=== PATIENT | female | born 1985 | race Caucasian/White ===

== ENCOUNTER 2023-06-10 20:22 | Inpatient (IN) | payer MEDICARE, OTHER ==
[2023-06-10 20:36] LABS: Glucose,Whole Blood 254 mg/dL (70-110)
[2023-06-10 21:41] LABS: Basophils # (A) 0.1 k/uL (0-0.2); Basophils % (A) 1 %; Eosinophils # (A) 0.2 k/uL (0-0.7); Eosinophils % (A) 2 %; HCT 50.3 % (34.0-46.0); HGB 14.9 gm/dL (11.4-16.0); Hypochromasia Slight; Lymphocytes # (A) 2.4 k/uL (1.0-4.8); Lymphocytes % (A) 27 %; MCH 25.2 pg (25.0-35.0); MCHC 29.7 g/dL (31.0-37.0); Mean Platelet Volume 8.6; Monocytes # (A) 0.5 k/uL (0-1.0); Monocytes % (A) 6 %; Neutrophils # (A) 5.5 k/uL (1.3-7.7); Neutrophils % (A) 63 %; Platelet Count 268 k/uL (150-450); RBC 5.92 m/uL (3.80-5.40); RDW 14.7 % (11.5-15.5); WBC 8.7 k/uL (3.8-10.6)
[2023-06-10 21:57] LABS: INR 0.9 (<1.2); Partial Thromboplastin Time 23.2 sec (22.0-30.0); Prothrombin Time 10.4 sec (10.0-12.5)
[2023-06-10] MEDS: SODIUM CHLORIDE 0.9% 1,000 ML IV STA (21:58)
[2023-06-10] MEDS: SODIUM CHLORIDE 0.9% 500 ML 500 ML IV ONE (21:58)
--- NOTE | 2023-06-10 23:43 | ED ---
Altered Mental Status HPI - General Source: EMS Mode of arrival: EMS <Dustin Alejandro - Last Filed: 06/10/23 23:54> <Arlet Ramirez - Last Filed: 06/11/23 06:38> <Mayank Loredo - Last Filed: 06/11/23 10:37> - General Chief Complaint: Altered Mental Status Stated Complaint: Mental Health Time Seen by Provider: 06/10/23 21:04 - History of Present Illness Initial Comments: This 38-year-old female presents via EMS from rehab facility. She apparently was screaming and uncontrollable at the facility. She is apparently there for alcohol and drug abuse. She is nonverbal for me and is not answering any questions. She is somewhat obtunded but will wake up. History is extremely limited secondary to current medical state. (Dustin Alejandro) - Related Data Home Medications Medication Instructions Recorded Confirmed Albuterol Sulfate [Albuterol 1 - 2 puff PO RT-QID PRN 06/11/23 06/11/23 Sulfate Hfa] Atorvastatin [Lipitor] 80 mg PO HS 06/11/23 06/11/23 DULoxetine HCL [Cymbalta] 60 mg PO HS 06/11/23 06/11/23 Doxycycline [Vibramycin] 100 mg PO BID 06/11/23 06/11/23 Gabapentin [Neurontin] 100 mg PO TID 06/11/23 06/11/23 Insulin Detemir (Levemir) [Levemir] 18 unit SQ DAILY 06/11/23 06/11/23 Insulin Regular, Human [NovoLIN R] See Protocol SQ AC-TID 06/11/23 06/11/23 Lurasidone [Latuda] 160 mg PO DAILY 06/11/23 06/11/23 Metoprolol Succinate (ER) [Toprol 25 mg PO DAILY 06/11/23 06/11/23 Xl] OXcarbazepine [Trileptal] 300 mg PO BID 06/11/23 06/11/23 Omeprazole [PriLOSEC] 20 mg PO DAILY 06/11/23 06/11/23 PHENobarbitaL [PHENobarbital] See Taper PO DIRECTED 06/11/23 06/11/23 Paliperidone [Paliperidone ER] 3 mg PO DAILY 06/11/23 06/11/23 Sacubitril/Valsartan [Entresto 24 1 tab PO BID 06/11/23 06/11/23 mg-26 mg Tablet] Allergies Allergy/AdvReac Type Severity Reaction Status Date / Time No Known Allergies Allergy Verified 06/11/23 09:39 Review of Systems ROS Other: All systems not noted in ROS Statement are negative. <Dustin Alejandro - Last Filed: 06/10/23 23:54> ROS Other: All systems not noted in ROS Statement are negative. <Arlet Ramirez P - Last Filed: 06/11/23 06:38> ROS Other: All systems not noted in ROS Statement are negative. <Mayank Loredo - Last Filed: 06/11/23 10:37> ROS Statement: Those systems with pertinent positive or pertinent negative responses have been documented in the HPI. Past Medical History Past Medical History: Unable to Obtain, Diabetes Mellitus History of Any Multi-Drug Resistant Organisms: None Reported Past Surgical History: Unable to Obtain Past Psychological History: Anxiety, Depression, Schizophrenia Smoking Status: Current every day smoker Past Alcohol Use History: Daily Past Drug Use History: Marijuana, Methamphetamine, Opiates <Dustin Alejandro - Last Filed: 06/10/23 23:54> General Exam <Dustin Alejandro - Last Filed: 06/10/23 23:54> - General Exam Comments Initial Comments: GENERAL: The patient is well nourished and well hydrated. VITAL SIGNS: Heart rate, blood pressure, respiratory rate reviewed as recorded in nurse's notes. EYES: Pupils are round and reactive. Extraocular movements are intact. No conjunctival / lid redness or swelling. ENT: No external evidence of injury, swelling, or ecchymosis. Airway is patent. Throat is clear. NECK: Nontender. No swelling or evidence of injury. No subcutaneous emphysema. Trachea is midline. No thyroid mass. HEART: Regular rate and rhythm. Good peripheral pulses. LUNGS/CHEST: Breath sounds clear and equal bilaterally. No rales, rhonchi, or wheezes. No ecchymosis, subcutaneous emphysema, or tenderness. ABDOMEN: Abdomen soft without tenderness. No palpable masses or organomegaly. No peritoneal signs. No abdominal wall swelling or ecchymosis. EXTREMITIES: No extremity tenderness. Normal muscle tone and function. No thoracolumbar tenderness. Patient has bilateral lower extremity below the knee amputations. NEUROLOGIC: Sensation is grossly intact. Patient is obtunded and nonverbal. SKIN: No abrasions or ecchymosis is noted. No induration or masses noted. PSYCHIATRIC: Patient is obtunded and nonverbal. (Dustin Alejandro) Course Vital Signs 06/10/23 06/10/23 06/10/23 20:27 22:15 23:21 Temperature Pulse Rate 91 89 90 Respiratory 12 20 15 Rate Blood Pressure 131/89 112/77 93/61 O2 Sat by Pulse 96 95 99 Oximetry 06/11/23 06/11/23 06/11/23 00:18 00:19 01:00 Temperature Pulse Rate 87 91 92 Respiratory 14 20 15 Rate Blood Pressure 105/74 105/74 106/72 O2 Sat by Pulse 94 L 94 L 98 Oximetry 06/11/23 06/11/23 06/11/23 02:00 03:00 04:00 Temperature Pulse Rate 98 90 90 Respiratory 15 14 14 Rate Blood Pressure 109/74 144/82 97/72 O2 Sat by Pulse 99 95 97 Oximetry 06/11/23 06/11/23 06/11/23 05:00 06:11 08:47 Temperature 97.6 F Pulse Rate 98 93 98 Respiratory 15 15 18 Rate Blood Pressure 108/73 119/76 126/82 O2 Sat by Pulse 97 97 95 Oximetry Medical Decision Making - Lab Data Result diagrams: 06/10/23 21:29 <Dustin Alejandro - Last Filed: 06/10/23 23:54> - Lab Data Result diagrams: 06/10/23 21:29 06/11/23 00:50 <Arlet Ramirez P - Last Filed: 06/11/23 06:38> - Lab Data Result diagrams: 06/10/23 21:29 06/11/23 00:50 <Mayank Loredo - Last Filed: 06/11/23 10:37> - Medical Decision Making The patient was seen and examined. All diagnostics to this plan are reviewed. The EKG shows a normal sinus rhythm with occasional PVC. There is no acute ST elevation identified per my interpretation. There is some slight T wave inversions in 1 and aVL. The QRS interval is slightly elevated at 124 but QTc interval is 448. IV is established and patient is hydrated. Additional studies are currently pending and further care will be passed off to oncoming physician. (Dustin Alejandro) Was pt. sent in by a medical professional or institution (, PA, VOLUNTEER SERVICES ASSISTANT, urgent care, hospital, or snf...) When possible be specific @ -Yes sent from [facility] Did you speak to anyone other than the patient for history (EMS, parent, family, police, friend...)? What history was obtained from this source @ -EMS Did you review nursing and triage notes (agree or disagree)? Why? @ -I reviewed and agree with nursing and triage notes Were old charts reviewed (outside hosp., previous admission, EMS record, old EKG, old radiological studies, urgent care reports/EKG's, snf records)? Report findings @ -No old charts available Differential Diagnosis (chest pain, altered mental status, abdominal pain women, abdominal pain men, vaginal bleeding, weakness, fever, dyspnea, syncope, headache, dizziness, GI bleed, back pain, seizure, CVA, palpatations, mental health)? @ -Differential Altered Mental Status: Hypoglycemia, DKA, hypercapnia, ETOH, overdose, CO poisoning, trauma, myxedema coma, HTN encephalopathy, infection, encephalitis, psychosis, intercranial hemorrhage, hepatic encephalopathy, meningitis, CVA, this is not meant to be an all-inclusive list EKG interpreted by me (3pts min.). @ -As above X-rays interpreted by me (1pt min.). @ -None done CT interpreted by me (1pt min.). @ -No masses bleeds or acute abnormality U/S interpreted by me (1pt. min.). @ -None done What testing was considered but not performed or refused? (CT, X-rays, U/S, labs)? Why? @ -None What meds were considered but not given or refused? Why? @ -None Did you discuss the management of the patient with other professionals (professionals i.e. , PA, VOLUNTEER SERVICES ASSISTANT, lab, RT, psych nurse, outreach and education social worker, sign language interpreter, teacher, chief data officer, assistant case manager)? Give summary @ -Discussed with Sound physician Dr Joe who declines medical admission, r ecommends psychiatric evaluation Was smoking cessation discussed for >3mins.? @ -No Was critical care preformed (if so, how long)? @ -No Were there social determinants of health that impacted care today? How? (Homelessness, low income, unemployed, alcoholism, drug addiction, transportation, low edu. Level, literacy, decrease access to med. care, senior living, rehab)? @ -Drug addiction, transportation, decreased access to medical care Was there de-escalation of care discussed even if they declined (Discuss DNR or withdrawal of care, Hospice)? DNR status @ -No What co-morbidities impacted this encounter? (DM, HTN, Smoking, COPD, CAD, Cancer, CVA, ARF, Chemo, Hep., AIDS, mental health diagnosis, sleep apnea, morbid obesity)? @ -Diabetes, polysubstance abuse, psychiatric illness (Arlet Ramirez) Patient care signed out to me by Dr. Ramirez. Briefly, patient is a 38-year-old female she presents to the emergency department for altered mental status. She was medically cleared by Dr. Fierro. Signed out to Dr. Ramirez. Dr. Ramirez signed out patient pending EPS recommendation. An attempt was made to admit patient medically however hospitalist requested EPS evaluation first. EPS evaluated patient and was not able to get any sort of response from the patient. She is somnolent at the bedside. Suspect drug overdose. She is arousable but requires significant stimulation. Labs and imaging reviewed. Patient has positive UDS for polysubstances. Case discussed with Dr. Mccray who is willing to accept patient's care. Psychiatry will be on consult (Mayank Loredo) - Lab Data Lab Results 06/10/23 06/10/23 06/10/23 Range/Units 20:35 21:29 21:29 WBC 8.7 (3.8-10.6) k/uL RBC 5.92 H (3.80-5.40) m/uL Hgb 14.9 (11.4-16.0) gm/dL Hct 50.3 H (34.0-46.0) % MCV 85.0 (80.0-100.0) fL MCH 25.2 (25.0-35.0) pg MCHC 29.7 L (31.0-37.0) g/dL RDW 14.7 (11.5-15.5) % Plt Count 268 (150-450) k/uL MPV 8.6 Neutrophils % 63 % Lymphocytes % 27 % Monocytes % 6 % Eosinophils % 2 % Basophils % 1 % Neutrophils # 5.5 (1.3-7.7) k/uL Lymphocytes # 2.4 (1.0-4.8) k/uL Monocytes # 0.5 (0-1.0) k/uL Eosinophils # 0.2 (0-0.7) k/uL Basophils # 0.1 (0-0.2) k/uL Hypochromasia Slight PT 10.4 (10.0-12.5) sec INR 0.9 (<1.2) APTT 23.2 (22.0-30.0) sec Sodium (137-145) mmol/L Potassium (3.5-5.1) mmol/L Chloride (98-107) mmol/L Carbon Dioxide (22-30) mmol/L Anion Gap mmol/L BUN (7-17) mg/dL Creatinine (0.52-1.04) mg/dL Est GFR (CKD-EPI)AfAm (>60 ml/min/1.73 sqM) Est GFR (CKD-EPI)NonAf (>60 ml/min/1.73 sqM) Glucose (74-99) mg/dL POC Glucose (mg/dL) 254 H (70-110) mg/dL POC Glu Architectural Engineer ID Jesús Golden Calcium (8.4-10.2) mg/dL Total Bilirubin (0.2-1.3) mg/dL AST (14-36) U/L ALT (4-34) U/L Alkaline Phosphatase (38-126) U/L Ammonia (<30) umol/L Total Protein (6.3-8.2) g/dL Albumin (3.5-5.0) g/dL Urine Color Urine Appearance (Clear) Urine pH (5.0-8.0) Ur Specific [place] (1.001-1.035) Urine Protein (Negative) Urine Glucose (UA) (Negative) Urine Ketones (Negative) Urine Blood (Negative) Urine Nitrite (Negative) Urine Bilirubin (Negative) Urine Urobilinogen (<2.0) mg/dL Ur Leukocyte Esterase (Negative) Urine RBC (0-5) /hpf Urine WBC (0-5) /hpf Amorphous Sediment (None) /hpf Hyaline Casts (0-2) /lpf Urine Mucus (None) /hpf Salicylates mg/dL Urine Opiates Screen (NotDetected) Ur Oxycodone Screen (NotDetected) Urine Methadone Screen (NotDetected) Acetaminophen ug/mL Ur Barbiturates Screen (NotDetected) U Tricyclic Antidepress (NotDetected) Ur Phencyclidine Scrn (NotDetected) Ur Amphetamines Screen (NotDetected) U Methamphetamines Scrn (NotDetected) U Benzodiazepines Scrn (NotDetected) Urine Cocaine Screen (NotDetected) U Marijuana (THC) Screen (NotDetected) Serum Alcohol mg/dL 06/10/23 06/11/23 06/11/23 Range/Units 21:29 00:00 00:50 WBC (3.8-10.6) k/uL RBC (3.80-5.40) m/uL Hgb (11.4-16.0) gm/dL Hct (34.0-46.0) % MCV (80.0-100.0) fL MCH (25.0-35.0) pg MCHC (31.0-37.0) g/dL RDW (11.5-15.5) % Plt Count (150-450) k/uL MPV Neutrophils % % Lymphocytes % % Monocytes % % Eosinophils % % Basophils % % Neutrophils # (1.3-7.7) k/uL Lymphocytes # (1.0-4.8) k/uL Monocytes # (0-1.0) k/uL Eosinophils # (0-0.7) k/uL Basophils # (0-0.2) k/uL Hypochromasia PT (10.0-12.5) sec INR (<1.2) APTT (22.0-30.0) sec Sodium 134 L (137-145) mmol/L Potassium 4.1 (3.5-5.1) mmol/L Chloride 107 (98-107) mmol/L Carbon Dioxide 22 (22-30) mmol/L Anion Gap 5 mmol/L BUN 33 H (7-17) mg/dL Creatinine 0.54 (0.52-1.04) mg/dL Est GFR (CKD-EPI)AfAm >90 (>60 ml/min/1.73 sqM) Est GFR (CKD-EPI)NonAf >90 (>60 ml/min/1.73 sqM) Glucose 233 H (74-99) mg/dL POC Glucose (mg/dL) (70-110) mg/dL POC Glu Architectural Engineer ID Calcium 8.3 L (8.4-10.2) mg/dL Total Bilirubin 0.2 (0.2-1.3) mg/dL AST 18 (14-36) U/L ALT 15 (4-34) U/L Alkaline Phosphatase 78 (38-126) U/L Ammonia <9 (<30) umol/L Total Protein 5.4 L (6.3-8.2) g/dL Albumin 2.7 L (3.5-5.0) g/dL Urine Color Urine Appearance (Clear) Urine pH (5.0-8.0) Ur Specific [place] (1.001-1.035) Urine Protein (Negative) Urine Glucose (UA) (Negative) Urine Ketones (Negative) Urine Blood (Negative) Urine Nitrite (Negative) Urine Bilirubin (Negative) Urine Urobilinogen (<2.0) mg/dL Ur Leukocyte Esterase (Negative) Urine RBC (0-5) /hpf Urine WBC (0-5) /hpf Amorphous Sediment (None) /hpf Hyaline Casts (0-2) /lpf Urine Mucus (None) /hpf Salicylates <1.0 mg/dL Urine Opiates Screen (NotDetected) Ur Oxycodone Screen (NotDetected) Urine Methadone Screen (NotDetected) Acetaminophen <10.0 ug/mL Ur Barbiturates Screen (NotDetected) U Tricyclic Antidepress (NotDetected) Ur Phencyclidine Scrn (NotDetected) Ur Amphetamines Screen (NotDetected) U Methamphetamines Scrn (NotDetected) U Benzodiazepines Scrn (NotDetected) Urine Cocaine Screen (NotDetected) U Marijuana (THC) Screen (NotDetected) Serum Alcohol <10 mg/dL 06/11/23 06/11/23 06/11/23 Range/Units 02:22 02:22 03:38 WBC (3.8-10.6) k/uL RBC (3.80-5.40) m/uL Hgb (11.4-16.0) gm/dL Hct (34.0-46.0) % MCV (80.0-100.0) fL MCH (25.0-35.0) pg MCHC (31.0-37.0) g/dL RDW (11.5-15.5) % Plt Count (150-450) k/uL MPV Neutrophils % % Lymphocytes % % Monocytes % % Eosinophils % % Basophils % % Neutrophils # (1.3-7.7) k/uL Lymphocytes # (1.0-4.8) k/uL Monocytes # (0-1.0) k/uL Eosinophils # (0-0.7) k/uL Basophils # (0-0.2) k/uL Hypochromasia PT (10.0-12.5) sec INR (<1.2) APTT (22.0-30.0) sec Sodium (137-145) mmol/L Potassium (3.5-5.1) mmol/L Chloride (98-107) mmol/L Carbon Dioxide (22-30) mmol/L Anion Gap mmol/L BUN (7-17) mg/dL Creatinine (0.52-1.04) mg/dL Est GFR (CKD-EPI)AfAm (>60 ml/min/1.73 sqM) Est GFR (CKD-EPI)NonAf (>60 ml/min/1.73 sqM) Glucose (74-99) mg/dL POC Glucose (mg/dL) 184 H (70-110) mg/dL POC Glu Architectural Engineer ID Indio Delacruz Calcium (8.4-10.2) mg/dL Total Bilirubin (0.2-1.3) mg/dL AST (14-36) U/L ALT (4-34) U/L Alkaline Phosphatase (38-126) U/L Ammonia (<30) umol/L Total Protein (6.3-8.2) g/dL Albumin (3.5-5.0) g/dL Urine Color Light Yellow Urine Appearance Clear (Clear) Urine pH 5.0 (5.0-8.0) Ur Specific [place] 1.031 (1.001-1.035) Urine Protein 1+ H (Negative) Urine Glucose (UA) 4+ H (Negative) Urine Ketones Negative (Negative) Urine Blood Negative (Negative) Urine Nitrite Negative (Negative) Urine Bilirubin Negative (Negative) Urine Urobilinogen <2.0 (<2.0) mg/dL Ur Leukocyte Esterase Negative (Negative) Urine RBC <1 (0-5) /hpf Urine WBC 1 (0-5) /hpf Amorphous Sediment Rare H (None) /hpf Hyaline Casts 3 H (0-2) /lpf Urine Mucus Rare H (None) /hpf Salicylates mg/dL Urine Opiates Screen Not Detected (NotDetected) Ur Oxycodone Screen Not Detected (NotDetected) Urine Methadone Screen Not Detected (NotDetected) Acetaminophen ug/mL Ur Barbiturates Screen Detected H (NotDetected) U Tricyclic Antidepress Not Detected (NotDetected) Ur Phencyclidine Scrn Not Detected (NotDetected) Ur Amphetamines Screen Detected H (NotDetected) U Methamphetamines Scrn Detected H (NotDetected) U Benzodiazepines Scrn Not Detected (NotDetected) Urine Cocaine Screen Not Detected (NotDetected) U Marijuana (THC) Screen Not Detected (NotDetected) Serum Alcohol mg/dL 06/11/23 06/11/23 Range/Units 05:07 06:59 WBC (3.8-10.6) k/uL RBC (3.80-5.40) m/uL Hgb (11.4-16.0) gm/dL Hct (34.0-46.0) % MCV (80.0-100.0) fL MCH (25.0-35.0) pg MCHC (31.0-37.0) g/dL RDW (11.5-15.5) % Plt Count (150-450) k/uL MPV Neutrophils % % Lymphocytes % % Monocytes % % Eosinophils % % Basophils % % Neutrophils # (1.3-7.7) k/uL Lymphocytes # (1.0-4.8) k/uL Monocytes # (0-1.0) k/uL Eosinophils # (0-0.7) k/uL Basophils # (0-0.2) k/uL Hypochromasia PT (10.0-12.5) sec INR (<1.2) APTT (22.0-30.0) sec Sodium (137-145) mmol/L Potassium (3.5-5.1) mmol/L Chloride (98-107) mmol/L Carbon Dioxide (22-30) mmol/L Anion Gap mmol/L BUN (7-17) mg/dL Creatinine (0.52-1.04) mg/dL Est GFR (CKD-EPI)AfAm (>60 ml/min/1.73 sqM) Est GFR (CKD-EPI)NonAf (>60 ml/min/1.73 sqM) Glucose (74-99) mg/dL POC Glucose (mg/dL) 219 H 173 H (70-110) mg/dL POC Glu Architectural Engineer ID Viridiana Hutchison Rachel Calcium (8.4-10.2) mg/dL Total Bilirubin (0.2-1.3) mg/dL AST (14-36) U/L ALT (4-34) U/L Alkaline Phosphatase (38-126) U/L Ammonia (<30) umol/L Total Protein (6.3-8.2) g/dL Albumin (3.5-5.0) g/dL Urine Color Urine Appearance (Clear) Urine pH (5.0-8.0) Ur Specific [place] (1.001-1.035) Urine Protein (Negative) Urine Glucose (UA) (Negative) Urine Ketones (Negative) Urine Blood (Negative) Urine Nitrite (Negative) Urine Bilirubin (Negative) Urine Urobilinogen (<2.0) mg/dL Ur Leukocyte Esterase (Negative) Urine RBC (0-5) /hpf Urine WBC (0-5) /hpf Amorphous Sediment (None) /hpf Hyaline Casts (0-2) /lpf Urine Mucus (None) /hpf Salicylates mg/dL Urine Opiates Screen (NotDetected) Ur Oxycodone Screen (NotDetected) Urine Methadone Screen (NotDetected) Acetaminophen ug/mL Ur Barbiturates Screen (NotDetected) U Tricyclic Antidepress (NotDetected) Ur Phencyclidine Scrn (NotDetected) Ur Amphetamines Screen (NotDetected) U Methamphetamines Scrn (NotDetected) U Benzodiazepines Scrn (NotDetected) Urine Cocaine Screen (NotDetected) U Marijuana (THC) Screen (NotDetected) Serum Alcohol mg/dL Disposition <Dustin Alejandro - Last Filed: 06/10/23 23:54> <Arlet Ramirez P - Last Filed: 06/11/23 06:38> Is patient prescribed a controlled substance at d/c from ED?: No Time of Disposition: 10:37 <Mayank Loredo - Last Filed: 06/11/23 10:37> Clinical Impression: Catatonia, Substance abuse, Altered mental status Disposition: ADMITTED IP TO THIS HOSP Referrals: None,Stated [Primary Care Provider] - 1-2 days
--- NOTE | 2023-06-11 00:13 | CT ---
EXAM: CT Head Without Intravenous Contrast CLINICAL HISTORY: ITS.REASON CT Reason: Altered mental status TECHNIQUE: Axial computed tomography images of the head/brain without intravenous contrast. CTDI is 49.1 mGy and DLP is 1095 mGy-cm. This CT exam was performed using one or more of the following dose reduction techniques: automated exposure control, adjustment of the mA and/or kV according to patient size, and/or use of iterative reconstruction technique. COMPARISON: No relevant prior studies available. FINDINGS: No acute intracranial hemorrhage. No midline shift or mass effect. The territorial simental-white matter differentiation is maintained throughout. The ventricles and sulci are commensurate with age. The visualized orbits appear grossly unremarkable. The calvarium is intact. The visualized paranasal sinuses and mastoid air cells are grossly clear. IMPRESSION: No acute intracranial hemorrhage, midline shift, or mass effect.
[2023-06-11 01:55] LABS: ALT 15 U/L (4-34); AST 18 U/L (14-36); African American GFR (CKD) >90 (>60 ml/min/1.73 sqM); Albumin 2.7 g/dL (3.5-5.0); Alcohol <10 mg/dL; Alkaline Phosphatase 78 U/L (38-126); Anion Gap 5 mmol/L; Blood Urea Nitrogen 33 mg/dL (7-17); Calcium 8.3 mg/dL (8.4-10.2); Carbon Dioxide 22 mmol/L (22-30); Chloride 107 mmol/L (98-107); Glucose 233 mg/dL (74-99); Non-African American GFR(CKD) >90 (>60 ml/min/1.73 sqM); Potassium 4.1 mmol/L (3.5-5.1); Sodium 134 mmol/L (137-145); Total Bilirubin 0.2 mg/dL (0.2-1.3); Total Protein 5.4 g/dL (6.3-8.2)
[2023-06-11 02:41] LABS: Amorphous Sediment,Urine Rare /hpf; Appearance,Urine Clear (Clear); Bilirubin,Urine Negative (Negative); Blood,Urine Negative (Negative); Color,Urine Light Yellow; Glucose,Urine (UA) 4+ (Negative); Hyaline Casts,Urine 3 /lpf (0-2); Ketones,Urine Negative (Negative); Leukocyte Esterase,Urine Negative (Negative); Mucus,Urine Rare /hpf; Nitrite,Urine Negative (Negative); Protein,Urine 1+ (Negative); RBC,Urine <1 /hpf (0-5); Specific Gravity,Urine 1.031 (1.001-1.035); Urobilinogen,Urine <2.0 mg/dL (<2.0); WBC,Urine 1 /hpf (0-5)
[2023-06-11 02:43] LABS: Amphetamine Screen,Urine Detected (NotDetected); Barbiturate Screen,Urine Detected (NotDetected); Benzodiazepines Screen,Urine Not Detected (NotDetected); Cocaine Screen,Urine Not Detected (NotDetected); Methadone Screen, Urine Not Detected (NotDetected); Opiate Screen,Urine Not Detected (NotDetected); Oxycodone Screen, Urine Not Detected (NotDetected); Phencyclidine Screen,Urine Not Detected (NotDetected); Tricyclic Antidepressant,Urine Not Detected (NotDetected); Urn Cannabinoid Scrn Not Detected (NotDetected)
[2023-06-11] MEDS ORDERED: DEXTROSE 50% SYRINGE 50 ML IVP PRN (02:50)
[2023-06-11 03:40] LABS: Glucose,Whole Blood 184 mg/dL (70-110)
[2023-06-11 03:46] LABS: Acetaminophen <10.0 ug/mL; Salicylate <1.0 mg/dL
[2023-06-11 05:09] LABS: Glucose,Whole Blood 219 mg/dL (70-110)
[2023-06-11] MEDS: LORazepam 2 MG/ML INJ IV STA (05:27)
[2023-06-11 07:02] LABS: Glucose,Whole Blood 173 mg/dL (70-110)
[2023-06-11] MEDS: INSULIN DETEMIR (LEVEMIR) 100 UNIT/ML SYR SQ SCH (07:39)
[2023-06-11] MEDS: INSULIN ASPART (NovoLOG) 100 UNIT/ML VIAL SQ SCH (07:40)
[2023-06-11] MEDS ORDERED: NALOXONE 0.4 MG/ML 1 ML VIAL IV PRN (10:35)
[2023-06-11 10:48] LABS: Glucose,Whole Blood 169 mg/dL (70-110)
[2023-06-11] MEDS: SODIUM CHLORIDE 0.9% 1,000 ML IV SCH (10:49)
[2023-06-11 12:52] LABS: Glucose,Whole Blood 157 mg/dL (70-110)
[2023-06-11] MEDS ORDERED: ONDANSETRON 4 MG/2 ML VIAL IVP PRN (15:31)
--- NOTE | 2023-06-11 15:46 | P.CNNES ---
History of Present Illness Consult date: 06/11/23 Requesting physician: Harriet Truong Reason for Consult: Seizures History of Present Illness: Patient is a 38-year-old female came to the hospital by ambulance yesterday at 8:22 PM. As per EMS flowsheet, they were called at the [facility] for altered mental status. Upon arrival, patient was seeing writhing on the floor screaming. Nursing staff mentioned that she had come to her an hour prior and started acting like this, patient would also have movements of catatonia where she could not speak or move, but would keep her eyes open. Staff was unsure if she has a psychiatric history and believes that she has taken something while at the facility. Patient was being seen for methamphetamine usage, heroin usage and cannabis usage. Patient has history of schizophrenia. 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 Speech could not be assessed. Blood glucose was 211. Pupils were 4 mm and were reactive. In the ambulance patient calm down, she would follow commands but was still not talking. Her blood pressure was 120/79, pulse rate 94, saturation 98% respirations 16. Patient's vitals on arrival blood pressure 131/89, pulse rate 91. Patient is afebrile. Patient's blood test shows normal CBC with slightly elevated hematocrit of 50.3. PT PTT is normal, sodium 134, BUN 33, creatinine is normal. Hepatic panel is normal, ammonia is < 9, UA negative. Urine drug screen p ositive for barbiturate, amphetamines and methamphetamine. Blood alcohol level negative. EKG shows sinus rhythm with occasional ectopic premature complexes. Possible left atrial enlargement. CT head revealed no acute intracranial hemorrhage, midline shift or mass effect. I personally reviewed CT head, agree with the findings. While in the ER, patient was being considered for possible discharge, but it was noted, the patient is obtunded, not responding. Patient was very somnolent. Drug overdose suspected. Patient was arousable but required significant stimulation. Patient was admitted, psychiatry and neurology consulted. Patient's medications at [facility] include albuterol, Lipitor, doxycycline, Cymbalta Entresto, gabapentin, Levemir, lurasidone, metoprolol, omeprazole, Trileptal, paliperidone Novolin and was received phenobarbital 64.8 mg twice daily. No prior history available, as patient is moved from another state. Patient has history of diabetes, CHF. Patient is not talking at all. Patient has history of bilateral BKA. Review of Systems Patient completely nonverbal. Patient is not talking. Family members not available. Nursing staff does not know any more details. ROS unobtainable: due to mental status Past Medical History Past Medical History: Unable to Obtain, Asthma, Diabetes Mellitus Additional Past Medical History / Comment(s): Patients uncle attempting to give medicatl history. Unsure about History of Any Multi-Drug Resistant Organisms: None Reported Past Surgical History: Unable to Obtain Additional Past Surgical History / Comment(s): BLE BKA, Tip of left thumb cut off. Past Anesthesia/Blood Transfusion Reactions: Unable to Obtain Smoking Status: Current some day smoker - Past Family History Mother Family Medical History: Diabetes Mellitus Father History Unknown: Yes Family Medical History: No Reported History, Unable to Obtain Additional Family Medical History / Comment(s): Patient has no contact with her father Medications and Allergies Home Medications Medication Instructions Recorded Confirmed Type Albuterol Sulfate [Albuterol 1 - 2 puff PO RT-QID PRN 06/11/23 06/11/23 History Sulfate Hfa] Atorvastatin [Lipitor] 80 mg PO HS 06/11/23 06/11/23 History DULoxetine HCL [Cymbalta] 60 mg PO HS 06/11/23 06/11/23 History Doxycycline [Vibramycin] 100 mg PO BID 06/11/23 06/11/23 History Gabapentin [Neurontin] 100 mg PO TID 06/11/23 06/11/23 History Insulin Detemir (Levemir) [Levemir] 18 unit SQ DAILY 06/11/23 06/11/23 History Insulin Regular, Human [NovoLIN R] See Protocol SQ AC-TID 06/11/23 06/11/23 History Lurasidone [Latuda] 160 mg PO DAILY 06/11/23 06/11/23 History Metoprolol Succinate (ER) [Toprol 25 mg PO DAILY 06/11/23 06/11/23 History Xl] OXcarbazepine [Trileptal] 300 mg PO BID 06/11/23 06/11/23 History Omeprazole [PriLOSEC] 20 mg PO DAILY 06/11/23 06/11/23 History PHENobarbitaL [PHENobarbital] See Taper PO DIRECTED 06/11/23 06/11/23 History Paliperidone [Paliperidone ER] 3 mg PO DAILY 06/11/23 06/11/23 History Sacubitril/Valsartan [Entresto 24 1 tab PO BID 06/11/23 06/11/23 History mg-26 mg Tablet] Allergies Allergy/AdvReac Type Severity Reaction Status Date / Time No Known Allergies Allergy Verified 06/11/23 09:39 Physical Examination - Vital Signs Vital Signs: Vital Signs Temp Pulse Pulse Resp BP BP Pulse Ox 06/11/23 12:45 97.7 F 91 16 127/81 95 06/11/23 12:03 94 14 122/85 97 06/11/23 10:52 93 14 123/84 93 L 06/11/23 08:47 97.6 F 98 18 126/82 95 06/11/23 06:11 93 15 119/76 97 06/11/23 05:00 98 15 108/73 97 06/11/23 04:00 90 14 97/72 97 06/11/23 03:00 90 14 144/82 95 06/11/23 02:00 98 15 109/74 99 06/11/23 01:00 92 15 106/72 98 06/11/23 00:19 91 20 105/74 94 L 06/11/23 00:18 87 14 105/74 94 L 06/10/23 23:21 90 15 93/61 99 06/10/23 22:15 89 20 112/77 95 06/10/23 20:27 91 12 131/89 96 Intake and Output 06/11/23 06/11/23 06/11/23 06:59 14:59 22:59 Other: Weight 63.503 kg Patient is a middle aged female, who is obtunded, somnolent. Patient is not following commands. She does open her eyes to calling her name very loudly. She does not clearly track. Patient is completely mute. She is not talking a single word. Attention, concentration and fund of knowledge is all severely limited. On cranial nerve examination, pupils are equal, round and reacting to light. Oculocephalics are absent. While checking oculocephalics, patient did open her eyes to some extent. Visual givens could not be tested. Extraocular muscles are intact although patient did not cooperate with examination. No gaze d eviation. Face is symmetric, patient did not protrude her tongue. Lower cranial nerves cannot be tested because of patient's mental status. On muscle strength testing, on checking pronator drift, patient's right arm flops down, but she does hold her left arm up to some extent. Patient was squ eezing with her deep submergence vehicle operator better on the right, but squeezing but extending her fingers on the left. Patient is slightly withdrawing to pain better in the left as compared to the right. Patient has bilateral BKA. Deep tendon reflexes are diminished, and patient has bilateral BKA. Sensory to touch cannot be assessed. With painful stimuli at nailbed pressure, patient moves the left arm somewhat better than the right. Cerebellar function cannot be tested due to mental status. Tone and bulk of muscles normal. Gait deferred.. On general examination, there is no carotid bruit or murmur, S1-S2 audible. Chest is clear on consultation. Abdomen is soft nontender. No organomegaly, bowel sounds present. Patient has bilateral BKA. Results - Laboratory Findings CBC and BMP: 06/12/23 08:23 06/12/23 08:23 Abnormal Lab Findings: Abnormal Labs 06/10/23 06/10/23 06/11/23 20:35 21:29 00:50 RBC 5.92 H Hct 50.3 H MCHC 29.7 L Sodium 134 L BUN 33 H Glucose 233 H POC Glucose (mg/dL) 254 H Calcium 8.3 L Total Protein 5.4 L Albumin 2.7 L Urine Protein Urine Glucose (UA) Amorphous Sediment Hyaline Casts Urine Mucus Ur Barbiturates Screen Ur Amphetamines Screen U Methamphetamines Scrn 06/11/23 06/11/23 06/11/23 02:22 02:22 03:38 RBC Hct MCHC Sodium BUN Glucose POC Glucose (mg/dL) 184 H Calcium Total Protein Albumin Urine Protein 1+ H Urine Glucose (UA) 4+ H Amorphous Sediment Rare H Hyaline Casts 3 H Urine Mucus Rare H Ur Barbiturates Screen Detected H Ur Amphetamines Screen Detected H U Methamphetamines Scrn Detected H 06/11/23 06/11/23 06/11/23 05:07 06:59 10:48 RBC Hct MCHC Sodium BUN Glucose POC Glucose (mg/dL) 219 H 173 H 169 H Calcium Total Protein Albumin Urine Protein Urine Glucose (UA) Amorphous Sediment Hyaline Casts Urine Mucus Ur Barbiturates Screen Ur Amphetamines Screen U Methamphetamines Scrn 06/11/23 12:50 RBC Hct MCHC Sodium BUN Glucose POC Glucose (mg/dL) 157 H Calcium Total Protein Albumin Urine Protein Urine Glucose (UA) Amorphous Sediment Hyaline Casts Urine Mucus Ur Barbiturates Screen Ur Amphetamines Screen U Methamphetamines Scrn Assessment and Plan Assessment: * Altered mental status, possible metabolic encephalopathy, versus sedation from medication versus withdrawal. Rule out other causes. Patient's examination revealed some focality. Rule out CVA. * Polysubstance abuse. Urine positive for amphetamines and methamphetamines. * Diabetes * History of bilateral BKA Plan: * Stat EEG rule out epileptiform activity. * CT head revealed no acute process. * Check CTA of head and neck if EEG comes back negative, to rule out any large vessel occlusion. * Phenobarbital and Trileptal level already ordered. * Continue close neurochecks. * Fall precautions. * DVT prophylaxis: Start heparin 5000 units subcu every 12 hours. * Neurology will follow clinically. Thank you for the consult.
--- NOTE | 2023-06-11 15:49 | P.HPIM ---
History of Present Illness H&P Date: 06/11/23 Patient is a 38-year-old female with known congestive heart failure, diabetes, and schizophrenia who presented to our emergency department from [place] due to agitation. Initial report from the ER was that she had been agitated and yelling. However review from [place] is that she presented to the nurse with flailing arms and legs unable to speak and just groaning. On arrival to the ER here her vital signs are within normal limits. Laboratory analysis included CBC, coags, CMP, ammonia, urinalysis, and urine drug screen which were remarkable for sodium 134, glucose 233, 1+ protein, 4+ glucose. Urine drug screen was positive for barbiturates and methamphetamines. Salicylates, acetaminophen, and alcohol level were negative. Initially she was kept to be seen by psych. Per charting it appears that her GCS had been up to 15 at some point and she required 1 mg of Ativan at 527 on the morning of 06/10. We were contacted for admission at 1032. Patient seen and examined at bedside. She is currently nonverbal. She wakes up to shouting her name but then immediately closes her eyes. She is not able to follow any simple commands. During my evaluation her 6-year-old daughter and uncle arrived at the hospital. He took her to [facility] on 06/07 and was called last night that she was being transported to the hospital. The daughter has been staying with her at [place]. She witnessed the entire event and noted that yesterday her mom was attempting to drink water and was pouring it all over herself. She then noticed that mom was not responding to her and had shaking in her arms and in her legs. She was unable to get her to wake up or talk and she therefore went to find the nurse to get help. The uncle states that she has diabetes and congestive heart failure. She has had bilateral BKA's and she has been using methamphetamines and prescription op iate drugs. He is unsure whether or not she has a history of seizure disorder. Information is obtained from family at bedside and thorough chart review. Vital signs reviewed General: ill appearing, appears older than stated age Derm: warm, dry Eyes: EOMI, no lid lag, anicteric sclera, pupils equal round reactive to light ENT: Nose and ears atraumatic Cardiovascular: S1S2 reg, no murmur, no edema Lungs: clear to auscultation bilateral, no rhonchi, no rales, no wheeze, no accessory muscle use Abdominal: soft, nontender to palpation, no guarding Ext: + gross muscle atrophy, b/l BKA Neuro Pupils dilated and sluggishly reactive, + gag, + withdrawal to noxious stimul in b/l arms and leg, no tremors noted, not tracking, unable to follow simple commands. Psych: Somonlent, only able to open eye and does not answer questions Assessment/Plan: Altered mentation - spoke with the emergency department and patinet accepted for admission - concern for seizure vs medical side effect vs CVA - hold all sedative medications including Neurontin, Latuda, Trileptal, phenobarbital -Records reviewed from [facility]. Patient received phenobarbital on 06/10/2023 at a dose of 64.8 mg. Her taper as laid out she had received 94 mg the day prior -Patient is strict n.p.o. due to altered mentation -Neurology consultation. Case discussed with Dr. Daly. Stat EEG ordered -Check stat phenobarbital and oxcarbazepine levels -Check serum and urine osmol to assess for an osmolar gap -Neurochecks -Supportive care Congestive heart failure, unknown type -Hold Entresto 24 mg - 26 mg, metoprolol 25 mg orally as patient needs to be strict n.p.o. -Monitor fluid status closely Diabetes mellitus, insulin requiring -Patient uses sliding scale and Levemir at home. Will continue with sliding scale insulin, follow blood sugars, check hemoglobin A1c Schizophrenia - hold all sedating medications. Imaging: As per HPI Data Review: As per HPI The patient is admitted with an anticipated greater than 2 midnight stay for evaluation of altered mentation. Surrogate decision-maker: Uncle CODE STATUS:Full, by default DVT prophylaxis: Heparin Anticipated discharge date: pending clinical course Anticipated discharge place: pending clinical course This dictation was prepared using Adly voice recognition software. Though every attempt is made to correct errors during dictation some may still exist. Past Medical History Past Medical History: Unable to Obtain, Asthma, Diabetes Mellitus Additional Past Medical History / Comment(s): Patients uncle attempting to give medicatl history. Unsure about History of Any Multi-Drug Resistant Organisms: None Reported Past Surgical History: Unable to Obtain Additional Past Surgical History / Comment(s): BLE BKA, Tip of left thumb cut off. Past Anesthesia/Blood Transfusion Reactions: Unable to Obtain Smoking Status: Current some day smoker - Past Family History Mother Family Medical History: Diabetes Mellitus Father History Unknown: Yes Family Medical History: No Reported History, Unable to Obtain Additional Family Medical History / Comment(s): Patient has no contact with her father Medications and Allergies Home Medications Medication Instructions Recorded Confirmed Type Albuterol Sulfate [Albuterol 1 - 2 puff PO RT-QID PRN 06/11/23 06/11/23 History Sulfate Hfa] Atorvastatin [Lipitor] 80 mg PO HS 06/11/23 06/11/23 History DULoxetine HCL [Cymbalta] 60 mg PO HS 06/11/23 06/11/23 History Doxycycline [Vibramycin] 100 mg PO BID 06/11/23 06/11/23 History Gabapentin [Neurontin] 100 mg PO TID 06/11/23 06/11/23 History Insulin Detemir (Levemir) [Levemir] 18 unit SQ DAILY 06/11/23 06/11/23 History Insulin Regular, Human [NovoLIN R] See Protocol SQ AC-TID 06/11/23 06/11/23 Hi story Lurasidone [Latuda] 160 mg PO DAILY 06/11/23 06/11/23 History Metoprolol Succinate (ER) [Toprol 25 mg PO DAILY 06/11/23 06/11/23 History Xl] OXcarbazepine [Trileptal] 300 mg PO BID 06/11/23 06/11/23 History Omeprazole [PriLOSEC] 20 mg PO DAILY 06/11/23 06/11/23 History PHENobarbitaL [PHENobarbital] See Taper PO DIRECTED 06/11/23 06/11/23 History Paliperidone [Paliperidone ER] 3 mg PO DAILY 06/11/23 06/11/23 History Sacubitril/Valsartan [Entresto 24 1 tab PO BID 06/11/23 06/11/23 History mg-26 mg Tablet] Allergies Allergy/AdvReac Type Severity Reaction Status Date / Time No Known Allergies Allergy Verified 06/11/23 09:39 Physical Exam Osteopathic Statement: *. No significant issues noted on an osteopathic structural exam other than those noted in the History and Physical/Consult. Vitals: Vital Signs Temp Pulse Pulse Resp BP BP Pulse Ox 06/11/23 12:45 97.7 F 91 16 127/81 95 06/11/23 12:03 94 14 122/85 97 06/11/23 10:52 93 14 123/84 93 L 06/11/23 08:47 97.6 F 98 18 126/82 95 06/11/23 06:11 93 15 119/76 97 06/11/23 05:00 98 15 108/73 97 06/11/23 04:00 90 14 97/72 97 06/11/23 03:00 90 14 144/82 95 06/11/23 02:00 98 15 109/74 99 06/11/23 01:00 92 15 106/72 98 06/11/23 00:19 91 20 105/74 94 L 06/11/23 00:18 87 14 105/74 94 L 06/10/23 23:21 90 15 93/61 99 06/10/23 22:15 89 20 112/77 95 06/10/23 20:27 91 12 131/89 96 Intake and Output 06/11/23 06/11/23 06/11/23 06:59 14:59 22:59 Other: Weight 63.503 kg Results CBC & Chem 7: 06/10/23 21:29 06/11/23 00:50 Labs: Abnormal Lab Results - Last 24 Hours (Table) 06/10/23 06/10/23 06/11/23 Range/Units 20:35 21:29 00:50 RBC 5.92 H (3.80-5.40) m/uL Hct 50.3 H (34.0-46.0) % MCHC 29.7 L (31.0-37.0) g/dL Sodium 134 L (137-145) mmol/L BUN 33 H (7-17) mg/dL Glucose 233 H (74-99) mg/dL POC Glucose (mg/dL) 254 H (70-110) mg/dL Calcium 8.3 L (8.4-10.2) mg/dL Total Protein 5.4 L (6.3-8.2) g/dL Albumin 2.7 L (3.5-5.0) g/dL Urine Protein (Negative) Urine Glucose (UA) (Negative) Amorphous Sediment (None) /hpf Hyaline Casts (0-2) /lpf Urine Mucus (None) /hpf Ur Barbiturates Screen (NotDetected) Ur Amphetamines Screen (NotDetected) U Methamphetamines Scrn (NotDetected) 06/11/23 06/11/23 06/11/23 Range/Units 02:22 02:22 03:38 RBC (3.80-5.40) m/uL Hct (34.0-46.0) % MCHC (31.0-37.0) g/dL Sodium (137-145) mmol/L BUN (7-17) mg/dL Glucose (74-99) mg/dL POC Glucose (mg/dL) 184 H (70-110) mg/dL Calcium (8.4-10.2) mg/dL Total Protein (6.3-8.2) g/dL Albumin (3.5-5.0) g/dL Urine Protein 1+ H (Negative) Urine Glucose (UA) 4+ H (Negative) Amorphous Sediment Rare H (None) /hpf Hyaline Casts 3 H (0-2) /lpf Urine Mucus Rare H (None) /hpf Ur Barbiturates Screen Detected H (NotDetected) Ur Amphetamines Screen Detected H (NotDetected) U Methamphetamines Scrn Detected H (NotDetected) 06/11/23 06/11/23 06/11/23 Range/Units 05:07 06:59 10:48 RBC (3.80-5.40) m/uL Hct (34.0-46.0) % MCHC (31.0-37.0) g/dL Sodium (137-145) mmol/L BUN (7-17) mg/dL Glucose (74-99) mg/dL POC Glucose (mg/dL) 219 H 173 H 169 H (70-110) mg/dL Calcium (8.4-10.2) mg/dL Total Protein (6.3-8.2) g/dL Albumin (3.5-5.0) g/dL Urine Protein (Negative) Urine Glucose (UA) (Negative) Amorphous Sediment (None) /hpf Hyaline Casts (0-2) /lpf Urine Mucus (None) /hpf Ur Barbiturates Screen (NotDetected) Ur Amphetamines Screen (NotDetected) U Methamphetamines Scrn (NotDetected) 06/11/23 Range/Units 12:50 RBC (3.80-5.40) m/uL Hct (34.0-46.0) % MCHC (31.0-37.0) g/dL Sodium (137-145) mmol/L BUN (7-17) mg/dL Glucose (74-99) mg/dL POC Glucose (mg/dL) 157 H (70-110) mg/dL Calcium (8.4-10.2) mg/dL Total Protein (6.3-8.2) g/dL Albumin (3.5-5.0) g/dL Urine Protein (Negative) Urine Glucose (UA) (Negative) Amorphous Sediment (None) /hpf Hyaline Casts (0-2) /lpf Urine Mucus (None) /hpf Ur Barbiturates Screen (NotDetected) Ur Amphetamines Screen (NotDetected) U Methamphetamines Scrn (NotDetected) Thrombosis Risk Factor Assmnt - Choose All That Apply Each Factor Represents 1 point: Medical pt on bed rest, Obesity (BMI >25) Each Risk Factor Represents 2 Points: Patient confined to bed Thrombosis Risk Factor Assessment Total Risk Factor Score: 4 Thrombosis Risk Factor Assessment Level: Moderate Risk
[2023-06-11 17:09] LABS: Glucose,Whole Blood 142 mg/dL (70-110)
[2023-06-11 17:20] LABS: VBG PH 7.47 (7.31-7.41)
[2023-06-11 17:21] LABS: HCT 45.4 % (34.0-46.0); HGB 13.9 gm/dL (11.4-16.0); Hypochromasia Slight; MCHC 30.5 g/dL (31.0-37.0); MCV 85.2 fL (80.0-100.0); Mean Platelet Volume 7.9; Platelet Count 267 k/uL (150-450); RBC 5.33 m/uL (3.80-5.40); RDW 14.8 % (11.5-15.5); WBC 10.7 k/uL (3.8-10.6)
[2023-06-11 17:38] LABS: Partial Thromboplastin Time 22.4 sec (22.0-30.0); Prothrombin Time 10.6 sec (10.0-12.5)
[2023-06-11 17:57] LABS: ALT 13 U/L (4-34); AST 16 U/L (14-36); African American GFR (CKD) >90 (>60 ml/min/1.73 sqM); Albumin 2.7 g/dL (3.5-5.0); Alkaline Phosphatase 78 U/L (38-126); Anion Gap 3 mmol/L; Blood Urea Nitrogen 32 mg/dL (7-17); Calcium 8.1 mg/dL (8.4-10.2); Carbon Dioxide 23 mmol/L (22-30); Chloride 111 mmol/L (98-107); Globulin 2.8 g/dL; Glucose 134 mg/dL (74-99); Magnesium 1.4 mg/dL (1.6-2.3); Non-African American GFR(CKD) >90 (>60 ml/min/1.73 sqM); Phosphorus 2.9 mg/dL (2.5-4.5); Potassium 3.7 mmol/L (3.5-5.1); Sodium 137 mmol/L (137-145); Total Bilirubin 0.4 mg/dL (0.2-1.3); Total Protein 5.5 g/dL (6.3-8.2)
[2023-06-11 20:02] LABS: Glucose,Whole Blood 132 mg/dL (70-110)
[2023-06-11] MEDS: LORazepam 2 MG/ML INJ IV PRN (20:43)
[2023-06-11] MEDS: MAGNESIUM SULFATE-D5W PMX 1 GM in DEXTROSE/WATER 1 100ML.BAG IVPB SCH (21:12)
--- NOTE | 2023-06-11 22:24 | EEG ---
ELECTROENCEPHALOGRAM REPORT PREAMBLE: This is a 38-year-old female, who was in [facility] for alcohol, meth, and other substance use, when she started screaming uncontrollably and EMS was called. EEG FINDINGS: This is a 21-channel digital EEG recorded with video component, utilizing 10/20 international system with referential and bipolar montages. Background consists of moderately well-developed, poorly regulated, mixed frequencies of predominantly low amplitude mixed theta and some delta activity intermixed with some 10 to 11 hertz alpha seen in bihemispheric region. Background does not seem to be reactive to eye opening and closing. Photic driving response was not seen. Myogenic activity was seen in the temporal parietal region. Different stages of sleep were not seen. No focal or generalized epileptiform activity was seen. IMPRESSION: This is an abnormal EEG due to background slowing of moderate to severe degree. This is suggestive of generalized cerebral dysfunction as can be seen in toxic metabolic encephalopathy or related to diffuse structural brain abnormality. Clinical correlation is recommended. No epileptiform activity was seen. MMTORIL / IJN: [id number] /
[2023-06-11] MEDS: ASPIRIN 300 MG SUPP RECTAL STA (23:23)
[2023-06-12 05:43] LABS: Glucose,Whole Blood 92 mg/dL (70-110)
[2023-06-12] MEDS: HALOPERIDOL LACTATE 5 MG/ML 1 ML VIAL IVP ONE (08:01)
[2023-06-12 08:37] LABS: HCT 43.9 % (34.0-46.0); HGB 13.2 gm/dL (11.4-16.0); Hypochromasia Slight; MCH 25.6 pg (25.0-35.0); MCV 85.3 fL (80.0-100.0); Mean Platelet Volume 7.8; Platelet Count 242 k/uL (150-450); RBC 5.15 m/uL (3.80-5.40); RDW 14.8 % (11.5-15.5); WBC 7.9 k/uL (3.8-10.6)
[2023-06-12 09:21] LABS: ALT 12 U/L (4-34); AST 18 U/L (14-36); African American GFR (CKD) >90 (>60 ml/min/1.73 sqM); Albumin 2.7 g/dL (3.5-5.0); Albumin/Globulin Ratio 0.9; Alkaline Phosphatase 75 U/L (38-126); Anion Gap 7 mmol/L; Blood Urea Nitrogen 26 mg/dL (7-17); Calcium 8.1 mg/dL (8.4-10.2); Carbon Dioxide 21 mmol/L (22-30); Chloride 111 mmol/L (98-107); Globulin 2.9 g/dL; Glucose 99 mg/dL (74-99); Magnesium 1.8 mg/dL (1.6-2.3); Non-African American GFR(CKD) >90 (>60 ml/min/1.73 sqM); Phosphorus 2.7 mg/dL (2.5-4.5); Potassium 3.4 mmol/L (3.5-5.1); Sodium 139 mmol/L (137-145); Total Bilirubin 0.5 mg/dL (0.2-1.3); Total Protein 5.6 g/dL (6.3-8.2)
--- NOTE | 2023-06-12 10:11 | P.NPCON ---
History of Present Illness - History of Present Illness Patient is a 38-year-old female with history of diabetes, schizophrenia who is admitted to the hospital from [place] due to altered mentation and increased agitation. Urine drug screen was positive for barbiturates and methamphetamines and amphetamines. Serum alcohol level was negative. Patient was noted to have borderline osmolal gap at 10 and therefore nephrology is consulted. Serum glucose was elevated on initial admission however it appears to be at 134 when the serum osmolality was measured. Volatile alcohol screen is currently pending. No evidence of diabetic ketoacidosis Serum alcohol level is negative Urine drug screen was positive for barbiturates amphetamines and methamphetamines. Serum creatinine 0.5 mg/dL. Patient has good urine output. Patient is maintained on IV fluids. She is currently sedated after receiving Ativan for significant agitation. Review of Systems As per HPI Past Medical History Past Medical History: Unable to Obtain, Asthma, Diabetes Mellitus Additional Past Medical History / Comment(s): Patients uncle attempting to give medicatl history. Unsure about History of Any Multi-Drug Resistant Organisms: None Reported Past Surgical History: Unable to Obtain Additional Past Surgical History / Comment(s): BLE BKA, Tip of left thumb cut off. Past Anesthesia/Blood Transfusion Reactions: Unable to Obtain Smoking Status: Current some day smoker - Past Family History Mother Family Medical History: Diabetes Mellitus Father History Unknown: Yes Family Medical History: No Reported History, Unable to Obtain Additional Family Medical History / Comment(s): Patient has no contact with her father Medications and Allergies Home Medications Medication Instructions Recorded Confirmed Type Albuterol Sulfate [Albuterol 1 - 2 puff PO RT-QID PRN 06/11/23 06/11/23 History Sulfate Hfa] Atorvastatin [Lipitor] 80 mg PO HS 06/11/23 06/11/23 History DULoxetine HCL [Cymbalta] 60 mg PO HS 06/11/23 06/11/23 History Doxycycline [Vibramycin] 100 mg PO BID 06/11/23 06/11/23 History Gabapentin [Neurontin] 100 mg PO TID 06/11/23 06/11/23 History Insulin Detemir (Levemir) [Levemir] 18 unit SQ DAILY 06/11/23 06/11/23 History Insulin Regular, Human [NovoLIN R] See Protocol SQ AC-TID 06/11/23 06/11/23 History Lurasidone [Latuda] 160 mg PO DAILY 06/11/23 06/11/23 History Metoprolol Succinate (ER) [Toprol 25 mg PO DAILY 06/11/23 06/11/23 History Xl] OXcarbazepine [Trileptal] 300 mg PO BID 06/11/23 06/11/23 History Omeprazole [PriLOSEC] 20 mg PO DAILY 06/11/23 06/11/23 History PHENobarbitaL [PHENobarbital] See Taper PO DIRECTED 06/11/23 06/11/23 History Paliperidone [Paliperidone ER] 3 mg PO DAILY 06/11/23 06/11/23 History Sacubitril/Valsartan [Entresto 24 1 tab PO BID 06/11/23 06/11/23 History mg-26 mg Tablet] Allergies Allergy/AdvReac Type Severity Reaction Status Date / Time No Known Allergies Allergy Verified 06/11/23 09:39 Physical Exam Vitals: Vital Signs Temp Pulse Pulse Resp BP BP Pulse Ox 06/12/23 04:00 98.3 F 97 20 136/84 97 06/12/23 02:00 98.5 F 98 16 130/80 95 06/11/23 19:37 97.1 F L 91 16 113/72 94 L 06/11/23 17:51 91 06/11/23 12:45 97.7 F 91 16 127/81 95 06/11/23 12:03 94 14 122/85 97 06/11/23 10:52 93 14 123/84 93 L Intake and Output 06/11/23 06/12/23 06/12/23 22:59 06:59 14:59 Output Total 750 500 200 Balance -750 -500 -200 Output: Urine 750 500 200 Other: Voiding Method Indwelling Catheter Indwelling Catheter Patient is sedated Examination of the heart S1 and S2 Examination of the lungs bilateral breath sounds are heard Abdomen is soft nontender Examination lower extremity shows no edema. Bilateral BKA noted Results - Lab Results Most recent lab results Calcium 8.1 mg/dL (8.4-10.2) L 06/12/23 08:23 Phosphorus 2.7 mg/dL (2.5-4.5) 06/12/23 08:23 Magnesium 1.8 mg/dL (1.6-2.3) 06/12/23 08:23 06/12/23 08:23 06/12/23 08:23 Assessment and Plan Assessment: 1. Borderline osmolar gap at 10. Volatile alcohols screen is pending. Alcohol level is negative. No evidence of DKA. Patient is maintained on IV fluids which we will continue and recheck another serum osmolality. 2. Altered mentation with urine drug screen positive for barbiturates and amphetamines and methamphetamines. Concern for possible CVA. Neurology is on consult. 3. History of schizophrenia 4. History of bilateral BKA 5. History of CHF currently not in volume overload Plan: Continue with IV fluids Repeat serum osmolality. Repeat labs in a.m. Follow-up on volatile alcohol screen. Next Thank you for the consultation. We will continue to follow the patient with you during her hospitalization
[2023-06-12] MEDS: POTASSIUM CHLORIDE 10 MEQ in WATER FOR INJECTION 1 100ML.BAG IVPB SCH (10:19)
[2023-06-12 11:34] LABS: Glucose,Whole Blood 105 mg/dL (70-110)
[2023-06-12 12:05] LABS: Chol/HDL Ratio 3.38 Ratio; LDL Cholesterol,Calculated 73.3 mg/dL (0.0-131.0)
[2023-06-12] MEDS: HEPARIN SODIUM,PORCINE 5,000 UNIT/ML 1 ML VIAL SQ SCH (12:15)
[2023-06-12] MEDS: ASPIRIN 300 MG SUPP RECTAL SCH (12:16)
--- NOTE | 2023-06-12 14:30 | P.PN ---
Subjective Progress Note Date: 06/12/23 (delayed charting seen at 0955) Patient is a 38-year-old female with known congestive heart failure, diabetes, and schizophrenia who presented to our emergency department from [place] due to agitation. Initial report from the ER was that she had been agitated and yelling. However review from [place] is that she presented to the nurse with flailing arms and legs unable to speak and just groaning. On arrival to the ER here her vital signs are within normal limits. Laboratory analysis included CBC, coags, CMP, ammonia, urinalysis, and urine drug screen which were remarkable for sodium 134, glucose 233, 1+ protein, 4+ glucose. Urine drug screen was positive for barbiturates and methamphetamines. Salicylates, acetaminophen, and alcohol level were negative. Initially she was kept to be seen by psych. Per charting it appears that her GCS had been up to 15 at some point and she required 1 mg of Ativan at 527 on the morning of 06/10. We were contacted for admission at 1032. Patient was found to have decreased responsiveness at our initial evaluation. Neurology was contacted for concern for subclinical seizure and patient underwent stat EEG which demonstrated background slowing of moderate to severe degree with generalized cerebral dysfunction. Neurology also recommended CTA of the head which showed a left temporal lobe infarct. Patient's phenobarbital level was low. She was found to have a slight osmolar gap and nephrology was consulted. Patient seen and examined at bedside. She is moving all 4 extremieites independnetly but does not follow commands and is not interactive. Vital signs reviewed General: Nontoxic, no distress, appears at stated age Cardiovascular: S1S2 reg, no murmur Lungs: CTA bilateral, no rhonchi, no rales, no accessory muscle use Abdominal: Soft, nontender to palpation, no guarding Ext: No gross muscle atrophy, no edema b/l lower extremities, no contractures Neuro: not following commands, moving left upper extremity, right upper extremities drops to bed when released. Psych: lethargic Assessment/Plan: Acute left temporal parietal CVA Acute metabolic encephalopathy due to above -Case discussed with neurology aspirin 300 mg rectally, once patient can swallow or NG tube access is obtained will start Lipitor -24 hours of permissive hypertension has been completed. -Patient with inability to swallow if she is continues to have decreased responsiveness and is not following commands. Insert NG tube. Consult dietitian for tube feeds -Once NG tube is obtained we will restart Toprol 25 mg daily, Entresto 24/26 mg 1 tablet twice daily -Will continue to hold all sedative medications -Telemetry -Await echocardiogram -PT/OT/speech recommendations Diabetes mellitus, insulin requiring -A1c 12.5 -Resume Levemir at 8 units BID once has intake - SSI - Follow BS Schizophrenia - hold all sedating medications given level of alertness Congestive heart failure, unknown type - Entresto 24 mg - 26 mg, metoprolol 25 mg once NGT in place -Monitor fluid status closely - await echo Osmolar gap - Nephrology consulted and case discussed with Dr. Austin: recheck osmol - check volatile acid screen, ethanol Imaging: CTA head and neck without acute thrombosis or stenosis, stroke left temporal pariatal. Data Review: Labs reviewed from today include CBC and CMP which are remarkable for potassium 3.4, A1c 12.5, osmolality 300, cholesterol profile within normal DVT prophylaxis: Heparin subcu Anticipated discharge date: Pending clinical course Anticipated discharge place: Pending clinical course This dictation was prepared using [employer] voice recognition software. Though every attempt is made to correct errors during dictation some may still exist. Objective - Vital Signs Vital signs: Vital Signs Temp 98.0 F 06/12/23 08:00 Pulse 101 H 06/12/23 11:38 Resp 18 06/12/23 11:38 BP 144/85 06/12/23 11:38 Pulse Ox 100 06/12/23 11:38 FiO2 Intake & Output 06/11/23 06/12/23 06/12/23 18:59 06:59 18:59 Output Total 750 500 200 Balance -750 -500 -200 Weight 63.503 kg Output: Urine 750 500 200 Other: Voiding Method Indwelling Catheter Indwelling Catheter - Labs CBC & Chem 7: 06/12/23 08:23 06/12/23 08:23 Labs: Abnormal Lab Results - Last 24 Hours (Table) 06/11/23 06/11/23 06/11/23 Range/Units 16:46 17:04 17:04 WBC (3.8-10.6) k/uL MCHC (31.0-37.0) g/dL VBG pH (7.31-7.41) VBG pCO2 (37-51) mmHg Potassium (3.5-5.1) mmol/L Chloride 111 H (98-107) mmol/L Carbon Dioxide (22-30) mmol/L BUN 32 H (7-17) mg/dL Creatinine 0.50 L (0.52-1.04) mg/dL Glucose 134 H (74-99) mg/dL POC Glucose (mg/dL) 142 H (70-110) mg/dL Hemoglobin A1c (<=6.0) % Osmolality 304 H (275-295) mOsm/kg Calcium 8.1 L (8.4-10.2) mg/dL Magnesium 1.4 L (1.6-2.3) mg/dL Total Protein 5.5 L (6.3-8.2) g/dL Albumin 2.7 L (3.5-5.0) g/dL Phenobarbital 6.4 L (15.0-40.0) UG/ML 06/11/23 06/11/23 06/11/23 Range/Units 17:04 17:04 20:01 WBC 10.7 H (3.8-10.6) k/uL MCHC 30.5 L (31.0-37.0) g/dL VBG pH 7.47 H (7.31-7.41) VBG pCO2 33 L (37-51) mmHg Potassium (3.5-5.1) mmol/L Chloride (98-107) mmol/L Carbon Dioxide (22-30) mmol/L BUN (7-17) mg/dL Creatinine (0.52-1.04) mg/dL Glucose (74-99) mg/dL POC Glucose (mg/dL) 132 H (70-110) mg/dL Hemoglobin A1c (<=6.0) % Osmolality (275-295) mOsm/kg Calcium (8.4-10.2) mg/dL Magnesium (1.6-2.3) mg/dL Total Protein (6.3-8.2) g/dL Albumin (3.5-5.0) g/dL Phenobarbital (15.0-40.0) UG/ML 06/12/23 06/12/23 06/12/23 Range/Units 08:23 08:23 08:23 WBC (3.8-10.6) k/uL MCHC 30.0 L (31.0-37.0) g/dL VBG pH (7.31-7.41) VBG pCO2 (37-51) mmHg Potassium 3.4 L (3.5-5.1) mmol/L Chloride 111 H (98-107) mmol/L Carbon Dioxide 21 L (22-30) mmol/L BUN 26 H (7-17) mg/dL Creatinine 0.48 L (0.52-1.04) mg/dL Glucose (74-99) mg/dL POC Glucose (mg/dL) (70-110) mg/dL Hemoglobin A1c 12.5 H (<=6.0) % Osmolality (275-295) mOsm/kg Calcium 8.1 L (8.4-10.2) mg/dL Magnesium (1.6-2.3) mg/dL Total Protein 5.6 L (6.3-8.2) g/dL Albumin 2.7 L (3.5-5.0) g/dL Phenobarbital (15.0-40.0) UG/ML 06/12/23 Range/Units 08:23 WBC (3.8-10.6) k/uL MCHC (31.0-37.0) g/dL VBG pH (7.31-7.41) VBG pCO2 (37-51) mmHg Potassium (3.5-5.1) mmol/L Chloride (98-107) mmol/L Carbon Dioxide (22-30) mmol/L BUN (7-17) mg/dL Creatinine (0.52-1.04) mg/dL Glucose (74-99) mg/dL POC Glucose (mg/dL) (70-110) mg/dL Hemoglobin A1c (<=6.0) % Osmolality 300 H (275-295) mOsm/kg Calcium (8.4-10.2) mg/dL Magnesium (1.6-2.3) mg/dL Total Protein (6.3-8.2) g/dL Albumin (3.5-5.0) g/dL Phenobarbital (15.0-40.0) UG/ML
[2023-06-12] MEDS: HALOPERIDOL LACTATE 5 MG/ML 1 ML VIAL IVP PRN (14:38)
--- NOTE | 2023-06-12 15:07 | XR ---
EXAMINATION TYPE: XR KUB portable DATE OF EXAM: 06/12/2023 COMPARISON: NONE HISTORY: NG tube placement TECHNIQUE: One view abdominal series FINDINGS: The osseous structures are intact. Only included is the upper abdomen and lower chest in the field-of -view. Visualized portions of the bowel gas pattern are nonspecific.. Lung bases are clear. NG tube is seen with the tip near the gastric fundus. Elevated right hemidiaphragm. IMPRESSION: 1. NG tube is seen with the tip at the level of the gastric fundus..
[2023-06-12 16:56] LABS: Glucose,Whole Blood 112 mg/dL (70-110)
[2023-06-12] MEDS: ATORVASTATIN 80 MG TAB NG-TUBE SCH (20:58)
[2023-06-12] MEDS: SACUBITRIL/VALSARTAN 24 MG-26 MG TABLET PO SCH (20:58)
[2023-06-12] MEDS: METOPROLOL TARTRATE 12.5 MG TAB NG-TUBE SCH (20:58)
[2023-06-12] MEDS ORDERED: DULoxetine HCL 60 MG CAPSULE.DR PO SCH ×2 (21:00)
--- NOTE | 2023-06-12 22:13 | CA ---
Transthoracic Echo Report Name: Elda Mari Age: 38 Gender: F : 1985 Exam Date: 06/12/2023 11:01 Exam Location: [facility] Ht (in): 53 Wt (lb): 140 Ordering Physician: Teresa Daly MD Attending/Referring Phys: Rn Neonatal Icu Stacey Swan RDCS Procedure CPT: Indications: to check the heart, has infarction in head Cardiac Hx: Technical Quality: Good Contrast 1: Total Dose (mL): Contrast 2: Total Dose (mL): MEASUREMENTS (Male / Female) Normal Values 2D ECHO LV Diastolic Diameter PLAX 5.6 cm 4.2 - 5.9 / 3.9 - 5.3 cm LV Systolic Diameter PLAX 3.7 cm IVS Diastolic Thickness 0.8 cm 0.6 - 1.0 / 0.6 - 0.9 cm LVPW Diastolic Thickness 0.9 cm 0.6 - 1.0 / 0.6 - 0.9 cm LV Relative Wall Thickness 0.3 RV Internal Dim ED PLAX 3.3 cm LA Systolic Diameter LX 4.6 cm 3.0 - 4.0 / 2.7 - 3.8 cm LV Diastolic Volume MOD BP 144.8 cm??? 67 - 155 / 56 - 104 cm??? LV Systolic Volume MOD BP 85.8 cm??? - / 19 - 49 cm??? LV Ejection Fraction MOD BP 40.7 % >= 55 % LV Cardiac Index MOD BP 4072.6 cm???/min???m??? LV Diastolic Volume MOD 4C 119.6 cm??? LV Systolic Volume MOD 4C 74.2 cm??? LV Ejection Fraction MOD 4C 37.9 % LV Cardiac Index MOD 4C 3130.8 cm???/min???m??? LV Diastolic Length 4C 7.7 cm LV Systolic Length 4C 6.9 cm LV Diastolic Volume MOD 2C 149.5 cm??? LV Systolic Volume MOD 2C 86.9 cm??? LV Ejection Fraction MOD 2C 41.9 % LV Cardiac Index MOD 2C 4325.0 cm???/min???m??? LV Diastolic Length 2C 9.1 cm LV Systolic Length 2C 8.0 cm LA Volume 69.0 cm??? - 58 / 22 - 52 cm??? LA Volume Index 43.7 cm???/m??? 16 - 28 cm???/m??? M-MODE Aortic Root Diameter MM 3.5 cm MV E Point Septal Separation 1.2 cm AV Cusp Separation MM 2.0 cm DOPPLER AV Peak Velocity 96.1 cm/s AV Peak Gradient 3.7 mmHg LV E' Lateral Velocity 7.2 cm/s LV E' Septal Velocity 6.5 cm/s TR Peak Velocity 226.9 cm/s TR Peak Gradient 20.6 mmHg Right Ventricular Systolic Press 25.6 mmHg FINDINGS Left Ventricle Left ventricular ejection fraction is estimated at 15-20 %. Left ventricular cavity size normal. Left ventricular wall thickness normal. Mildly increased left ventricular diastolic diameter. Severely increased left ventricular diastolic volume. Severely increased left ventricular systolic volume. Moderately decreased left ventricular ejection fraction. Right Ventricle Mild right ventricular dilatation. Right ventricular systolic pressure within normal limits. Right Atrium Normal right atrial size. Left Atrium Moderately increased left atrial diameter. Moderately increased left atrial volume. Mitral Valve Moderate thickening/calcification of the posterior mitral valve leaflet. Mild mitral regurgitation. Aortic Valve Trileaflet aortic valve. No stenosis of the Tricuspid Valve Structurally normal tricuspid valve. Mild tricuspid regurgitation. Pulmonic Valve Structurally normal pulmonic valve. No pulmonic regurgitation. Pericardium No pericardial effusion. Aorta Normal size aortic root and proximal ascending aorta. CONCLUSIONS Left ventricular ejection fraction is estimated at 15-20 %. Severely reduced global LV systolic dysfunction. Apical akinesis. Cannot rule out LV apical thrombus especially in setting of CVA. Repeat echo with contrast. Moderate left atrial dilatation. Mild MR Previewed by: Dr Eagle Alvarado (Electronically Signed) Final Date: 12 June 2023 22:12
[2023-06-13 00:05] LABS: Glucose,Whole Blood 122 mg/dL (70-110)
[2023-06-13 06:02] LABS: Glucose,Whole Blood 143 mg/dL (70-110)
[2023-06-13 07:52] LABS: HCT 42.5 % (34.0-46.0); HGB 13.2 gm/dL (11.4-16.0); Hypochromasia Slight; MCH 26.1 pg (25.0-35.0); MCHC 31.1 g/dL (31.0-37.0); MCV 84.1 fL (80.0-100.0); Mean Platelet Volume 8.2; Platelet Count 239 k/uL (150-450); RBC 5.05 m/uL (3.80-5.40); RDW 14.7 % (11.5-15.5); WBC 8.8 k/uL (3.8-10.6)
[2023-06-13] MEDS: PANTOPRAZOLE 40 MG/10 ML VIAL IV SCH (08:00)
[2023-06-13 08:07] LABS: ALT 11 U/L (4-34); AST 17 U/L (14-36); African American GFR (CKD) >90 (>60 ml/min/1.73 sqM); Alkaline Phosphatase 79 U/L (38-126); Anion Gap 9 mmol/L; Blood Urea Nitrogen 19 mg/dL (7-17); Calcium 8.3 mg/dL (8.4-10.2); Carbon Dioxide 17 mmol/L (22-30); Chloride 111 mmol/L (98-107); Glucose 144 mg/dL (74-99); Magnesium 1.4 mg/dL (1.6-2.3); Non-African American GFR(CKD) >90 (>60 ml/min/1.73 sqM); Phosphorus 2.7 mg/dL (2.5-4.5); Potassium 3.6 mmol/L (3.5-5.1); Sodium 137 mmol/L (137-145); Total Bilirubin 0.5 mg/dL (0.2-1.3); Total Protein 5.8 g/dL (6.3-8.2)
[2023-06-13 08:55] LABS: Ethanol Negative (Negative); Isopropanol Negative (Negative)
[2023-06-13] MEDS ORDERED: METOPROLOL SUCCINATE (ER) 25 MG TAB.ER.24H PO SCH (09:00)
--- NOTE | 2023-06-13 10:03 | P.PN ---
Subjective Patient is seen in follow-up for metabolic acidosis. Receiving tube feeds. Poor historian. Also on normal saline. Vital signs are stable. General: No acute distress. HEENT: Head exam is unremarkable. LUNGS no audible rhonchi or wheezes. HEART: Rate and Rhythm are regular. ABDOMEN: Nontender. EXTREMITITES: Bilateral BKA's. Objective - Vital Signs Vital signs: Vital Signs Temp 97.6 F 06/13/23 07:51 Pulse 94 06/13/23 07:51 Resp 18 06/13/23 07:51 BP 155/86 06/13/23 07:51 Pulse Ox 93 L 06/13/23 07:51 FiO2 Intake & Output 06/12/23 06/13/23 06/13/23 18:59 06:59 18:59 Intake Total 100 60 Output Total 200 1125 Balance -200 -1025 60 Weight 48.308 kg Intake: Tube Feeding 100 60 Output: Urine 200 1125 Other: Voiding Method Indwelling Catheter Indwelling Catheter Indwelling Catheter - Labs CBC & Chem 7: 06/13/23 07:37 06/13/23 07:37 Labs: Abnormal Lab Results - Last 24 Hours (Table) 06/11/23 06/12/23 06/12/23 Range/Units 17:04 08:23 08:23 Chloride (98-107) mmol/L Carbon Dioxide (22-30) mmol/L BUN (7-17) mg/dL Creatinine (0.52-1.04) mg/dL Glucose (74-99) mg/dL POC Glucose (mg/dL) (70-110) mg/dL Hemoglobin A1c 12.5 H (<=6.0) % Osmolality 300 H (275-295) mOsm/kg Calcium (8.4-10.2) mg/dL Magnesium (1.6-2.3) mg/dL Total Protein (6.3-8.2) g/dL Albumin (3.5-5.0) g/dL Oxcarbazepine 3.8 L (10-35) ug/mL 06/12/23 06/13/23 06/13/23 Range/Units 16:54 00:01 06:00 Chloride (98-107) mmol/L Carbon Dioxide (22-30) mmol/L BUN (7-17) mg/dL Creatinine (0.52-1.04) mg/dL Glucose (74-99) mg/dL POC Glucose (mg/dL) 112 H 122 H 143 H (70-110) mg/dL Hemoglobin A1c (<=6.0) % Osmolality (275-295) mOsm/kg Calcium (8.4-10.2) mg/dL Magnesium (1.6-2.3) mg/dL Total Protein (6.3-8.2) g/dL Albumin (3.5-5.0) g/dL Oxcarbazepine (10-35) ug/mL 06/13/23 Range/Units 07:37 Chloride 111 H (98-107) mmol/L Carbon Dioxide 17 L (22-30) mmol/L BUN 19 H (7-17) mg/dL Creatinine 0.41 L (0.52-1.04) mg/dL Glucose 144 H (74-99) mg/dL POC Glucose (mg/dL) (70-110) mg/dL Hemoglobin A1c (<=6.0) % Osmolality (275-295) mOsm/kg Calcium 8.3 L (8.4-10.2) mg/dL Magnesium 1.4 L (1.6-2.3) mg/dL Total Protein 5.8 L (6.3-8.2) g/dL Albumin 3.0 L (3.5-5.0) g/dL Oxcarbazepine (10-35) ug/mL Assessment and Plan Plan: Assessment: 1. Metabolic acidosis secondary to IV fluids. Repeat osmolar gap was normal at 6. No evidence of DKA. Volatile screen negative. Serum alcohol level less than 10. 2. Altered mental status with urine drug screen positive for barbiturates, amphetamines and methamphetamines. Neurology following. 3. History of schizophrenia. 4. Bilateral below-knee amputations. 5. Hypomagnesemia from poor intake. 6. Chronic systolic CHF with ejection fraction of 15 to 20%. Plan: Hep-Lock IV fluids. 2 g sodium bicarb IV push now. Add oral bicarb. Replace potassium and magnesium.
[2023-06-13] MEDS: MAGNESIUM SULFATE-D5W PMX 1 GM in DEXTROSE/WATER 1 100ML.BAG IVPB SCH (10:20)
[2023-06-13] MEDS: SODIUM BICARB 8.4% 50 ML SYR (1 MEQ/ML) IV STA (10:21)
--- NOTE | 2023-06-13 10:57 | P.GSCN ---
History of Present Illness Consult date: 06/13/23 Reason for Consult: Dobhoff placement History of present illness: Patient is a 38-year-old female with a past medical history schizophrenia who presents from custodial secondary to increased agitation. Patient is not cooperative and does not provide any additional history at time of evaluation this history is obtained from EMR. Per EMR review patient presented to [facility] secondary agitation at the custodial. Timeout presentation to emergency department there was concern for seizure activity and antiepileptic therapy was started. General surgery was consulted for evaluation and placement of Dobbhoff feeding catheter. A time of evaluation patient has nasogastric tube in place which was placed by the emergency department staff. Per nursing staff, there is no abdominal pain. No nausea or emesis. Denies any melena or hematochezia. No fevers or chills. No shortness of breath. Review of Systems Negative except for as stated above Past Medical History Past Medical History: Unable to Obtain, Asthma, Diabetes Mellitus Additional Past Medical History / Comment(s): Patients uncle attempting to give medicatl history. Unsure about History of Any Multi-Drug Resistant Organisms: None Reported Past Surgical History: Unable to Obtain Additional Past Surgical History / Comment(s): BLE BKA, Tip of left thumb cut off. Past Anesthesia/Blood Transfusion Reactions: Unable to Obtain Smoking Status: Current some day smoker - Past Family History Mother Family Medical History: Diabetes Mellitus Father History Unknown: Yes Family Medical History: No Reported History, Unable to Obtain Additional Family Medical History / Comment(s): Patient has no contact with her father Medications and Allergies Home Medications Medication Instructions Recorded Confirmed Type Albuterol Sulfate [Albuterol 1 - 2 puff PO RT-QID PRN 06/11/23 06/11/23 History Sulfate Hfa] Atorvastatin [Lipitor] 80 mg PO HS 06/11/23 06/11/23 History DULoxetine HCL [Cymbalta] 60 mg PO HS 06/11/23 06/11/23 History Doxycycline [Vibramycin] 100 mg PO BID 06/11/23 06/11/23 History Gabapentin [Neurontin] 100 mg PO TID 06/11/23 06/11/23 History Insulin Detemir (Levemir) [Levemir] 18 unit SQ DAILY 06/11/23 06/11/23 History Insulin Regular, Human [NovoLIN R] See Protocol SQ AC-TID 06/11/23 06/11/23 History Lurasidone [Latuda] 160 mg PO DAILY 06/11/23 06/11/23 History Metoprolol Succinate (ER) [Toprol 25 mg PO DAILY 06/11/23 06/11/23 History Xl] OXcarbazepine [Trileptal] 300 mg PO BID 06/11/23 06/11/23 History Omeprazole [PriLOSEC] 20 mg PO DAILY 06/11/23 06/11/23 History PHENobarbitaL [PHENobarbital] See Taper PO DIRECTED 06/11/23 06/11/23 History Paliperidone [Paliperidone ER] 3 mg PO DAILY 06/11/23 06/11/23 History Sacubitril/Valsartan [Entresto 24 1 tab PO BID 06/11/23 06/11/23 History mg-26 mg Tablet] Allergies Allergy/AdvReac Type Severity Reaction Status Date / Time No Known Allergies Allergy Verified 06/11/23 09:39 Surgical - Exam Vital Signs Pulse Resp BP Pulse Ox 91 12 131/89 96 06/10/23 20:27 06/10/23 20:27 06/10/23 20:27 06/10/23 20:27 Gen: AxO x0, NAD HEENT: NGT intact, TF running at 20cc/hr Pulm: non-labored respirations Abd: soft, non-tender, non-distended. No guarding/rebound/rigidity Extrem: No edema seen. Results - Labs 06/13/23 07:37 06/13/23 07:37 Abnormal Lab Results - Last 24 Hours (Table) 06/11/23 06/12/23 06/12/23 Range/Units 17:04 08:23 08:23 Chloride (98-107) mmol/L Carbon Dioxide (22-30) mmol/L BUN (7-17) mg/dL Creatinine (0.52-1.04) mg/dL Glucose (74-99) mg/dL POC Glucose (mg/dL) (70-110) mg/dL Hemoglobin A1c 12.5 H (<=6.0) % Osmolality 300 H (275-295) mOsm/kg Calcium (8.4-10.2) mg/dL Magnesium (1.6-2.3) mg/dL Total Protein (6.3-8.2) g/dL Albumin (3.5-5.0) g/dL Oxcarbazepine 3.8 L (10-35) ug/mL 06/12/23 06/13/23 06/13/23 Range/Units 16:54 00:01 06:00 Chloride (98-107) mmol/L Carbon Dioxide (22-30) mmol/L BUN (7-17) mg/dL Creatinine (0.52-1.04) mg/dL Glucose (74-99) mg/dL POC Glucose (mg/dL) 112 H 122 H 143 H (70-110) mg/dL Hemoglobin A1c (<=6.0) % Osmolality (275-295) mOsm/kg Calcium (8.4-10.2) mg/dL Magnesium (1.6-2.3) mg/dL Total Protein (6.3-8.2) g/dL Albumin (3.5-5.0) g/dL Oxcarbazepine (10-35) ug/mL 06/13/23 Range/Units 07:37 Chloride 111 H (98-107) mmol/L Carbon Dioxide 17 L (22-30) mmol/L BUN 19 H (7-17) mg/dL Creatinine 0.41 L (0.52-1.04) mg/dL Glucose 144 H (74-99) mg/dL POC Glucose (mg/dL) (70-110) mg/dL Hemoglobin A1c (<=6.0) % Osmolality (275-295) mOsm/kg Calcium 8.3 L (8.4-10.2) mg/dL Magnesium 1.4 L (1.6-2.3) mg/dL Total Protein 5.8 L (6.3-8.2) g/dL Albumin 3.0 L (3.5-5.0) g/dL Oxcarbazepine (10-35) ug/mL Diabetes panel 06/12/23 06/12/23 06/13/23 Range/Units 08:23 08:23 07:37 Sodium 137 (137-145) mmol/L Potassium 3.6 (3.5-5.1) mmol/L Chloride 111 H (98-107) mmol/L Carbon Dioxide 17 L (22-30) mmol/L BUN 19 H (7-17) mg/dL Creatinine 0.41 L (0.52-1.04) mg/dL Glucose 144 H (74-99) mg/dL Hemoglobin A1c 12.5 H (<=6.0) % Calcium 8.3 L (8.4-10.2) mg/dL AST 17 (14-36) U/L ALT 11 (4-34) U/L Alkaline Phosphatase 79 (38-126) U/L Total Protein 5.8 L (6.3-8.2) g/dL Albumin 3.0 L (3.5-5.0) g/dL Triglycerides 123.00 (0.00-149.00) mg/dL HDL Cholesterol 41.10 (40.00-60.00) mg/dL Calcium panel 06/13/23 Range/Units 07:37 Calcium 8.3 L (8.4-10.2) mg/dL Phosphorus 2.7 (2.5-4.5) mg/dL Albumin 3.0 L (3.5-5.0) g/dL Pituitary panel 06/13/23 Range/Units 07:37 Sodium 137 (137-145) mmol/L Potassium 3.6 (3.5-5.1) mmol/L Chloride 111 H (98-107) mmol/L Carbon Dioxide 17 L (22-30) mmol/L BUN 19 H (7-17) mg/dL Creatinine 0.41 L (0.52-1.04) mg/dL Glucose 144 H (74-99) mg/dL Calcium 8.3 L (8.4-10.2) mg/dL Adrenal panel 06/13/23 Range/Units 07:37 Sodium 137 (137-145) mmol/L Potassium 3.6 (3.5-5.1) mmol/L Chloride 111 H (98-107) mmol/L Carbon Dioxide 17 L (22-30) mmol/L BUN 19 H (7-17) mg/dL Creatinine 0.41 L (0.52-1.04) mg/dL Glucose 144 H (74-99) mg/dL Calcium 8.3 L (8.4-10.2) mg/dL Total Bilirubin 0.5 (0.2-1.3) mg/dL AST 17 (14-36) U/L ALT 11 (4-34) U/L Alkaline Phosphatase 79 (38-126) U/L Total Protein 5.8 L (6.3-8.2) g/dL Albumin 3.0 L (3.5-5.0) g/dL Assessment and Plan Assessment: Patient is a 38-year-old female with a past medical history schizophrenia who presents with agitation and concern for seizure activity. General surgery is consulted for assistance in Dobbhoff feeding tube placement. Plan: -Continue tube feeds as tolerated through precipitous nasogastric tube -Do not recommend removal of nasogastric tube and replacement Dobbhoff due to the patient's agitation and mental status. If nasogastric tube becomes dislodged will replace Dobbhoff tube at that time -Continue care per primary -No acute surgical intervention Jaspreet Mosher MD General Surgery
[2023-06-13] MEDS: POTASSIUM CHLORIDE ER 20 MEQ TAB.ER PO STA (11:44)
[2023-06-13] MEDS: POTASSIUM BICARBONATE/CIT AC 20 MEQ TABLET.EFF NG-TUBE SCH (12:03)
[2023-06-13] MEDS: SODIUM BICARBONATE TAB 650 MG TAB PO SCH (12:03)
--- NOTE | 2023-06-13 13:00 | P.PN ---
Subjective Progress Note Date: 06/12/23 Patient was seen for a follow-up. Patient continues to be severely obtunded. Patient is in the bed. NGT in place. Objective - Vital Signs Vital signs: Vital Signs Temp 98.0 F 06/12/23 08:00 Pulse 101 H 06/12/23 11:38 Resp 18 06/12/23 11:38 BP 144/85 06/12/23 11:38 Pulse Ox 100 06/12/23 11:38 FiO2 Intake & Output 06/11/23 06/12/23 06/12/23 18:59 06:59 18:59 Output Total 750 500 200 Balance -750 -500 -200 Weight 63.503 kg Output: Urine 750 500 200 Other: Voiding Method Indwelling Catheter Indwelling Catheter - Exam On examination patient is obtunded. Patient is not responding to calling her name. Pupils are equal, round and reacting. Face is symmetric. NGT in place. 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 Patient moves left upper extremity due to pain, but not the right upper extremity. Patient moves her legs equally sponta neously and with the stimuli. Patient has bilateral BKA. No seizure-like activity. - Labs CBC & Chem 7: 06/13/23 07:37 06/13/23 07:37 Labs: Abnormal Lab Results - Last 24 Hours (Table) 06/11/23 06/11/23 06/11/23 Range/Units 16:46 17:04 17:04 WBC (3.8-10.6) k/uL MCHC (31.0-37.0) g/dL VBG pH (7.31-7.41) VBG pCO2 (37-51) mmHg Potassium (3.5-5.1) mmol/L Chloride 111 H (98-107) mmol/L Carbon Dioxide (22-30) mmol/L BUN 32 H (7-17) mg/dL Creatinine 0.50 L (0.52-1.04) mg/dL Glucose 134 H (74-99) mg/dL POC Glucose (mg/dL) 142 H (70-110) mg/dL Hemoglobin A1c (<=6.0) % Osmolality 304 H (275-295) mOsm/kg Calcium 8.1 L (8.4-10.2) mg/dL Magnesium 1.4 L (1.6-2.3) mg/dL Total Protein 5.5 L (6.3-8.2) g/dL Albumin 2.7 L (3.5-5.0) g/dL Phenobarbital 6.4 L (15.0-40.0) UG/ML 06/11/23 06/11/23 06/11/23 Range/Units 17:04 17:04 20:01 WBC 10.7 H (3.8-10.6) k/uL MCHC 30.5 L (31.0-37.0) g/dL VBG pH 7.47 H (7.31-7.41) VBG pCO2 33 L (37-51) mmHg Potassium (3.5-5.1) mmol/L Chloride (98-107) mmol/L Carbon Dioxide (22-30) mmol/L BUN (7-17) mg/dL Creatinine (0.52-1.04) mg/dL Glucose (74-99) mg/dL POC Glucose (mg/dL) 132 H (70-110) mg/dL Hemoglobin A1c (<=6.0) % Osmolality (275-295) mOsm/kg Calcium (8.4-10.2) mg/dL Magnesium (1.6-2.3) mg/dL Total Protein (6.3-8.2) g/dL Albumin (3.5-5.0) g/dL Phenobarbital (15.0-40.0) UG/ML 06/12/23 06/12/23 06/12/23 Range/Units 08:23 08:23 08:23 WBC (3.8-10.6) k/uL MCHC 30.0 L (31.0-37.0) g/dL VBG pH (7.31-7.41) VBG pCO2 (37-51) mmHg Potassium 3.4 L (3.5-5.1) mmol/L Chloride 111 H (98-107) mmol/L Carbon Dioxide 21 L (22-30) mmol/L BUN 26 H (7-17) mg/dL Creatinine 0.48 L (0.52-1.04) mg/dL Glucose (74-99) mg/dL POC Glucose (mg/dL) (70-110) mg/dL Hemoglobin A1c 12.5 H (<=6.0) % Osmolality (275-295) mOsm/kg Calcium 8.1 L (8.4-10.2) mg/dL Magnesium (1.6-2.3) mg/dL Total Protein 5.6 L (6.3-8.2) g/dL Albumin 2.7 L (3.5-5.0) g/dL Phenobarbital (15.0-40.0) UG/ML 06/12/23 Range/Units 08:23 WBC (3.8-10.6) k/uL MCHC (31.0-37.0) g/dL VBG pH (7.31-7.41) VBG pCO2 (37-51) mmHg Potassium (3.5-5.1) mmol/L Chloride (98-107) mmol/L Carbon Dioxide (22-30) mmol/L BUN (7-17) mg/dL Creatinine (0.52-1.04) mg/dL Glucose (74-99) mg/dL POC Glucose (mg/dL) (70-110) mg/dL Hemoglobin A1c (<=6.0) % Osmolality 300 H (275-295) mOsm/kg Calcium (8.4-10.2) mg/dL Magnesium (1.6-2.3) mg/dL Total Protein (6.3-8.2) g/dL Albumin (3.5-5.0) g/dL Phenobarbital (15.0-40.0) UG/ML Assessment and Plan Assessment: * Acute ischemic stroke left frontal parietal region, likely due to embolism. Patient not a candidate for tPA because of unknown onset of symptoms. No large vessel occlusion noted on CTA. * Dysphagia, due to CVA. * Altered mental status, metabolic encephalopathy, and CVA as above. * Polysubstance abuse. Urine positive for amphetamines and methamphetamines. * Diabetes, poorly controlled, A1c 12.5 * History of bilateral BKA Plan: * Stat EEG was abnormal due to background slowing of moderate to severe degree. This is suggestive of generalized cerebral dysfunction as can be seen with toxic metabolic encephalopathy or related to diffuse structural brain abnormality. No epileptiform activity was seen. * CT head revealed acute left temporal parietal ischemic infarction. * CTA of head and neck reported no stenosis or occlusion. Official report pending. * 2D echo with bubble study rule out PFO * Fasting lipid panel with cholesterol 139, LDL 73, HDL 41, triglycerides 123. * Hemoglobin A1c 12.5, consistent with poorly controlled diabetes. Recommend optimize control of diabetes to target A1c <7.0. * Phenobarbital 6.4 (15-40) and Trileptal level 3.8 (10-35). Both of them are in nontoxic range. * Ethylene glycol panel negative. * Continue close neurochecks. * Fall precautions. * DVT prophylaxis: Start heparin 5000 units subcu every 12 hours.
[2023-06-13 13:03] LABS: Glucose,Whole Blood 196 mg/dL (70-110)
--- NOTE | 2023-06-13 14:45 | P.PN ---
Subjective Progress Note Date: 06/13/23 Patient is a 38-year-old female with known congestive heart failure, diabetes, and schizophrenia who presented to our emergency department from [place] due to agitation. Initial report from the ER was that she had been agitated and yelling. However review from [place] is that she presented to the nurse with flailing arms and legs unable to speak and just groaning. On arrival to e ER here her vital signs are within normal limits. Laboratory analysis included CBC, coags, CMP, ammonia, urinalysis, and urine drug screen which were remarkable for sodium 134, glucose 233, 1+ protein, 4+ glucose. Urine drug screen was positive for barbiturates and methamphetamines. Salicylates, acetaminophen, and alcohol level were negative. Initially she was kept to be seen by psych. Per charting it appears that her GCS had been up to 15 at some point and she required 1 mg of Ativan at 527 on the morning of 06/10. We were contacted for admission at 1032. Patient was found to have decreased responsiveness at our initial evaluation. Neurology was contacted for concern for subclinical seizure and patient underwent stat EEG which demonstrated background slowing of moderate to severe degree with generalized cerebral dysfunction. Neurology also recommended CTA of the head which showed a left temporal lobe infarct. Patient's phenobarbital level was low. She was found to have a slight osmolar gap and nephrology was consulted. Now normalized, volatile is negative. Getting tube feeds. Patient seen and examined at bedside. No acute events overnight. Vital signs reviewed General: Nontoxic, no distress, appears at stated age Cardiovascular: S1S2 reg, no murmur Lungs: CTA bilateral, no rhonchi, no rales, no accessory muscle use Abdominal: Soft, nontender to palpation, no guarding, NG tube in place Ext: No gross muscle atrophy, no edema b/l lower extremities, no contractures Neuro: not following commands, moving left upper extremity, and lower extremities Psych: unable to assess Assessment/Plan: Acute left temporal parietal CVA Acute metabolic encephalopathy due to above -NG tube in place, on aspirin 81 mg, and atorvastatin 80 mg -Continue tube feeds -continue Toprol 25 mg daily, Entresto 24/26 mg 1 tablet twice daily -Telemetry -Cannot rule out LV thrombus, repeat echo with contrast -PT/OT/speech recommendations Diabetes mellitus, insulin requiring -A1c 12.5 -Resume Levemir at 8 units BID once has intake - SSI - Follow BS Schizophrenia -Restarted home Latuda 160 mg, Trileptal 300 twice daily, Invega 3 mg daily, also started on gabapentin 100 3 times daily Congestive heart failure, systolic with LVEF 15 to 20% - Entresto 24 mg - 26 mg, metoprolol 25 mg -Monitor fluid status closely -Repeat echo with contrast pending Osmolar gap, resolved Non-anion gap metabolic acidosis -Nephrology note reviewed, added oral bicarb Imaging: CTA head and neck without acute thrombosis or stenosis, stroke left temporal pariatal. Data Review: Echocardiogram showed LVEF 15 to 20%, cannot rule out LV apical thrombus. Blood sugars range between 1 22-1 96, bicarb 17, creatinine 0.41, hemoglobin 13.2 DVT prophylaxis: Heparin subcu Anticipated discharge date: Pending clinical course Anticipated discharge place: Pending clinical course Objective - Vital Signs Vital signs: Vital Signs Temp 98.3 F 06/13/23 11:48 Pulse 89 06/13/23 11:48 Resp 18 06/13/23 11:48 BP 127/75 06/13/23 11:48 Pulse Ox 94 L 06/13/23 11:48 FiO2 Intake & Output 06/12/23 06/13/23 06/13/23 18:59 06:59 18:59 Intake Total 100 120 Output Total 200 1125 800 Balance -200 -1025 -680 Weight 48.308 kg Intake: Tube Feeding 100 120 Output: Urine 200 1125 800 Other: Voiding Method Indwelling Catheter Indwelling Catheter Indwelling Catheter - Labs CBC & Chem 7: 06/13/23 07:37 06/13/23 07:37 Labs: Abnormal Lab Results - Last 24 Hours (Table) 06/11/23 06/12/23 06/13/23 Range/Units 17:04 16:54 00:01 Chloride (98-107) mmol/L Carbon Dioxide (22-30) mmol/L BUN (7-17) mg/dL Creatinine (0.52-1.04) mg/dL Glucose (74-99) mg/dL POC Glucose (mg/dL) 112 H 122 H (70-110) mg/dL Calcium (8.4-10.2) mg/dL Magnesium (1.6-2.3) mg/dL Total Protein (6.3-8.2) g/dL Albumin (3.5-5.0) g/dL Oxcarbazepine 3.8 L (10-35) ug/mL 06/13/23 06/13/23 06/13/23 Range/Units 06:00 07:37 13:01 Chloride 111 H (98-107) mmol/L Carbon Dioxide 17 L (22-30) mmol/L BUN 19 H (7-17) mg/dL Creatinine 0.41 L (0.52-1.04) mg/dL Glucose 144 H (74-99) mg/dL POC Glucose (mg/dL) 143 H 196 H (70-110) mg/dL Calcium 8.3 L (8.4-10.2) mg/dL Magnesium 1.4 L (1.6-2.3) mg/dL Total Protein 5.8 L (6.3-8.2) g/dL Albumin 3.0 L (3.5-5.0) g/dL Oxcarbazepine (10-35) ug/mL
[2023-06-13] MEDS: GABAPENTIN 100 MG CAP PO SCH (15:05)
[2023-06-13 18:10] LABS: Glucose,Whole Blood 218 mg/dL (70-110)
[2023-06-13] MEDS: OXcarbazepine 300 MG TAB PO SCH (20:51)
[2023-06-14 00:04] LABS: Glucose,Whole Blood 213 mg/dL (70-110)
--- NOTE | 2023-06-14 02:18 | CA ---
Transthoracic Echo Report Name: Elda Mari Age: 38 Gender: F : 1985 Exam Date: 06/13/2023 09:38 Exam Location: [facility] Ht (in): 55 Wt (lb): 106 Ordering Physician: Eagle Alvarado MD ([id number]) Attending/Referring Phys: Passenger Agent Tanner Moyer RDCS Procedure CPT: Indications: lv thrombus Cardiac Hx: Technical Quality: Contrast 1: Definity Total Dose (mL): 2 Contrast 2: Total Dose (mL): MEASUREMENTS (Male / Female) Normal Values FINDINGS Left Ventricle Right Ventricle Right Atrium Left Atrium Mitral Valve Aortic Valve Tricuspid Valve Pulmonic Valve Pericardium Aorta CONCLUSIONS Limited study. Previous echo recorded on 06/12/2023. LV EF 25-30% with brett apical akinesis and thinning of anteroapical wall No LV thrombus noted Previewed by: Dr. Ricardo Cedeno DO (Electronically Signed) Final Date: 14 June 2023 02:17
[2023-06-14 06:00] LABS: Glucose,Whole Blood 203 mg/dL (70-110)
[2023-06-14] MEDS: INSULIN DETEMIR (LEVEMIR) 100 UNIT/ML SYR SQ SCH (06:15)
[2023-06-14] MEDS: LURASIDONE 80 MG TAB PO SCH (08:51)
[2023-06-14] MEDS: ASPIRIN 81 MG NG-TUBE SCH (08:51)
[2023-06-14] MEDS: PALIPERIDONE 3 MG TAB.ER.24 PO SCH (08:51)
[2023-06-14 10:38] LABS: Basophils % (A) 0 %; Eosinophils # (A) 0.1 k/uL (0-0.7); Eosinophils % (A) 1 %; HCT 52.3 % (34.0-46.0); HGB 15.8 gm/dL (11.4-16.0); Hypochromasia Slight; Lymphocytes % (A) 18 %; MCH 25.4 pg (25.0-35.0); MCHC 30.3 g/dL (31.0-37.0); MCV 83.9 fL (80.0-100.0); Mean Platelet Volume 8.6; Monocytes # (A) 0.9 k/uL (0-1.0); Monocytes % (A) 8 %; Neutrophils # (A) 8.4 k/uL (1.3-7.7); Neutrophils % (A) 72 %; Platelet Count 250 k/uL (150-450); RBC 6.24 m/uL (3.80-5.40); RDW 14.7 % (11.5-15.5); WBC 11.6 k/uL (3.8-10.6)
[2023-06-14 10:56] LABS: African American GFR (CKD) >90 (>60 ml/min/1.73 sqM); Anion Gap 10 mmol/L; Blood Urea Nitrogen 17 mg/dL (7-17); Calcium 8.8 mg/dL (8.4-10.2); Carbon Dioxide 23 mmol/L (22-30); Chloride 104 mmol/L (98-107); Glucose 243 mg/dL (74-99); Magnesium 1.6 mg/dL (1.6-2.3); Non-African American GFR(CKD) >90 (>60 ml/min/1.73 sqM); Potassium 3.6 mmol/L (3.5-5.1); Sodium 137 mmol/L (137-145)
--- NOTE | 2023-06-14 10:57 | P.PN ---
Subjective Progress Note Date: 06/14/23 Patient resting comfortable. Tube feeds going. Due to patient pre-existing comorbidities, may benefit from EGD with PEG tube placement if needed. Objective - Vital Signs Vital signs: Vital Signs Temp 97.6 F 06/14/23 08:46 Pulse 91 06/14/23 08:46 Resp 16 06/14/23 08:46 BP 136/87 06/14/23 08:46 Pulse Ox 93 L 06/14/23 08:46 FiO2 Intake & Output 06/13/23 06/14/23 06/14/23 18:59 06:59 18:59 Intake Total 180 416 Output Total 1675 225 Balance -1495 191 Intake: Tube Feeding 180 416 Output: Urine 1675 225 Other: Voiding Method Indwelling Catheter Indwelling Catheter - Labs CBC & Chem 7: 06/14/23 09:59 06/14/23 09:57 Labs: Abnormal Lab Results - Last 24 Hours (Table) 06/13/23 06/13/23 06/14/23 Range/Units 13:01 18:08 00:01 WBC (3.8-10.6) k/uL RBC (3.80-5.40) m/uL Hct (34.0-46.0) % MCHC (31.0-37.0) g/dL Neutrophils # (1.3-7.7) k/uL Creatinine (0.52-1.04) mg/dL Glucose (74-99) mg/dL POC Glucose (mg/dL) 196 H 218 H 213 H (70-110) mg/dL 06/14/23 06/14/23 06/14/23 Range/Units 05:59 09:57 09:59 WBC 11.6 H (3.8-10.6) k/uL RBC 6.24 H (3.80-5.40) m/uL Hct 52.3 H (34.0-46.0) % MCHC 30.3 L (31.0-37.0) g/dL Neutrophils # 8.4 H (1.3-7.7) k/uL Creatinine 0.43 L (0.52-1.04) mg/dL Glucose 243 H (74-99) mg/dL POC Glucose (mg/dL) 203 H (70-110) mg/dL
--- NOTE | 2023-06-14 11:02 | P.PN ---
Subjective Patient is seen in follow-up for metabolic acidosis. Receiving tube feeds. Acidosis improved. Poor historian. Vital signs are stable. General: No acute distress. HEENT: Head exam is unremarkable. LUNGS no audible rhonchi or wheezes. HEART: Rate and Rhythm are regular. ABDOMEN: Nontender. EXTREMITITES: Bilateral BKA's. Objective - Vital Signs Vital signs: Vital Signs Temp 97.6 F 06/14/23 08:46 Pulse 91 06/14/23 08:46 Resp 16 06/14/23 08:46 BP 136/87 06/14/23 08:46 Pulse Ox 93 L 06/14/23 08:46 FiO2 Intake & Output 06/13/23 06/14/23 06/14/23 18:59 06:59 18:59 Intake Total 180 416 Output Total 1675 225 Balance -1495 191 Intake: Tube Feeding 180 416 Output: Urine 1675 225 Other: Voiding Method Indwelling Catheter Indwelling Catheter - Labs CBC & Chem 7: 06/14/23 09:59 06/14/23 09:57 Labs: Abnormal Lab Results - Last 24 Hours (Table) 06/13/23 06/13/23 06/14/23 Range/Units 13:01 18:08 00:01 WBC (3.8-10.6) k/uL RBC (3.80-5.40) m/uL Hct (34.0-46.0) % MCHC (31.0-37.0) g/dL Neutrophils # (1.3-7.7) k/uL Creatinine (0.52-1.04) mg/dL Glucose (74-99) mg/dL POC Glucose (mg/dL) 196 H 218 H 213 H (70-110) mg/dL 06/14/23 06/14/23 06/14/23 Range/Units 05:59 09:57 09:59 WBC 11.6 H (3.8-10.6) k/uL RBC 6.24 H (3.80-5.40) m/uL Hct 52.3 H (34.0-46.0) % MCHC 30.3 L (31.0-37.0) g/dL Neutrophils # 8.4 H (1.3-7.7) k/uL Creatinine 0.43 L (0.52-1.04) mg/dL Glucose 243 H (74-99) mg/dL POC Glucose (mg/dL) 203 H (70-110) mg/dL Assessment and Plan Plan: Assessment: 1. Metabolic acidosis secondary to IV fluids. Improved. Repeat osmolar gap was normal at 6. No evidence of DKA. Volatile screen negative. Serum alcohol level less than 10. 2. Altered mental status with urine drug screen positive for barbiturates, amphetamines and methamphetamines. Neurology following. 3. History of schizophrenia. 4. Bilateral below-knee amputations. 5. Hypomagnesemia from poor intake. Replaced. Better. 6. Chronic systolic CHF with ejection fraction of 15 to 20%. Plan: Off IV fluids. Maintain tube feeds. Maintain oral bicarb. Replace potassium and magnesium.
--- NOTE | 2023-06-14 11:33 | P.PN ---
Subjective Progress Note Date: 06/14/23 Patient is a 38-year-old female with known congestive heart failure, diabetes, and schizophrenia who presented to our emergency department from [place] due to agitation. Initial report from the ER was that she had been agitated and yelling. However review from [place] is that she presented to the nurse with flailing arms and legs unable to speak and just groaning. On arrival to e ER here her vital signs are within normal limits. Laboratory analysis included CBC, coags, CMP, ammonia, urinalysis, and urine drug screen which were remarkable for sodium 134, glucose 233, 1+ protein, 4+ glucose. Urine drug screen was positive for barbiturates and methamphetamines. Salicylates, acetaminophen, and alcohol level were negative. Initially she was kept to be seen by psych. Per charting it appears that her GCS had been up to 15 at some point and she required 1 mg of Ativan at 527 on the morning of 06/10. We were contacted for admission at 1032. Patient was found to have decreased responsiveness at our initial evaluation. Neurology was contacted for concern for subclinical seizure and patient underwent stat EEG which demonstrated background slowing of moderate to severe degree with generalized cerebral dysfunction. Neurology also recommended CTA of the head which showed a left temporal lobe infarct. Patient's phenobarbital level was low. She was found to have a slight osmolar gap and nephrology was consulted. Now normalized, volatile is negative. Echocardiogram showed LVEF 15 to 20%, no LV thrombus. Getting tube feeds. Patient seen and examined at bedside. No acute events overnight. Patient did require restraints as she has been pulling on lines and tubes. Vital signs reviewed General: Nontoxic, no distress, appears at stated age Cardiovascular: S1S2 reg, no murmur Lungs: CTA bilateral, no rhonchi, no rales, no accessory muscle use Abdominal: Soft, nontender to palpation, no guarding, NG tube in place Ext: No gross muscle atrophy, no edema b/l lower extremities, no contractures Neuro: Following some commands, moving left upper extremity, and lower extremities Psych: unable to assess Assessment/Plan: Acute left temporal parietal CVA Acute metabolic encephalopathy due to above -NG tube in place, on aspirin 81 mg, and atorvastatin 80 mg -Continue tube feeds -continue Toprol 25 mg daily, Entresto 24/26 mg 1 tablet twice daily -Telemetry -No LV thrombus noted General surgery note reviewed, may need PEG tube placement -PT/OT/speech recommendations Diabetes mellitus, insulin requiring -A1c 12.5 - on Levemir 18 units daily, also on sliding scale insulin, monitor for hypoglycemia Schizophrenia -Restarted home Latuda 160 mg, Trileptal 300 twice daily, Invega 3 mg daily, on gabapentin 100 3 times daily Congestive heart failure, systolic with LVEF 15 to 20% - Entresto 24 mg - 26 mg, metoprolol 25 mg -Monitor fluid status closely Osmolar gap, resolved Non-anion gap metabolic acidosis -Nephrology note reviewed, continue oral bicarb and tube feeds Leukocytosis, likely reactive Monitor for any signs of infection Imaging: CTA head and neck without acute thrombosis or stenosis, stroke left temporal pariatal. Data Review: Echocardiogram report reviewed, no LV thrombus WBC 11.6, hemoglobin 15.8, sodium 137, potassium 3.6, creatinine 0.43, blood sugars range between 203 to 243, magnesium 1.6 DVT prophylaxis: Heparin subcu Anticipated discharge date: Pending clinical course Anticipated discharge place: Pending clinical course Objective - Vital Signs Vital signs: Vital Signs Temp 97.6 F 06/14/23 08:46 Pulse 91 06/14/23 08:46 Resp 16 06/14/23 08:46 BP 136/87 06/14/23 08:46 Pulse Ox 93 L 06/14/23 08:46 FiO2 Intake & Output 06/13/23 06/14/23 06/14/23 18:59 06:59 18:59 Intake Total 180 416 128 Output Total 1675 225 Balance -1495 191 128 Intake: Tube Feeding 180 416 128 Output: Urine 1675 225 Other: Voiding Method Indwelling Catheter Indwelling Catheter Indwelling Catheter - Labs CBC & Chem 7: 06/14/23 09:59 06/14/23 09:57 Labs: Abnormal Lab Results - Last 24 Hours (Table) 06/13/23 06/13/23 06/14/23 Range/Units 13:01 18:08 00:01 WBC (3.8-10.6) k/uL RBC (3.80-5.40) m/uL Hct (34.0-46.0) % MCHC (31.0-37.0) g/dL Neutrophils # (1.3-7.7) k/uL Creatinine (0.52-1.04) mg/dL Glucose (74-99) mg/dL POC Glucose (mg/dL) 196 H 218 H 213 H (70-110) mg/dL 06/14/23 06/14/23 06/14/23 Range/Units 05:59 09:57 09:59 WBC 11.6 H (3.8-10.6) k/uL RBC 6.24 H (3.80-5.40) m/uL Hct 52.3 H (34.0-46.0) % MCHC 30.3 L (31.0-37.0) g/dL Neutrophils # 8.4 H (1.3-7.7) k/uL Creatinine 0.43 L (0.52-1.04) mg/dL Glucose 243 H (74-99) mg/dL POC Glucose (mg/dL) 203 H (70-110) mg/dL
--- NOTE | 2023-06-14 11:34 | P.PN ---
Subjective Progress Note Date: 06/13/23 Patient was seen for a follow-up. Patient is much more alert and awake. She is laying diagonally in the bed. Her legs are tingling down the siderails. She is moving the leg [id number] randomly. Her both hands are in restraints. Patient continues to be aphasic, encephalopathic, not verbal. Objective - Vital Signs Vital signs: Vital Signs Temp 97.6 F 06/14/23 08:46 Pulse 91 06/14/23 08:46 Resp 16 06/14/23 08:46 BP 136/87 06/14/23 08:46 Pulse Ox 93 L 06/14/23 08:46 FiO2 Intake & Output 06/13/23 06/14/23 06/14/23 18:59 06:59 18:59 Intake Total 180 416 128 Output Total 1675 225 Balance -1495 191 128 Intake: Tube Feeding 180 416 128 Output: Urine 1675 225 Other: Voiding Method Indwelling Catheter Indwelling Catheter Indwelling Catheter - Exam On examination patient is fully alert today, but aphasic. She did not tell me her name, or the month. Patient appears somewhat encephalopathic as well. Her scanning clerk is normal on the left, but weak on the right arm. Her leg movements are equal bilaterally. She is randomly moving her both legs [id number]. She is adducting, and then abducting her both legs at the same time. Patient has bilateral BKA. No seizure-like activity. - Labs CBC & Chem 7: 06/14/23 09:59 06/14/23 09:57 Labs: Abnormal Lab Results - Last 24 Hours (Table) 06/13/23 06/13/23 06/14/23 Range/Units 13:01 18:08 00:01 WBC (3.8-10.6) k/uL RBC (3.80-5.40) m/uL Hct (34.0-46.0) % MCHC (31.0-37.0) g/dL Neutrophils # (1.3-7.7) k/uL Creatinine (0.52-1.04) mg/dL Glucose (74-99) mg/dL POC Glucose (mg/dL) 196 H 218 H 213 H (70-110) mg/dL 06/14/23 06/14/23 06/14/23 Range/Units 05:59 09:57 09:59 WBC 11.6 H (3.8-10.6) k/uL RBC 6.24 H (3.80-5.40) m/uL Hct 52.3 H (34.0-46.0) % MCHC 30.3 L (31.0-37.0) g/dL Neutrophils # 8.4 H (1.3-7.7) k/uL Creatinine 0.43 L (0.52-1.04) mg/dL Glucose 243 H (74-99) mg/dL POC Glucose (mg/dL) 203 H (70-110) mg/dL Assessment and Plan Assessment: * Acute ischemic stroke left frontal parietal region, likely due to embolism. Patient not a candidate for tPA because of unknown onset of symptoms. No large vessel occlusion noted on CTA. * Dysphagia, due to CVA. * Altered mental status, metabolic encephalopathy, and CVA as above. * Polysubstance abuse. Urine positive for amphetamines and methamphetamines. * Diabetes, poorly controlled, A1c 12.5 * History of bilateral BKA Plan: * Stat EEG was abnormal due to background slowing of moderate to severe degree. This is suggestive of generalized cerebral dysfunction as can be seen with toxic metabolic encephalopathy or related to diffuse structural brain abnormality. No epileptiform activity was seen. * CT head revealed acute left temporal parietal ischemic infarction. * CTA of head and neck reported no stenosis or occlusion. Official report pending. * 2D echo from 06/11/2023 revealed LVEF estimated at 15 to 20%. Severely reduced global LV systolic function. Apical akinesis. Cannot rule out left ventricular apical thrombus especially in setting of CVA. Repeat echo with contrast. Moderate left atrial dilation. Mild MR. * 2D echo from 06/13/2023 was limited study. LVEF is 25 to 30% with anteroapical akinesis and thinning of the anterior apical wall. No LV thrombus noted. * Consult cardiology for abnormal echo and embolic stroke. Evaluate need for NICOLE, and if patient a candidate for anticoagulation. * Fasting lipid panel with cholesterol 139, LDL 73, HDL 41, triglycerides 123. Patient on Lipitor 80 mg daily (home medication). * Hemoglobin A1c 12.5, consistent with poorly controlled diabetes. Recommend optimize control of diabetes to target A1c <7.0. * Phenobarbital 6.4 (15-40) and Trileptal level 3.8 (10-35). Both of them are in nontoxic range. * Ethylene glycol panel negative. * Continue close neurochecks. * Fall precautions. * DVT prophylaxis: Start heparin 5000 units subcu every 12 hours.
[2023-06-14 12:05] LABS: Glucose,Whole Blood 275 mg/dL (70-110)
--- NOTE | 2023-06-14 12:19 | CT ---
EXAMINATION TYPE: CT brain wo con DATE OF EXAM: 06/14/2023 COMPARISON: 06/10/2023 HISTORY: Followup CVA CT DLP: 1095.4 mGycm. Automated Exposure Control for Dose Reduction was Utilized. TECHNIQUE: CT scan of the head is performed without contrast. FINDINGS: There is increasing decreased density in the left frontal and left temporal cortex and subcortical wh ite matter consistent with a evolving subacute infarct. There is no acute intra or extra-axial hemorr sonali. There is no mass effect or shift of midline structures. The ventricles, basal cisterns and sulci over convexities are within normal limits. Posterior fossa is unremarkable. The intraorbital contents appear normal and symmetric. The mastoid air cells and middle ear cavities are well aerated. IMPRESSION: Subacute evolving infarct in the left frontal and temporal lobes with no mass effect or acute intra o r extra-axial hemorrhage.
[2023-06-14] MEDS: MAGNESIUM SULFATE-D5W PMX 1 GM in DEXTROSE/WATER 1 100ML.BAG IVPB SCH (12:59)
[2023-06-14] MEDS: POTASSIUM BICARBONATE/CIT AC 20 MEQ TABLET.EFF PO ONE (13:09)
[2023-06-14 17:45] LABS: Glucose,Whole Blood 203 mg/dL (70-110)
[2023-06-14] MEDS ORDERED: ZINC OXIDE PASTE (Z-GUARD) 1 APPLIC TOPICAL PRN (23:48)
[2023-06-15 00:05] LABS: Glucose,Whole Blood 236 mg/dL (70-110)
--- NOTE | 2023-06-15 00:15 | P.PN ---
Subjective Progress Note Date: 06/14/23 Patient was seen for a follow-up. Patient is fully alert and awake. Patient is still nonverbal. Patient offers no complaints. Objective - Vital Signs Vital signs: Vital Signs Temp 97.4 F L 06/14/23 12:58 Pulse 93 06/14/23 12:58 Resp 16 06/14/23 12:58 BP 123/81 06/14/23 12:58 Pulse Ox 95 06/14/23 12:58 FiO2 Intake & Output 06/13/23 06/14/23 06/14/23 18:59 06:59 18:59 Intake Total 180 416 256 Output Total 1675 225 Balance -1495 191 256 Intake: Tube Feeding 180 416 256 Output: Urine 1675 225 Other: Voiding Method Indwelling Catheter Indwelling Catheter Indwelling Catheter - Exam On examination patient is fully alert today, but aphasic. She did not tell me her name, or the month. Patient appears somewhat encephalopathic as well. Her field sales associate is normal on the left, with normal biceps and triceps. Patient is very weak in the right upper extremity. Patient is spontaneously moving her legs [id number] up and down without any problem. Patient has bilateral BKA. No seizure-like activity. - Labs CBC & Chem 7: 06/14/23 09:59 06/14/23 09:57 Labs: Abnormal Lab Results - Last 24 Hours (Table) 06/13/23 06/14/23 06/14/23 Range/Units 18:08 00:01 05:59 WBC (3.8-10.6) k/uL RBC (3.80-5.40) m/uL Hct (34.0-46.0) % MCHC (31.0-37.0) g/dL Neutrophils # (1.3-7.7) k/uL Creatinine (0.52-1.04) mg/dL Glucose (74-99) mg/dL POC Glucose (mg/dL) 218 H 213 H 203 H (70-110) mg/dL 06/14/23 06/14/23 06/14/23 Range/Units 09:57 09:59 11:53 WBC 11.6 H (3.8-10.6) k/uL RBC 6.24 H (3.80-5.40) m/uL Hct 52.3 H (34.0-46.0) % MCHC 30.3 L (31.0-37.0) g/dL Neutrophils # 8.4 H (1.3-7.7) k/uL Creatinine 0.43 L (0.52-1.04) mg/dL Glucose 243 H (74-99) mg/dL POC Glucose (mg/dL) 275 H (70-110) mg/dL Assessment and Plan Assessment: * Acute ischemic stroke left frontal parietal region, likely due to embolism. Patient not a candidate for tPA because of unknown onset of symptoms. No large vessel occlusion noted on CTA. * Dysphagia, due to CVA. * Altered mental status, metabolic encephalopathy, and CVA as above. * Polysubstance abuse. Urine positive for amphetamines and methamphetamines. * Diabetes, poorly controlled, A1c 12.5 * History of bilateral BKA Plan: * Repeat CT head performed subacute evolving infarct in the left frontal and temporal lobes with no mass effect or acute intracranial hemorrhage. * Check MRI of the brain. * Stat EEG was abnormal due to background slowing of moderate to severe degree. This is suggestive of generalized cerebral dysfunction as can be seen with toxic metabolic encephalopathy or related to diffuse structural brain abnormality. No epileptiform activity was seen. * CTA of head and neck reported no stenosis or occlusion. Official report pending. * Patient has an NG tube placed. Patient on aspirin 81 mg daily. If no hemorrhagic conversion, may consider adding Plavix. * 2D echo from 06/11/2023 revealed LVEF estimated at 15 to 20%. Severely reduced global LV systolic function. Apical akinesis. Cannot rule out left ventricular apical thrombus especially in setting of CVA. Repeat echo with contrast. Moderate left atrial dilation. Mild MR. * 2D echo from 06/13/2023 was limited study. LVEF is 25 to 30% with anteroapical akinesis and thinning of the anterior apical wall. No LV thrombus noted. * Await cardiology for abnormal echo and embolic stroke. Evaluate need for NICOLE, and if patient a candidate for anticoagulation. * Fasting lipid panel with cholesterol 139, LDL 73, HDL 41, triglycerides 123. Patient on Lipitor 80 mg daily (home medication). * Hemoglobin A1c 12.5, consistent with poorly controlled diabetes. Recommend optimize control of diabetes to target A1c <7.0. * Phenobarbital 6.4 (15-40) and Trileptal level 3.8 (10-35). Both of them are in nontoxic range. * Ethylene glycol panel negative. * Continue close neurochecks. * Fall precautions. * DVT prophylaxis: Start heparin 5000 units subcu every 12 hours. * Dr. Jonathan Ramos to resume neurology service in the morning.
[2023-06-15 06:06] LABS: Glucose,Whole Blood 242 mg/dL (70-110)
[2023-06-15 10:33] LABS: Basophils # (A) 0.1 k/uL (0-0.2); Basophils % (A) 0 %; Eosinophils # (A) 0.2 k/uL (0-0.7); Eosinophils % (A) 2 %; HCT 48.5 % (34.0-46.0); HGB 15.1 gm/dL (11.4-16.0); Lymphocytes # (A) 2.3 k/uL (1.0-4.8); Lymphocytes % (A) 18 %; MCV 83.8 fL (80.0-100.0); Mean Platelet Volume 8.3; Monocytes # (A) 0.7 k/uL (0-1.0); Monocytes % (A) 6 %; Neutrophils # (A) 9.5 k/uL (1.3-7.7); Neutrophils % (A) 73 %; Platelet Count 244 k/uL (150-450); RBC 5.79 m/uL (3.80-5.40); RDW 14.6 % (11.5-15.5)
--- NOTE | 2023-06-15 11:50 | P.PN ---
Subjective Patient is seen in follow-up for metabolic acidosis. Receiving tube feeds. Acidosis improved. Poor historian. No changes overnight. Vital signs are stable. General: No acute distress. HEENT: Head exam is unremarkable. LUNGS no audible rhonchi or wheezes. HEART: Rate and Rhythm are regular. ABDOMEN: Nontender. EXTREMITITES: Bilateral BKA's. Objective - Vital Signs Vital signs: Vital Signs Temp 98.4 F 06/15/23 08:05 Pulse 96 06/15/23 08:05 Resp 20 06/15/23 08:05 BP 128/80 06/15/23 08:05 Pulse Ox 95 06/15/23 08:05 FiO2 Intake & Output 06/14/23 06/15/23 06/15/23 18:59 06:59 18:59 Intake Total 128 0 Output Total 900 600 Balance -772 -600 Intake: Oral 0 Tube Feeding 128 Output: Urine 900 600 Other: Voiding Method Indwelling Catheter Indwelling Catheter Indwelling Catheter - Labs CBC & Chem 7: 06/15/23 09:32 06/14/23 09:57 Labs: Abnormal Lab Results - Last 24 Hours (Table) 06/14/23 06/14/23 06/15/23 Range/Units 11:53 17:44 00:04 WBC (3.8-10.6) k/uL RBC (3.80-5.40) m/uL Hct (34.0-46.0) % Neutrophils # (1.3-7.7) k/uL POC Glucose (mg/dL) 275 H 203 H 236 H (70-110) mg/dL 06/15/23 06/15/23 Range/Units 06:03 09:32 WBC 13.0 H (3.8-10.6) k/uL RBC 5.79 H (3.80-5.40) m/uL Hct 48.5 H (34.0-46.0) % Neutrophils # 9.5 H (1.3-7.7) k/uL POC Glucose (mg/dL) 242 H (70-110) mg/dL Assessment and Plan Plan: Assessment: 1. Metabolic acidosis secondary to IV fluids. Improved. Repeat osmolar gap was normal at 6. No evidence of DKA. Volatile screen negative. Serum alcohol level less than 10. 2. Altered mental status with urine drug screen positive for barbiturates, amphetamines and methamphetamines. Neurology following. 3. History of schizophrenia. 4. Bilateral below-knee amputations. 5. Hypomagnesemia from poor intake. Replaced. Better. 6. Chronic systolic CHF with ejection fraction of 25 to 30%. 7. Subacute CVA. Neurology following. MRI pending. Plan: Off IV fluids. Maintain tube feeds. Maintain oral bicarb. Replace electrolytes per protocol.
[2023-06-15 11:56] LABS: Glucose,Whole Blood 260 mg/dL (70-110)
--- NOTE | 2023-06-15 13:13 | P.PN ---
Subjective Progress Note Date: 06/15/23 Patient is a 38-year-old female with known congestive heart failure, diabetes, and schizophrenia who presented to our emergency department from [place] due to agitation. Initial report from the ER was that she had been agitated and yelling. However review from [place] is that she presented to the nurse with flailing arms and legs unable to speak and just groaning. On arrival to e ER here her vital signs are within normal limits. Laboratory analysis included CBC, coags, CMP, ammonia, urinalysis, and urine drug screen which were remarkable for sodium 134, glucose 233, 1+ protein, 4+ glucose. Urine drug screen was positive for barbiturates and methamphetamines. Salicylates, acetaminophen, and alcohol level were negative. Initially she was kept to be seen by psych. Per charting it appears that her GCS had been up to 15 at some point and she required 1 mg of Ativan at 527 on the morning of 06/10. We were contacted for admission at 1032. Patient was found to have decreased responsiveness at our initial evaluation. Neurology was contacted for concern for subclinical seizure and patient underwent stat EEG which demonstrated background slowing of moderate to severe degree with generalized cerebral dysfunction. Neurology also recommended CTA of the head which showed a left temporal lobe infarct. Patient's phenobarbital level was low. She was found to have a slight osmolar gap and nephrology was consulted. Now normalized, volatile is negative. Echocardiogram showed LVEF 15 to 20%, no LV thrombus. Getting tube feeds. Patient seen and examined at bedside. No acute events overnight. Following some commands, still has an NG tube in place Vital signs reviewed General: Nontoxic, no distress, appears at stated age Cardiovascular: S1S2 reg, no murmur Lungs: CTA bilateral, no rhonchi, no rales, no accessory muscle use Abdominal: Soft, nontender to palpation, no guarding, NG tube in place Ext: No gross muscle atrophy, no edema b/l lower extremities, no contractures Neuro: Following some commands, moving left upper extremity, and lower extremities Psych: unable to assess Assessment/Plan: Patient is severely ill, needs close monitoring. Acute left temporal parietal CVA Acute metabolic encephalopathy due to above Discussed management with neurology, could be an embolic stroke, MRI brain pending, CTA read still pending, attempted to get a hold of radiology, will try again. Carotid ultrasound ordered -NG tube in place, on aspirin 81 mg, and atorvastatin 80 mg -Continue tube feeds -continue Toprol 25 mg daily, Entresto 24/26 mg 1 tablet twice daily -Telemetry -No LV thrombus noted General surgery following, may need PEG tube placement -PT/OT/speech recommendations Diabetes mellitus, insulin requiring -A1c 12.5 -Increase Levemir to 25 units units daily, also on sliding scale insulin, monitor for hypoglycemia Schizophrenia -On home Latuda 160 mg, Trileptal 300 twice daily, Invega 3 mg daily, on gabapentin 100 3 times daily Congestive heart failure, systolic with LVEF 15 to 20% - Entresto 24 mg - 26 mg, metoprolol 25 mg -Monitor fluid status closely Osmolar gap, resolved Non-anion gap metabolic acidosis -Nephrology note reviewed, continue oral bicarb and tube feeds Leukocytosis, likely reactive Monitor for any signs of infection Imaging: CTA head and neck without acute thrombosis or stenosis, stroke left temporal par iatal. Data Review: Echocardiogram report reviewed, no LV thrombus WBC 13, hemoglobin 15.1, blood sugars range between 203 to 260 DVT prophylaxis: Heparin subcu Anticipated discharge date: Pending clinical course Anticipated discharge place: Pending clinical course Objective - Vital Signs Vital signs: Vital Signs Temp 98.4 F 06/15/23 08:05 Pulse 90 06/15/23 11:49 Resp 20 06/15/23 11:49 BP 112/74 06/15/23 11:49 Pulse Ox 94 L 06/15/23 11:49 FiO2 Intake & Output 06/14/23 06/15/23 06/15/23 18:59 06:59 18:59 Intake Total 128 0 128 Output Total 900 600 300 Balance -772 -600 -172 Intake: Oral 0 Tube Feeding 128 128 Output: Urine 900 600 300 Other: Voiding Method Indwelling Catheter Indwelling Catheter Indwelling Catheter - Labs CBC & Chem 7: 06/15/23 09:32 06/14/23 09:57 Labs: Abnormal Lab Results - Last 24 Hours (Table) 06/14/23 06/15/23 06/15/23 Range/Units 17:44 00:04 06:03 WBC (3.8-10.6) k/uL RBC (3.80-5.40) m/uL Hct (34.0-46.0) % Neutrophils # (1.3-7.7) k/uL POC Glucose (mg/dL) 203 H 236 H 242 H (70-110) mg/dL 06/15/23 06/15/23 Range/Units 09:32 11:50 WBC 13.0 H (3.8-10.6) k/uL RBC 5.79 H (3.80-5.40) m/uL Hct 48.5 H (34.0-46.0) % Neutrophils # 9.5 H (1.3-7.7) k/uL POC Glucose (mg/dL) 260 H (70-110) mg/dL
--- NOTE | 2023-06-15 14:24 | US ---
EXAMINATION TYPE: US carotid duplex BILAT DATE OF EXAM: 06/15/2023 COMPARISON: NONE CLINICAL INDICATION: Female, 38 years old with history of stroke; stroke TECHNIQUE: Carotid duplex ultrasound examination. Indirect Doppler criteria was utilized. FINDINGS: EXAM MEASUREMENTS: RIGHT: Peak Systolic Velocity (PSV) cm/sec ----- Right CCA: 71.4 ----- Right ICA: 67.0 ----- Right ECA: 122 ICA/CCA ratio: 0.94 RIGHT: End Diastole cm/sec ----- Right CCA: 17.5 ----- Right ICA: 25.2 ----- Right ECA: 11.0 LEFT: Peak Systolic Velocity (PSV) cm/sec ----- Left CCA: 84.8 ----- Left ICA: 67.8 ----- Left ECA: 98.7 ICA/CCA ratio: 0.80 LEFT: End Diastole cm/sec ----- Left CCA: 23.6 ----- Left ICA: 25.2 ----- Left ECA: 14.9 VERTEBRALS (direction of flow): Right Vertebral: Antegrade Left Vertebral: Antegrade Rhythm: Normal AUTOMOTIVE PARTS MANAGER NOTES: Mild plaque bilateral bifurcations. No evidence of increased velocities IMPRESSION: No significant hemodynamic stenosis identified. Criteria for Assigning % of Stenosis / Diameter reduction (Estimation based on the indirect measurements of the internal carotid artery velocities (ICA PSV). 1. Normal (no stenosis)=ICA PSV < 125 cm/s: ratio < 2.0: ICA EDV<40 cm/s. 2. Less than 50% stenosis=ICA PSV < 125 cm/s: ratio < 2.0: ICA EDV<40 cm/s. 3. 50 to 69% stenosis=ICA PSV of 125 to 230 cm/s: ration 2.0 ? 4.0: ICA EDV 40-100 cm/s. 4. Greater than 70% stenosis to near occlusion= ICA PSV > 230 cm/s: ratio > 4.0: ICA EDV > 100 cm/s. 5. Near occlusion= ICA PSV velocities may be low or undetectable: variable ratio and ICA EDV. 6. Total occlusion=unable to detect flow.
--- NOTE | 2023-06-15 14:28 | P.PN ---
Subjective Progress Note Date: 06/15/23 CHIEF COMPLAINT: Dysphagia HISTORY OF PRESENT ILLNESS: Patient mid to the hospital with CVA and having dy sphagia. Currently his tube feeds via NG tube for nutrition support. She failed her swallow eval again this morning. WBC 13 PHYSICAL EXAM: VITAL SIGNS: Reviewed. GENERAL: Well-developed in no acute distress. ABDOMEN: Soft. Nondistended. Nontender. NEUROLOGIC: Awake. Lethargic ASSESSMENT: 1. Dysphagia 2. Severe protein calorie malnutrition 3. CVA PLAN: -Patient scheduled for EGD with PEG tube placement on Thursday with Dr. James -Continue tube feeds via NG tube for nutrition support Physician Water Safety Instructor note has been reviewed by physician. Signing provider agrees with the documented findings, assessment, and plan of care. Objective - Vital Signs Vital signs: Vital Signs Temp 98.4 F 06/15/23 08:05 Pulse 90 06/15/23 11:49 Resp 20 06/15/23 11:49 BP 112/74 06/15/23 11:49 Pulse Ox 94 L 06/15/23 11:49 FiO2 Intake & Output 06/14/23 06/15/23 06/15/23 18:59 06:59 18:59 Intake Total 128 0 128 Output Total 900 600 300 Balance -772 -600 -172 Intake: Oral 0 Tube Feeding 128 128 Output: Urine 900 600 300 Other: Voiding Method Indwelling Catheter Indwelling Catheter Indwelling Catheter - Labs CBC & Chem 7: 06/15/23 09:32 06/14/23 09:57 Labs: Abnormal Lab Results - Last 24 Hours (Table) 06/14/23 06/15/23 06/15/23 Range/Units 17:44 00:04 06:03 WBC (3.8-10.6) k/uL RBC (3.80-5.40) m/uL Hct (34.0-46.0) % Neutrophils # (1.3-7.7) k/uL POC Glucose (mg/dL) 203 H 236 H 242 H (70-110) mg/dL 06/15/23 06/15/23 Range/Units 09:32 11:50 WBC 13.0 H (3.8-10.6) k/uL RBC 5.79 H (3.80-5.40) m/uL Hct 48.5 H (34.0-46.0) % Neutrophils # 9.5 H (1.3-7.7) k/uL POC Glucose (mg/dL) 260 H (70-110) mg/dL
--- NOTE | 2023-06-15 14:59 | P.PN ---
Subjective Progress Note Date: 06/15/23 I am seeing the patient for the first time during this admission. Please refer to Dr. Daly's notes for further details. It appears the patient has acute ischemic stroke over the left frontal parietal region likely due to embolism. Pending MRI the brain. Seems the patient has poorly controlled diabetes and the has polysubstance abuse and has history of bilateral [id number] amputation. Objective - Vital Signs Vital signs: Vital Signs Temp 98.4 F 06/15/23 08:05 Pulse 90 06/15/23 14:00 Resp 20 06/15/23 14:00 BP 112/74 06/15/23 11:49 Pulse Ox 94 L 06/15/23 11:49 FiO2 Intake & Output 06/14/23 06/15/23 06/15/23 18:59 06:59 18:59 Intake Total 128 0 128 Output Total 900 600 300 Balance -772 -600 -172 Weight 48.308 kg Intake: Oral 0 Tube Feeding 128 128 Output: Urine 900 600 300 Other: Voiding Method Indwelling Catheter Indwelling Catheter Indwelling Catheter - Exam General: Lying in bed and does not appear in acute distress. Neuro: Very limited because of patient's overal. condition and lack of cooperation. Patient is drowsy but is awake and able to voice. Patient is not vocalizing or following commands. Primary gaze is midline but tracks right to the left. The pupils are round equal reactive to light. It's about 34 mm bilaterally. No facial weakness. Motor is a strength is unable to assess because of her overall condition. No split this movement. Has below the knee and rotation bilaterally. - Labs CBC & Chem 7: 06/15/23 09:32 06/14/23 09:57 Labs: Abnormal Lab Results - Last 24 Hours (Table) 06/14/23 06/15/23 06/15/23 Range/Units 17:44 00:04 06:03 WBC (3.8-10.6) k/uL RBC (3.80-5.40) m/uL Hct (34.0-46.0) % Neutrophils # (1.3-7.7) k/uL POC Glucose (mg/dL) 203 H 236 H 242 H (70-110) mg/dL 06/15/23 06/15/23 Range/Units 09:32 11:50 WBC 13.0 H (3.8-10.6) k/uL RBC 5.79 H (3.80-5.40) m/uL Hct 48.5 H (34.0-46.0) % Neutrophils # 9.5 H (1.3-7.7) k/uL POC Glucose (mg/dL) 260 H (70-110) mg/dL Assessment and Plan Assessment: * Acute ischemic stroke left frontal parietal region, likely due to embolism. Patient not a candidate for tPA because of unknown onset of symptoms. No large vessel occlusion noted on CTA. * Dysphagia, due to CVA. * Altered mental status, metabolic encephalopathy, and CVA as above. * Polysubstance abuse. Urine positive for amphetamines and methamphetamines. * Diabetes, poorly controlled, A1c 12.5 * History of bilateral BKA Plan: * Repeat CT head performed subacute evolving infarct in the left frontal and temporal lobes with no mass effect or acute intracranial hemorrhage. * MRI of the brain: pending. * Stat EEG was abnormal due to background slowing of moderate to severe degree. This is suggestive of generalized cerebral dysfunction as can be seen with toxic metabolic encephalopathy or related to diffuse structural brain abnormality. No epileptiform activity was seen. * CTA of head and neck from 06/11/23Official report pending. Primary team is attempting to the have radiology finalize a report. * In the meantime the primary team ordered carotid duplex. * Patient has an NG tube placed. Patient on aspirin 81 mg daily. If no hemorrh agic conversion, may consider adding Plavix. * 2D echo from 06/11/2023 revealed LVEF estimated at 15 to 20%. Severely reduced global LV systolic function. Apical akinesis. Cannot rule out left ventricular apical thrombus especially in setting of CVA. Repeat echo with contrast. Moderate left atrial dilation. Mild MR. * 2D echo from 06/13/2023 was limited study. LVEF is 25 to 30% with anteroapical akinesis and thinning of the anterior apical wall. No LV thrombus noted. * Await cardiology for abnormal echo and embolic stroke. Evaluate need for NICOLE, and if patient a candidate for anticoagulation. * Fasting lipid panel with cholesterol 139, LDL 73, HDL 41, triglycerides 123. Patient on Lipitor 80 mg daily (home medication). * Hemoglobin A1c 12.5, consistent with poorly controlled diabetes. Recommend optimize control of diabetes to target A1c <7.0. * Phenobarbital 6.4 (15-40) and Trileptal level 3.8 (10-35). Both of them are in nontoxic range. * Ethylene glycol panel negative. * Continue close neurochecks. * Fall precautions. * DVT prophylaxis: Start heparin 5000 units subcu every 12 hours. * Overall condition is very guarded. The plan is discussed with primary team. Time with Patient: Less than 30
[2023-06-15 15:09] VITALS: BMI 26.6
[2023-06-15] MEDS: INSULIN DETEMIR (LEVEMIR) 100 UNIT/ML SYR SQ ONE (15:55)
[2023-06-15] MEDS: SODIUM CHLORIDE 0.9% 1,000 ML IV SCH (15:56)
[2023-06-15 17:46] LABS: Glucose,Whole Blood 216 mg/dL (70-110)
[2023-06-15 20:39] LABS: Glucose,Whole Blood 217 mg/dL (70-110)
--- NOTE | 2023-06-15 23:54 | CONS ---
CONSULTATION HISTORY OF PRESENT ILLNESS: Ms. Elda Mari is an unfortunate 38-year-old lady with a diagnosis of probably type 1 diabetes mellitus, who came in with what seems to be a CVA type picture, was seen by Neurology. CT angiogram was performed, but I cannot find a dictated report. Apparently, the neurologist mentioned that she has no significant stenosis. She has known congestive heart failure, diabetes, schizophrenia, came in from [place] and was found to have on arrival areas of weakness and could not communicate very well. Urine drug screen was positive for methamphetamines and barbiturates. There is evidence of what seems to be acute or subacute stroke and ejection fraction is also diminished. She has diabetes, on insulin, and Dr. Ramos, the Neurologist has seen the patient today, had an acute ischemic stroke over the left frontoparietal area. MRI is pending. Has poorly controlled diabetes, polysubstance abuse, and history of bilateral below-knee amputation. I will request Dr. Cedeno to perform a transesophageal echo in the next 24 to 48 hours. In the meantime, we will carefully hydrate her. Echocardiogram that was performed as a repeat study today revealed ejection fraction of about 25% to 30% with anteroapical akinesia thinning. No LV thrombus noted. She will benefit from a transesophageal echo and also coronary angiography. Renal function is fairly well preserved. Creatinine is 0.43 yesterday. I am recommending cautious hydration, proceed with transesophageal echo and cardiac cath. I will discuss further with the patient and family tomorrow. She is not very communicative today. EKG revealed sinus mechanism, leftward axis, IVCD and a nonspecific ST-T changes. PHYSICAL EXAMINATION: VITAL SIGNS: Blood pressure is 112/74, pulse rate is 90, appears to be in a sinus rhythm with PACs, IVCD. NECK: Revealed no JVD. CARDIAC: S1, S2 heard normally. Short systolic murmur. LUNGS: Revealed decent air entry. ABDOMEN: Soft. LOWER EXTREMITIES: Revealed bilateral below-knee amputation. CENTRAL NERVOUS SYSTEM: Assessment not performed. IMPRESSION: 1. Acute ischemic stroke with left frontoparietal/temporal lobes evolving infarct. 2. Decreased ejection fraction with ischemic cardiomyopathy type picture. 3. Diabetes, poorly controlled. 4. Bilateral lower extremity below-knee amputation, reasons and rationale unclear. RECOMMENDATIONS: We will discuss further with the patient and family and consider coronary angiography as well as transesophageal echo in the next 24 or more likely 48 hours. MMODL / IJN: [id number] /
[2023-06-16 00:07] LABS: Glucose,Whole Blood 218 mg/dL (70-110)
[2023-06-16 06:02] LABS: Glucose,Whole Blood 182 mg/dL (70-110)
[2023-06-16] MEDS: INSULIN DETEMIR (LEVEMIR) 100 UNIT/ML SYR SQ SCH (06:13)
--- NOTE | 2023-06-16 07:24 | CT ---
EXAMINATION TYPE: CT brain wo con, CT angio head neck with contrast and with 3-D reconstruction rende rings at an independent workstation DATE OF EXAM: 06/11/2023 HISTORY: AMS, rule out LVO (accession [id number]), mental status change (accession [id number]) COMPARISON: CT brain without contrast 06/10/2023 CT DLP: 384.4 (accession [id number]), 1095.1 (accession [id number]) mGycm. Automated Exposure Control fo r Dose Reduction was Utilized. TECHNIQUE: CTA scan of the head and neck is performed without and with IV Contrast, patient injected with 65 cc mL of Isovue 370, axial images are obtained, coronal and sagittal reformatted images are r eviewed. 3D reconstructed images are created on an independent workstation and reviewed. FINDINGS: CT BRAIN W/O CONTRAST: There is a 4 cm left temporoparietal low attenuation defect in the vascular te rritory of the left MCA. There is mild associated sulcal effacement consistent with cytotoxic edeman, with no associated hemorrhage. CTA Neck: The bilateral carotid arterial systems are widely patent and normal in appearance. Similarl y, the bilateral vertebral artery systems are widely patent and have normal appearance. There are no incidental nonarterial findings. CTA Head: The anterior and posterior arterial circulations are widely patent and have normal appearan ce. There are no incidental nonarterial findings. Results were discussed with patient's nurse Debo at 10:22 PM, and she is notifying covering physici an. IMPRESSION: CT Brain w/o contrast: 4 cm left temporoparietal nonhemorrhagic acute infarction. CTA Neck And Head: No significant abnormality. NASCET criteria was used in interpretation of this exam?
[2023-06-16 08:04] LABS: Basophils # (A) 0.1 k/uL (0-0.2); Basophils % (A) 0 %; Eosinophils # (A) 0.3 k/uL (0-0.7); Eosinophils % (A) 3 %; HCT 46.8 % (34.0-46.0); HGB 13.9 gm/dL (11.4-16.0); Hypochromasia Slight; Lymphocytes # (A) 2.7 k/uL (1.0-4.8); Lymphocytes % (A) 24 %; MCH 25.5 pg (25.0-35.0); MCHC 29.7 g/dL (31.0-37.0); MCV 85.9 fL (80.0-100.0); Mean Platelet Volume 8.6; Monocytes # (A) 0.6 k/uL (0-1.0); Monocytes % (A) 5 %; Neutrophils # (A) 7.6 k/uL (1.3-7.7); Neutrophils % (A) 66 %; Platelet Count 215 k/uL (150-450); RBC 5.45 m/uL (3.80-5.40); RDW 14.9 % (11.5-15.5); WBC 11.5 k/uL (3.8-10.6)
[2023-06-16 08:33] LABS: African American GFR (CKD) >90 (>60 ml/min/1.73 sqM); Anion Gap 8 mmol/L; Blood Urea Nitrogen 22 mg/dL (7-17); Calcium 8.8 mg/dL (8.4-10.2); Carbon Dioxide 26 mmol/L (22-30); Chloride 104 mmol/L (98-107); Glucose 180 mg/dL (74-99); Magnesium 1.6 mg/dL (1.6-2.3); Non-African American GFR(CKD) >90 (>60 ml/min/1.73 sqM); Potassium 3.5 mmol/L (3.5-5.1); Sodium 138 mmol/L (137-145)
[2023-06-16] MEDS: LACTATED RINGERS 1,000 ML IV SCH (10:23)
--- NOTE | 2023-06-16 10:45 | P.PN ---
Subjective Patient is seen in follow-up for metabolic acidosis. Receiving tube feeds. Acidosis improved. Poor historian. No changes overnight. Vital signs are stable. General: No acute distress. HEENT: Head exam is unremarkable. LUNGS no audible rhonchi or wheezes. HEART: Rate and Rhythm are regular. ABDOMEN: Nontender. EXTREMITITES: Bilateral BKA's. Objective - Vital Signs Vital signs: Vital Signs Temp 98.1 F 06/16/23 08:18 Pulse 90 06/16/23 08:18 Resp 17 06/16/23 08:18 BP 103/69 06/16/23 08:18 Pulse Ox 97 06/16/23 08:18 FiO2 Intake & Output 06/15/23 06/16/23 06/16/23 18:59 06:59 18:59 Intake Total 128 0 Output Total 300 700 Balance -172 -700 Weight 48.308 kg Intake: Oral 0 Tube Feeding 128 Output: Urine 300 700 Other: Voiding Method Indwelling Catheter Indwelling Catheter Indwelling Catheter - Labs CBC & Chem 7: 06/16/23 06:46 06/16/23 06:46 Labs: Abnormal Lab Results - Last 24 Hours (Table) 06/15/23 06/15/23 06/15/23 Range/Units 11:50 17:44 20:37 WBC (3.8-10.6) k/uL RBC (3.80-5.40) m/uL Hct (34.0-46.0) % MCHC (31.0-37.0) g/dL BUN (7-17) mg/dL Creatinine (0.52-1.04) mg/dL Glucose (74-99) mg/dL POC Glucose (mg/dL) 260 H 216 H 217 H (70-110) mg/dL 06/16/23 06/16/23 06/16/23 Range/Units 00:05 06:01 06:46 WBC 11.5 H (3.8-10.6) k/uL RBC 5.45 H (3.80-5.40) m/uL Hct 46.8 H (34.0-46.0) % MCHC 29.7 L (31.0-37.0) g/dL BUN (7-17) mg/dL Creatinine (0.52-1.04) mg/dL Glucose (74-99) mg/dL POC Glucose (mg/dL) 218 H 182 H (70-110) mg/dL 06/16/23 Range/Units 06:46 WBC (3.8-10.6) k/uL RBC (3.80-5.40) m/uL Hct (34.0-46.0) % MCHC (31.0-37.0) g/dL BUN 22 H (7-17) mg/dL Creatinine 0.45 L (0.52-1.04) mg/dL Glucose 180 H (74-99) mg/dL POC Glucose (mg/dL) (70-110) mg/dL Assessment and Plan Plan: Assessment: 1. Metabolic acidosis secondary to IV fluids. Resolved. Repeat osmolar gap w as normal at 6. No evidence of DKA. Volatile screen negative. Serum alcohol level less than 10. 2. Altered mental status with urine drug screen positive for barbiturates, amphetamines and methamphetamines. Neurology following. 3. History of schizophrenia. 4. Bilateral below-knee amputations. 5. Hypomagnesemia from poor intake. 6. Chronic systolic CHF with ejection fraction of 25 to 30%. 7. Subacute CVA. Neurology following. MRI pending. Plan: Replace potassium. Add oral Mag-Ox. Maintain tube feeds.
[2023-06-16] MEDS: POTASSIUM BICARBONATE/CIT AC 20 MEQ TABLET.EFF PO ONE (11:15)
[2023-06-16] MEDS: MAGNESIUM OXIDE 400 MG TAB PO SCH (11:15)
[2023-06-16 12:01] LABS: Glucose,Whole Blood 165 mg/dL (70-110)
--- NOTE | 2023-06-16 14:10 | P.PN ---
Subjective Progress Note Date: 06/16/23 Patient is a 38-year-old female with known congestive heart failure, diabetes, and schizophrenia who presented to our emergency department from [place] due to agitation. Initial report from the ER was that she had been agitated and yelling. However review from [place] is that she presented to the nurse with flailing arms and legs unable to speak and just groaning. On arrival to e ER here her vital signs are within normal limits. Laboratory analysis included CBC, coags, CMP, ammonia, urinalysis, and urine drug screen which were remarkable for sodium 134, glucose 233, 1+ protein, 4+ glucose. Urine drug screen was positive for barbiturates and methamphetamines. Salicylates, acetaminophen, and alcohol level were negative. Initially she was kept to be seen by psych. Per charting it appears that her GCS had been up to 15 at some point and she required 1 mg of Ativan at 527 on the morning of 06/10. We were contacted for admission at 1032. Patient was found to have decreased responsiveness at our initial evaluation. Neurology was contacted for concern for subclinical seizure and patient underwent stat EEG which demonstrated background slowing of moderate to severe degree with generalized cerebral dysfunction. Neurology also recommended CTA of the head which showed a left temporal lobe infarct. Patient's phenobarbital level was low. She was found to have a slight osmolar gap and nephrology was consulted. Now normalized, volatile is negative. Echocardiogram showed LVEF 15 to 20%, no LV thrombus. Getting tube feeds. Patient seen and examined at bedside. No acute events overnight. Following some commands, still has an NG tube in place Vital signs reviewed General: Nontoxic, no distress, appears at stated age Cardiovascular: S1S2 reg, no murmur Lungs: CTA bilateral, no rhonchi, no rales, no accessory muscle use Abdominal: Soft, nontender to palpation, no guarding, NG tube in place Ext: No gross muscle atrophy, no edema b/l lower extremities, no contractures Neuro: Following some commands, moving left upper extremity, and lower extremities, bilateral BKA Psych: unable to assess Assessment/Plan: Patient is severely ill, needs close monitoring. Acute left temporal parietal CVA Acute metabolic encephalopathy due to above Polysubstance use Discussed management with neurology, MRI brain still pending, carotid Doppler did not show any stenosis, conversation with cardiology was that NICOLE is not recommended, TTE did not show any vegetations or LV thrombus. Patient will likely need an event monitor at the time of discharge -NG tube in place, on aspirin 81 mg, and atorvastatin 80 mg -Continue tube feeds -continue Toprol 25 mg daily, Entresto 24/26 mg 1 tablet twice daily -Telemetry -No LV thrombus noted General surgery following, likely PEG tube tomorrow -PT/OT/speech recommendations Diabetes mellitus, insulin requiring -A1c 12.5 -Increase Levemir to 25 units units daily, also on sliding scale insulin, monitor for hypoglycemia Schizophrenia -On home Latuda 160 mg, Trileptal 300 twice daily, Invega 3 mg daily, on gabapentin 100 3 times daily Congestive heart failure, systolic with LVEF 15 to 20% - Entresto 24 mg - 26 mg, metoprolol 25 mg -Monitor fluid status closely Unclear etiology, possibly in the setting of polysubstance use Patient may need cardiac cath in the future Osmolar gap, resolved Non-anion gap metabolic acidosis -Nephrology note reviewed, continue oral bicarb and tube feeds, also started on oral magnesium 400 mg daily Leukocytosis, likely reactive, resolving Monitor for any signs of infection Imaging: CTA head and neck without acute thrombosis or stenosis, stroke left temporal pariatal. Data Review: WBC 11.5, hemoglobin 13.9, creatinine 0.45, blood sugars range between 1 65-2 18 DVT prophylaxis: Heparin subcu Anticipated discharge date: Pending clinical course Anticipated discharge place: Pending clinical course Objective - Vital Signs Vital signs: Vital Signs Temp 98.1 F 06/16/23 08:18 Pulse 85 06/16/23 11:13 Resp 17 06/16/23 11:13 BP 101/66 06/16/23 11:13 Pulse Ox 95 06/16/23 11:13 FiO2 Intake & Output 06/15/23 06/16/23 06/16/23 18:59 06:59 18:59 Intake Total 128 0 Output Total 300 700 250 Balance -172 -700 -250 Weight 48.308 kg Intake: Oral 0 Tube Feeding 128 Output: Urine 300 700 250 Other: Voiding Method Indwelling Catheter Indwelling Catheter Indwelling Catheter # Bowel Movements 0 - Labs CBC & Chem 7: 06/16/23 06:46 06/16/23 06:46 Labs: Abnormal Lab Results - Last 24 Hours (Table) 06/15/23 06/15/23 06/16/23 Range/Units 17:44 20:37 00:05 WBC (3.8-10.6) k/uL RBC (3.80-5.40) m/uL Hct (34.0-46.0) % MCHC (31.0-37.0) g/dL BUN (7-17) mg/dL Creatinine (0.52-1.04) mg/dL Glucose (74-99) mg/dL POC Glucose (mg/dL) 216 H 217 H 218 H (70-110) mg/dL 06/16/23 06/16/23 06/16/23 Range/Units 06:01 06:46 06:46 WBC 11.5 H (3.8-10.6) k/uL RBC 5.45 H (3.80-5.40) m/uL Hct 46.8 H (34.0-46.0) % MCHC 29.7 L (31.0-37.0) g/dL BUN 22 H (7-17) mg/dL Creatinine 0.45 L (0.52-1.04) mg/dL Glucose 180 H (74-99) mg/dL POC Glucose (mg/dL) 182 H (70-110) mg/dL 06/16/23 Range/Units 11:59 WBC (3.8-10.6) k/uL RBC (3.80-5.40) m/uL Hct (34.0-46.0) % MCHC (31.0-37.0) g/dL BUN (7-17) mg/dL Creatinine (0.52-1.04) mg/dL Glucose (74-99) mg/dL POC Glucose (mg/dL) 165 H (70-110) mg/dL
--- NOTE | 2023-06-16 14:55 | P.PN ---
Subjective Progress Note Date: 06/16/23 CHIEF COMPLAINT: Dysphagia HISTORY OF PRESENT ILLNESS: Patient mid to the hospital with CVA and having dy sphagia. Currently his tube feeds via NG tube for nutrition support. She failed her swallow evals. PHYSICAL EXAM: VITAL SIGNS: Reviewed. GENERAL: Well-developed in no acute distress. ABDOMEN: Soft. Nondistended. Nontender. NEUROLOGIC: lethargic ASSESSMENT: 1. Dysphagia 2. Severe protein calorie malnutrition 3. CVA PLAN: -Patient scheduled for EGD with PEG tube placement on with Dr. James -Continue tube feeds via NG tube for nutrition support Physician Public Health Program Manager note has been reviewed by physician. Signing provider agrees with the documented findings, assessment, and plan of care. Objective - Vital Signs Vital signs: Vital Signs Temp 98.1 F 06/16/23 08:18 Pulse 85 06/16/23 11:13 Resp 17 06/16/23 11:13 BP 101/66 06/16/23 11:13 Pulse Ox 95 06/16/23 11:13 FiO2 Intake & Output 06/15/23 06/16/23 06/16/23 18:59 06:59 18:59 Intake Total 128 0 Output Total 300 700 250 Balance -172 -700 -250 Weight 48.308 kg Intake: Oral 0 Tube Feeding 128 Output: Urine 300 700 250 Other: Voiding Method Indwelling Catheter Indwelling Catheter Indwelling Catheter # Bowel Movements 0 - Labs CBC & Chem 7: 06/16/23 06:46 06/16/23 06:46 Labs: Abnormal Lab Results - Last 24 Hours (Table) 06/15/23 06/15/23 06/16/23 Range/Units 17:44 20:37 00:05 WBC (3.8-10.6) k/uL RBC (3.80-5.40) m/uL Hct (34.0-46.0) % MCHC (31.0-37.0) g/dL BUN (7-17) mg/dL Creatinine (0.52-1.04) mg/dL Glucose (74-99) mg/dL POC Glucose (mg/dL) 216 H 217 H 218 H (70-110) mg/dL 06/16/23 06/16/23 06/16/23 Range/Units 06:01 06:46 06:46 WBC 11.5 H (3.8-10.6) k/uL RBC 5.45 H (3.80-5.40) m/uL Hct 46.8 H (34.0-46.0) % MCHC 29.7 L (31.0-37.0) g/dL BUN 22 H (7-17) mg/dL Creatinine 0.45 L (0.52-1.04) mg/dL Glucose 180 H (74-99) mg/dL POC Glucose (mg/dL) 182 H (70-110) mg/dL 06/16/23 Range/Units 11:59 WBC (3.8-10.6) k/uL RBC (3.80-5.40) m/uL Hct (34.0-46.0) % MCHC (31.0-37.0) g/dL BUN (7-17) mg/dL Creatinine (0.52-1.04) mg/dL Glucose (74-99) mg/dL POC Glucose (mg/dL) 165 H (70-110) mg/dL
--- NOTE | 2023-06-16 16:01 | P.PN ---
Subjective Progress Note Date: 06/16/23 I am following with the patient and per the nurse in her 80s patient will follow few simple commands time to time and she'll respond to questions by head movement. Upon seeing her she was severely drowsy. Objective - Vital Signs Vital signs: Vital Signs Temp 98.1 F 06/16/23 08:18 Pulse 85 06/16/23 11:13 Resp 17 06/16/23 11:13 BP 101/66 06/16/23 11:13 Pulse Ox 95 06/16/23 11:13 FiO2 Intake & Output 06/15/23 06/16/23 06/16/23 18:59 06:59 18:59 Intake Total 128 0 Output Total 300 700 250 Balance -172 -700 -250 Weight 48.308 kg Intake: Oral 0 Tube Feeding 128 Output: Urine 300 700 250 Other: Voiding Method Indwelling Catheter Indwelling Catheter Indwelling Catheter # Bowel Movements 0 - Exam General: Lying in bed and does not appear in acute distress. Neuro: Very limited because of patient's overall condition. Patient is drowsy but is awake and able to voice. Upon asking her to show me a thumbs up she showed 2 fingers. Primary gaze is midline but tracks right to the left. The pupils are round equal reactive to light. It's about 3-4 mm bilaterally. No facial weakness. Motor is a strength is unable to assess because of her overall condition. No split this movement. Has below the knee and rotation bilaterally. - Labs CBC & Chem 7: 06/16/23 06:46 06/16/23 06:46 Labs: Abnormal Lab Results - Last 24 Hours (Table) 06/15/23 06/15/23 06/16/23 Range/Units 17:44 20:37 00:05 WBC (3.8-10.6) k/uL RBC (3.80-5.40) m/uL Hct (34.0-46.0) % MCHC (31.0-37.0) g/dL BUN (7-17) mg/dL Creatinine (0.52-1.04) mg/dL Glucose (74-99) mg/dL POC Glucose (mg/dL) 216 H 217 H 218 H (70-110) mg/dL 06/16/23 06/16/23 06/16/23 Range/Units 06:01 06:46 06:46 WBC 11.5 H (3.8-10.6) k/uL RBC 5.45 H (3.80-5.40) m/uL Hct 46.8 H (34.0-46.0) % MCHC 29.7 L (31.0-37.0) g/dL BUN 22 H (7-17) mg/dL Creatinine 0.45 L (0.52-1.04) mg/dL Glucose 180 H (74-99) mg/dL POC Glucose (mg/dL) 182 H (70-110) mg/dL 06/16/23 Range/Units 11:59 WBC (3.8-10.6) k/uL RBC (3.80-5.40) m/uL Hct (34.0-46.0) % MCHC (31.0-37.0) g/dL BUN (7-17) mg/dL Creatinine (0.52-1.04) mg/dL Glucose (74-99) mg/dL POC Glucose (mg/dL) 165 H (70-110) mg/dL Assessment and Plan Assessment: * Acute ischemic stroke left frontal parietal region, likely due to embolism. Patient not a candidate for IV thrombolytic because of unknown onset of symptoms. No large vessel occlusion noted on CTA. One of the etiologies of for stroke is poorly controlled diabetes as well as her polysubstance abuse. * Dysphagia, due to CVA. * Altered mental status, metabolic encephalopathy, and CVA as above. * Polysubstance abuse. Urine positive for amphetamines and methamphetamines. * Diabetes, poorly controlled, A1c 12.5 * History of bilateral BKA Plan: * Repeat CT head performed subacute evolving infarct in the left frontal and temporal lobes with no mass effect or acute intracranial hemorrhage. * MRI of the brain: pending. * Stat EEG was abnormal due to background slowing of moderate to severe degree. This is suggestive of generalized cerebral dysfunction as can be seen with toxic metabolic encephalopathy or related to diffuse structural brain abnormality. No epileptiform activity was seen. * CTA of head and neck from 06/11/23: It is reported as no significant abnormality. CT brain is reported as 4 cm left temporal parietal nonhemorrhagic acute infarction. * Carotid duplex was reported as no significant hemodynamic stenosis identified. * Patient has an NG tube placed. Patient on aspirin 81 mg daily. If no hemorrhagic conversion, may consider adding Plavix. * 2D echo from 06/11/2023 revealed LVEF estimated at 15 to 20%. Severely reduced global LV systolic function. Apical akinesis. Cannot rule out left ventricular apical thrombus especially in setting of CVA. Repeat echo with contrast. Moderate left atrial dilation. Mild MR. * 2D echo from 06/13/2023 was limited study. LVEF is 25 to 30% with anteroapical akinesis and thinning of the anterior apical wall. No LV thrombus noted. * I spoke with Dr. Cuadra (zinc etcher) and he felt the NICOLE would not climate change analyst. After discussing the case with him, I agree of holding off on the NICOLE for now since it will unlikely climate change analyst. We'll place the patient on an event monitor for 30 days. * Fasting lipid panel with cholesterol 139, LDL 73, HDL 41, triglycerides 123. Patient on Lipitor 80 mg daily (home medication). * Hemoglobin A1c 12.5, consistent with poorly controlled diabetes. Recommend optimize control of diabetes to target A1c <7.0. * Phenobarbital 6.4 (15-40) and Trileptal level 3.8 (10-35). Both of them are in nontoxic range. * Ethylene glycol panel negative. * Continue close neurochecks. * Fall precautions. * DVT prophylaxis: Start heparin 5000 units subcu every 12 hours. * Overall condition is very guarded. The plan is discussed with primary team and cardiology team. Time with Patient: Less than 30
[2023-06-16 18:10] LABS: Glucose,Whole Blood 152 mg/dL (70-110)
[2023-06-17 00:09] LABS: Glucose,Whole Blood 188 mg/dL (70-110)
[2023-06-17 06:05] LABS: Glucose,Whole Blood 184 mg/dL (70-110)
--- NOTE | 2023-06-17 06:26 | PN ---
PROGRESS NOTE Mrs. Mari is unfortunate 38-year-old lady with a history of polysubstance drug abuse, was brought here from [place]. She is a resident of [place]. The patient had a stroke which is evolving, also has bilateral below-knee amputations and she has wall motion abnormalities. Whether she has actual CAD or its apical ballooning syndrome is unclear. However, prognosis is very poor. The patient is noncommunicative. I spoke to her mother. I explained to her the quality of life will be poor and we should not pursue any aggressive measures. There was a discussion about transesophageal echo and cardiac cath, but I feel given her overall poor prognosis and lack of multiple options, we would not pursue any of these interventions, instead keep her comfortable, send her to a long-term detention facility in the [place] area. This is also the request for the patient's mother and she is in full agreement. Vitals are stable. I cannot communicate with the patient. S1, S2 heard normally. Lungs reveal bilateral air entry. Abdomen is soft. Central nervous system assessment was not performed. I also spoke to the neurologist, Dr. Ramos. MMODL / GARRETTN: [id number] /
[2023-06-17 11:42] LABS: Glucose,Whole Blood 236 mg/dL (70-110)
[2023-06-17] MEDS: FLUCONAZOLE ORAL SUSP 1,400 MG/35 ML BOTTLE PO SCH (12:27)
[2023-06-17] MEDS: LACTATED RINGERS 1,000 ML IV SCH (12:31)
--- NOTE | 2023-06-17 13:04 | P.PN ---
Subjective Progress Note Date: 06/17/23 Patient is a 38-year-old female with known congestive heart failure, diabetes, and schizophrenia who presented to our emergency department from [place] due to agitation. Initial report from the ER was that she had been agitated and yelling. However review from [facility] is that she presented to the nurse with flailing arms and legs unable to speak and just groaning. On arrival to ER here her vital signs are within normal limits. Laboratory analysis included CBC, coags, CMP, ammonia, urinalysis, and urine drug screen which were remarkable for sodium 134, glucose 233, 1+ protein, 4+ glucose. Urine drug screen was positive for barbiturates and methamphetamines. Salicylates, acetaminophen, and alcohol level were negative. Initially she was kept to be seen by psych. Per charting it appears that her GCS had been up to 15 at some point and she required 1 mg of Ativan at 527 on the morning of 06/10. We were contacted for admission at 1032. Patient was found to have decreased responsiveness at our initial evaluation. Neurology was contacted for concern for subclinical seizure and patient underwent stat EEG which demonstrated background slowing of moderate to severe degree with generalized cerebral dysfunction. Neurology also recommended CTA of the head which showed a left temporal lobe infarct. Patient's phenobarbital level was low. She was found to have a slight osmolar gap and nephrology was consulted. Now normalized, volatile is negative. Echocardiogram showed LVEF 15 to 20%, no LV thrombus. Getting tube feeds. PEG tube placement on . Patient seen and examined at bedside. No acute events overnight. Following some commands, still has an NG tube in place Vital signs reviewed General: Nontoxic, no distress, appears at stated age Cardiovascular: S1S2 reg, no murmur Lungs: CTA bilateral, no rhonchi, no rales, no accessory muscle use Abdominal: Soft, nontender to palpation, no guarding, NG tube in place Ext: No gross muscle atrophy, no edema b/l lower extremities, no contractures Neuro: Following some commands, moving left upper extremity, and lower extremities, bilateral BKA Psych: unable to assess Assessment/Plan: Acute left temporal parietal CVA Acute metabolic encephalopathy due to above Polysubstance use - Discussed management with neurology, MRI brain still pending. Patient will likely need an event monitor at the time of discharge -Cardiology recommended no NICOLE and no further interventions given poor prognosis and as it will not affect her quality of life -NG tube in place, on aspirin 81 mg, and atorvastatin 80 mg -Continue tube feeds -continue Toprol 25 mg daily, Entresto 24/26 mg 1 tablet twice daily -Telemetry -No LV thrombus noted General surgery following, likely PEG tube tomorrow -PT/OT/speech recommendations Diabetes mellitus, insulin requiring -A1c 12.5 - Levemir to 25 units units daily, also on sliding scale insulin, monitor for hypoglycemia Schizophrenia -On home Latuda 160 mg, Trileptal 300 twice daily, Invega 3 mg daily, on gabapentin 100 3 times daily Congestive heart failure, systolic with LVEF 15 to 20% - Entresto 24 mg - 26 mg, metoprolol 25 mg -Monitor fluid status closely - Unclear etiology, possibly in the setting of polysubstance use Osmolar gap, resolved Non-anion gap metabolic acidosis -Nephrology following, continue oral bicarb and tube feeds, also started on oral magnesium 400 mg daily Leukocytosis, likely reactive, resolving - Monitor for any signs of infection Imaging: CTA head and neck without acute thrombosis or stenosis, stroke left temporal pariatal. Data Review: Blood sugars range between 1 50-2 36 DVT prophylaxis: Heparin subcu Anticipated discharge date: Pending clinical course Anticipated discharge place: Pending clinical course Objective - Vital Signs Vital signs: Vital Signs Temp 97.4 F L 06/17/23 07:57 Pulse 91 06/17/23 12:03 Resp 18 06/17/23 12:03 BP 118/74 06/17/23 12:03 Pulse Ox 93 L 06/17/23 12:03 FiO2 Intake & Output 06/16/23 06/17/23 06/17/23 18:59 06:59 18:59 Output Total 250 500 Balance -250 -500 Output: Urine 250 500 Other: Voiding Method Indwelling Catheter Indwelling Catheter Indwelling Catheter # Bowel Movements 0 - Labs CBC & Chem 7: 06/16/23 06:46 06/16/23 06:46 Labs: Abnormal Lab Results - Last 24 Hours (Table) 06/16/23 06/16/23 06/17/23 Range/Units 18:04 23:58 06:02 POC Glucose (mg/dL) 152 H 188 H 184 H (70-110) mg/dL 06/17/23 Range/Units 11:40 POC Glucose (mg/dL) 236 H (70-110) mg/dL
--- NOTE | 2023-06-17 13:06 | P.PN ---
Subjective Progress Note Date: 06/16/23 History of present illness: This is a 38-year-old woman with past medical history of polysubstance abuse a rrived here from [place]. Patient is a residence of [place]. Patient presented with a evolving stroke with history of bilateral lower knee amputations. She did show wall motion abnormalities on echocardiogram. Whether patient has actual CAD or apical ballooning syndrome is unclear. Prognosis is very poor. Patient's mother was contacted yesterday regarding NICOLE and cardiac catheterization at this point due to patient's poor prognosis and lack of multiple options, would not pursue these interventions and instead make the patient comfortable. This was discussed with both the patient's mother and also neurology. No change in condition overnight. Blood pressure 118/74, heart rate 91, pulse ox 93% on room air Recommend continuing conservative management, comfort care Cardiology will sign off this case and follow on an as-needed basis. Please reconsult for any new concerns. Nurse practitioner note has been reviewed, I agree with documented findings and plan of care. Patient was seen and examined. Objective - Vital Signs Vital signs: Vital Signs Temp 98.1 F 06/16/23 08:18 Pulse 90 06/16/23 08:18 Resp 17 06/16/23 08:18 BP 103/69 06/16/23 08:18 Pulse Ox 97 06/16/23 08:18 FiO2 Intake & Output 06/15/23 06/16/23 06/16/23 18:59 06:59 18:59 Intake Total 128 0 Output Total 300 700 Balance -172 -700 Weight 48.308 kg Intake: Oral 0 Tube Feeding 128 Output: Urine 300 700 Other: Voiding Method Indwelling Catheter Indwelling Catheter Indwelling Catheter - Labs CBC & Chem 7: 06/16/23 06:46 06/16/23 06:46 Labs: Abnormal Lab Results - Last 24 Hours (Table) 06/15/23 06/15/23 06/15/23 Range/Units 09:32 11:50 17:44 WBC 13.0 H (3.8-10.6) k/uL RBC 5.79 H (3.80-5.40) m/uL Hct 48.5 H (34.0-46.0) % MCHC (31.0-37.0) g/dL Neutrophils # 9.5 H (1.3-7.7) k/uL BUN (7-17) mg/dL Creatinine (0.52-1.04) mg/dL Glucose (74-99) mg/dL POC Glucose (mg/dL) 260 H 216 H (70-110) mg/dL 06/15/23 06/16/23 06/16/23 Range/Units 20:37 00:05 06:01 WBC (3.8-10.6) k/uL RBC (3.80-5.40) m/uL Hct (34.0-46.0) % MCHC (31.0-37.0) g/dL Neutrophils # (1.3-7.7) k/uL BUN (7-17) mg/dL Creatinine (0.52-1.04) mg/dL Glucose (74-99) mg/dL POC Glucose (mg/dL) 217 H 218 H 182 H (70-110) mg/dL 06/16/23 06/16/23 Range/Units 06:46 06:46 WBC 11.5 H (3.8-10.6) k/uL RBC 5.45 H (3.80-5.40) m/uL Hct 46.8 H (34.0-46.0) % MCHC 29.7 L (31.0-37.0) g/dL Neutrophils # (1.3-7.7) k/uL BUN 22 H (7-17) mg/dL Creatinine 0.45 L (0.52-1.04) mg/dL Glucose 180 H (74-99) mg/dL POC Glucose (mg/dL) (70-110) mg/dL
--- NOTE | 2023-06-17 15:00 | P.PN ---
Subjective Progress Note Date: 06/17/23 I am following-up with patient and she is about the same. Objective - Vital Signs Vital signs: Vital Signs Temp 97.4 F L 06/17/23 07:57 Pulse 91 06/17/23 12:03 Resp 18 06/17/23 12:03 BP 118/74 06/17/23 12:03 Pulse Ox 93 L 06/17/23 12:03 FiO2 Intake & Output 06/16/23 06/17/23 06/17/23 18:59 06:59 18:59 Output Total 250 500 Balance -250 -500 Output: Urine 250 500 Other: Voiding Method Indwelling Catheter Indwelling Catheter Indwelling Catheter # Bowel Movements 0 - Exam General: Lying in bed and does not appear in acute distress. Neuro: Very limited because of patient's overall condition. Patient is drowsy but is awakeable to voice. She is showing thumbs and opening and closing eyes to voice. Primary gaze is midline but tracks right to the left. The pupils are round equal reactive to light. It's about 3-4 mm bilaterally. No facial weakness. Motor is a strength is unable to assess because of her overall condition. Has below the knee and rotation bilaterally. - Labs CBC & Chem 7: 06/16/23 06:46 06/16/23 06:46 Labs: Abnormal Lab Results - Last 24 Hours (Table) 06/16/23 06/16/23 06/17/23 Range/Units 18:04 23:58 06:02 POC Glucose (mg/dL) 152 H 188 H 184 H (70-110) mg/dL 06/17/23 Range/Units 11:40 POC Glucose (mg/dL) 236 H (70-110) mg/dL Assessment and Plan Assessment: * Acute ischemic stroke left frontal parietal region, likely due to embolism. Patient not a candidate for IV thrombolytic because of unknown onset of symptoms. No large vessel occlusion noted on CTA. One of the etiologies of for stroke is poorly controlled diabetes as well as her polysubstance abuse. * Dysphagia, due to CVA. * Altered mental status, metabolic encephalopathy, and CVA as above. * Polysubstance abuse. Urine positive for amphetamines and methamphetamines. * Diabetes, poorly controlled, A1c 12.5 * History of bilateral BKA Plan: * Repeat CT head performed subacute evolving infarct in the left frontal and temporal lobes with no mass effect or acute intracranial hemorrhage. * MRI of the brain: pending. * Stat EEG was abnormal due to background slowing of moderate to severe degree. This is suggestive of generalized cerebral dysfunction as can be seen with toxic metabolic encephalopathy or related to diffuse structural brain abnormality. No epileptiform activity was seen. * CTA of head and neck from 06/11/23: It is reported as no significant abnormal ity. CT brain is reported as 4 cm left temporal parietal nonhemorrhagic acute infarction. * Carotid duplex was reported as no significant hemodynamic stenosis identified. * Patient has an NG tube placed. Patient on aspirin 81 mg daily. If no hemorrhagic conversion, may consider adding Plavix. * 2D echo from 06/11/2023 revealed LVEF estimated at 15 to 20%. Severely reduced global LV systolic function. Apical akinesis. Cannot rule out left ventricular apical thrombus especially in setting of CVA. Repeat echo with contrast. Moderate left atrial dilation. Mild MR. * 2D echo from 06/13/2023 was limited study. LVEF is 25 to 30% with anteroapical akinesis and thinning of the anterior apical wall. No LV thrombus noted. * I spoke with Dr. Cuadra (hydropress operator) and he felt the NICOLE would not roving changer. After discussing the case with him, I agree of holding off on the NICOLE for now since it will unlikely roving changer. We'll place the patient on an event monitor for 30 days. * Fasting lipid panel with cholesterol 139, LDL 73, HDL 41, triglycerides 123. Patient on Lipitor 80 mg daily (home medication). * Hemoglobin A1c 12.5, consistent with poorly controlled diabetes. Recommend optimize control of diabetes to target A1c <7.0. * Phenobarbital 6.4 (15-40) and Trileptal level 3.8 (10-35). Both of them are in nontoxic range. * Ethylene glycol panel negative. * Continue close neurochecks. * Fall precautions. * DVT prophylaxis: Start heparin 5000 units subcu every 12 hours. * Overall condition is very guarded. The plan is discussed with primary team and cardiology team. Time with Patient: Less than 30
--- NOTE | 2023-06-17 15:17 | P.PN ---
Subjective Progress Note Date: 06/10/23 CHIEF COMPLAINT: Dysphagia HISTORY OF PRESENT ILLNESS: Patient admitted to the hospital with CVA and having dysphagia. She failed her swallow evals. Vital stable. WBC 11.5 PHYSICAL EXAM: VITAL SIGNS: Reviewed. GENERAL: Well-developed in no acute distress. ABDOMEN: Soft. Nondistended. Nontender. NEUROLOGIC: lethargic ASSESSMENT: 1. Dysphagia 2. Severe protein calorie malnutrition 3. CVA PLAN: -Patient scheduled for EGD with PEG tube placement on with Dr. James -Hold tube feedings after midnight Physician Internet Project Manager note has been reviewed by physician. Signing provider agrees with the documented findings, assessment, and plan of care. Objective - Vital Signs Vital signs: Vital Signs Temp 97.4 F L 06/17/23 07:57 Pulse 91 06/17/23 12:03 Resp 18 06/17/23 12:03 BP 118/74 06/17/23 12:03 Pulse Ox 93 L 06/17/23 12:03 FiO2 Intake & Output 06/16/23 06/17/23 06/17/23 18:59 06:59 18:59 Output Total 250 500 Balance -250 -500 Output: Urine 250 500 Other: Voiding Method Indwelling Catheter Indwelling Catheter Indwelling Catheter # Bowel Movements 0 - Labs CBC & Chem 7: 06/16/23 06:46 06/16/23 06:46 Labs: Abnormal Lab Results - Last 24 Hours (Table) 06/16/23 06/16/23 06/17/23 Range/Units 18:04 23:58 06:02 POC Glucose (mg/dL) 152 H 188 H 184 H (70-110) mg/dL 06/17/23 Range/Units 11:40 POC Glucose (mg/dL) 236 H (70-110) mg/dL
--- NOTE | 2023-06-17 16:25 | P.CONS ---
History of Present Illness - Reason for Consult Consult date: 06/17/23 rehab recommendations - Chief Complaint CVA - History of Present Illness Ms Elda Mari is a 38 y/o female who lives near [place] in a single story mobile home. Patient was living with her 6 yr old daughter prior, she is being cared by other family at this time. Mobility was completed via wheelchair, was able to self transfer and perform basic ADLs due to her prior history of amputations. She does not drive. This history was obtained from records as patient is aphasic. Patient presented to the hospital on 06/10/23 from [facility], was apparently screaming and uncontrollable at the facility. Apparently she was at the rehab facility for alcohol and drug abuse. She was admitted for catatonia, substance abuse, and AMS. CT head with no acute intracranial process. Neurology was consulted. UDS was positive for barbituate, amphetamines, and methamphetamines. EEG was ordered, encephalopathy. Echo with EF 25-30% on 06/13/23, improved from 06/11/23 echo. She had a repeat head CT on 06/14/23, diagnosed with subacute evolving infarct in the left frontal and temporal lobes with no mass effect. Patient is planned for peg tube placement on due to dysphagia and failed swallow study. Patient not a candidate for IV thrombolytic treatment. MRI brain pending. PM&R consulted for rehab recommendations. Patient evaluated by therapies; total assist with bathing, dressing, toileting, bed mobility. Non ambulatory at baseline. 06/16: Patient is laying in bed, NG tube intact and matthew catheter. She is aphasic, but does wave when I walk in. She does follow 1-2 step commands. Right arm is flaccid. Review of Systems reviewed, negative unless stated above in HPI Past Medical History Past Medical History: Unable to Obtain, Asthma, Diabetes Mellitus Additional Past Medical History / Comment(s): Patients uncle attempting to give medicatl history. Unsure about History of Any Multi-Drug Resistant Organisms: None Reported Past Surgical History: Unable to Obtain Additional Past Surgical History / Comment(s): BLE BKA, Tip of left thumb cut off. Past Anesthesia/Blood Transfusion Reactions: Unable to Obtain Smoking Status: Current some day smoker - Past Family History Mother Family Medical History: Diabetes Mellitus Father History Unknown: Yes Family Medical History: No Reported History, Unable to Obtain Additional Family Medical History / Comment(s): Patient has no contact with her father Medications and Allergies Home Medications Medication Instructions Recorded Confirmed Type Albuterol Sulfate [Albuterol 1 - 2 puff PO RT-QID PRN 06/11/23 06/11/23 History Sulfate Hfa] Atorvastatin [Lipitor] 80 mg PO HS 06/11/23 06/11/23 History DULoxetine HCL [Cymbalta] 60 mg PO HS 06/11/23 06/11/23 History Doxycycline [Vibramycin] 100 mg PO BID 06/11/23 06/11/23 History Gabapentin [Neurontin] 100 mg PO TID 06/11/23 06/11/23 History Insulin Detemir (Levemir) [Levemir] 18 unit SQ DAILY 06/11/23 06/11/23 History Insulin Regular, Human [NovoLIN R] See Protocol SQ AC-TID 06/11/23 06/11/23 History Lurasidone [Latuda] 160 mg PO DAILY 06/11/23 06/11/23 History Metoprolol Succinate (ER) [Toprol 25 mg PO DAILY 06/11/23 06/11/23 History Xl] OXcarbazepine [Trileptal] 300 mg PO BID 06/11/23 06/11/23 History Omeprazole [PriLOSEC] 20 mg PO DAILY 06/11/23 06/11/23 History PHENobarbitaL [PHENobarbital] See Taper PO DIRECTED 06/11/23 06/11/23 History Paliperidone [Paliperidone ER] 3 mg PO DAILY 06/11/23 06/11/23 History Sacubitril/Valsartan [Entresto 24 1 tab PO BID 06/11/23 06/11/23 History mg-26 mg Tablet] Allergies Allergy/AdvReac Type Severity Reaction Status Date / Time No Known Allergies Allergy Verified 06/11/23 09:39 Physical Exam Vitals: Vital Signs Temp Pulse Pulse Resp BP Pulse Ox 06/17/23 12:03 91 18 118/74 93 L 06/17/23 07:57 97.4 F L 95 17 133/84 95 06/17/23 04:00 98.1 F 90 19 134/83 95 06/17/23 00:00 98.2 F 90 19 118/77 90 L 06/16/23 20:00 98.1 F 85 19 116/74 93 L 06/16/23 15:24 88 16 127/83 94 L Intake and Output 06/16/23 06/17/23 06/17/23 22:59 06:59 14:59 Output Total 500 Balance -500 Output: Urine 500 Other: Voiding Method Indwelling Catheter Indwelling Catheter Indwelling Catheter EXAM; General: WD young female laying in bed, NAD, appears fatigued, had NG tube Head: Normocephalic, atraumatic. Eyes: Symmetric Ears: Symmetric. Hearing within normal limits. Mouth: dry mucous membranes Cardiac: vehicle monitor technician on. Proximal Calves supple, non tender, no edema Lungs: Breathing comfortably on RA. Chest symmetric. Abdomen: Soft, nontender. Extremities: left right thumb distal amputation, bilateral BKAs well healed Neurological: Alert and oriented x 1? does make eye contact when name is called. She is aphasic, does wave, follows 1-2 step commands Cranial nerves: CN II-XII grossly intact. Musculoskeletal: Bilateral BKAs, right hemiparesis MMT UE Sh Abd EE EF FABD WE HG Right 0 0 0 0 Left 4 4 4 4+ MMT LE HF KE DF EHL Right 4+ 4 Left 4+ 4 Skin: Skin intact where visible to head, neck, and bilateral upper and lower extremities EXCEPT: IV Psych: Calm, cooperative Results CBC & Chem 7: 06/16/23 06:46 06/16/23 06:46 Labs: Abnormal Lab Results - Last 24 Hours (Table) 06/16/23 06/16/23 06/17/23 Range/Units 18:04 23:58 06:02 POC Glucose (mg/dL) 152 H 188 H 184 H (70-110) mg/dL 06/17/23 Range/Units 11:40 POC Glucose (mg/dL) 236 H (70-110) mg/dL Assessment and Plan Assessment: # Right hemiparesis secondary to Subacute infarct in the left frontal and temporal lobes with no mass effect with dysphagia -PT/OT/ICE SKATING TEACHER -Pending MRI? -NG tube for feeding at this time, plan for peg tube placement on . # Critical Illness myopathy, multifactorial # AMS, multifactorial # Polysubstance use; marijuana, methamphetaline, heroin, opiates # Pain Management -Gabapentin 100 mg TID # DVT Proph -Heparin SQ # poorly controlled Diabetes Mellitus -insulin per MAR # History of bilateral BKA # Anxiety # Depression # ETOH abuse # Schizophrenia -Trileptal, Invega, Haldol prn # Your medical dx and management Dispo: Patient performing below her baseline function, has supportive family, needs intense rehab program for best chance at recovery but may need eventual placement if family unable to provide level of care after rehab. Recommend IPR closer to home for patient and family continuity. Patient seen and examined by Jenifer Cabral PA-C in collaboration with Dr Lema Thank you for the consult.
[2023-06-17 18:26] LABS: Glucose,Whole Blood 212 mg/dL (70-110)
[2023-06-18 00:23] LABS: Glucose,Whole Blood 214 mg/dL (70-110)
[2023-06-18 05:56] LABS: Glucose,Whole Blood 146 mg/dL (70-110)
[2023-06-18 10:24] LABS: HCG,Qualitative Serum Not Detected
[2023-06-18 10:25] LABS: Basophils # (A) 0.1 k/uL (0-0.2); Basophils % (A) 1 %; Eosinophils # (A) 0.2 k/uL (0-0.7); Eosinophils % (A) 2 %; HCT 47.6 % (34.0-46.0); HGB 14.5 gm/dL (11.4-16.0); Hypochromasia Slight; Lymphocytes % (A) 28 %; MCH 26.1 pg (25.0-35.0); MCHC 30.3 g/dL (31.0-37.0); Mean Platelet Volume 8.3; Monocytes # (A) 0.5 k/uL (0-1.0); Monocytes % (A) 5 %; Neutrophils # (A) 6.8 k/uL (1.3-7.7); Neutrophils % (A) 63 %; Platelet Count 258 k/uL (150-450); RBC 5.53 m/uL (3.80-5.40); RDW 14.9 % (11.5-15.5); WBC 10.8 k/uL (3.8-10.6)
[2023-06-18 10:33] LABS: African American GFR (CKD) >90 (>60 ml/min/1.73 sqM); Anion Gap 9 mmol/L; Blood Urea Nitrogen 24 mg/dL (7-17); Carbon Dioxide 25 mmol/L (22-30); Chloride 104 mmol/L (98-107); Glucose 155 mg/dL (74-99); Magnesium 1.5 mg/dL (1.6-2.3); Non-African American GFR(CKD) >90 (>60 ml/min/1.73 sqM); Sodium 138 mmol/L (137-145)
[2023-06-18] MEDS ORDERED: PROPOFOL 10 MG/ML 20 ML VIAL IV ONE (11:01)
[2023-06-18] MEDS: SODIUM CHLORIDE 0.9% 500 ML 500 ML IV ONE ×2 (11:07→11:21)
--- NOTE | 2023-06-18 11:27 | P.PN ---
Subjective Progress Note Date: 06/18/23 Patient is a 38-year-old female with known congestive heart failure, diabetes, and schizophrenia who presented to our emergency department from [place] due to agitation. Initial report from the ER was that she had been agitated and yelling. However review from [place] is that she presented to the nurse with flailing arms and legs unable to speak and just groaning. On arrival to e ER here her vital signs are within normal limits. Laboratory analysis included CBC, coags, CMP, ammonia, urinalysis, and urine drug screen which were remarkable for sodium 134, glucose 233, 1+ protein, 4+ glucose. Urine drug screen was positive for barbiturates and methamphetamines. Salicylates, acetaminophen, and alcohol level were negative. Initially she was kept to be seen by psych. Per charting it appears that her GCS had been up to 15 at some point and she required 1 mg of Ativan at 527 on the morning of 06/10. We were contacted for admission at 1032. Patient was found to have decreased responsiveness at our initial evaluation. Neurology was contacted for concern for subclinical seizure and patient underwent stat EEG which demonstrated background slowing of moderate to severe degree with generalized cerebral dysfunction. Neurology also recommended CTA of the head which showed a left temporal lobe infarct. Patient's phenobarbital level was low. She was found to have a slight osmolar gap and nephrology was consulted. Now normalized, volatile is negative. Echocardiogram showed LVEF 15 to 20%, no LV thrombus. Getting tube feeds. PEG tube placement today Patient seen and examined at bedside. No acute events overnight. Following some commands, still has an NG tube in place Vital signs reviewed General: Nontoxic, no distress, appears at stated age Cardiovascular: S1S2 reg, no murmur Lungs: CTA bilateral, no rhonchi, no rales, no accessory muscle use Abdominal: Soft, nontender to palpation, no guarding, NG tube in place Ext: No gross muscle atrophy, no edema b/l lower extremities, no contractures Neuro: Following some commands, moving left upper extremity, and lower extremities, bilateral BKA Psych: unable to assess Assessment/Plan: Patient needs close monitoring, prognosis guarded. Acute left temporal parietal CVA Acute metabolic encephalopathy due to above Polysubstance use - Discussed management with neurology, MRI brain still pending. Patient will likely need an event monitor at the time of discharge -Cardiology recommended no NICOLE and no further interventions given poor prognosis and as it will not affect her quality of life -NG tube in place, on aspirin 81 mg, and atorvastatin 80 mg -Continue tube feeds -continue Toprol 25 mg daily, Entresto 24/26 mg 1 tablet twice daily -Continue telemetry -No LV thrombus noted General surgery following, PEG tube today -PT/OT/speech recommendations Physiatry recommending inpatient rehab closer to home Hypomagnesemia 2 g IV magnesium sulfate ordered Diabetes mellitus, insulin requiring -A1c 12.5 - Levemir to 25 units units daily, also on sliding scale insulin, monitor for hypoglycemia Schizophrenia -On home Latuda 160 mg, Trileptal 300 twice daily, Invega 3 mg daily, on gabapentin 100 3 times daily Congestive heart failure, systolic with LVEF 15 to 20% - Entresto 24 mg - 26 mg, metoprolol 25 mg -Monitor fluid status closely - Unclear etiology, possibly in the setting of polysubstance use Osmolar gap, resolved Non-anion gap metabolic acidosis -Nephrology following, continue oral bicarb and tube feeds, also started on oral magnesium 400 mg daily Leukocytosis, likely reactive, resolving - Monitor for any signs of infection Imaging: CTA head and neck without acute thrombosis or stenosis, stroke left temporal pariatal. Data Review: Blood sugars range between WBC 10.8, hemoglobin 14.5, creatinine 0.59, blood sugars range between 1 46-2 14, magnesium 1.5 DVT prophylaxis: Heparin subcu Anticipated discharge date: Pending clinical course Anticipated discharge place: Pending clinical course Objective - Vital Signs Vital signs: Vital Signs Temp 97.3 F L 06/18/23 08:00 Pulse 97 06/18/23 08:00 Resp 18 06/18/23 08:00 BP 119/80 06/18/23 08:00 Pulse Ox 97 06/18/23 08:00 FiO2 Intake & Output 06/17/23 06/18/23 06/18/23 18:59 06:59 18:59 Intake Total 200 Output Total 900 500 Balance -900 -500 200 Intake: IV 200 Output: Urine 900 500 Other: Voiding Method Indwelling Catheter Indwelling Catheter Indwelling Catheter - Labs CBC & Chem 7: 06/18/23 08:56 06/18/23 08:56 Labs: Abnormal Lab Results - Last 24 Hours (Table) 06/17/23 06/17/2324 Range/Units 11:40 18:25 00:22 WBC (3.8-10.6) k/uL RBC (3.80-5.40) m/uL Hct (34.0-46.0) % MCHC (31.0-37.0) g/dL BUN (7-17) mg/dL Glucose (74-99) mg/dL POC Glucose (mg/dL) 236 H 212 H 214 H (70-110) mg/dL Magnesium (1.6-2.3) mg/dL 06/18/23 06/18/23 06/18/23 Range/Units 05:54 08:56 08:56 WBC 10.8 H (3.8-10.6) k/uL RBC 5.53 H (3.80-5.40) m/uL Hct 47.6 H (34.0-46.0) % MCHC 30.3 L (31.0-37.0) g/dL BUN 24 H (7-17) mg/dL Glucose 155 H (74-99) mg/dL POC Glucose (mg/dL) 146 H (70-110) mg/dL Magnesium 1.5 L (1.6-2.3) mg/dL
--- NOTE | 2023-06-18 11:30 | P.OP ---
Date of Procedure: 06/18/23 Preoperative Diagnosis: Protein calorie malnutrition Postoperative Diagnosis: Protein calorie malnutrition Procedure(s) Performed: EGD with PEG tube placement Anesthesia: AMADOR Surgeon: Sony James Pathology: none sent Condition: stable Disposition: PACU Description of Procedure: A she received IV sedation. Next the gastroscope placed oropharynx passed in the esophagus and stomach. There is no evidence of any outlet obstruction. Stomach was insufflated with air. The light reflux seen the anterior abdominal wall. The abdomen was prepped and draped usual fashion. The skin was incised. And the needles placed and stomach under direct visualization. The needle was snared. And the wires placed through the needle and the wire was snared and brought the oropharynx. The PEG tube was placed over top the wire brought down to the stomach. The PEG tube was secured. At the 3 cm maite. The one-piece bolster was used. Patient tolerated procedure well.
[2023-06-18 12:12] LABS: Glucose,Whole Blood 163 mg/dL (70-110)
[2023-06-18] MEDS: MAGNESIUM SULFATE-D5W PMX 1 GM in DEXTROSE/WATER 1 100ML.BAG IVPB SCH (12:32)
[2023-06-18 18:22] LABS: Glucose,Whole Blood 203 mg/dL (70-110)
[2023-06-19 00:08] LABS: Glucose,Whole Blood 179 mg/dL (70-110)
[2023-06-19 06:26] LABS: Glucose,Whole Blood 160 mg/dL (70-110)
[2023-06-19 10:21] LABS: Basophils % (A) 0 %; Eosinophils # (A) 0.1 k/uL (0-0.7); Eosinophils % (A) 0 %; HCT 46.1 % (34.0-46.0); HGB 14.1 gm/dL (11.4-16.0); Lymphocytes # (A) 1.8 k/uL (1.0-4.8); Lymphocytes % (A) 11 %; MCHC 30.6 g/dL (31.0-37.0); Mean Platelet Volume 8.7; Monocytes # (A) 0.7 k/uL (0-1.0); Monocytes % (A) 4 %; Neutrophils # (A) 13.4 k/uL (1.3-7.7); Neutrophils % (A) 83 %; Platelet Count 236 k/uL (150-450); RBC 5.42 m/uL (3.80-5.40); WBC 16.2 k/uL (3.8-10.6)
[2023-06-19 10:36] LABS: African American GFR (CKD) >90 (>60 ml/min/1.73 sqM); Anion Gap 10 mmol/L; Blood Urea Nitrogen 23 mg/dL (7-17); Calcium 8.8 mg/dL (8.4-10.2); Carbon Dioxide 22 mmol/L (22-30); Chloride 104 mmol/L (98-107); Glucose 163 mg/dL (74-99); Non-African American GFR(CKD) >90 (>60 ml/min/1.73 sqM); Potassium 3.9 mmol/L (3.5-5.1); Sodium 136 mmol/L (137-145)
[2023-06-19 11:33] LABS: Glucose,Whole Blood 171 mg/dL (70-110)
--- NOTE | 2023-06-19 12:35 | P.PN ---
Progress Note - Text Progress Note Date: 06/19/23 patient Mitra stable. Her PEG tube site is clean. She may start tube feeds today.
--- NOTE | 2023-06-19 14:19 | P.PN ---
Subjective Progress Note Date: 06/19/23 Patient is a 38-year-old female with known congestive heart failure, diabetes, and schizophrenia who presented to our emergency department from [place] due to agitation. Initial report from the ER was that she had been agitated and yelling. However review from [place] is that she presented to the nurse with flailing arms and legs unable to speak and just groaning. On arrival to e ER here her vital signs are within normal limits. Laboratory analysis included CBC, coags, CMP, ammonia, urinalysis, and urine drug screen which were remarkable for sodium 134, glucose 233, 1+ protein, 4+ glucose. Urine drug screen was positive for barbiturates and methamphetamines. Salicylates, acetaminophen, and alcohol level were negative. Initially she was kept to be seen by psych. Per charting it appears that her GCS had been up to 15 at some point and she required 1 mg of Ativan at 527 on the morning of 06/10. We were contacted for admission at 1032. Patient was found to have decreased responsiveness at our initial evaluation. Neurology was contacted for concern for subclinical seizure and patient underwent stat EEG which demonstrated background slowing of moderate to severe degree with generalized cerebral dysfunction. Neurology also recommended CTA of the head which showed a left temporal lobe infarct. Patient's phenobarbital level was low. She was found to have a slight osmolar gap and nephrology was consulted. Now normalized, volatile is negative. Echocardiogram showed LVEF 15 to 20%, no LV thrombus. PEG tube placed yesterday, starting tube feeds today Patient seen and examined at bedside. No acute events overnight. Following some commands. Status post PEG tube placement Vital signs reviewed General: Nontoxic, no distress, appears at stated age Cardiovascular: S1S2 reg, no murmur Lungs: CTA bilateral, no rhonchi, no rales, no accessory muscle use Abdominal: Soft, nontender to palpation, no guarding, PEG tube site clean, dry, intact Ext: No gross muscle atrophy, no edema b/l lower extremities, no contractures Neuro: Following some commands, moving left upper extremity, and lower extremities, bilateral BKA Psych: unable to assess Assessment/Plan: Acute left temporal parietal CVA Acute metabolic encephalopathy due to above Polysubstance use - Discussed management with neurology, MRI brain still pending. Patient will likely need an event monitor at the time of discharge -Cardiology recommended no NICOLE and no further interventions given poor prognosis and as it will not affect her quality of life -on aspirin 81 mg, and atorvastatin 80 mg -Surgery note reviewed, okay to start tube feeds -continue Toprol 25 mg daily, Entresto 24/26 mg 1 tablet twice daily -Continue telemetry -No LV thrombus noted -PT/OT Physiatry recommending inpatient rehab closer to home Hypomagnesemia, resolved Diabetes mellitus, insulin requiring -A1c 12.5 - Levemir 25 units units daily, also on sliding scale insulin, monitor for hypoglycemia Schizophrenia -On home Latuda 160 mg, Trileptal 300 twice daily, Invega 3 mg daily, on gabapentin 100 3 times daily Congestive heart failure, systolic with LVEF 15 to 20% - Entresto 24 mg - 26 mg, metoprolol 25 mg -Monitor fluid status closely - Unclear etiology, possibly in the setting of polysubstance use Osmolar gap, resolved Non-anion gap metabolic acidosis -Nephrology following, continue oral bicarb and tube feeds, oral magnesium 400 mg daily Leukocytosis, likely reactive - Monitor for any signs of infection Imaging: CTA head and neck without acute thrombosis or stenosis, stroke left temporal pariatal. Data Review: WBC 16.2, hemoglobin 14.1, sodium 136, creatinine 0.56, blood sugars range between 1 60-1 79 DVT prophylaxis: Heparin subcu Anticipated discharge date: Pending clinical course Anticipated discharge place: Pending clinical course Objective - Vital Signs Vital signs: Vital Signs Temp 99.2 F 06/19/23 11:36 Pulse 104 H 06/19/23 11:36 Resp 20 06/19/23 11:36 BP 107/66 06/19/23 11:36 Pulse Ox 99 06/19/23 11:36 FiO2 Intake & Output 06/18/23 06/19/23 06/19/23 18:59 06:59 18:59 Intake Total 200 Output Total 700 325 Balance 200 -700 -325 Weight 48.308 kg Intake: IV 200 Output: Urine 700 325 Uretheral (Ortiz) 325 Other: Voiding Method Indwelling Catheter Indwelling Catheter - Labs CBC & Chem 7: 06/19/23 09:04 06/19/23 09:04 Labs: Abnormal Lab Results - Last 24 Hours (Table) 06/18/23 06/19/23 06/19/23 Range/Units 18:21 00:06 06:15 WBC (3.8-10.6) k/uL RBC (3.80-5.40) m/uL Hct (34.0-46.0) % MCHC (31.0-37.0) g/dL Neutrophils # (1.3-7.7) k/uL Sodium (137-145) mmol/L BUN (7-17) mg/dL Glucose (74-99) mg/dL POC Glucose (mg/dL) 203 H 179 H 160 H (70-110) mg/dL 06/19/23 06/19/23 06/19/23 Range/Units 09:04 09:04 11:32 WBC 16.2 H (3.8-10.6) k/uL RBC 5.42 H (3.80-5.40) m/uL Hct 46.1 H (34.0-46.0) % MCHC 30.6 L (31.0-37.0) g/dL Neutrophils # 13.4 H (1.3-7.7) k/uL Sodium 136 L (137-145) mmol/L BUN 23 H (7-17) mg/dL Glucose 163 H (74-99) mg/dL POC Glucose (mg/dL) 171 H (70-110) mg/dL
[2023-06-19 16:45] LABS: Glucose,Whole Blood 162 mg/dL (70-110)
[2023-06-19] MEDS: ACETAMINOPHEN TAB 325 MG TAB PO PRN (21:34)
[2023-06-19 22:08] LABS: Appearance,Urine Cloudy (Clear); Bacteria,Urine Many /hpf; Bilirubin,Urine Negative (Negative); Blood,Urine Small (Negative); Color,Urine Yellow; Glucose,Urine (UA) 1+ (Negative); Leukocyte Esterase,Urine Large (Negative); Mucus,Urine Rare /hpf; Nitrite,Urine Negative (Negative); Protein,Urine 2+ (Negative); RBC,Urine 7 /hpf (0-5); Specific Gravity,Urine 1.027 (1.001-1.035); Squamous Epithelial Cell,Urine 7 /hpf (0-4); WBC,Urine >182 /hpf (0-5)
[2023-06-19 22:22] LABS: Ketones,Urine 2+ (Negative)
[2023-06-19 22:35] LABS: Glucose,Whole Blood 228 mg/dL (70-110)
[2023-06-19 23:59] LABS: Glucose,Whole Blood 204 mg/dL (70-110)
--- NOTE | 2023-06-20 01:56 | XR ---
EXAM: XR chest 1V portable CLINICAL INDICATION:Female, 38 years old with history of fever; [facility] COMPARISON: None. TECHNIQUE: Chest single view. FINDINGS: Lines/tubes/devices: EKG leads overlie the chest. No indwelling lines are seen. Cardiomediastinum: Cardiac silhouette appears mildly enlarged. Unremarkable mediastinal silhouette. Vasculature: Mild central vascular congestion. Lungs/pleura: Elevated right hemidiaphragm. Suspect small to moderate right pleural effusion. Left costophrenic ang le is sharp. No visualized pneumothorax. Bones/soft tissues: Bony thorax appears grossly intact as seen. Mild degenerative changes. IMPRESSION: Mild cardiomegaly with small to moderate right pleural effusion.
[2023-06-20 06:02] LABS: Glucose,Whole Blood 218 mg/dL (70-110)
[2023-06-20 10:03] LABS: African American GFR (CKD) >90 (>60 ml/min/1.73 sqM); Anion Gap 6 mmol/L; Blood Urea Nitrogen 25 mg/dL (7-17); Calcium 8.7 mg/dL (8.4-10.2); Carbon Dioxide 25 mmol/L (22-30); Chloride 106 mmol/L (98-107); Glucose 260 mg/dL (74-99); Non-African American GFR(CKD) >90 (>60 ml/min/1.73 sqM); Potassium 3.5 mmol/L (3.5-5.1); Sodium 137 mmol/L (137-145)
[2023-06-20] MEDS: AZITHROMYCIN 500 MG in SODIUM CHLORIDE 0.9% 250 ML IVPB SCH (10:12)
[2023-06-20 10:25] LABS: Basophils % (A) 0 %; Eosinophils # (A) 0.1 k/uL (0-0.7); Eosinophils % (A) 0 %; HCT 43.4 % (34.0-46.0); HGB 13.4 gm/dL (11.4-16.0); Hypochromasia Slight; Lymphocytes # (A) 1.5 k/uL (1.0-4.8); Lymphocytes % (A) 8 %; MCH 26.7 pg (25.0-35.0); MCHC 30.9 g/dL (31.0-37.0); MCV 86.5 fL (80.0-100.0); Mean Platelet Volume 9.7; Monocytes # (A) 1.6 k/uL (0-1.0); Monocytes % (A) 8 %; Neutrophils # (A) 15.7 k/uL (1.3-7.7); Neutrophils % (A) 82 %; Platelet Count 224 k/uL (150-450); RBC 5.01 m/uL (3.80-5.40); RDW 14.9 % (11.5-15.5)
[2023-06-20 11:55] LABS: Glucose,Whole Blood 308 mg/dL (70-110)
[2023-06-20 12:02] LABS: Appearance,Urine Clear (Clear); Bacteria,Urine Rare /hpf; Bilirubin,Urine Negative (Negative); Blood,Urine Negative (Negative); Color,Urine Yellow; Glucose,Urine (UA) 4+ (Negative); Ketones,Urine Negative (Negative); Leukocyte Esterase,Urine Moderate (Negative); Mucus,Urine Rare /hpf; Nitrite,Urine Negative (Negative); PH, Urine 7.5 (5.0-8.0); Protein,Urine 2+ (Negative); Specific Gravity,Urine 1.031 (1.001-1.035); Squamous Epithelial Cell,Urine 1 /hpf (0-4); WBC,Urine 34 /hpf (0-5)
--- NOTE | 2023-06-20 13:19 | P.PN ---
Subjective Progress Note Date: 06/20/23 Patient is a 38-year-old female with known congestive heart failure, diabetes, and schizophrenia who presented to our emergency department from [place] due to agitation. Initial report from the ER was that she had been agitated and yelling. However review from [place] is that she presented to the nurse with flailing arms and legs unable to speak and just groaning. On arrival to e ER here her vital signs are within normal limits. Laboratory analysis included CBC, coags, CMP, ammonia, urinalysis, and urine drug screen which were remarkable for sodium 134, glucose 233, 1+ protein, 4+ glucose. Urine drug screen was positive for barbiturates and methamphetamines. Salicylates, acetaminophen, and alcohol level were negative. Initially she was kept to be seen by psych. Per charting it appears that her GCS had been up to 15 at some point and she required 1 mg of Ativan at 527 on the morning of 06/10. We were contacted for admission at 1032. Patient was found to have decreased responsiveness at our initial evaluation. Neurology was contacted for concern for subclinical seizure and patient underwent stat EEG which demonstrated background slowing of moderate to severe degree with generalized cerebral dysfunction. Neurology also recommended CTA of the head which showed a left temporal lobe infarct. Patient's phenobarbital level was low. She was found to have a slight osmolar gap and nephrology was consulted. Now normalized, volatile is negative. Echocardiogram showed LVEF 15 to 20%, no LV thrombus. PEG tube placed yesterday, on tube feeds. Patient now has sepsis likely secondary to urinary tract infection versus aspiration pneumonia. On IV antibiotics. Patient seen and examined at bedside. Was febrile, and tachycardic. Started on IV antibiotics. Vital signs reviewed General: Nontoxic, no distress, appears at stated age Cardiovascular: S1S2 reg, no murmur Lungs: CTA bilateral, no rhonchi, no rales, no accessory muscle use Abdominal: Soft, nontender to palpation, no guarding, PEG tube site clean, dry, intact Ext: No gross muscle atrophy, no edema b/l lower extremities, no contractures Neuro: Following some commands, moving left upper extremity, and lower extremities, bilateral BKA Psych: unable to assess Assessment/Plan: Patient is severely ill, needs close monitoring. Prognosis guarded. Sepsis secondary to urinary tract infection versus aspiration pneumonia On azithromycin 500 mg IV daily, ceftriaxone 2 g IV every 24 hours Urine cultures as well as blood culture pending Tylenol 650 oral as needed Respiratory viral panel negative Acute left temporal parietal CVA Acute metabolic encephalopathy due to above Polysubstance use - Discussed management with neurology, MRI brain still pending. Patient will likely need an event monitor at the time of discharge -Cardiology recommended no NICOLE and no further interventions given poor prognosis and as it will not affect her quality of life -on aspirin 81 mg, and atorvastatin 80 mg -Surgery following, patient is status post PEG tube -continue Toprol 25 mg daily, Entresto 24/26 mg 1 tablet twice daily -Continue telemetry -No LV thrombus noted -PT/OT Physiatry recommending inpatient rehab closer to home Hypomagnesemia, resolved Diabetes mellitus, insulin requiring -A1c 12.5 - Levemir 25 units units daily, also on sliding scale insulin, monitor for hypoglycemia Schizophrenia -On home Latuda 160 mg, Trileptal 300 twice daily, Invega 3 mg daily, on gabapentin 100 3 times daily Congestive heart failure, systolic with LVEF 15 to 20% - Entresto 24 mg - 26 mg, metoprolol 25 mg -Monitor fluid status closely - Unclear etiology, possibly in the setting of polysubstance use Osmolar gap, resolved Non-anion gap metabolic acidosis -Nephrology following, continue oral bicarb and tube feeds, oral magnesium 400 mg daily Imaging: CTA head and neck without acute thrombosis or stenosis, stroke left temporal pariatal. Data Review: WBC 19, hemoglobin 13.4, creatinine 0.45, blood sugars range between 218 04/25/2007, urinalysis positive for leukocyte esterase, negative nitrites DVT prophylaxis: Heparin subcu Anticipated discharge date: Pending clinical course Anticipated discharge place: Pending clinical course Objective - Vital Signs Vital signs: Vital Signs Temp 99.8 F H 06/20/23 12:15 Pulse 113 H 06/20/23 10:01 Resp 18 06/20/23 10:01 BP 111/70 06/20/23 10:01 Pulse Ox 95 06/20/23 10:01 FiO2 Intake & Output 06/19/23 06/20/23 06/20/23 18:59 06:59 18:59 Intake Total 135 202 Output Total 325 Balance -190 202 Intake: IV 10 Invasive Line 3 10 Tube Feeding 135 192 Output: Urine 325 Uretheral (Ortiz) 325 Other: Voiding Method Indwelling Catheter # Voids 1 2 - Labs CBC & Chem 7: 06/20/23 08:54 06/20/23 08:54 Labs: Abnormal Lab Results - Last 24 Hours (Table) 06/19/23 06/19/23 06/19/23 Range/Units 16:43 21:30 22:33 WBC (3.8-10.6) k/uL MCHC (31.0-37.0) g/dL Neutrophils # (1.3-7.7) k/uL Monocytes # (0-1.0) k/uL BUN (7-17) mg/dL Creatinine (0.52-1.04) mg/dL Glucose (74-99) mg/dL POC Glucose (mg/dL) 162 H 228 H (70-110) mg/dL Urine Appearance Cloudy H (Clear) Urine Protein 2+ H (Negative) Urine Glucose (UA) 1+ H (Negative) Urine Ketones 2+ H (Negative) Urine Blood Small H (Negative) Ur Leukocyte Esterase Large H (Negative) Urine RBC 7 H (0-5) /hpf Urine WBC >182 H (0-5) /hpf Urine WBC Clumps Few H (None) /hpf Ur Squamous Epith Cells 7 H (0-4) /hpf Urine Bacteria Many H (None) /hpf Urine Mucus Rare H (None) /hpf 06/19/23 06/20/23 06/20/23 Range/Units 23:58 06:00 08:54 WBC 19.0 H (3.8-10.6) k/uL MCHC 30.9 L (31.0-37.0) g/dL Neutrophils # 15.7 H (1.3-7.7) k/uL Monocytes # 1.6 H (0-1.0) k/uL BUN (7-17) mg/dL Creatinine (0.52-1.04) mg/dL Glucose (74-99) mg/dL POC Glucose (mg/dL) 204 H 218 H (70-110) mg/dL Urine Appearance (Clear) Urine Protein (Negative) Urine Glucose (UA) (Negative) Urine Ketones (Negative) Urine Blood (Negative) Ur Leukocyte Esterase (Negative) Urine RBC (0-5) /hpf Urine WBC (0-5) /hpf Urine WBC Clumps (None) /hpf Ur Squamous Epith Cells (0-4) /hpf Urine Bacteria (None) /hpf Urine Mucus (None) /hpf 06/20/23 06/20/23 06/20/23 Range/Units 08:54 11:00 11:52 WBC (3.8-10.6) k/uL MCHC (31.0-37.0) g/dL Neutrophils # (1.3-7.7) k/uL Monocytes # (0-1.0) k/uL BUN 25 H (7-17) mg/dL Creatinine 0.45 L (0.52-1.04) mg/dL Glucose 260 H (74-99) mg/dL POC Glucose (mg/dL) 308 H (70-110) mg/dL Urine Appearance (Clear) Urine Protein 2+ H (Negative) Urine Glucose (UA) 4+ H (Negative) Urine Ketones (Negative) Urine Blood (Negative) Ur Leukocyte Esterase Moderate H (Negative) Urine RBC (0-5) /hpf Urine WBC 34 H (0-5) /hpf Urine WBC Clumps (None) /hpf Ur Squamous Epith Cells (0-4) /hpf Urine Bacteria Rare H (None) /hpf Urine Mucus Rare H (None) /hpf
--- NOTE | 2023-06-20 14:54 | P.PN ---
Subjective Progress Note Date: 06/20/23 I am following-up with patient and per nurse, spiking fever and mores sleepy. It seem concern of sepsis from UTI and aspiration pneumonia. Per nurse unable to obtain MRI since has stent and unsure if compatible. Objective - Vital Signs Vital signs: Vital Signs Temp 99.8 F H 06/20/23 12:15 Pulse 113 H 06/20/23 10:01 Resp 18 06/20/23 10:01 BP 111/70 06/20/23 10:01 Pulse Ox 95 06/20/23 10:01 FiO2 Intake & Output 06/19/23 06/20/23 06/20/23 18:59 06:59 18:59 Intake Total 135 202 Output Total 325 Balance -190 202 Intake: IV 10 Invasive Line 3 10 Tube Feeding 135 192 Output: Urine 325 Uretheral (Ortiz) 325 Other: Voiding Method Indwelling Catheter # Voids 1 2 - Exam General: Lying in bed and does not appear in acute distress. Neuro: Very limited because of patient's overall condition. Patient is drowsy but is minimally awakeable to voice. Not following commands or verbally responsive. The pupils are round equal reactive to light. It's about 3-4 mm bilaterally. No facial weakness. Motor is a strength is unable to assess because of her overall condition. Has below the knee and rotation bilaterally. But spontaneously moves the left side. - Labs CBC & Chem 7: 06/20/23 08:54 06/20/23 08:54 Labs: Abnormal Lab Results - Last 24 Hours (Table) 06/19/23 06/19/23 06/19/23 Range/Units 16:43 21:30 22:33 WBC (3.8-10.6) k/uL MCHC (31.0-37.0) g/dL Neutrophils # (1.3-7.7) k/uL Monocytes # (0-1.0) k/uL BUN (7-17) mg/dL Creatinine (0.52-1.04) mg/dL Glucose (74-99) mg/dL POC Glucose (mg/dL) 162 H 228 H (70-110) mg/dL Urine Appearance Cloudy H (Clear) Urine Protein 2+ H (Negative) Urine Glucose (UA) 1+ H (Negative) Urine Ketones 2+ H (Negative) Urine Blood Small H (Negative) Ur Leukocyte Esterase Large H (Negative) Urine RBC 7 H (0-5) /hpf Urine WBC >182 H (0-5) /hpf Urine WBC Clumps Few H (None) /hpf Ur Squamous Epith Cells 7 H (0-4) /hpf Urine Bacteria Many H (None) /hpf Urine Mucus Rare H (None) /hpf 06/19/23 06/20/23 06/20/23 Range/Units 23:58 06:00 08:54 WBC 19.0 H (3.8-10.6) k/uL MCHC 30.9 L (31.0-37.0) g/dL Neutrophils # 15.7 H (1.3-7.7) k/uL Monocytes # 1.6 H (0-1.0) k/uL BUN (7-17) mg/dL Creatinine (0.52-1.04) mg/dL Glucose (74-99) mg/dL POC Glucose (mg/dL) 204 H 218 H (70-110) mg/dL Urine Appearance (Clear) Urine Protein (Negative) Urine Glucose (UA) (Negative) Urine Ketones (Negative) Urine Blood (Negative) Ur Leukocyte Esterase (Negative) Urine RBC (0-5) /hpf Urine WBC (0-5) /hpf Urine WBC Clumps (None) /hpf Ur Squamous Epith Cells (0-4) /hpf Urine Bacteria (None) /hpf Urine Mucus (None) /hpf 06/20/23 06/20/23 06/20/23 Range/Units 08:54 11:00 11:52 WBC (3.8-10.6) k/uL MCHC (31.0-37.0) g/dL Neutrophils # (1.3-7.7) k/uL Monocytes # (0-1.0) k/uL BUN 25 H (7-17) mg/dL Creatinine 0.45 L (0.52-1.04) mg/dL Glucose 260 H (74-99) mg/dL POC Glucose (mg/dL) 308 H (70-110) mg/dL Urine Appearance (Clear) Urine Protein 2+ H (Negative) Urine Glucose (UA) 4+ H (Negative) Urine Ketones (Negative) Urine Blood (Negative) Ur Leukocyte Esterase Moderate H (Negative) Urine RBC (0-5) /hpf Urine WBC 34 H (0-5) /hpf Urine WBC Clumps (None) /hpf Ur Squamous Epith Cells (0-4) /hpf Urine Bacteria Rare H (None) /hpf Urine Mucus Rare H (None) /hpf Assessment and Plan Assessment: * Acute ischemic stroke left frontal parietal region, likely due to embolism. Patient not a candidate for IV thrombolytic because of unknown onset of symptoms. No large vessel occlusion noted on CTA. One of the etiologies of for stroke is poorly controlled diabetes as well as her polysubstance abuse. * Dysphagia, due to CVA. * Altered mental status, metabolic encephalopathy, and CVA, septic encephalopathy (UTI and aspiration pneumonia that is suspected). * Polysubstance abuse. Urine positive for amphetamines and methamphetamines. * Diabetes, poorly controlled, A1c 12.5 * History of bilateral BKA Plan: * Repeat CT head performed subacute evolving infarct in the left frontal and temporal lobes with no mass effect or acute intracranial hemorrhage. * MRI of the brain: Was notified by nurse, cannot obtain since patient has hx of stent and unsure if compatible. * Stat EEG was abnormal due to background slowing of moderate to severe degree. This is suggestive of generalized cerebral dysfunction as can be seen with toxic metabolic encephalopathy or related to diffuse structural brain abnormality. No epileptiform activity was seen. * CTA of head and neck from 06/11/23: It is reported as no significant abnormality. CT brain is reported as 4 cm left temporal parietal nonhemorrhagic acute infarction. * Carotid duplex was reported as no significant hemodynamic stenosis identified. * Patient has an NG tube placed. Patient on aspirin 81 mg daily. If no hemorrhagic conversion, may consider adding Plavix. * 2D echo from 06/11/2023 revealed LVEF estimated at 15 to 20%. Severely reduced global LV systolic function. Apical akinesis. Cannot rule out left ve ntricular apical thrombus especially in setting of CVA. Repeat echo with contrast. Moderate left atrial dilation. Mild MR. * 2D echo from 06/13/2023 was limited study. LVEF is 25 to 30% with anteroapical akinesis and thinning of the anterior apical wall. No LV thrombus noted. * I spoke with Dr. Cuadra (manager advanced) and he felt the NICOLE would not record changer. After discussing the case with him, I agree of holding off on the NICOLE for now since it will unlikely record changer. We'll place the patient on an event monitor for 30 days. * Fasting lipid panel with cholesterol 139, LDL 73, HDL 41, triglycerides 123. Patient on Lipitor 80 mg daily (home medication). * Hemoglobin A1c 12.5, consistent with poorly controlled diabetes. Recommend optimize control of diabetes to target A1c <7.0. * Phenobarbital 6.4 (15-40) and Trileptal level 3.8 (10-35). Both of them are in nontoxic range. * Ethylene glycol panel negative. * Continue close neurochecks. * Fall precautions. * DVT prophylaxis: heparin 5000 units subcu every 12 hours. * Overall condition is very guarded. The plan is discussed with primary team and her nurse. Will follow-up sporadically. Dr. Daly will resume neurology service on 06/22/2023 A.M. Time with Patient: Less than 30
[2023-06-20 16:30] LABS: Glucose,Whole Blood 173 mg/dL (70-110)
[2023-06-20] MEDS: LACTATED RINGERS 1,000 ML IV ONE (18:10)
[2023-06-20 20:25] LABS: Glucose,Whole Blood 132 mg/dL (70-110)
--- NOTE | 2023-06-20 23:46 | P.PN ---
Subjective Progress Note Date: 06/20/23 Principal diagnosis: Sepsis due to aspiration pneumonia and UTI s/P PE tube ill unchanged Objective - Vital Signs Vital signs: Vital Signs Temp 98.1 F 06/20/23 23:30 Pulse 86 06/20/23 23:30 Resp 16 06/20/23 23:30 BP 103/69 06/20/23 23:30 Pulse Ox 95 06/20/23 23:30 FiO2 Intake & Output 06/20/23 06/20/23 06/21/23 06:59 18:59 06:59 Intake Total 820 10 Output Total 75 Balance 745 10 Intake: IV 10 10 Invasive Line 3 10 10 Intake, IV Titration 490 Amount Azithromycin 500 mg In 250 Sodium Chloride 0.9% 250 ml @ 250 mls/hr IVPB DAILY [facility] Rx#:[id number] Lactated Ringers 1,000 ml 240 @ 20 mls/hr IV .Q24H [facility] Rx#:[id number] Oral 0 Tube Feeding 320 Output: Urine 75 Other: Voiding Method Indwelling Catheter External Catheter # Voids 1 2 - Labs CBC & Chem 7: 06/20/23 08:54 06/20/23 08:54 Labs: Abnormal Lab Results - Last 24 Hours (Table) 06/19/23 06/20/23 06/20/23 Range/Units 23:58 06:00 08:54 WBC 19.0 H (3.8-10.6) k/uL MCHC 30.9 L (31.0-37.0) g/dL Neutrophils # 15.7 H (1.3-7.7) k/uL Monocytes # 1.6 H (0-1.0) k/uL BUN (7-17) mg/dL Creatinine (0.52-1.04) mg/dL Glucose (74-99) mg/dL POC Glucose (mg/dL) 204 H 218 H (70-110) mg/dL Urine Protein (Negative) Urine Glucose (UA) (Negative) Ur Leukocyte Esterase (Negative) Urine WBC (0-5) /hpf Urine Bacteria (None) /hpf Urine Mucus (None) /hpf 06/20/23 06/20/23 06/20/23 Range/Units 08:54 11:00 11:52 WBC (3.8-10.6) k/uL MCHC (31.0-37.0) g/dL Neutrophils # (1.3-7.7) k/uL Monocytes # (0-1.0) k/uL BUN 25 H (7-17) mg/dL Creatinine 0.45 L (0.52-1.04) mg/dL Glucose 260 H (74-99) mg/dL POC Glucose (mg/dL) 308 H (70-110) mg/dL Urine Protein 2+ H (Negative) Urine Glucose (UA) 4+ H (Negative) Ur Leukocyte Esterase Moderate H (Negative) Urine WBC 34 H (0-5) /hpf Urine Bacteria Rare H (None) /hpf Urine Mucus Rare H (None) /hpf 06/20/23 06/20/23 Range/Units 16:28 20:24 WBC (3.8-10.6) k/uL MCHC (31.0-37.0) g/dL Neutrophils # (1.3-7.7) k/uL Monocytes # (0-1.0) k/uL BUN (7-17) mg/dL Creatinine (0.52-1.04) mg/dL Glucose (74-99) mg/dL POC Glucose (mg/dL) 173 H 132 H (70-110) mg/dL Urine Protein (Negative) Urine Glucose (UA) (Negative) Ur Leukocyte Esterase (Negative) Urine WBC (0-5) /hpf Urine Bacteria (None) /hpf Urine Mucus (None) /hpf
[2023-06-20 23:58] LABS: Glucose,Whole Blood 149 mg/dL (70-110)
[2023-06-21 06:06] LABS: Glucose,Whole Blood 166 mg/dL (70-110)
--- NOTE | 2023-06-21 09:23 | P.PN ---
Subjective Progress Note Date: 06/21/23 patient is clinically unchanged.she will K receive supportive care. Objective - Vital Signs Vital signs: Vital Signs Temp 97.9 F 06/21/23 04:00 Pulse 99 06/21/23 04:00 Resp 16 06/21/23 04:00 BP 115/71 06/21/23 04:00 Pulse Ox 96 06/21/23 04:00 FiO2 Intake & Output 06/20/23 06/21/23 06/21/23 18:59 06:59 18:59 Intake Total 820 30 Output Total 75 Balance 745 30 Intake: IV 10 30 Invasive Line 3 10 30 Intake, IV Titration 490 Amount Azithromycin 500 mg In 250 Sodium Chloride 0.9% 250 ml @ 250 mls/hr IVPB DAILY [facility] Rx#:[id number] Lactated Ringers 1,000 ml 240 @ 120 mls/hr IV .Q8H20M [facility] Rx#:[id number] Oral 0 Tube Feeding 320 Output: Urine 75 Other: Voiding Method Indwelling Catheter External Catheter # Voids 2 1 - Labs CBC & Chem 7: 06/20/23 08:54 06/20/23 08:54 Labs: Abnormal Lab Results - Last 24 Hours (Table) 06/20/23 06/20/23 06/20/23 Range/Units 08:54 08:54 11:00 WBC 19.0 H (3.8-10.6) k/uL MCHC 30.9 L (31.0-37.0) g/dL Neutrophils # 15.7 H (1.3-7.7) k/uL Monocytes # 1.6 H (0-1.0) k/uL BUN 25 H (7-17) mg/dL Creatinine 0.45 L (0.52-1.04) mg/dL Glucose 260 H (74-99) mg/dL POC Glucose (mg/dL) (70-110) mg/dL Urine Protein 2+ H (Negative) Urine Glucose (UA) 4+ H (Negative) Ur Leukocyte Esterase Moderate H (Negative) Urine WBC 34 H (0-5) /hpf Urine Bacteria Rare H (None) /hpf Urine Mucus Rare H (None) /hpf 06/20/23 06/20/23 06/20/23 Range/Units 11:52 16:28 20:24 WBC (3.8-10.6) k/uL MCHC (31.0-37.0) g/dL Neutrophils # (1.3-7.7) k/uL Monocytes # (0-1.0) k/uL BUN (7-17) mg/dL Creatinine (0.52-1.04) mg/dL Glucose (74-99) mg/dL POC Glucose (mg/dL) 308 H 173 H 132 H (70-110) mg/dL Urine Protein (Negative) Urine Glucose (UA) (Negative) Ur Leukocyte Esterase (Negative) Urine WBC (0-5) /hpf Urine Bacteria (None) /hpf Urine Mucus (None) /hpf 06/20/23 06/21/23 Range/Units 23:56 06:03 WBC (3.8-10.6) k/uL MCHC (31.0-37.0) g/dL Neutrophils # (1.3-7.7) k/uL Monocytes # (0-1.0) k/uL BUN (7-17) mg/dL Creatinine (0.52-1.04) mg/dL Glucose (74-99) mg/dL POC Glucose (mg/dL) 149 H 166 H (70-110) mg/dL Urine Protein (Negative) Urine Glucose (UA) (Negative) Ur Leukocyte Esterase (Negative) Urine WBC (0-5) /hpf Urine Bacteria (None) /hpf Urine Mucus (None) /hpf Microbiology - Last 24 Hours (Table) 06/19/23 21:44 Blood Culture - Preliminary Blood
[2023-06-21 10:39] LABS: Basophils # (A) 0.1 k/uL (0-0.2); Basophils % (A) 0 %; Eosinophils # (A) 0.1 k/uL (0-0.7); Eosinophils % (A) 0 %; HCT 45.8 % (34.0-46.0); HGB 14.1 gm/dL (11.4-16.0); Hypochromasia Slight; Lymphocytes # (A) 1.6 k/uL (1.0-4.8); Lymphocytes % (A) 8 %; MCH 26.5 pg (25.0-35.0); MCHC 30.8 g/dL (31.0-37.0); MCV 86.2 fL (80.0-100.0); Mean Platelet Volume 10.2; Monocytes # (A) 1.6 k/uL (0-1.0); Monocytes % (A) 8 %; Neutrophils % (A) 83 %; Platelet Count 226 k/uL (150-450); RBC 5.32 m/uL (3.80-5.40); RDW 15.1 % (11.5-15.5); WBC 20.5 k/uL (3.8-10.6)
[2023-06-21 10:46] LABS: African American GFR (CKD) >90 (>60 ml/min/1.73 sqM); Anion Gap 12 mmol/L; Blood Urea Nitrogen 20 mg/dL (7-17); Calcium 8.6 mg/dL (8.4-10.2); Carbon Dioxide 22 mmol/L (22-30); Chloride 106 mmol/L (98-107); Glucose 159 mg/dL (74-99); Non-African American GFR(CKD) >90 (>60 ml/min/1.73 sqM); Potassium 3.8 mmol/L (3.5-5.1); Sodium 140 mmol/L (137-145)
--- NOTE | 2023-06-21 11:18 | P.PN ---
Subjective Progress Note Date: 06/21/23 Patient is a 38-year-old female with known congestive heart failure, diabetes, and schizophrenia who presented to our emergency department from [place] due to agitation. Initial report from the ER was that she had been agitated and yelling. However review from [place] is that she presented to the nurse with flailing arms and legs unable to speak and just groaning. On arrival to e ER here her vital signs are within normal limits. Laboratory analysis included CBC, coags, CMP, ammonia, urinalysis, and urine drug screen which were remarkable for sodium 134, glucose 233, 1+ protein, 4+ glucose. Urine drug screen was positive for barbiturates and methamphetamines. Salicylates, acetaminophen, and alcohol level were negative. Initially she was kept to be seen by psych. Per charting it appears that her GCS had been up to 15 at some point and she required 1 mg of Ativan at 527 on the morning of 06/10. We were contacted for admission at 1032. Patient was found to have decreased responsiveness at our initial evaluation. Neurology was contacted for concern for subclinical seizure and patient underwent stat EEG which demonstrated background slowing of moderate to severe degree with generalized cerebral dysfunction. Neurology also recommended CTA of the head which showed a left temporal lobe infarct. Patient's phenobarbital level was low. She was found to have a slight osmolar gap and nephrology was consulted. Now normalized, volatile is negative. Echocardiogram showed LVEF 15 to 20%, no LV thrombus. PEG tube placed yesterday, on tube feeds. Patient now has sepsis likely secondary to urinary tract infection versus aspiration pneumonia. On IV antibiotics. Improving. Patient seen and examined at bedside. No acute events overnight. Vital signs reviewed General: Nontoxic, no distress, appears at stated age Cardiovascular: S1S2 reg, no murmur Lungs: CTA bilateral, no rhonchi, no rales, no accessory muscle use Abdominal: Soft, nontender to palpation, no guarding, PEG tube site clean, dry, intact Ext: No gross muscle atrophy, no edema b/l lower extremities, no contractures Neuro: Following some commands, moving left upper extremity, and lower ext remities, bilateral BKA Psych: unable to assess Assessment/Plan: Patient is severely ill, needs close monitoring. Prognosis guarded. Sepsis secondary to urinary tract infection versus aspiration pneumonia - On azithromycin 500 mg IV daily, ceftriaxone 2 g IV every 24 hours - Urine cultures as well as blood culture pending, negative growth to date - Tylenol 650 oral as needed - Respiratory viral panel negative -Has been afebrile since yesterday, blood pressure slightly improved -Did receive a bolus of LR yesterday, will decrease the rate of maintenance LR to 75 cc an hour Acute left temporal parietal CVA Acute metabolic encephalopathy due to above Polysubstance use - Discussed management with neurology, MRI brain still pending. Patient will likely need an event monitor at the time of discharge -Cardiology recommended no NICOLE and no further interventions given poor prognosis and as it will not affect her quality of life -on aspirin 81 mg, and atorvastatin 80 mg -Surgery following, patient is status post PEG tube -continue Toprol 25 mg daily, Entresto 24/26 mg 1 tablet twice daily -Continue telemetry -No LV thrombus noted -PT/OT - Physiatry recommending inpatient rehab closer to home Hypomagnesemia, resolved Diabetes mellitus, insulin requiring -A1c 12.5 - Levemir 25 units units daily, also on sliding scale insulin, monitor for hypoglycemia Schizophrenia -On home Latuda 160 mg, Trileptal 300 twice daily, Invega 3 mg daily, on gabapentin 100 3 times daily Congestive heart failure, systolic with LVEF 15 to 20% - Entresto 24 mg - 26 mg, metoprolol 25 mg -Monitor fluid status closely - Unclear etiology, possibly in the setting of polysubstance use Osmolar gap, resolved Non-anion gap metabolic acidosis -Nephrology following, continue oral bicarb and tube feeds, oral magnesium 400 mg daily Imaging: CTA head and neck without acute thrombosis or stenosis, stroke left temporal pariatal. Data Review: WBC 20.5, hemoglobin 14.1, creatinine 0.39, blood sugars range between 1 49-1 66 DVT prophylaxis: Heparin subcu Anticipated discharge date: Pending clinical course Anticipated discharge place: Pending clinical course Objective - Vital Signs Vital signs: Vital Signs Temp 97.9 F 06/21/23 09:36 Pulse 101 H 06/21/23 08:00 Resp 16 06/21/23 09:36 BP 108/68 06/21/23 08:00 Pulse Ox 97 06/21/23 09:36 FiO2 Intake & Output 06/20/23 06/21/23 06/21/23 18:59 06:59 18:59 Intake Total 820 30 10 Output Total 75 Balance 745 30 10 Intake: IV 10 30 10 Invasive Line 3 10 30 10 Intake, IV Titration 490 Amount Azithromycin 500 mg In 250 Sodium Chloride 0.9% 250 ml @ 250 mls/hr IVPB DAILY [facility] Rx#:[id number] Lactated Ringers 1,000 ml 240 @ 120 mls/hr IV .Q8H20M [facility] Rx#:[id number] Oral 0 Tube Feeding 320 Output: Urine 75 Other: Voiding Method Indwelling Catheter External Catheter External Catheter # Voids 2 1 - Labs CBC & Chem 7: 06/21/23 07:50 06/21/23 07:50 Labs: Abnormal Lab Results - Last 24 Hours (Table) 06/20/23 06/20/23 06/20/23 Range/Units 11:00 11:52 16:28 WBC (3.8-10.6) k/uL MCHC (31.0-37.0) g/dL Neutrophils # (1.3-7.7) k/uL Monocytes # (0-1.0) k/uL BUN (7-17) mg/dL Creatinine (0.52-1.04) mg/dL Glucose (74-99) mg/dL POC Glucose (mg/dL) 308 H 173 H (70-110) mg/dL Urine Protein 2+ H (Negative) Urine Glucose (UA) 4+ H (Negative) Ur Leukocyte Esterase Moderate H (Negative) Urine WBC 34 H (0-5) /hpf Urine Bacteria Rare H (None) /hpf Urine Mucus Rare H (None) /hpf 06/20/23 06/20/23 06/21/23 Range/Units 20:24 23:56 06:03 WBC (3.8-10.6) k/uL MCHC (31.0-37.0) g/dL Neutrophils # (1.3-7.7) k/uL Monocytes # (0-1.0) k/uL BUN (7-17) mg/dL Creatinine (0.52-1.04) mg/dL Glucose (74-99) mg/dL POC Glucose (mg/dL) 132 H 149 H 166 H (70-110) mg/dL Urine Protein (Negative) Urine Glucose (UA) (Negative) Ur Leukocyte Esterase (Negative) Urine WBC (0-5) /hpf Urine Bacteria (None) /hpf Urine Mucus (None) /hpf 06/21/23 06/21/23 Range/Units 07:50 07:50 WBC 20.5 H (3.8-10.6) k/uL MCHC 30.8 L (31.0-37.0) g/dL Neutrophils # 17.0 H (1.3-7.7) k/uL Monocytes # 1.6 H (0-1.0) k/uL BUN 20 H (7-17) mg/dL Creatinine 0.39 L (0.52-1.04) mg/dL Glucose 159 H (74-99) mg/dL POC Glucose (mg/dL) (70-110) mg/dL Urine Protein (Negative) Urine Glucose (UA) (Negative) Ur Leukocyte Esterase (Negative) Urine WBC (0-5) /hpf Urine Bacteria (None) /hpf Urine Mucus (None) /hpf Microbiology - Last 24 Hours (Table) 06/19/23 21:44 Blood Culture - Preliminary Blood
[2023-06-21 11:56] LABS: Glucose,Whole Blood 189 mg/dL (70-110)
[2023-06-21 16:20] LABS: Glucose,Whole Blood 185 mg/dL (70-110)
[2023-06-21 21:38] LABS: Glucose,Whole Blood 246 mg/dL (70-110)
[2023-06-22 06:00] LABS: Glucose,Whole Blood 244 mg/dL (70-110)
[2023-06-22 08:29] LABS: Basophils % (A) 0 %; Eosinophils % (A) 0 %; HCT 40.4 % (34.0-46.0); HGB 12.2 gm/dL (11.4-16.0); Hypochromasia Slight; Lymphocytes # (A) 1.5 k/uL (1.0-4.8); Lymphocytes % (A) 8 %; MCHC 30.1 g/dL (31.0-37.0); MCV 86.2 fL (80.0-100.0); Mean Platelet Volume 9.7; Monocytes # (A) 1.1 k/uL (0-1.0); Monocytes % (A) 6 %; Neutrophils % (A) 84 %; Platelet Count 262 k/uL (150-450); RBC 4.68 m/uL (3.80-5.40); WBC 17.9 k/uL (3.8-10.6)
[2023-06-22 08:39] LABS: African American GFR (CKD) >90 (>60 ml/min/1.73 sqM); Anion Gap 8 mmol/L; Blood Urea Nitrogen 15 mg/dL (7-17); Calcium 8.3 mg/dL (8.4-10.2); Carbon Dioxide 23 mmol/L (22-30); Chloride 106 mmol/L (98-107); Glucose 217 mg/dL (74-99); Magnesium 1.3 mg/dL (1.6-2.3); Non-African American GFR(CKD) >90 (>60 ml/min/1.73 sqM); Potassium 3.5 mmol/L (3.5-5.1); Sodium 137 mmol/L (137-145)
--- NOTE | 2023-06-22 10:19 | XR ---
EXAMINATION TYPE: XR chest 1V portable DATE OF EXAM: 06/22/2023 10:08 AM CLINICAL INDICATION:Female, 38 years old with history of febrile; COMPARISON: Chest radiographs from 329.4 TECHNIQUE: XR chest 1V portable Frontal view of the chest. FINDINGS: Lungs/Pleura: There is no evidence of pleural effusion, focal consolidation, or pneumothorax. Pulmonary vascularity: Unremarkable. Heart/mediastinum: Cardiomediastinal silhouette is unremarkable. Musculoskeletal: No acute osseous pathology. IMPRESSION: Right basilar airspace opacities correlate for pneumonia
[2023-06-22] MEDS ORDERED: VANCOMYCIN IV PER PHARMACY 1 EACH MISC MISCELLANE PRN (11:00)
[2023-06-22] MEDS: CEFEPIME 2 GM in SODIUM CHLORIDE 0.9% 100 ML IVPB SCH (11:30)
[2023-06-22 11:56] LABS: Glucose,Whole Blood 141 mg/dL (70-110)
[2023-06-22] MEDS: VANCOMYCIN 1,000 MG in SODIUM CHLORIDE 0.9% 250 ML IVPB SCH (12:46)
--- NOTE | 2023-06-22 13:12 | P.PN ---
Subjective Progress Note Date: 06/22/23 Patient is a 38-year-old female with known congestive heart failure, diabetes, and schizophrenia who presented to our emergency department from [place] due to agitation. Initial report from the ER was that she had been agitated and yelling. However review from [place] is that she presented to the nurse with flailing arms and legs unable to speak and just groaning. On arrival to e ER here her vital signs are within normal limits. Laboratory analysis included CBC, coags, CMP, ammonia, urinalysis, and urine drug screen which were remarkable for sodium 134, glucose 233, 1+ protein, 4+ glucose. Urine drug screen was positive for barbiturates and methamphetamines. Salicylates, acetaminophen, and alcohol level were negative. Initially she was kept to be seen by psych. Per charting it appears that her GCS had been up to 15 at some point and she required 1 mg of Ativan at 527 on the morning of 06/10. We were contacted for admission at 1032. Patient was found to have decreased responsiveness at our initial evaluation. Neurology was contacted for concern for subclinical seizure and patient underwent stat EEG which demonstrated background slowing of moderate to severe degree with generalized cerebral dysfunction. Neurology also recommended CTA of the head which showed a left temporal lobe infarct. Patient's phenobarbital level was low. She was found to have a slight osmolar gap and nephrology was consulted. Now normalized, volatile is negative. Echocardiogram showed LVEF 15 to 20%, no LV thrombus. Patient was evaluated by cardiology, NICOLE not recommended given poor prognosis. Patient follows some commands, otherwise quite debilitated. She is now status post PEG tube, on tube feeds. Patient is also in sepsis, secondary to aspiration pneumonia versus urinary tract infection. On IV antibiotics. Patient will need to be placed. Patient seen and examined at bedside. No acute events overnight. Vital signs reviewed General: Nontoxic, no distress, appears at stated age, nonverbal Cardiovascular: S1S2 reg, no murmur Lungs: CTA bilateral, no rhonchi, no rales, no accessory muscle use Abdominal: Soft, nontender to palpation, no guarding, PEG tube site clean, dry, intact Ext: No gross muscle atrophy, no edema b/l lower extremities, no contractures, bilateral BKA Neuro: Following some commands, moving left upper extremity, and lower extremities Psych: unable to assess Assessment/Plan: Patient is severely ill, needs close monitoring. Prognosis guarded. Sepsis secondary to aspiration pneumonia, possible urinary tract infection Patient has persistent fever despite being on IV azithromycin and IV ceftriaxone. Urine cultures did grow Klebsiella sensitive to ceftriaxone Repeat chest x-ray today shows right basilar opacity, concerning for aspiration pneumonia, antibiotics will be broadened to IV cefepime 2 g every 8 hours, and vancomycin pharmacy dose, monitor for renal toxicity MRSA nares screen pending, consider de-escalating from vancomycin if negative Blood cultures ordered - Tylenol 650 oral as needed - Respiratory viral panel negative On LR 75 cc an hour, monitor fluid status given history of systolic CHF Acute left temporal parietal CVA Acute metabolic encephalopathy due to above Polysubstance use Systolic congestive heart failure, EF 15 to 20%, not in exacerbation -Neurology following, MRI brain still pending. Patient will likely need an event monitor at the time of discharge -Cardiology recommended no NICOLE and no further interventions given poor prognosis and as it will not affect her quality of life -on aspirin 81 mg, and atorvastatin 80 mg -Surgery following, patient is status post PEG tube -continue Toprol 25 mg daily, Entresto 24/26 mg 1 tablet twice daily -Continue telemetry Hypomagnesemia -2 g IV magnesium sulfate ordered Repeat magnesium level tomorrow Diabetes mellitus, insulin requiring -A1c 12.5 -Levemir increased to 30 units daily, also on sliding scale insulin, monitor for hypoglycemia Schizophrenia -On home Latuda 160 mg, Trileptal 300 twice daily, Invega 3 mg daily, on gabapentin 100 3 times daily Osmolar gap, resolved Non-anion gap metabolic acidosis, resolved -Nephrology following, continue oral bicarb and tube feeds, oral magnesium 400 mg daily Imaging: Chest x-ray independently interpreted, shows right basilar opacity Data Review: WBC 17.9, hemoglobin 12.2, potassium 3.5, creatinine 0.44, magnesium 1.3, blood sugars range between 2 17-2 46 DVT prophylaxis: Heparin subcu Anticipated discharge date: Pending clinical course Anticipated discharge place: Pending clinical course Objective - Vital Signs Vital signs: Vital Signs Temp 99.6 F 06/22/23 12:49 Pulse 104 H 06/22/23 11:29 Resp 20 06/22/23 11:29 BP 93/63 06/22/23 11:29 Pulse Ox 94 L 06/22/23 11:29 FiO2 Intake & Output 06/21/23 06/22/23 06/22/23 18:59 06:59 18:59 Intake Total 20 20 10 Balance 20 20 10 Intake: IV 20 20 10 Invasive Line 3 20 20 10 Oral 0 Other: Voiding Method External Catheter Diaper Diaper Incontinent Incontinent External Catheter # Voids 1 - Labs CBC & Chem 7: 06/22/23 06:35 06/22/23 06:35 Labs: Abnormal Lab Results - Last 24 Hours (Table) 06/21/23 06/21/23 06/22/23 Range/Units 16:18 21:35 05:57 WBC (3.8-10.6) k/uL MCHC (31.0-37.0) g/dL Neutrophils # (1.3-7.7) k/uL Monocytes # (0-1.0) k/uL Creatinine (0.52-1.04) mg/dL Glucose (74-99) mg/dL POC Glucose (mg/dL) 185 H 246 H 244 H (70-110) mg/dL Calcium (8.4-10.2) mg/dL Magnesium (1.6-2.3) mg/dL 06/22/23 06/22/23 06/22/23 Range/Units 06:35 06:35 11:52 WBC 17.9 H (3.8-10.6) k/uL MCHC 30.1 L (31.0-37.0) g/dL Neutrophils # 15.0 H (1.3-7.7) k/uL Monocytes # 1.1 H (0-1.0) k/uL Creatinine 0.44 L (0.52-1.04) mg/dL Glucose 217 H (74-99) mg/dL POC Glucose (mg/dL) 141 H (70-110) mg/dL Calcium 8.3 L (8.4-10.2) mg/dL Magnesium 1.3 L (1.6-2.3) mg/dL Microbiology - Last 24 Hours (Table) 06/19/23 21:30 Urine Culture - Final Urine,Voided Klebsiella pneumoniae 06/19/23 21:44 Blood Culture - Preliminary Blood
[2023-06-22] MEDS: MAGNESIUM SULFATE-D5W PMX 1 GM in DEXTROSE/WATER 1 100ML.BAG IVPB SCH (15:45)
--- NOTE | 2023-06-22 17:21 | P.PN ---
Subjective Progress Note Date: 06/22/23 patient [place] stable. PEG tube site is clean. She'll K receive supportive care. Objective - Vital Signs Vital signs: Vital Signs Temp 101.5 F H 06/22/23 15:53 Pulse 109 H 06/22/23 15:53 Resp 17 06/22/23 15:53 BP 105/68 06/22/23 15:53 Pulse Ox 95 06/22/23 15:53 FiO2 Intake & Output 06/21/23 06/22/23 06/22/23 18:59 06:59 18:59 Intake Total 20 20 10 Balance 20 20 10 Intake: IV 20 20 10 Invasive Line 3 20 20 10 Oral 0 Other: Voiding Method External Catheter Diaper Diaper Incontinent Incontinent External Catheter # Voids 1 - Labs CBC & Chem 7: 06/22/23 06:35 06/22/23 06:35 Labs: Abnormal Lab Results - Last 24 Hours (Table) 06/21/23 06/22/23 06/22/23 Range/Units 21:35 05:57 06:35 WBC 17.9 H (3.8-10.6) k/uL MCHC 30.1 L (31.0-37.0) g/dL Neutrophils # 15.0 H (1.3-7.7) k/uL Monocytes # 1.1 H (0-1.0) k/uL Creatinine (0.52-1.04) mg/dL Glucose (74-99) mg/dL POC Glucose (mg/dL) 246 H 244 H (70-110) mg/dL Calcium (8.4-10.2) mg/dL Magnesium (1.6-2.3) mg/dL 06/22/23 06/22/23 Range/Units 06:35 11:52 WBC (3.8-10.6) k/uL MCHC (31.0-37.0) g/dL Neutrophils # (1.3-7.7) k/uL Monocytes # (0-1.0) k/uL Creatinine 0.44 L (0.52-1.04) mg/dL Glucose 217 H (74-99) mg/dL POC Glucose (mg/dL) 141 H (70-110) mg/dL Calcium 8.3 L (8.4-10.2) mg/dL Magnesium 1.3 L (1.6-2.3) mg/dL Microbiology - Last 24 Hours (Table) 06/19/23 21:30 Urine Culture - Final Urine,Voided Klebsiella pneumoniae 06/19/23 21:44 Blood Culture - Preliminary Blood
[2023-06-22 18:05] LABS: Glucose,Whole Blood 183 mg/dL (70-110)
[2023-06-22 21:41] LABS: Glucose,Whole Blood 196 mg/dL (70-110)
[2023-06-23 00:35] LABS: Amorphous Sediment,Urine Occasional /hpf; Appearance,Urine Turbid (Clear); Bacteria,Urine Rare /hpf; Bilirubin,Urine Negative (Negative); Blood,Urine Small (Negative); Budding Yeast,Urine Rare /hpf; Color,Urine Yellow; Glucose,Urine (UA) 3+ (Negative); Ketones,Urine Trace (Negative); Leukocyte Esterase,Urine Negative (Negative); Mucus,Urine Rare /hpf; Nitrite,Urine Negative (Negative); PH, Urine 6.5 (5.0-8.0); Protein,Urine 3+ (Negative); RBC,Urine <1 /hpf (0-5); Squamous Epithelial Cell,Urine 12 /hpf (0-4); WBC,Urine 2 /hpf (0-5)
[2023-06-23 00:45] LABS: Specific Gravity,Urine 1.048 (1.001-1.035)
[2023-06-23 06:02] LABS: Glucose,Whole Blood 236 mg/dL (70-110)
[2023-06-23] MEDS: INSULIN DETEMIR (LEVEMIR) 100 UNIT/ML SYR SQ SCH (06:33)
[2023-06-23 11:59] LABS: Basophils % (A) 0 %; Eosinophils # (A) 0.1 k/uL (0-0.7); Eosinophils % (A) 1 %; HGB 12.2 gm/dL (11.4-16.0); Hypochromasia Slight; Lymphocytes # (A) 1.4 k/uL (1.0-4.8); Lymphocytes % (A) 6 %; MCH 26.8 pg (25.0-35.0); MCHC 31.3 g/dL (31.0-37.0); MCV 85.7 fL (80.0-100.0); Mean Platelet Volume 8.7; Monocytes # (A) 0.5 k/uL (0-1.0); Monocytes % (A) 2 %; Neutrophils # (A) 19.9 k/uL (1.3-7.7); Neutrophils % (A) 90 %; Platelet Count 275 k/uL (150-450); RBC 4.55 m/uL (3.80-5.40); RDW 15.1 % (11.5-15.5); WBC 22.2 k/uL (3.8-10.6)
[2023-06-23 12:37] LABS: African American GFR (CKD) >90 (>60 ml/min/1.73 sqM); Anion Gap 8 mmol/L; Blood Urea Nitrogen 20 mg/dL (7-17); Carbon Dioxide 23 mmol/L (22-30); Chloride 108 mmol/L (98-107); Glucose 254 mg/dL (74-99); Magnesium 1.7 mg/dL (1.6-2.3); Non-African American GFR(CKD) >90 (>60 ml/min/1.73 sqM); Potassium 3.4 mmol/L (3.5-5.1); Sodium 139 mmol/L (137-145)
[2023-06-23 12:39] LABS: Glucose,Whole Blood 252 mg/dL (70-110)
--- NOTE | 2023-06-23 14:27 | P.PN ---
Subjective Progress Note Date: 06/23/23 Patient is a 38-year-old female with known congestive heart failure, diabetes, and schizophrenia who presented to our emergency department from [place] due to agitation. Initial report from the ER was that she had been agitated and yelling. However review from [place] is that she presented to the nurse with flailing arms and legs unable to speak and just groaning. On arrival to the ER here her vital signs are within normal limits. Laboratory analysis included CBC, coags, CMP, ammonia, urinalysis, and urine drug screen which were remarkable for sodium 134, glucose 233, 1+ protein, 4+ glucose. Urine drug screen was positive for barbiturates and methamphetamines. Salicylates, acetaminophen, and alcohol level were negative. Initially she was kept to be seen by psych. Per charting it appears that her GCS had been up to 15 at some point and she required 1 mg of Ativan at 527 on the morning of 06/10. We were contacted for admission at 1032. Patient was found to have decreased responsiveness at our initial evaluation. Neurology was contacted for concern for subclinical seizure and patient underwent stat EEG which demonstrated background slowing of moderate to severe degree with generalized cerebral dysfunction. Neurology also recommended CTA of the head which showed a left temporal lobe infarct. Patient's phenobarbital level was low. She was found to have a slight osmolar gap and nephrology was consulted. Her osmol gap normalized. She continued to have dysphagia and ultimately underwent PEG tube placement. Echocardiogram was performed and initial 1 showed possible LV thrombus but repeat showed no LV thrombus. Case was discussed with cardiology and NICOLE was not recommended given overall poor prognosis. Patient has been tolerating tube feeds. She has been spiking fevers with an elevated white count that was felt to be secondary to aspiration pneumonia versus urinary tract infection. She was initially started on Rocephin and Zithromax and then br oadened to vancomycin and cefepime on 06/22/2023. She was also noted to have thrush and was started on Diflucan back on 06/14/2023. Patient seen and examined at bedside. She is nonverbal but appears comfortable. She follows simple commands. Vital signs reviewed General: Nontoxic, no distress, appears at stated age Cardiovascular: S1S2 reg, no murmur Lungs: Coarse breath sounds bilateral, no rhonchi, no rales, no accessory muscle use Abdominal: Soft, nontender to palpation, no guarding Ext: No gross muscle atrophy, no edema b/l lower extremities, no contractures Neuro: Following simple commands. She is able to show me a thumbs up on the left, touch her nose with her left hand, and close her eyes and keep them closed. She is unable to lift her right arm off the bed for me Psych: Awake, interactive Assessment/Plan: Probable Aspiration PNA wtih sepsis -Possible aspiration event -Urine cultures did show Klebsiella which is sensitive to ceftriaxone however repeat urinalysis is benign and not consistent with urinary tract infection -Antibiotics were broadened to cefepime 2 g every 8 hours day #2 and vancomycin being dosed by pharmacy at day #2 due to continued pyrexia -Await MRSA nasal swab - Blood cultures negative to date -Continue to monitor creatinine and vancomycin trough for signs of toxicity -Consult Dr. Phillips due to continued pyrexia with worsening white blood cell count -Diflucan 200 mg day #7/ -COVID, RSV, and influenza negative Acute left temporal parietal CVA Acute metabolic encephalopathy due to above Dysphagia s/p PEG Polysubstance use Systolic congestive heart failure, EF 25-50%, not in exacerbation -Neurology following, MRI brain pending. Patient will likely need an event monitor at the time of discharge -Cardiology recommended no NICOLE and no further interventions given poor prognosis and as it will not affect her quality of life - LR at 75 cc/hr given systolic cardiomyopathy -Aspirin 81 mg, and atorvastatin 80 mg -Toprol 25 mg daily, Entresto 24/26 mg 1 tablet twice daily -Continue telemetry -PT/OT/speech recommendations Diabetes mellitus, insulin requiring -A1c 12.5 -Levemir at 30 units daily started on 06/22 - Follow BS Schizophrenia - Latuda 160 mg, Trileptal 300 twice daily, Invega 3 mg daily, on gabapentin 100 3 times daily Osmolar gap, reoslved - Nephrology consulted and case discussed with Dr. Austin: recheck osmol - check volatile acid screen, ethanol Imaging: None new Hospital Course Imaging: CTA head and neck without acute thrombosis or stenosis, stroke left temporal pariatal. Echocardiogram: Ejection fraction 15 to 20%, severely increased left ventricular diastolic volume, apical akinesis, cannot rule out LV apical thrombus CT head: Subacute evolving infarct in the left frontal and temporal lobes without mass effect Carotid Doppler: No significant hemodynamic stenosis Repeat echocardiogram 06/10/2023: LVEF 25 to 30% with a anterior apical akinesis and thinning of the wall, no LV thrombus noted Data Review: Labs reviewed from today include CBC, BMP, and magnesium which are remarkable for white blood cell count 22, potassium 3.4, and blood sugars of 252. DVT prophylaxis: Heparin subcu Anticipated discharge date: Pending clinical course Anticipated discharge place: Pending clinical course This dictation was prepared using [employer] voice recognition software. Though every attempt is made to correct errors during dictation some may still exist. Objective - Vital Signs Vital signs: Vital Signs Temp 99.9 F H 06/23/23 12:00 Pulse 93 06/23/23 12:00 Resp 16 06/23/23 12:00 BP 107/72 06/23/23 12:00 Pulse Ox 95 06/23/23 07:57 FiO2 Intake & Output 06/22/23 06/23/23 06/23/23 18:59 06:59 18:59 Intake Total 10 0 Output Total 200 Balance 10 -200 Weight 48.308 kg Intake: IV 10 Invasive Line 3 10 Oral 0 Output: Urine 200 Other: Voiding Method Diaper Diaper Diaper Incontinent Incontinent Incontinent External Catheter External Catheter External Catheter # Voids 1 - Labs CBC & Chem 7: 06/23/23 11:42 06/23/23 11:42 Labs: Abnormal Lab Results - Last 24 Hours (Table) 06/22/23 06/22/23 06/22/23 Range/Units 18:03 21:39 21:46 WBC (3.8-10.6) k/uL Neutrophils # (1.3-7.7) k/uL Potassium (3.5-5.1) mmol/L Chloride (98-107) mmol/L BUN (7-17) mg/dL Creatinine (0.52-1.04) mg/dL Glucose (74-99) mg/dL POC Glucose (mg/dL) 183 H 196 H (70-110) mg/dL Calcium (8.4-10.2) mg/dL Urine Appearance Turbid H (Clear) Ur Specific [place] 1.048 H (1.001-1.035) Urine Protein 3+ H (Negative) Urine Glucose (UA) 3+ H (Negative) Urine Ketones Trace H (Negative) Urine Blood Small H (Negative) Ur Squamous Epith Cells 12 H (0-4) /hpf Amorphous Sediment Occasional H (None) /hpf Urine Bacteria Rare H (None) /hpf Urine Mucus Rare H (None) /hpf Urine Yeast (Budding) Rare H (None) /hpf 06/23/23 06/23/23 06/23/23 Range/Units 06:00 11:42 11:42 WBC 22.2 H (3.8-10.6) k/uL Neutrophils # 19.9 H (1.3-7.7) k/uL Potassium 3.4 L (3.5-5.1) mmol/L Chloride 108 H (98-107) mmol/L BUN 20 H (7-17) mg/dL Creatinine 0.39 L (0.52-1.04) mg/dL Glucose 254 H (74-99) mg/dL POC Glucose (mg/dL) 236 H (70-110) mg/dL Calcium 8.0 L (8.4-10.2) mg/dL Urine Appearance (Clear) Ur Specific [place] (1.001-1.035) Urine Protein (Negative) Urine Glucose (UA) (Negative) Urine Ketones (Negative) Urine Blood (Negative) Ur Squamous Epith Cells (0-4) /hpf Amorphous Sediment (None) /hpf Urine Bacteria (None) /hpf Urine Mucus (None) /hpf Urine Yeast (Budding) (None) /hpf 06/23/23 Range/Units 12:38 WBC (3.8-10.6) k/uL Neutrophils # (1.3-7.7) k/uL Potassium (3.5-5.1) mmol/L Chloride (98-107) mmol/L BUN (7-17) mg/dL Creatinine (0.52-1.04) mg/dL Glucose (74-99) mg/dL POC Glucose (mg/dL) 252 H (70-110) mg/dL Calcium (8.4-10.2) mg/dL Urine Appearance (Clear) Ur Specific [place] (1.001-1.035) Urine Protein (Negative) Urine Glucose (UA) (Negative) Urine Ketones (Negative) Urine Blood (Negative) Ur Squamous Epith Cells (0-4) /hpf Amorphous Sediment (None) /hpf Urine Bacteria (None) /hpf Urine Mucus (None) /hpf Urine Yeast (Budding) (None) /hpf Microbiology - Last 24 Hours (Table) 06/19/23 21:44 Blood Culture - Preliminary Blood 06/19/23 21:30 Urine Culture - Final Urine,Voided Klebsiella pneumoniae
--- NOTE | 2023-06-23 16:04 | P.PN ---
Subjective Progress Note Date: 06/23/23 CHIEF COMPLAINT: Dysphagia HISTORY OF PRESENT ILLNESS: Patient admitted to the hospital with CVA and having dysphagia. Patient status post PEG tube placement. She is tolerating her tube feeds. Tube feeds currently at 32 mL/h. She did have fever yesterday and had been mildly tachycardic. PHYSICAL EXAM: VITAL SIGNS: Reviewed. GENERAL: Well-developed in no acute distress. ABDOMEN: Soft. Nondistended. Nontender. PEG tube site clean dry and intact NEUROLOGIC: lethargic ASSESSMENT: 1. Dysphagia 2. Severe protein calorie malnutrition 3. 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 Signing provider agrees with the documented findings, assessment, and plan of care. Objective - Vital Signs Vital signs: Vital Signs Temp 99.9 F H 06/23/23 12:00 Pulse 93 06/23/23 14:00 Resp 16 06/23/23 14:00 BP 107/72 06/23/23 12:00 Pulse Ox 95 06/23/23 07:57 FiO2 Intake & Output 06/22/23 06/23/23 06/23/23 18:59 06:59 18:59 Intake Total 10 0 Output Total 200 Balance 10 -200 Weight 48.308 kg Intake: IV 10 Invasive Line 3 10 Oral 0 Output: Urine 200 Other: Voiding Method Diaper Diaper Diaper Incontinent Incontinent Incontinent External Catheter External Catheter External Catheter # Voids 1 - Labs CBC & Chem 7: 06/23/23 11:42 06/23/23 11:42 Labs: Abnormal Lab Results - Last 24 Hours (Table) 06/22/23 06/22/23 06/22/23 Range/Units 18:03 21:39 21:46 WBC (3.8-10.6) k/uL Neutrophils # (1.3-7.7) k/uL Potassium (3.5-5.1) mmol/L Chloride (98-107) mmol/L BUN (7-17) mg/dL Creatinine (0.52-1.04) mg/dL Glucose (74-99) mg/dL POC Glucose (mg/dL) 183 H 196 H (70-110) mg/dL Calcium (8.4-10.2) mg/dL Urine Appearance Turbid H (Clear) Ur Specific [place] 1.048 H (1.001-1.035) Urine Protein 3+ H (Negative) Urine Glucose (UA) 3+ H (Negative) Urine Ketones Trace H (Negative) Urine Blood Small H (Negative) Ur Squamous Epith Cells 12 H (0-4) /hpf Amorphous Sediment Occasional H (None) /hpf Urine Bacteria Rare H (None) /hpf Urine Mucus Rare H (None) /hpf Urine Yeast (Budding) Rare H (None) /hpf 06/23/23 06/23/23 06/23/23 Range/Units 06:00 11:42 11:42 WBC 22.2 H (3.8-10.6) k/uL Neutrophils # 19.9 H (1.3-7.7) k/uL Potassium 3.4 L (3.5-5.1) mmol/L Chloride 108 H (98-107) mmol/L BUN 20 H (7-17) mg/dL Creatinine 0.39 L (0.52-1.04) mg/dL Glucose 254 H (74-99) mg/dL POC Glucose (mg/dL) 236 H (70-110) mg/dL Calcium 8.0 L (8.4-10.2) mg/dL Urine Appearance (Clear) Ur Specific [place] (1.001-1.035) Urine Protein (Negative) Urine Glucose (UA) (Negative) Urine Ketones (Negative) Urine Blood (Negative) Ur Squamous Epith Cells (0-4) /hpf Amorphous Sediment (None) /hpf Urine Bacteria (None) /hpf Urine Mucus (None) /hpf Urine Yeast (Budding) (None) /hpf 06/23/23 Range/Units 12:38 WBC (3.8-10.6) k/uL Neutrophils # (1.3-7.7) k/uL Potassium (3.5-5.1) mmol/L Chloride (98-107) mmol/L BUN (7-17) mg/dL Creatinine (0.52-1.04) mg/dL Glucose (74-99) mg/dL POC Glucose (mg/dL) 252 H (70-110) mg/dL Calcium (8.4-10.2) mg/dL Urine Appearance (Clear) Ur Specific [place] (1.001-1.035) Urine Protein (Negative) Urine Glucose (UA) (Negative) Urine Ketones (Negative) Urine Blood (Negative) Ur Squamous Epith Cells (0-4) /hpf Amorphous Sediment (None) /hpf Urine Bacteria (None) /hpf Urine Mucus (None) /hpf Urine Yeast (Budding) (None) /hpf Microbiology - Last 24 Hours (Table) 06/19/23 21:44 Blood Culture - Preliminary Blood 06/19/23 21:30 Urine Culture - Final Urine,Voided Klebsiella pneumoniae
--- NOTE | 2023-06-23 16:09 | P.PN ---
Subjective Progress Note Date: 06/23/23 Patient was seen for a follow-up. Patient is fully alert and awake. Patient is still aphasic. She does have very good comprehension but cannot express. Objective - Vital Signs Vital signs: Vital Signs Temp 99.9 F H 06/23/23 12:00 Pulse 93 06/23/23 14:00 Resp 16 06/23/23 14:00 BP 107/72 06/23/23 12:00 Pulse Ox 95 06/23/23 07:57 FiO2 Intake & Output 06/22/23 06/23/23 06/23/23 18:59 06:59 18:59 Intake Total 10 0 Output Total 200 Balance 10 -200 Weight 48.308 kg Intake: IV 10 Invasive Line 3 10 Oral 0 Output: Urine 200 Other: Voiding Method Diaper Diaper Diaper Incontinent Incontinent Incontinent External Catheter External Catheter External Catheter # Voids 1 - Exam On examination patient is fully alert today, but aphasic. She could not tell me her name, or the month. Patient not able to name simple objects like pen, or eyeglasses. She follows commands very well, like on asking to move her extremities, she does move extremities independently including the left arm, and both legs. Patient is obvious right facial weakness, and right arm is flaccid. Her coffee grinder is normal on the left, with normal biceps and triceps. Patient has bilateral BKA. No seizure-like activity. - Labs CBC & Chem 7: 06/23/23 11:42 06/23/23 11:42 Labs: Abnormal Lab Results - Last 24 Hours (Table) 06/22/23 06/22/23 06/22/23 Range/Units 18:03 21:39 21:46 WBC (3.8-10.6) k/uL Neutrophils # (1.3-7.7) k/uL Potassium (3.5-5.1) mmol/L Chloride (98-107) mmol/L BUN (7-17) mg/dL Creatinine (0.52-1.04) mg/dL Glucose (74-99) mg/dL POC Glucose (mg/dL) 183 H 196 H (70-110) mg/dL Calcium (8.4-10.2) mg/dL Urine Appearance Turbid H (Clear) Ur Specific [place] 1.048 H (1.001-1.035) Urine Protein 3+ H (Negative) Urine Glucose (UA) 3+ H (Negative) Urine Ketones Trace H (Negative) Urine Blood Small H (Negative) Ur Squamous Epith Cells 12 H (0-4) /hpf Amorphous Sediment Occasional H (None) /hpf Urine Bacteria Rare H (None) /hpf Urine Mucus Rare H (None) /hpf Urine Yeast (Budding) Rare H (None) /hpf 06/23/23 06/23/23 06/23/23 Range/Units 06:00 11:42 11:42 WBC 22.2 H (3.8-10.6) k/uL Neutrophils # 19.9 H (1.3-7.7) k/uL Potassium 3.4 L (3.5-5.1) mmol/L Chloride 108 H (98-107) mmol/L BUN 20 H (7-17) mg/dL Creatinine 0.39 L (0.52-1.04) mg/dL Glucose 254 H (74-99) mg/dL POC Glucose (mg/dL) 236 H (70-110) mg/dL Calcium 8.0 L (8.4-10.2) mg/dL Urine Appearance (Clear) Ur Specific [place] (1.001-1.035) Urine Protein (Negative) Urine Glucose (UA) (Negative) Urine Ketones (Negative) Urine Blood (Negative) Ur Squamous Epith Cells (0-4) /hpf Amorphous Sediment (None) /hpf Urine Bacteria (None) /hpf Urine Mucus (None) /hpf Urine Yeast (Budding) (None) /hpf 06/23/23 Range/Units 12:38 WBC (3.8-10.6) k/uL Neutrophils # (1.3-7.7) k/uL Potassium (3.5-5.1) mmol/L Chloride (98-107) mmol/L BUN (7-17) mg/dL Creatinine (0.52-1.04) mg/dL Glucose (74-99) mg/dL POC Glucose (mg/dL) 252 H (70-110) mg/dL Calcium (8.4-10.2) mg/dL Urine Appearance (Clear) Ur Specific [place] (1.001-1.035) Urine Protein (Negative) Urine Glucose (UA) (Negative) Urine Ketones (Negative) Urine Blood (Negative) Ur Squamous Epith Cells (0-4) /hpf Amorphous Sediment (None) /hpf Urine Bacteria (None) /hpf Urine Mucus (None) /hpf Urine Yeast (Budding) (None) /hpf Microbiology - Last 24 Hours (Table) 06/19/23 21:44 Blood Culture - Preliminary Blood 06/19/23 21:30 Urine Culture - Final Urine,Voided Klebsiella pneumoniae Assessment and Plan Assessment: * Acute ischemic stroke left frontal parietal region, likely due to embolism. Patient not a candidate for tPA because of unknown onset of symptoms. No large vessel occlusion noted on CTA. * Dysphagia, due to CVA. * Aspiration pneumonia and sepsis. * Altered mental status, metabolic encephalopathy, and CVA as above. * Polysubstance abuse. Urine positive for amphetamines and methamphetamines. * Diabetes, poorly controlled, A1c 12.5 * History of bilateral BKA Plan: * Patient was seen after 8 days. Not much improved regarding aphasia and right arm weakness. * Repeat CT head performed 06/14/2023 revealed subacute evolving infarct in the left frontal and temporal lobes with no mass effect or acute intracranial hemorrhage. * Patient cannot have MRI because of inability to get clearance for the stent. * Stat EEG was abnormal due to background slowing of moderate to severe degree. This is suggestive of generalized cerebral dysfunction as can be seen with toxic metabolic encephalopathy or related to diffuse structural brain abnormality. No epileptiform activity was seen. * CTA of head and neck reported no stenosis or occlusion. Official report pending. * Patient on aspirin 81 mg daily. Consider adding Plavix 75 mg daily, but at present patient is on fluconazole, which has interaction with Plavix. Will defer to IM. * 2D echo from 06/11/2023 revealed LVEF estimated at 15 to 20%. Severely reduced global LV systolic function. Apical akinesis. Cannot rule out left ventricular apical thrombus especially in setting of CVA. Repeat echo with contrast. Moderate left atrial dilation. Mild MR. * 2D echo from 06/13/2023 was limited study. LVEF is 25 to 30% with anteroapical akinesis and thinning of the anterior apical wall. No LV thrombus noted. * Dr. Ramos has spoken to Dr. Cuadra (charge entry specialist) and he felt the NICOLE would not job change crew member. After discussing the case with him, Dr. Ramos agreed of holding off on the NICOLE for now since it will unlikely job change crew member. We'll place the patient on an event monitor for 30 days. * Patient also had aspiration pneumonia and sepsis for which patient is on cefepime, vancomycin and fluconazole. * Fasting lipid panel with cholesterol 139, LDL 73, HDL 41, triglycerides 123. Patient on Lipitor 80 mg daily (home medication). * Hemoglobin A1c 12.5, consistent with poorly controlled diabetes. Recommend optimize control of diabetes to target A1c <7.0. * Phenobarbital 6.4 (15-40) and Trileptal level 3.8 (10-35). Both of them are in nontoxic range. * Ethylene glycol panel negative. * Continue close neurochecks. * Fall precautions. * DVT prophylaxis: Continue heparin 5000 units subcu every 12 hours.
[2023-06-23] MEDS: VANCOMYCIN TROUGH DUE 1 EACH MISC MISCELLANE ONE (16:15)
[2023-06-23] MEDS: POTASSIUM BICARBONATE/CIT AC 20 MEQ TABLET.EFF PEG/G-TUBE ONE (16:59)
[2023-06-23] MEDS: VANCOMYCIN 1,000 MG in SODIUM CHLORIDE 0.9% 250 ML IVPB SCH (17:48)
[2023-06-23 18:15] LABS: Glucose,Whole Blood 197 mg/dL (70-110)
--- NOTE | 2023-06-23 23:01 | P.CONS ---
History of Present Illness - Reason for Consult Consult date: 06/23/23 Fevers Requesting physician: Jenifer Stein - Chief Complaint Fever x 3 days - History of Present Illness Patient is a 38-year-old female past medical history significant for asthma diabetes mellitus, congestive heart failure, schizophrenia, did have bilateral below the knee amputation presenting to the hospital about 2 weeks ago from [place] due to agitation and since then has been evaluated by different specialist including nephrology neurology and surgery patient was afebrile on presentation to the hospital however the patient started spiking fever afternoon of 06/19/2023 and has been spiking fever over the last 3 days patient has been tachycardic with these episodes of fever but not hypotensive or hypoxic and not requiring any supplemental oxygen patient did have a normal white count of 8.7 on admission however the white count has been trending up since 06/19/2023 patient did have a UA on 329 as well as 06/19 and 06/22/2023 initially was positive and cultures currently growing Klebsiella pneumonia I patient also have a chest x-ray on 06/20/2023 mild cardiomegaly with small to moderate right effusion with a chest x-ray completed yesterday morning which was right basilar airspace opacity correlate for pneumonia patient was initially on Rocephin and Zithromax that has been switched over to cefepime and vancomycin infectious disease was consulted today for further management of her fever most information has been obtained from thorough review of her chart as the patient herself was not able to provide any history patient currently to have bilateral below the knee amputation however the stumps are healed with no open wound and the patient did have a stage II sacral ulcer per the nursing staff but no drainage Review of Systems Positive points has been mentioned in HPI complete review could not be obtained because of his underlying mental status Past Medical History Past Medical History: Unable to Obtain, Asthma, Diabetes Mellitus Additional Past Medical History / Comment(s): Patients uncle attempting to give medicatl history. Unsure about History of Any Multi-Drug Resistant Organisms: None Reported Past Surgical History: Unable to Obtain Additional Past Surgical History / Comment(s): BLE BKA, Tip of left thumb cut off. Past Anesthesia/Blood Transfusion Reactions: Unable to Obtain Smoking Status: Current some day smoker - Past Family History Mother Family Medical History: Diabetes Mellitus Father History Unknown: Yes Family Medical History: No Reported History, Unable to Obtain Additional Family Medical History / Comment(s): Patient has no contact with her father Medications and Allergies Home Medications Medication Instructions Recorded Confirmed Type Albuterol Sulfate [Albuterol 1 - 2 puff PO RT-QID PRN 06/11/23 06/11/23 History Sulfate Hfa] Atorvastatin [Lipitor] 80 mg PO HS 06/11/23 06/11/23 History Omeprazole [PriLOSEC] 20 mg PO DAILY 06/11/23 06/11/23 History Sacubitril/Valsartan [Entresto 24 1 tab PO BID 06/11/23 06/11/23 History mg-26 mg Tablet] Amoxic-Pot Clav 875-125Mg 1 tab PO Q12HR 7 Days #14 tab 06/30/23 Rx [Augmentin 875-125] Aspirin 81 mg NG-TUBE DAILY tab 06/30/23 Rx Clopidogrel [Plavix] 75 mg PO DAILY #21 tablet 06/30/23 Rx Gabapentin [Neurontin] 100 mg PO TID #21 cap 06/30/23 Rx Heparin Sodium,Porcine (1 ml) 5,000 unit SQ Q8HR each 06/30/23 Rx [Heparin Sodium] INSULIN ASPART (NovoLOG) [NovoLOG 2 unit SQ QID each 06/30/23 Rx (formulary)] Insulin Detemir (Levemir) [Levemir] 15 unit SQ DAILY@0700 each 06/30/23 Rx Metoprolol Tartrate [Lopressor] 12.5 mg NG-TUBE BID tab 06/30/23 Rx Valproic Acid Oral Soln [Depakene 125 mg NG-TUBE Q6HR ml 06/30/23 Rx Syrup] Allergies Allergy/AdvReac Type Severity Reaction Status Date / Time No Known Allergies Allergy Verified 06/11/23 09:39 Physical Exam Vitals: Vital Signs Temp Pulse Resp BP BP Pulse Ox 06/23/23 14:00 93 16 06/23/23 12:00 99.9 F H 93 16 107/72 06/23/23 08:00 93 16 06/23/23 07:57 100.0 F H 107 H 18 105/62 95 06/23/23 04:00 99.5 F 111 H 18 117/70 93 L 06/23/23 02:00 101 H 18 06/23/23 00:00 99.8 F H 101 H 18 104/69 93 L 06/22/23 20:00 100.5 F H 107 H 16 112/72 93 L 06/22/23 18:42 100.4 F H Intake and Output 06/23/23 06/23/23 06/23/23 06:59 14:59 22:59 Other: Voiding Method Diaper Diaper Incontinent Incontinent External Catheter External Catheter # Voids 1 Weight 48.308 kg GENERAL DESCRIPTION: Middle-aged female up in the chair, no distress. No tachypnea or accessory muscle of respiration use. HEENT: Shows Pallor , no scleral icterus. Oral mucous membrane is dry. NECK: Trachea central, no thyromegaly. LUNGS: Unlabored breathing. Decreased breath sound at the base HEART: S1, S2, regular rate and rhythm. No loud murmur ABDOMEN: Soft, no tenderness , EXTREMITIES: Bilateral BKA stump incision healed with no redness or drainage SKIN: No rash, no masses palpable. NEUROLOGICAL: The patient is lethargic nonverbal orientation cannot be determined Results CBC & Chem 7: 06/30/23 10:36 06/30/23 10:36 Labs: Abnormal Lab Results - Last 24 Hours (Table) 06/22/23 06/22/23 06/22/23 Range/Units 18:03 21:39 21:46 WBC (3.8-10.6) k/uL Neutrophils # (1.3-7.7) k/uL Potassium (3.5-5.1) mmol/L Chloride (98-107) mmol/L BUN (7-17) mg/dL Creatinine (0.52-1.04) mg/dL Glucose (74-99) mg/dL POC Glucose (mg/dL) 183 H 196 H (70-110) mg/dL Calcium (8.4-10.2) mg/dL Urine Appearance Turbid H (Clear) Ur Specific [place] 1.048 H (1.001-1.035) Urine Protein 3+ H (Negative) Urine Glucose (UA) 3+ H (Negative) Urine Ketones Trace H (Negative) Urine Blood Small H (Negative) Ur Squamous Epith Cells 12 H (0-4) /hpf Amorphous Sediment Occasional H (None) /hpf Urine Bacteria Rare H (None) /hpf Urine Mucus Rare H (None) /hpf Urine Yeast (Budding) Rare H (None) /hpf 06/23/23 06/23/23 06/23/23 Range/Units 06:00 11:42 11:42 WBC 22.2 H (3.8-10.6) k/uL Neutrophils # 19.9 H (1.3-7.7) k/uL Potassium 3.4 L (3.5-5.1) mmol/L Chloride 108 H (98-107) mmol/L BUN 20 H (7-17) mg/dL Creatinine 0.39 L (0.52-1.04) mg/dL Glucose 254 H (74-99) mg/dL POC Glucose (mg/dL) 236 H (70-110) mg/dL Calcium 8.0 L (8.4-10.2) mg/dL Urine Appearance (Clear) Ur Specific [place] (1.001-1.035) Urine Protein (Negative) Urine Glucose (UA) (Negative) Urine Ketones (Negative) Urine Blood (Negative) Ur Squamous Epith Cells (0-4) /hpf Amorphous Sediment (None) /hpf Urine Bacteria (None) /hpf Urine Mucus (None) /hpf Urine Yeast (Budding) (None) /hpf 06/23/23 Range/Units 12:38 WBC (3.8-10.6) k/uL Neutrophils # (1.3-7.7) k/uL Potassium (3.5-5.1) mmol/L Chloride (98-107) mmol/L BUN (7-17) mg/dL Creatinine (0.52-1.04) mg/dL Glucose (74-99) mg/dL POC Glucose (mg/dL) 252 H (70-110) mg/dL Calcium (8.4-10.2) mg/dL Urine Appearance (Clear) Ur Specific [place] (1.001-1.035) Urine Protein (Negative) Urine Glucose (UA) (Negative) Urine Ketones (Negative) Urine Blood (Negative) Ur Squamous Epith Cells (0-4) /hpf Amorphous Sediment (None) /hpf Urine Bacteria (None) /hpf Urine Mucus (None) /hpf Urine Yeast (Budding) (None) /hpf Microbiology - Last 24 Hours (Table) 06/19/23 21:44 Blood Culture - Preliminary Blood Assessment and Plan (1) Fever Current Visit: Yes Status: Acute Code(s): R50.9 - FEVER, UNSPECIFIED SNOMED Code(s): 226232641 (2) UTI (urinary tract infection) Current Visit: Yes Status: Acute Code(s): N39.0 - URINARY TRACT INFECTION, SITE NOT SPECIFIED SNOMED Code(s): 04688123 (3) Sepsis Current Visit: Yes Status: Acute Code(s): A41.9 - SEPSIS, UNSPECIFIED ORGANI SM SNOMED Code(s): 29485518 Plan: 1patient with sepsis in this patient who did have a fever tachycardia elevated white count source could be UTI versus nosocomial pneumonia with evidence of right lower lobe infiltrate consolidation on the recent chest x-ray and need to cover for resistant gram-positive as well as gram-negative pathogen 2-we will try to obtain a sputum for Gram stain culture check a CRP and a procalcitonin level 3-continue the vancomycin and cefepime while waiting for the culture to finalize We will follow on clinical condition and cultures to further adjust medication if needed Thank you for this consultation we will follow the patient along with you Dictation was produced using [employer] dictation software. please excuse any grammatical, word or spelling errors. Time with Patient: Greater than 30
[2023-06-24 00:02] LABS: Glucose,Whole Blood 212 mg/dL (70-110)
[2023-06-24 05:53] LABS: Glucose,Whole Blood 201 mg/dL (70-110)
[2023-06-24 06:34] LABS: Basophils % (A) 0 %; Eosinophils % (A) 0 %; HCT 38.1 % (34.0-46.0); HGB 11.8 gm/dL (11.4-16.0); Hypochromasia Slight; Lymphocytes # (A) 1.5 k/uL (1.0-4.8); Lymphocytes % (A) 7 %; MCH 26.6 pg (25.0-35.0); MCV 85.8 fL (80.0-100.0); Mean Platelet Volume 8.5; Monocytes # (A) 0.9 k/uL (0-1.0); Monocytes % (A) 4 %; Neutrophils # (A) 19.6 k/uL (1.3-7.7); Neutrophils % (A) 88 %; Platelet Count 300 k/uL (150-450); RBC 4.44 m/uL (3.80-5.40); RDW 15.2 % (11.5-15.5); WBC 22.3 k/uL (3.8-10.6)
[2023-06-24] MEDS: VANCOMYCIN TROUGH DUE 1 EACH MISC MISCELLANE ONE (06:37)
[2023-06-24 06:47] LABS: ALT 16 U/L (4-34); AST 23 U/L (14-36); African American GFR (CKD) >90 (>60 ml/min/1.73 sqM); Albumin 2.4 g/dL (3.5-5.0); Alkaline Phosphatase 112 U/L (38-126); Anion Gap 8 mmol/L; Blood Urea Nitrogen 21 mg/dL (7-17); Calcium 8.1 mg/dL (8.4-10.2); Carbon Dioxide 23 mmol/L (22-30); Chloride 111 mmol/L (98-107); Glucose 194 mg/dL (74-99); Non-African American GFR(CKD) >90 (>60 ml/min/1.73 sqM); Potassium 3.3 mmol/L (3.5-5.1); Sodium 142 mmol/L (137-145); Total Bilirubin 0.3 mg/dL (0.2-1.3); Total Protein 5.2 g/dL (6.3-8.2)
[2023-06-24 12:05] LABS: Glucose,Whole Blood 197 mg/dL (70-110)
[2023-06-24] MEDS: POTASSIUM BICARBONATE/CIT AC 20 MEQ TABLET.EFF PEG/G-TUBE ONE (12:23)
--- NOTE | 2023-06-24 13:38 | CT ---
EXAMINATION TYPE: CT brain wo con DATE OF EXAM: 06/24/2023 COMPARISON: 06/14/2023 HISTORY: Lethargic and Fevers CT DLP: 1110.[address] of the brain was performed. Previously noted subacute CVA left temporal parietal region is redemonstrated and demonstrates interv al evolution. There is decreased attenuation is smaller in size. No new areas of abnormal attenuation seen. No mass effects are seen. Osseous calvarium is intact. If symptoms persist consider MRI as clinically warranted. IMPRESSION: 1. Evolution of nonacute CVA left temporoparietal region.
[2023-06-24] MEDS ORDERED: QUEtiapine 25 MG TAB PO PRN (13:48)
--- NOTE | 2023-06-24 14:00 | P.CN ---
Psychiatric Consult - . Consult date: 06/24/23 Consult:: 06/24/23 13:29 IDENTIFYING DATA: This patient is a 38-year-old female, with a history of substance abuse, coming from [facility] REASON FOR REFERRAL: Psychiatry was consulted for psychiatric medication management and possibility of NMS? HISTORY OF PRESENT ILLNESS: The patient presented to the hospital initially on 06/09 from rehab, apparently patient was screaming and uncontrollable agitated at rehab and was sent to the hospital. Patient has a history of substance abuse and alcohol use disorder. Patient was apparently nonverbal and obtunded when she came into the hospital. She was admitted medically and worked up. Neurology was consulted as well. Patient was aphasic had facial weakness was found to have an acute ischemic stroke on the left frontal parietal lobes. Patient's UDS was positive for amphetamines and methamphetamine. EEG was performed and found to have generalized cerebral dysfunction signs of encephalopathy possibly, PEG tube has been placed for dysphagia by surgery. Patient was alert yesterday however today is less responsive, apparently has been having mild fevers on and off. Patient was seen laying in her bed, somnolent. [employer] Production Manager attempted to awaken patient however patient was not able to awaken. She did appear to be breathing comfortably. Patient did not demonstrate rigidity, unable to follow any commands, nonverbal. PAST PSYCHIATRIC HISTORY: Patient has a a history of substance abuse and alcohol use disorder, schizoaffective or bipolar disorder. Patient was previously on Invega and Trileptal. Patient was unable to give any psychiatric history. PAST MEDICAL HISTORY: As per medical H&P ALLERGIES: as per EMR. CHEMICAL DEPENDENCY HISTORY: as per HPI. Unable to get further chemical dependency history. FAMILY PSYCHIATRIC/SUBSTANCE USE HISTORY: Unable to obtain SOCIAL HISTORY: Unable to obtain social history MENTAL STATUS EXAM: General Appearance: Patient appears to be somnolent, older than stated age, laying in bed, has bilateral BKA. Several tattoos, patient appears to have fair hygiene and grooming wearing hospital gown Behavior: Patient is laying in bed, somnolent Speech: Unable to speak Mood/Affect: Unable to obtain Suicidality/Homicidality: Unable to obtain Perceptions: Unable to obtain Though content/process: Unable to obtain. Memory and concentration: Unable to obtain, patient appears to be somnolent Judgment and insight: Unable to obtain IMPRESSIONS: Delirium, likely multifactorial etiology (post stroke, possible vasogenic edema, medications etc.) Recent CVA, ischemic History of schizoaffective disorder versus bipolar disorder History of polysubstance abuse History of alcohol use disorder PLAN: -At this time patient DOES NOT meet criteria for inpatient psychiatric admission. -Delirium precautions recommended with patient including - avoiding use of narcotics and FILE CLERK sedatives, limit anticholinergic medications when possible, frequent re-orientation, minimize use of restraints, open window shades during the day and close them at night -Would recommend the following medication changes/additions: Will do a cross taper/titration from Trileptal to Depakote for anticonvulsive treatment/mood stabilization. Discontinuing Trileptal due to it being a inducer to its own metabolism and other medications metabolism. Discontinue Invega p.o. Replace with Seroquel 25 mg twice daily as needed for agitation/psychosis. -Spoke with Dr Mccray over the phone about patient's case. Discussed above medications and changes. Currently awaiting further interpretation of the CAT scan to see if vasogenic edema is playing a cause in patient's mental status poststroke. Also awaiting results of blood work for creatinine kinase to rule out NMS. -Appreciate neurology recommendations -Communicated plan to patient's nurse -Will continue to follow along in person tomorrow if needed, will follow along peripherally. -Please contact with any questions. 06/24/23 13:49 06/24/23 13:57
--- NOTE | 2023-06-24 15:34 | P.PN ---
Subjective Progress Note Date: 06/24/23 CHIEF COMPLAINT: Dysphagia HISTORY OF PRESENT ILLNESS: Patient admitted to the hospital with CVA and having dysphagia. Patient status post PEG tube placement. She is tolerating her tube feeds. Tube feeds currently at 32 mL/h. PHYSICAL EXAM: VITAL SIGNS: Reviewed. GENERAL: Well-developed in no acute distress. ABDOMEN: Soft. Nondistended. Nontender. PEG tube site clean dry and intact NEUROLOGIC: lethargic ASSESSMENT: 1. Dysphagia 2. Severe protein calorie malnutrition 3. CVA PLAN: -Continue to titrate tube feeds Physician Rn Recovery note has been reviewed by physician. Signing provider agrees with the documented findings, assessment, and plan of care. Objective - Vital Signs Vital signs: Vital Signs Temp 99.3 F 06/24/23 11:38 Pulse 100 06/24/23 14:00 Resp 26 H 06/24/23 11:38 BP 119/78 06/24/23 11:38 Pulse Ox 93 L 06/24/23 11:38 FiO2 Intake & Output 06/23/23 06/24/23 06/24/23 18:59 06:59 18:59 Output Total 300 250 Balance -300 -250 Weight 48.308 kg Output: Urine 300 250 Other: Voiding Method Diaper Diaper External Catheter Incontinent Incontinent External Catheter External Catheter # Voids 2 1 - Labs CBC & Chem 7: 06/24/23 06:03 06/24/23 06:03 Labs: Abnormal Lab Results - Last 24 Hours (Table) 06/23/23 06/23/23 06/23/23 Range/Units 11:42 11:42 18:13 WBC (3.8-10.6) k/uL Neutrophils # (1.3-7.7) k/uL Potassium (3.5-5.1) mmol/L Chloride (98-107) mmol/L BUN (7-17) mg/dL Creatinine (0.52-1.04) mg/dL Glucose (74-99) mg/dL POC Glucose (mg/dL) 197 H (70-110) mg/dL Calcium (8.4-10.2) mg/dL Creatine Kinase (30-135) U/L C-Reactive Protein 35.4 H (<1.0) mg/dL Total Protein (6.3-8.2) g/dL Albumin (3.5-5.0) g/dL Procalcitonin 0.13 H (0.02-0.09) ng/mL 06/23/23 06/24/23 06/24/23 Range/Units 23:59 05:49 06:03 WBC (3.8-10.6) k/uL Neutrophils # (1.3-7.7) k/uL Potassium 3.3 L (3.5-5.1) mmol/L Chloride 111 H (98-107) mmol/L BUN 21 H (7-17) mg/dL Creatinine 0.39 L (0.52-1.04) mg/dL Glucose 194 H (74-99) mg/dL POC Glucose (mg/dL) 212 H 201 H (70-110) mg/dL Calcium 8.1 L (8.4-10.2) mg/dL Creatine Kinase (30-135) U/L C-Reactive Protein (<1.0) mg/dL Total Protein 5.2 L (6.3-8.2) g/dL Albumin 2.4 L (3.5-5.0) g/dL Procalcitonin (0.02-0.09) ng/mL 06/24/23 06/24/23 06/24/23 Range/Units 06:03 06:03 12:03 WBC 22.3 H (3.8-10.6) k/uL Neutrophils # 19.6 H (1.3-7.7) k/uL Potassium (3.5-5.1) mmol/L Chloride (98-107) mmol/L BUN (7-17) mg/dL Creatinine (0.52-1.04) mg/dL Glucose (74-99) mg/dL POC Glucose (mg/dL) 197 H (70-110) mg/dL Calcium (8.4-10.2) mg/dL Creatine Kinase 154 H (30-135) U/L C-Reactive Protein (<1.0) mg/dL Total Protein (6.3-8.2) g/dL Albumin (3.5-5.0) g/dL Procalcitonin (0.02-0.09) ng/mL Microbiology - Last 24 Hours (Table) 06/22/23 16:01 Nasal Screen MRSA/MSSA - Final Nasal Swab 06/22/23 09:52 Blood Culture - Preliminary Blood
--- NOTE | 2023-06-24 15:45 | P.PN ---
Subjective Progress Note Date: 06/24/23 Patient is a 38-year-old female with known congestive heart failure, diabetes, and schizophrenia who presented to our emergency department from [place] due to agitation. Initial report from the ER was that she had been agitated and yelling. However review from [place] is that she presented to the nurse with flailing arms and legs unable to speak and just groaning. On arrival to the ER here her vital signs are within normal limits. Laboratory analysis included CBC, coags, CMP, ammonia, urinalysis, and urine drug screen which were remarkable for sodium 134, glucose 233, 1+ protein, 4+ glucose. Urine drug screen was positive for barbiturates and methamphetamines. Salicylates, acetaminophen, and alcohol level were negative. Initially she was kept to be seen by psych. Per charting it appears that her GCS had been up to 15 at some point and she required 1 mg of Ativan at 527 on the morning of 06/10. We were contacted for admission at 1032. Patient was found to have decreased responsiveness at our initial evaluation. Neurology was contacted for concern for subclinical seizure and patient underwent stat EEG which demonstrated background slowing of moderate to severe degree with generalized cerebral dysfunction. Neurology also recommended CTA of the head which showed a left temporal lobe infarct. Patient's phenobarbital level was low. She was found to have a slight osmolar gap and nephrology was consulted. Her osmol gap normalized. She continued to have dysphagia and ultimately underwent PEG tube placement. Echocardiogram was performed and initial 1 showed possible LV thrombus but repeat showed no LV thrombus. Case was discussed with cardiology and NICOLE was not recommended given overall poor prognosis. Patient has been tolerating tube feeds. She has been spiking fevers with an elevated white count that was felt to be secondary to aspiration pneumonia versus urinary tract infection. She was initially started on Rocephin and Zithromax and then br oadened to vancomycin and cefepime on 06/22/2023. She was also noted to have thrush and was started on Diflucan back on 06/14/2023. Patient seen and examined at bedside. She is nonverbal but appears comfortable. She follows simple commands. Vital signs reviewed General: Nontoxic, no distress, appears at stated age Cardiovascular: S1S2 reg, no murmur Lungs: Coarse breath sounds bilateral, no rhonchi, no rales, no accessory muscle use Abdominal: Soft, nontender to palpation, no guarding Ext: No gross muscle atrophy, no edema b/l lower extremities, no contractures Neuro: Following simple commands. She is able to show me a thumbs up on the left, touch her nose with her left hand, and close her eyes and keep them closed. She is unable to lift her right arm off the bed for me Psych: Awake, interactive Assessment/Plan: Probable Aspiration PNA with sepsis vs neurogenic fevers Severe Thrush -Possible aspiration event -Procalcitonin normal at 0.13 and not consistent with infection. However patient had already been on antibiotics. Concerned that patient fevers may be neurogenic in origin. Will repeat procalcitonin in a.m. to see if it is going up, down, or stabilizing. -Urine cultures did show Klebsiella which is sensitive to ceftriaxone however repeat urinalysis is benign and not consistent with urinary tract infection - cefepime 2 g every 8 hours day #3, broaded due to continued pyrexia -D/C vanco as MRSA nasal swab negative -Blood cultures negative to date -ID consult reviewed -Diflucan 200 mg day #11/03 -COVID, RSV, and influenza negative Acute left temporal parietal CVA Acute metabolic encephalopathy due to above Dysphagia s/p PEG Polysubstance use Systolic congestive heart failure, EF 25-50%, not in exacerbation - repeat CT head ordered and reviewed without cerebral edema -Neurology following, await further recs Patient will likely need an event monitor at the time of discharge -Cardiology recommended no NICOLE and no further interventions given poor prognosis and as it will not affect her quality of life - LR at 75 cc/hr given systolic cardiomyopathy -Aspirin 81 mg, and atorvastatin 80 mg -Toprol 25 mg daily, Entresto 24/26 mg 1 tablet twice daily -Continue telemetry -PT/OT/speech recommendations Hypokalemia - potassium chloride 40 mEq X 1 - repeat K+ and MG+ in AM Diabetes mellitus, insulin requiring -A1c 12.5 -Levemir at 30 units daily started on 06/22, add novolog 2 units QID with SSI QID - Follow BS Schizophrenia - patient with increased sedation and continued fevers - CK unremarkable -Off Invega and latuda, Depakote 250 mg twice daily, Trileptal 150 mg twice daily for 2 days and then will completed. - Case discussed with Dr. Goyes at length. Given the patient's change in condition with her CVA will discontinue Trileptal, start Depakote, patient can stay off of the Invega. Will monitor closely. He will be happy to re-eval the patient if there is a change in her mood or behaviors after these medication changes. Osmolar gap, reoslved Imaging: repeat CT head reviewed with no signs of cerebral edemanad Left temporal- parietal CVA Hospital Course Imaging: CTA head and neck without acute thrombosis or stenosis, stroke left temporal pariatal. Echocardiogram: Ejection fraction 15 to 20%, severely increased left ventricular diastolic volume, apical akinesis, cannot rule out LV apical thrombus CT head: Subacute evolving infarct in the left frontal and temporal lobes without mass effect Carotid Doppler: No significant hemodynamic stenosis Repeat echocardiogram 06/10/2023: LVEF 25 to 30% with a anterior apical akinesis and thinning of the wall, no LV thrombus noted Data Review: Labs reviewed from today include CBC and CMP which are remarkable for white blood cell count 22.3, potassium 3.3. DVT prophylaxis: Heparin subcu Anticipated discharge date: Pending clinical course Anticipated discharge place: Pending clinical course This dictation was prepared using [employer] voice recognition software. Though every attempt is made to correct errors during dictation some may still exist. Objective - Vital Signs Vital signs: Vital Signs Temp 99.3 F 06/24/23 11:38 Pulse 100 06/24/23 14:00 Resp 26 H 06/24/23 11:38 BP 119/78 06/24/23 11:38 Pulse Ox 93 L 06/24/23 11:38 FiO2 Intake & Output 06/23/23 06/24/23 06/24/23 18:59 06:59 18:59 Output Total 300 250 Balance -300 -250 Weight 48.308 kg Output: Urine 300 250 Other: Voiding Method Diaper Diaper External Catheter Incontinent Incontinent External Catheter External Catheter # Voids 2 1 - Labs CBC & Chem 7: 06/24/23 06:03 06/24/23 06:03 Labs: Abnormal Lab Results - Last 24 Hours (Table) 06/23/23 06/23/23 06/23/23 Range/Units 11:42 11:42 18:13 WBC (3.8-10.6) k/uL Neutrophils # (1.3-7.7) k/uL Potassium (3.5-5.1) mmol/L Chloride (98-107) mmol/L BUN (7-17) mg/dL Creatinine (0.52-1.04) mg/dL Glucose (74-99) mg/dL POC Glucose (mg/dL) 197 H (70-110) mg/dL Calcium (8.4-10.2) mg/dL Creatine Kinase (30-135) U/L C-Reactive Protein 35.4 H (<1.0) mg/dL Total Protein (6.3-8.2) g/dL Albumin (3.5-5.0) g/dL Procalcitonin 0.13 H (0.02-0.09) ng/mL 06/23/23 06/24/23 06/24/23 Range/Units 23:59 05:49 06:03 WBC (3.8-10.6) k/uL Neutrophils # (1.3-7.7) k/uL Potassium 3.3 L (3.5-5.1) mmol/L Chloride 111 H (98-107) mmol/L BUN 21 H (7-17) mg/dL Creatinine 0.39 L (0.52-1.04) mg/dL Glucose 194 H (74-99) mg/dL POC Glucose (mg/dL) 212 H 201 H (70-110) mg/dL Calcium 8.1 L (8.4-10.2) mg/dL Creatine Kinase (30-135) U/L C-Reactive Protein (<1.0) mg/dL Total Protein 5.2 L (6.3-8.2) g/dL Albumin 2.4 L (3.5-5.0) g/dL Procalcitonin (0.02-0.09) ng/mL 06/24/23 06/24/23 06/24/23 Range/Units 06:03 06:03 12:03 WBC 22.3 H (3.8-10.6) k/uL Neutrophils # 19.6 H (1.3-7.7) k/uL Potassium (3.5-5.1) mmol/L Chloride (98-107) mmol/L BUN (7-17) mg/dL Creatinine (0.52-1.04) mg/dL Glucose (74-99) mg/dL POC Glucose (mg/dL) 197 H (70-110) mg/dL Calcium (8.4-10.2) mg/dL Creatine Kinase 154 H (30-135) U/L C-Reactive Protein (<1.0) mg/dL Total Protein (6.3-8.2) g/dL Albumin (3.5-5.0) g/dL Procalcitonin (0.02-0.09) ng/mL Microbiology - Last 24 Hours (Table) 06/22/23 16:01 Nasal Screen MRSA/MSSA - Final Nasal Swab 06/22/23 09:52 Blood Culture - Preliminary Blood
[2023-06-24 17:33] LABS: Glucose,Whole Blood 177 mg/dL (70-110)
[2023-06-24] MEDS: INSULIN ASPART (NovoLOG) 100 UNIT/ML VIAL SQ SCH ×2 (17:38)
--- NOTE | 2023-06-24 18:04 | P.PN ---
Subjective Progress Note Date: 06/24/23 Patient was seen for a follow-up. Patient appears much more encephalopathic today. Patient is breathing at 30/min. Patient is still aphasic. Objective - Vital Signs Vital signs: Vital Signs Temp 99.1 F 06/24/23 16:00 Pulse 102 H 06/24/23 16:45 Resp 22 06/24/23 16:45 BP 138/82 06/24/23 16:00 Pulse Ox 94 L 06/24/23 16:00 FiO2 Intake & Output 06/23/23 06/24/23 06/24/23 18:59 06:59 18:59 Output Total 300 250 Balance -300 -250 Weight 48.308 kg Output: Urine 300 250 Other: Voiding Method Diaper Diaper External Catheter Incontinent Incontinent External Catheter External Catheter # Voids 2 1 - Exam On examination patient is very encephalopathic today. Patient is somnolent. Patient does open her eyes to calling her name. She is still aphasic. Patient is moving her left arm and both legs. Her stick roller is normal on the left. Her biceps and triceps are normal on the left. She is flaccid in the right upper limb. Patient has right facial asymmetry. No seizure-like activity. Patient has bilateral BKA. No seizure-like activity. - Labs CBC & Chem 7: 06/24/23 06:03 06/24/23 06:03 Labs: Abnormal Lab Results - Last 24 Hours (Table) 06/23/23 06/23/23 06/23/23 Range/Units 11:42 11:42 18:13 WBC (3.8-10.6) k/uL Neutrophils # (1.3-7.7) k/uL Potassium (3.5-5.1) mmol/L Chloride (98-107) mmol/L BUN (7-17) mg/dL Creatinine (0.52-1.04) mg/dL Glucose (74-99) mg/dL POC Glucose (mg/dL) 197 H (70-110) mg/dL Calcium (8.4-10.2) mg/dL Creatine Kinase (30-135) U/L C-Reactive Protein 35.4 H (<1.0) mg/dL Total Protein (6.3-8.2) g/dL Albumin (3.5-5.0) g/dL Procalcitonin 0.13 H (0.02-0.09) ng/mL 06/23/23 06/24/23 06/24/23 Range/Units 23:59 05:49 06:03 WBC (3.8-10.6) k/uL Neutrophils # (1.3-7.7) k/uL Potassium 3.3 L (3.5-5.1) mmol/L Chloride 111 H (98-107) mmol/L BUN 21 H (7-17) mg/dL Creatinine 0.39 L (0.52-1.04) mg/dL Glucose 194 H (74-99) mg/dL POC Glucose (mg/dL) 212 H 201 H (70-110) mg/dL Calcium 8.1 L (8.4-10.2) mg/dL Creatine Kinase (30-135) U/L C-Reactive Protein (<1.0) mg/dL Total Protein 5.2 L (6.3-8.2) g/dL Albumin 2.4 L (3.5-5.0) g/dL Procalcitonin (0.02-0.09) ng/mL 06/24/23 06/24/23 06/24/23 Range/Units 06:03 06:03 12:03 WBC 22.3 H (3.8-10.6) k/uL Neutrophils # 19.6 H (1.3-7.7) k/uL Potassium (3.5-5.1) mmol/L Chloride (98-107) mmol/L BUN (7-17) mg/dL Creatinine (0.52-1.04) mg/dL Glucose (74-99) mg/dL POC Glucose (mg/dL) 197 H (70-110) mg/dL Calcium (8.4-10.2) mg/dL Creatine Kinase 154 H (30-135) U/L C-Reactive Protein (<1.0) mg/dL Total Protein (6.3-8.2) g/dL Albumin (3.5-5.0) g/dL Procalcitonin (0.02-0.09) ng/mL 06/24/23 Range/Units 17:32 WBC (3.8-10.6) k/uL Neutrophils # (1.3-7.7) k/uL Potassium (3.5-5.1) mmol/L Chloride (98-107) mmol/L BUN (7-17) mg/dL Creatinine (0.52-1.04) mg/dL Glucose (74-99) mg/dL POC Glucose (mg/dL) 177 H (70-110) mg/dL Calcium (8.4-10.2) mg/dL Creatine Kinase (30-135) U/L C-Reactive Protein (<1.0) mg/dL Total Protein (6.3-8.2) g/dL Albumin (3.5-5.0) g/dL Procalcitonin (0.02-0.09) ng/mL Microbiology - Last 24 Hours (Table) 06/23/23 12:55 Blood Culture - Preliminary Blood 06/22/23 09:52 Blood Culture - Preliminary Blood 06/22/23 16:01 Nasal Screen MRSA/MSSA - Final Nasal Swab Assessment and Plan Assessment: * Acute ischemic stroke left frontal parietal region, likely due to embolism. Patient not a candidate for tPA because of unknown onset of symptoms. No large vessel occlusion noted on CTA. * Dysphagia, due to CVA. * Aspiration pneumonia and sepsis. * Patient has started spiking temperature, and white cells gone up. Patient is tachypneic, likely from pneumonia. * Altered mental status, metabolic encephalopathy, and CVA as above. Her encephalopathy seems to have got worse again. * Polysubstance abuse. Urine positive for amphetamines and methamphetamines. * Diabetes, poorly controlled, A1c 12.5 * History of bilateral BKA Plan: * Patient's encephalopathy seems to have got worse. Patient is having high fevers. * Appreciate ID input. Patient on vancomycin and cefepime. Possible pneumonia as per chest x-ray. * Repeat CT head performed 06/24/2023 revealed evolving stroke left frontal parietal region. No acute intracranial hemorrhage. Some laminar necrosis is a concern around the stroke area. No definitive acute intracranial hemorrhage. * Patient cannot have MRI because of inability to get clearance for the stent. * Stat EEG was abnormal due to background slowing of moderate to severe degree. This is suggestive of generalized cerebral dysfunction as can be seen with toxic metabolic encephalopathy or related to diffuse structural brain abnormality. No epileptiform activity was seen. * CTA of head and neck reported no stenosis or occlusion. Official report pending. * Patient on aspirin 81 mg daily. Consider adding Plavix 75 mg daily, but at present patient is on fluconazole, which has interaction with Plavix. Will defer to IM. * 2D echo from 06/11/2023 revealed LVEF estimated at 15 to 20%. Severely reduced global LV systolic function. Apical akinesis. Cannot rule out left ventricular apical thrombus especially in setting of CVA. Repeat echo with contrast. Moderate left atrial dilation. Mild MR. * 2D echo from 06/13/2023 was limited study. LVEF is 25 to 30% with anteroapical akinesis and thinning of the anterior apical wall. No LV thrombus noted. * Dr. Ramos has spoken to Dr. Cuadra (chief i dispatcher) and he felt the NICOLE would not tire changer aircraft. After discussing the case with him, Dr. Ramos agreed of holding off on the NICOLE for now since it will unlikely tire changer aircraft. We'll place the patient on an event monitor for 30 days. * Patient also had aspiration pneumonia and sepsis for which patient is on cefepime, vancomycin and fluconazole. * Patient seen by psychiatrist, switching from Trileptal to Depakote. Also stopping Invega and to be placed on Seroquel. * Fasting lipid panel with cholesterol 139, LDL 73, HDL 41, triglycerides 123. Patient on Lipitor 80 mg daily (home medication). * Hemoglobin A1c 12.5, consistent with poorly controlled diabetes. Recommend optimize control of diabetes to target A1c <7.0. * Phenobarbital 6.4 (15-40) and Trileptal level 3.8 (10-35). Both of them are in nontoxic range. * Ethylene glycol panel negative. * Continue close neurochecks. * Fall precautions. * DVT prophylaxis: Continue heparin 5000 units subcu every 12 hours.
[2023-06-24] MEDS: OXcarbazepine 150 MG TAB PO SCH (20:02)
[2023-06-24] MEDS: DIVALPROEX ER 250 MG TAB.ER.24H PO SCH (20:03)
[2023-06-24 22:01] LABS: Glucose,Whole Blood 168 mg/dL (70-110)
--- NOTE | 2023-06-24 23:03 | P.PN ---
Subjective Progress Note Date: 06/24/23 Principal diagnosis: Reason for follow-up is fever Patient is a 38-year-old female past medical history significant for asthma diabetes mellitus, congestive heart failure, schizophrenia, did have bilateral below the knee amputation presenting to the hospital from the [place] secondary to agitation and has been in the hospital for almost 2 weeks before initial evaluation for a fever that started on 06/19/2023. On today's evaluation that is 06/24/2023 patient did have improvement in her fever pattern with a low-grade fever 100.1 F patient is breathing comfortably on room air the patient remains to be nonverbal and did not provide any history no vomiting or diarrhea reported by the nursing staff. Patient did have a white count of 22.3 creatinine 0.39 Vanco trough is 12.7 blood cultures currently pending Objective - Vital Signs Vital signs: Vital Signs Temp 99.3 F 06/24/23 11:38 Pulse 100 06/24/23 11:38 Resp 26 H 06/24/23 11:38 BP 119/78 06/24/23 11:38 Pulse Ox 93 L 06/24/23 11:38 FiO2 Intake & Output 06/23/23 06/24/23 06/24/23 18:59 06:59 18:59 Output Total 300 250 Balance -300 -250 Weight 48.308 kg Output: Urine 300 250 Other: Voiding Method Diaper Diaper External Catheter Incontinent Incontinent External Catheter External Catheter # Voids 2 1 - Exam GENERAL DESCRIPTION: Middle-aged female up in bed in no distress RESPIRATORY SYSTEM: Unlabored breathing , decreased breath sounds at bases HEART: S1 S2 regular rate and rhythm , ABDOMEN: Soft , no tenderness EXTREMITIES: Bilateral BKA stumps are cold and mottled but no open wound or drainage - Labs CBC & Chem 7: 06/24/23 06:03 06/24/23 06:03 Labs: Abnormal Lab Results - Last 24 Hours (Table) 06/23/23 06/23/23 06/23/23 Range/Units 11:42 11:42 18:13 WBC (3.8-10.6) k/uL Neutrophils # (1.3-7.7) k/uL Potassium (3.5-5.1) mmol/L Chloride (98-107) mmol/L BUN (7-17) mg/dL Creatinine (0.52-1.04) mg/dL Glucose (74-99) mg/dL POC Glucose (mg/dL) 197 H (70-110) mg/dL Calcium (8.4-10.2) mg/dL C-Reactive Protein 35.4 H (<1.0) mg/dL Total Protein (6.3-8.2) g/dL Albumin (3.5-5.0) g/dL Procalcitonin 0.13 H (0.02-0.09) ng/mL 06/23/23 06/24/23 06/24/23 Range/Units 23:59 05:49 06:03 WBC (3.8-10.6) k/uL Neutrophils # (1.3-7.7) k/uL Potassium 3.3 L (3.5-5.1) mmol/L Chloride 111 H (98-107) mmol/L BUN 21 H (7-17) mg/dL Creatinine 0.39 L (0.52-1.04) mg/dL Glucose 194 H (74-99) mg/dL POC Glucose (mg/dL) 212 H 201 H (70-110) mg/dL Calcium 8.1 L (8.4-10.2) mg/dL C-Reactive Protein (<1.0) mg/dL Total Protein 5.2 L (6.3-8.2) g/dL Albumin 2.4 L (3.5-5.0) g/dL Procalcitonin (0.02-0.09) ng/mL 06/24/23 06/24/23 Range/Units 06:03 12:03 WBC 22.3 H (3.8-10.6) k/uL Neutrophils # 19.6 H (1.3-7.7) k/uL Potassium (3.5-5.1) mmol/L Chloride (98-107) mmol/L BUN (7-17) mg/dL Creatinine (0.52-1.04) mg/dL Glucose (74-99) mg/dL POC Glucose (mg/dL) 197 H (70-110) mg/dL Calcium (8.4-10.2) mg/dL C-Reactive Protein (<1.0) mg/dL Total Protein (6.3-8.2) g/dL Albumin (3.5-5.0) g/dL Procalcitonin (0.02-0.09) ng/mL Microbiology - Last 24 Hours (Table) 06/22/23 09:52 Blood Culture - Preliminary Blood Assessment and Plan (1) Fever Current Visit: Yes Status: Acute Code(s): R50.9 - FEVER, UNSPECIFIED SNOMED Code(s): 276335847 (2) UTI (urinary tract infection) Current Visit: Yes Status: Acute Code(s): N39.0 - URINARY TRACT INFECTION, SITE NOT SPECIFIED SNOMED Code(s): 45413914 Plan: 1patient with sepsis in this patient who did have a fever tachycardia elevated white count source more likely UTI pneumonia less likely but not entirely excluded 2-we will try to obtain a sputum for Gram stain culture, currently waiting for CRP and a procalcitonin level 3-patient did have improvement in her fever pattern and will continue the vancomycin and cefepime while waiting for the culture to finalize Dictation was produced using [employer] dictation software. please excuse any grammatical, word or spelling errors. Time with Patient: Less than 30
[2023-06-25] MEDS ORDERED: VANCOMYCIN TROUGH DUE 1 EACH MISC MISCELLANE ONE (05:30)
[2023-06-25 06:03] LABS: Glucose,Whole Blood 196 mg/dL (70-110)
[2023-06-25 09:30] LABS: HCT 40.2 % (34.0-46.0); HGB 12.4 gm/dL (11.4-16.0); Hypochromasia Moderate; MCH 26.5 pg (25.0-35.0); MCHC 30.7 g/dL (31.0-37.0); MCV 86.1 fL (80.0-100.0); Mean Platelet Volume 8.9; Platelet Count 368 k/uL (150-450); RBC 4.67 m/uL (3.80-5.40); WBC 21.6 k/uL (3.8-10.6)
[2023-06-25 09:47] LABS: ALT 21 U/L (4-34); AST 34 U/L (14-36); African American GFR (CKD) >90 (>60 ml/min/1.73 sqM); Albumin 2.3 g/dL (3.5-5.0); Alkaline Phosphatase 113 U/L (38-126); Anion Gap 8 mmol/L; Blood Urea Nitrogen 23 mg/dL (7-17); Carbon Dioxide 26 mmol/L (22-30); Chloride 111 mmol/L (98-107); Glucose 179 mg/dL (74-99); Magnesium 1.7 mg/dL (1.6-2.3); Non-African American GFR(CKD) >90 (>60 ml/min/1.73 sqM); Potassium 3.3 mmol/L (3.5-5.1); Sodium 145 mmol/L (137-145); Total Bilirubin 0.3 mg/dL (0.2-1.3); Total Protein 5.2 g/dL (6.3-8.2)
[2023-06-25 11:35] LABS: Glucose,Whole Blood 124 mg/dL (70-110)
--- NOTE | 2023-06-25 14:41 | P.PN ---
Subjective Progress Note Date: 06/25/23 CHIEF COMPLAINT: Dysphagia HISTORY OF PRESENT ILLNESS: Patient admitted to the hospital with CVA and having dysphagia. Patient status post PEG tube placement. She is tolerating her tube feeds. Tube feeds at goal at 32ml/hr. PHYSICAL EXAM: VITAL SIGNS: Reviewed. GENERAL: no acute distress. ABDOMEN: Soft. Nondistended. Nontender. PEG tube site clean dry and intact NEUROLOGIC: lethargic ASSESSMENT: 1. Dysphagia 2. Severe protein calorie malnutrition 3. CVA PLAN: -Continue tube feeds per dietitian Physician Blacking Wheel Tender note has been reviewed by physician. Signing provider agrees with the documented findings, assessment, and plan of care. I have personally seen and examined the patient, reviewed the CHIEF OF SERVICE /PAs history, exam and MDM and agree with the assessment and plan as written. Based on total visit time, I have performed more than 50% of the visit. As above: Patient doing well. Tolerating tube feeds. Will sign off. Please call if needed. Objective - Vital Signs Vital signs: Vital Signs Temp 100.4 F H 06/25/23 12:00 Pulse 109 H 06/25/23 12:00 Resp 20 06/25/23 12:00 BP 118/76 06/25/23 12:00 Pulse Ox 94 L 06/25/23 08:00 FiO2 Intake & Output 06/24/23 06/25/23 06/25/23 18:59 06:59 18:59 Intake Total 474 Balance 474 Intake: Tube Feeding 474 Other: Voiding Method External Catheter External Catheter External Catheter # Voids 1 1 - Labs CBC & Chem 7: 06/25/23 08:15 06/25/23 08:15 Labs: Abnormal Lab Results - Last 24 Hours (Table) 06/24/23 06/24/23 06/25/23 Range/Units 17:32 21:59 06:02 WBC (3.8-10.6) k/uL MCHC (31.0-37.0) g/dL Potassium (3.5-5.1) mmol/L Chloride (98-107) mmol/L BUN (7-17) mg/dL Creatinine (0.52-1.04) mg/dL Glucose (74-99) mg/dL POC Glucose (mg/dL) 177 H 168 H 196 H (70-110) mg/dL Calcium (8.4-10.2) mg/dL Total Protein (6.3-8.2) g/dL Albumin (3.5-5.0) g/dL 06/25/23 06/25/23 06/25/23 Range/Units 08:15 08:15 11:32 WBC 21.6 H (3.8-10.6) k/uL MCHC 30.7 L (31.0-37.0) g/dL Potassium 3.3 L (3.5-5.1) mmol/L Chloride 111 H (98-107) mmol/L BUN 23 H (7-17) mg/dL Creatinine 0.44 L (0.52-1.04) mg/dL Glucose 179 H (74-99) mg/dL POC Glucose (mg/dL) 124 H (70-110) mg/dL Calcium 8.0 L (8.4-10.2) mg/dL Total Protein 5.2 L (6.3-8.2) g/dL Albumin 2.3 L (3.5-5.0) g/dL Microbiology - Last 24 Hours (Table) 06/19/23 21:44 Blood Culture - Final Blood 06/23/23 12:55 Blood Culture - Preliminary Blood 06/22/23 09:52 Blood Culture - Preliminary Blood 06/22/23 16:01 Nasal Screen MRSA/MSSA - Final Nasal Swab
--- NOTE | 2023-06-25 14:42 | P.PN ---
Subjective Progress Note Date: 06/25/23 Patient is a 38-year-old female with known congestive heart failure, diabetes, and schizophrenia who presented to our emergency department from [place] due to agitation. Initial report from the ER was that she had been agitated and yelling. However review from [place] is that she presented to the nurse with flailing arms and legs unable to speak and just groaning. On arrival to e ER here her vital signs are within normal limits. Laboratory analysis included CBC, coags, CMP, ammonia, urinalysis, and urine drug screen which were remarkable for sodium 134, glucose 233, 1+ protein, 4+ glucose. Urine drug screen was positive for barbiturates and methamphetamines. Salicylates, acetaminophen, and alcohol level were negative. Initially she was kept to be seen by psych. Per charting it appears that her GCS had been up to 15 at some point and she required 1 mg of Ativan at 527 on the morning of 06/10. We were contacted for admission at 1032. Patient was found to have decreased responsiveness at our initial evaluation. Neurology was contacted for concern for subclinical seizure and patient underwent stat EEG which demonstrated background slowing of moderate to severe degree with generalized cerebral dysfunction. Neurology also recommended CTA of the head which showed a left temporal lobe infarct. Patient's phenobarbital level was low. She was found to have a slight osmolar gap and nephrology was consulted. Her osmol gap normalized. She continued to have dysphagia and ultimately underwent PEG tube placement. Echocardiogram was performed and initial 1 showed possible LV thrombus but repeat showed no LV thrombus. Case was discussed with cardiology and NICOLE was not recommended given overall poor prognosis. Patient has been tolerating tube feeds. She has been spiking fevers with an elevated white count that was felt to be secondary to aspiration pneumonia versus urinary tract infection. She was initially started on Rocephin and Zithromax and then b roadened to vancomycin and cefepime on 06/22/2023. She was also noted to have thrush and was started on Diflucan back on 06/14/2023. ID is following. Patient seen and examined at bedside. She is nonverbal and more lethargic. Vital signs reviewed General: Nontoxic, no distress, appears at stated age Cardiovascular: S1S2 reg, no murmur Lungs: Coarse breath sounds bilateral, no rhonchi, no rales, no accessory muscle use Abdominal: Soft, nontender to palpation, no guarding Ext: No gross muscle atrophy, no edema b/l lower extremities, no contractures Neuro: Follows some commands, not moving her right upper extremity Psych: Lethargic Assessment/Plan: Probable Aspiration PNA with sepsis vs neurogenic fevers Severe Thrush -Possible aspiration event -Procalcitonin normal at 0.13 and not consistent with infection. However patient had already been on antibiotics. Concerned that patient fevers may be neurogenic in origin. Repeat procal is pending -Urine cultures did show Klebsiella which is sensitive to ceftriaxone however repeat urinalysis is benign and not consistent with urinary tract infection - cefepime 2 g every 8 hours day #3, broaded due to continued pyrexia -D/C vanco as MRSA nasal swab negative -Blood cultures negative to date -ID following -Diflucan 200 mg day #12/04 -COVID, RSV, and influenza negative Acute left temporal parietal CVA Acute metabolic encephalopathy due to above Dysphagia s/p PEG Polysubstance use Systolic congestive heart failure, EF 25-50%, not in exacerbation - CT head shows evolving infarct -Neurology following, await further recs Patient will likely need an event monitor at the time of discharge -Cardiology recommended no NICOLE and no further interventions given poor prognosis and as it will not affect her quality of life - LR at 75 cc/hr given systolic cardiomyopathy -Aspirin 81 mg, and atorvastatin 80 mg -Toprol 25 mg daily, Entresto 24/26 mg 1 tablet twice daily -Continue telemetry -PT/OT/speech recommendations Hypokalemia - potassium chloride 40 mEq X 1 - repeat K+ and MG+ in AM Diabetes mellitus, insulin requiring -A1c 12.5 -Levemir at 30 units daily started on 06/22, on novolog 2 units QID with SSI QID - Follow BS Schizophrenia - patient with increased sedation and continued fevers - CK unremarkable -Off Invega and latuda, continue Depakote 250 mg twice daily, -trileptal discontinued Osmolar gap, reoslved Imaging: repeat CT head reviewed with no signs of cerebral edemanad Left temporal- parietal CVA Hospital Course Imaging: CTA head and neck without acute thrombosis or stenosis, stroke left temporal pariatal. Echocardiogram: Ejection fraction 15 to 20%, severely increased left ventricular diastolic volume, apical akinesis, cannot rule out LV apical thrombus CT head: Subacute evolving infarct in the left frontal and temporal lobes without mass effect Carotid Doppler: No significant hemodynamic stenosis Repeat echocardiogram 06/10/2023: LVEF 25 to 30% with a anterior apical akinesis and thinning of the wall, no LV thrombus noted Data Review: Labs reviewed from today include CBC and CMP which are remarkable for white blood cell count 21.6, potassium 3.3. DVT prophylaxis: Heparin subcu Anticipated discharge date: Pending clinical course Anticipated discharge place: Pending clinical course Objective - Vital Signs Vital signs: Vital Signs Temp 100.4 F H 06/25/23 12:00 Pulse 109 H 06/25/23 12:00 Resp 20 06/25/23 12:00 BP 118/76 06/25/23 12:00 Pulse Ox 94 L 06/25/23 08:00 FiO2 Intake & Output 06/24/23 06/25/23 06/25/23 18:59 06:59 18:59 Intake Total 474 Balance 474 Intake: Tube Feeding 474 Other: Voiding Method External Catheter External Catheter External Catheter # Voids 1 1 - Labs CBC & Chem 7: 06/25/23 08:15 06/25/23 08:15 Labs: Abnormal Lab Results - Last 24 Hours (Table) 06/24/23 06/24/23 06/25/23 Range/Units 17:32 21:59 06:02 WBC (3.8-10.6) k/uL MCHC (31.0-37.0) g/dL Potassium (3.5-5.1) mmol/L Chloride (98-107) mmol/L BUN (7-17) mg/dL Creatinine (0.52-1.04) mg/dL Glucose (74-99) mg/dL POC Glucose (mg/dL) 177 H 168 H 196 H (70-110) mg/dL Calcium (8.4-10.2) mg/dL Total Protein (6.3-8.2) g/dL Albumin (3.5-5.0) g/dL 06/25/23 06/25/23 06/25/23 Range/Units 08:15 08:15 11:32 WBC 21.6 H (3.8-10.6) k/uL MCHC 30.7 L (31.0-37.0) g/dL Potassium 3.3 L (3.5-5.1) mmol/L Chloride 111 H (98-107) mmol/L BUN 23 H (7-17) mg/dL Creatinine 0.44 L (0.52-1.04) mg/dL Glucose 179 H (74-99) mg/dL POC Glucose (mg/dL) 124 H (70-110) mg/dL Calcium 8.0 L (8.4-10.2) mg/dL Total Protein 5.2 L (6.3-8.2) g/dL Albumin 2.3 L (3.5-5.0) g/dL Microbiology - Last 24 Hours (Table) 06/19/23 21:44 Blood Culture - Final Blood 06/23/23 12:55 Blood Culture - Preliminary Blood 06/22/23 09:52 Blood Culture - Preliminary Blood 06/22/23 16:01 Nasal Screen MRSA/MSSA - Final Nasal Swab
--- NOTE | 2023-06-25 14:45 | P.PN ---
Subjective Progress Note Date: 06/25/23 Principal diagnosis: Reason for follow-up is fever Patient is a 38-year-old female past medical history significant for asthma diabetes mellitus, congestive heart failure, schizophrenia, did have bilateral below the knee amputation presenting to the hospital from the [place] secondary to agitation and has been in the hospital for almost 2 weeks before initial evaluation for a fever that started on 06/19/2023. On today's evaluation that is 06/25/2023,the patient remains to be febrile, she did spike a fever of 101.8 at midnight and 100.4 at noon, the patient is also tachycardic but not hypotensive and not requiring any supplemental oxygen patient remains to be nonverbal staring and not answering any question no vomiting diarrhea or any other changes reported by the nursing staff. Patient did have a white count of 21.6 slightly lower than yesterday creatinine 0.44 blood cultures negative so far urine is Klebsiella, procalcitonin 0.13 Objective - Vital Signs Vital signs: Vital Signs Temp 100.4 F H 06/25/23 12:00 Pulse 109 H 06/25/23 12:00 Resp 20 06/25/23 12:00 BP 118/76 06/25/23 12:00 Pulse Ox 94 L 06/25/23 08:00 FiO2 Intake & Output 06/24/23 06/25/23 06/25/23 18:59 06:59 18:59 Intake Total 474 Balance 474 Intake: Tube Feeding 474 Other: Voiding Method External Catheter External Catheter External Catheter # Voids 1 1 - Exam GENERAL DESCRIPTION: Middle-aged female up in bed in no distress RESPIRATORY SYSTEM: Unlabored breathing , decreased breath sounds at bases HEART: S1 S2 regular rate and rhythm , ABDOMEN: Soft , no tenderness EXTREMITIES: Bilateral BKA stumps are cold and mottled but no open wound or drainage - Labs CBC & Chem 7: 06/25/23 08:15 06/25/23 08:15 Labs: Abnormal Lab Results - Last 24 Hours (Table) 06/24/23 06/24/23 06/25/23 Range/Units 17:32 21:59 06:02 WBC (3.8-10.6) k/uL MCHC (31.0-37.0) g/dL Potassium (3.5-5.1) mmol/L Chloride (98-107) mmol/L BUN (7-17) mg/dL Creatinine (0.52-1.04) mg/dL Glucose (74-99) mg/dL POC Glucose (mg/dL) 177 H 168 H 196 H (70-110) mg/dL Calcium (8.4-10.2) mg/dL Total Protein (6.3-8.2) g/dL Albumin (3.5-5.0) g/dL 06/25/23 06/25/23 06/25/23 Range/Units 08:15 08:15 11:32 WBC 21.6 H (3.8-10.6) k/uL MCHC 30.7 L (31.0-37.0) g/dL Potassium 3.3 L (3.5-5.1) mmol/L Chloride 111 H (98-107) mmol/L BUN 23 H (7-17) mg/dL Creatinine 0.44 L (0.52-1.04) mg/dL Glucose 179 H (74-99) mg/dL POC Glucose (mg/dL) 124 H (70-110) mg/dL Calcium 8.0 L (8.4-10.2) mg/dL Total Protein 5.2 L (6.3-8.2) g/dL Albumin 2.3 L (3.5-5.0) g/dL Microbiology - Last 24 Hours (Table) 06/19/23 21:44 Blood Culture - Final Blood 06/23/23 12:55 Blood Culture - Preliminary Blood 06/22/23 09:52 Blood Culture - Preliminary Blood 06/22/23 16:01 Nasal Screen MRSA/MSSA - Final Nasal Swab Assessment and Plan (1) Fever Current Visit: Yes Status: Acute Code(s): R50.9 - FEVER, UNSPECIFIED SNOMED Code(s): 018226825 (2) UTI (urinary tract infection) Current Visit: Yes Status: Acute Code(s): N39.0 - URINARY TRACT INFECTION, SITE NOT SPECIFIED SNOMED Code(s): 18991540 Plan: 1patient with sepsis in this patient who did have a fever tachycardia elevated white count source more likely UTI, pneumonia less likely but not entirely excluded 2-patient did have a mildly elevated CRP and a procalcitonin level 3-patient did have persistent fever question of central fever and need for LP discussed with the neurologist who will be reevaluating the patient vancomycin has been discontinued I will switch cefepime to Zosyn and see clinical response Dictation was produced using [employer] software. please excuse any grammatical, word or spelling errors. Time with Patient: Less than 30
[2023-06-25] MEDS ORDERED: DIVALPROEX SPRINKLE 125 MG CAP.SPRINK NG-TUBE SCH (15:00)
[2023-06-25 16:49] LABS: Glucose,Whole Blood 100 mg/dL (70-110)
[2023-06-25] MEDS: VALPROIC ACID ORAL SOLN 250 MG/5 ML CUP NG-TUBE SCH (17:09)
[2023-06-25] MEDS: POTASSIUM CHLORIDE ER 20 MEQ TAB.ER PO STA (17:09)
[2023-06-25] MEDS: PIPERACILLIN-TAZOBACTAM 3.375 GM in SODIUM CHLORIDE 0.9% 100 ML IVPB SCH (17:09)
--- NOTE | 2023-06-25 18:21 | P.PN ---
Progress Note - Text Progress Note Date: 06/25/23 Advanced Care Planning: Diagnoses: Acute left temporal parietal CVA Acute metabolic encephalopathy due to above Dysphagia s/p PEG Polysubstance use Systolic congestive heart failure, EF 25-50%, not in exacerbation Probable Aspiration PNA with sepsis vs neurogenic fevers Severe Thrush Discussion: Person(s) present and participating in discussion: Mother Summary: Prognosis remains poor. Patient is now having central fevers, worsening prognosis. Mother agrees with hospice care, but does want her daughter closer to her facility in [place]. Will be arranging for that. A total of 20 minutes of phone time was spent discussing advanced care planning.
[2023-06-25 22:06] LABS: Glucose,Whole Blood 126 mg/dL (70-110)
[2023-06-26 06:07] LABS: Glucose,Whole Blood 128 mg/dL (70-110)
[2023-06-26 09:32] LABS: Basophils % (A) 0 %; Eosinophils # (A) 0.1 k/uL (0-0.7); Eosinophils % (A) 0 %; HCT 43.9 % (34.0-46.0); HGB 12.9 gm/dL (11.4-16.0); Hypochromasia Slight; Lymphocytes # (A) 1.8 k/uL (1.0-4.8); Lymphocytes % (A) 8 %; MCH 25.6 pg (25.0-35.0); MCHC 29.4 g/dL (31.0-37.0); MCV 86.9 fL (80.0-100.0); Mean Platelet Volume 8.8; Monocytes # (A) 0.8 k/uL (0-1.0); Monocytes % (A) 4 %; Neutrophils # (A) 18.2 k/uL (1.3-7.7); Neutrophils % (A) 86 %; Platelet Count 367 k/uL (150-450); RBC 5.05 m/uL (3.80-5.40); RDW 15.3 % (11.5-15.5); WBC 21.2 k/uL (3.8-10.6)
[2023-06-26 09:51] LABS: ALT 24 U/L (4-34); AST 35 U/L (14-36); African American GFR (CKD) >90 (>60 ml/min/1.73 sqM); Albumin 2.4 g/dL (3.5-5.0); Alkaline Phosphatase 114 U/L (38-126); Anion Gap 9 mmol/L; Blood Urea Nitrogen 23 mg/dL (7-17); Carbon Dioxide 26 mmol/L (22-30); Chloride 111 mmol/L (98-107); Glucose 140 mg/dL (74-99); Magnesium 1.8 mg/dL (1.6-2.3); Non-African American GFR(CKD) >90 (>60 ml/min/1.73 sqM); Potassium 3.2 mmol/L (3.5-5.1); Sodium 146 mmol/L (137-145); Total Bilirubin 0.2 mg/dL (0.2-1.3); Total Protein 5.3 g/dL (6.3-8.2)
--- NOTE | 2023-06-26 10:22 | P.PN ---
Subjective Progress Note Date: 06/25/23 Patient was seen for a follow-up. Patient appears much more encephalopathic today. Patient is breathing at 30/min. Patient is still completely, globally aphasic. PT OT also saw the patient and feels patient is worse today. Objective - Vital Signs Vital signs: Vital Signs Temp 101.6 F H 06/26/23 07:40 Pulse 103 H 06/26/23 08:15 Resp 20 06/26/23 07:40 BP 112/73 06/26/23 07:40 Pulse Ox 92 L 06/26/23 07:40 FiO2 Intake & Output 06/25/23 06/26/23 06/26/23 18:59 06:59 18:59 Output Total 650 Balance -650 Weight 48.308 kg Output: Urine 650 Other: Voiding Method External Catheter External Catheter Indwelling Catheter # Voids 1 1 - Exam On examination patient is more alert, but continues to be severely aphasic. Patient is moving her left arm and both legs. Her supervisor of instruction is normal on the left. Her biceps and triceps are normal on the left. She is flaccid in the right upper limb. Patient has right facial asymmetry. No seizure-like activity. Patient has bilateral BKA. No seizure-like activity. - Labs CBC & Chem 7: 06/26/23 06:46 06/26/23 06:46 Labs: Abnormal Lab Results - Last 24 Hours (Table) 06/25/23 06/25/23 06/25/23 Range/Units 08:15 11:32 22:05 WBC (3.8-10.6) k/uL MCHC (31.0-37.0) g/dL Sodium (137-145) mmol/L Potassium (3.5-5.1) mmol/L Chloride (98-107) mmol/L BUN (7-17) mg/dL Glucose (74-99) mg/dL POC Glucose (mg/dL) 124 H 126 H (70-110) mg/dL Calcium (8.4-10.2) mg/dL Total Protein (6.3-8.2) g/dL Albumin (3.5-5.0) g/dL Procalcitonin 0.13 H (0.02-0.09) ng/mL 06/26/23 06/26/23 06/26/23 Range/Units 06:04 06:46 06:46 WBC 21.2 H (3.8-10.6) k/uL MCHC 29.4 L (31.0-37.0) g/dL Sodium 146 H (137-145) mmol/L Potassium 3.2 L (3.5-5.1) mmol/L Chloride 111 H (98-107) mmol/L BUN 23 H (7-17) mg/dL Glucose 140 H (74-99) mg/dL POC Glucose (mg/dL) 128 H (70-110) mg/dL Calcium 8.0 L (8.4-10.2) mg/dL Total Protein 5.3 L (6.3-8.2) g/dL Albumin 2.4 L (3.5-5.0) g/dL Procalcitonin (0.02-0.09) ng/mL Microbiology - Last 24 Hours (Table) 06/23/23 12:55 Blood Culture - Preliminary Blood 06/22/23 09:52 Blood Culture - Preliminary Blood Assessment and Plan Assessment: * Acute ischemic stroke left frontal parietal region, likely due to embolism. Patient not a candidate for tPA because of unknown onset of symptoms. No large vessel occlusion noted on CTA. * Dysphagia, due to CVA. * Aspiration pneumonia and sepsis. * Patient has started spiking temperature, and white cells gone up. Patient is tachypneic, likely from pneumonia. Rule out central cause. * Altered mental status, metabolic encephalopathy, and CVA as above. Her encephalopathy seems to have got worse again. * Polysubstance abuse. Urine positive for amphetamines and methamphetamines. * Diabetes, poorly controlled, A1c 12.5 * History of bilateral BKA Plan: * Patient's encephalopathy seems to have got worse. Patient is having high fevers. * Appreciate ID input. Patient on vancomycin and cefepime. Possible pneumonia as per chest x-ray. * Discussed with infectious disease. We will perform lumbar puncture today. On reviewing chart, it appears patient received heparin 5000 units subcu this morning at 9 AM. We will hold heparin tonight and perform lumbar puncture in the morning. * We will repeat EEG in the morning. * Repeat CT head performed 06/24/2023 revealed evolving stroke left frontal parietal region. No acute intracranial hemorrhage. Some laminar necrosis is a concern around the stroke area. No definitive acute intracranial hemorrhage. * Patient cannot have MRI because of inability to get clearance for the stent. * Stat EEG 06/11/2023 was abnormal due to background slowing of moderate to severe degree. This is suggestive of generalized cerebral dysfunction as can be seen with toxic metabolic encephalopathy or related to diffuse structural brain abnormality. No epileptiform activity was seen. * CTA of head and neck reported no stenosis or occlusion. Official report pending. * Patient on aspirin 81 mg daily. Consider adding Plavix 75 mg daily, but at present patient is on fluconazole, which has interaction with Plavix. Will defer to IM. * 2D echo from 06/11/2023 revealed LVEF estimated at 15 to 20%. Severely reduced global LV systolic function. Apical akinesis. Cannot rule out left ventricular apical thrombus especially in setting of CVA. Repeat echo with contrast. Moderate left atrial dilation. Mild MR. * 2D echo from 06/13/2023 was limited study. LVEF is 25 to 30% with anteroapical akinesis and thinning of the anterior apical wall. No LV thrombus noted. * Dr. Ramos has spoken to Dr. Cuadra (professor of oceanography) and he felt the NICOLE would not filter changer. After discussing the case with him, Dr. Ramos agreed of holding off on the NICOLE for now since it will unlikely filter changer. We'll place the patient on an event monitor for 30 days. * Patient also had aspiration pneumonia and sepsis for which patient is now on Zosyn,, vancomycin and fluconazole. * Patient seen by psychiatrist, switching from Trileptal to Depakote. Also stopping Invega and to be placed on Seroquel. * Fasting lipid panel with cholesterol 139, LDL 73, HDL 41, triglycerides 123. Patient on Lipitor 80 mg daily (home medication). * Hemoglobin A1c 12.5, consistent with poorly controlled diabetes. Recommend optimize control of diabetes to target A1c <7.0. * Phenobarbital 6.4 (15-40) and Trileptal level 3.8 (10-35). Both of them are in nontoxic range. * Ethylene glycol panel negative. * Continue close neurochecks. * Fall precautions. * DVT prophylaxis: Continue heparin 5000 units subcu every 12 hours.
[2023-06-26 10:37] LABS: Poikilocytosis (M) Present; Toxic Granulation Present
[2023-06-26 11:18] LABS: Glucose,Whole Blood 143 mg/dL (70-110)
--- NOTE | 2023-06-26 12:06 | P.PN ---
Subjective Progress Note Date: 06/26/23 Patient is a 38-year-old female with known congestive heart failure, diabetes, and schizophrenia who presented to our emergency department from [place] due to agitation. Initial report from the ER was that she had been agitated and yelling. However review from [place] is that she presented to the nurse with flailing arms and legs unable to speak and just groaning. On arrival to e ER here her vital signs are within normal limits. Laboratory analysis included CBC, coags, CMP, ammonia, urinalysis, and urine drug screen which were remarkable for sodium 134, glucose 233, 1+ protein, 4+ glucose. Urine drug screen was positive for barbiturates and methamphetamines. Salicylates, acetaminophen, and alcohol level were negative. Initially she was kept to be seen by psych. Per charting it appears that her GCS had been up to 15 at some point and she required 1 mg of Ativan at 527 on the morning of 06/10. We were contacted for admission at 1032. Patient was found to have decreased responsiveness at our initial evaluation. Neurology was contacted for concern for subclinical seizure and patient underwent stat EEG which demonstrated background slowing of moderate to severe degree with generalized cerebral dysfunction. Neurology also recommended CTA of the head which showed a left temporal lobe infarct. Patient's phenobarbital level was low. She was found to have a slight osmolar gap and nephrology was consulted. Her osmol gap normalized. She continued to have dysphagia and ultimately underwent PEG tube placement. Echocardiogram was performed and initial 1 showed possible LV thrombus but repeat showed no LV thrombus. Case was discussed with cardiology and NICOLE was not recommended given overall poor prognosis. Patient has been tolerating tube feeds. She has been spiking fevers with an elevated white count that was felt to be secondary to aspiration pneumonia versus urinary tract infection. She was initially started on Rocephin and Zithromax and then b roadened to vancomycin and cefepime on 06/22/2023. She was also noted to have thrush and was started on Diflucan back on 06/14/2023. ID is following. Antibiotics was switched to Zosyn. Plan was to get lumbar puncture. However after further goals of care discussion with mother, patient is now being considered for hospice. Mother would like to continue medical care till we can get her over to a facility near [place]. After that hospice care can be initiated. Patient seen and examined at bedside. She is nonverbal and more lethargic. Vital signs reviewed General: Nontoxic, no distress, appears at stated age Cardiovascular: S1S2 reg, no murmur Lungs: Coarse breath sounds bilateral, no rhonchi, no rales, no accessory muscle use Abdominal: Soft, nontender to palpation, no guarding Ext: No gross muscle atrophy, no edema b/l lower extremities, no contractures Neuro: Follows some commands, not moving her right upper extremity Psych: Awake Assessment/Plan: Suspected neurogenic fevers Aspiration pneumonia Severe Thrush Urinary tract infection On Zosyn 3.375 g IV every 8 hours -Blood cultures negative to date -ID following -Diflucan 200 mg day #01/03 Acute left temporal parietal CVA Acute metabolic encephalopathy due to above Dysphagia s/p PEG Polysubstance use Systolic congestive heart failure, EF 25-50%, not in exacerbation - CT head shows evolving infarct -Discussed management with neurology, no utility in getting an LP, patient will be hospice as soon as facility is found next week. -Cardiology recommended no NICOLE and no further interventions given poor prognosis and as it will not affect her quality of life -Aspirin 81 mg, and atorvastatin 80 mg -Toprol 25 mg daily, Entresto 24/26 mg 1 tablet twice daily -Continue telemetry -PT/OT/speech recommendations Hypokalemia -40 oral potassium ordered Hyponatremia Continue lactated Ringer at 75 cc an hour Continue tube feeds Diabetes mellitus, insulin requiring -A1c 12.5 -Levemir at 30 units daily started on 06/22, on novolog 2 units QID with SSI QID - Follow BS Schizophrenia - patient with increased sedation and continued fevers - CK unremarkable -Off Invega and latuda, continue Depakote 125 every 6 hours -trileptal discontinued Osmolar gap, reoslved Imaging: repeat CT head reviewed with no signs of cerebral edemanad Left temporal- parietal CVA Hospital Course Imaging: CTA head and neck without acute thrombosis or stenosis, stroke left temporal pariatal. Echocardiogram: Ejection fraction 15 to 20%, severely increased left ventricular diastolic volume, apical akinesis, cannot rule out LV apical thrombus CT head: Subacute evolving infarct in the left frontal and temporal lobes without mass effect Carotid Doppler: No significant hemodynamic stenosis Repeat echocardiogram 06/10/2023: LVEF 25 to 30% with a anterior apical akinesis and thinning of the wall, no LV thrombus noted Data Review: Labs reviewed from today include CBC and CMP which are remarkable for white blood cell count 21.2, potassium 3.2, glucose 140 DVT prophylaxis: SCDs Anticipated discharge date: Pending clinical course Anticipated discharge place: Pending clinical course Objective - Vital Signs Vital signs: Vital Signs Temp 100.1 F H 06/26/23 08:00 Pulse 103 H 06/26/23 08:15 Resp 16 06/26/23 08:00 BP 118/76 06/26/23 08:00 Pulse Ox 97 06/26/23 08:00 FiO2 Intake & Output 06/25/23 06/26/23 06/26/23 18:59 06:59 18:59 Output Total 650 Balance -650 Weight 48.308 kg Output: Urine 650 Other: Voiding Method External Catheter External Catheter Indwelling Catheter # Voids 1 1 - Labs CBC & Chem 7: 06/26/23 06:46 06/26/23 06:46 Labs: Abnormal Lab Results - Last 24 Hours (Table) 06/25/23 06/25/23 06/26/23 Range/Units 08:15 22:05 06:04 WBC (3.8-10.6) k/uL MCHC (31.0-37.0) g/dL Neutrophils # (1.3-7.7) k/uL Sodium (137-145) mmol/L Potassium (3.5-5.1) mmol/L Chloride (98-107) mmol/L BUN (7-17) mg/dL Glucose (74-99) mg/dL POC Glucose (mg/dL) 126 H 128 H (70-110) mg/dL Calcium (8.4-10.2) mg/dL Total Protein (6.3-8.2) g/dL Albumin (3.5-5.0) g/dL Procalcitonin 0.13 H (0.02-0.09) ng/mL 06/26/23 06/26/23 06/26/23 Range/Units 06:46 06:46 11:16 WBC 21.2 H (3.8-10.6) k/uL MCHC 29.4 L (31.0-37.0) g/dL Neutrophils # 18.2 H (1.3-7.7) k/uL Sodium 146 H (137-145) mmol/L Potassium 3.2 L (3.5-5.1) mmol/L Chloride 111 H (98-107) mmol/L BUN 23 H (7-17) mg/dL Glucose 140 H (74-99) mg/dL POC Glucose (mg/dL) 143 H (70-110) mg/dL Calcium 8.0 L (8.4-10.2) mg/dL Total Protein 5.3 L (6.3-8.2) g/dL Albumin 2.4 L (3.5-5.0) g/dL Procalcitonin (0.02-0.09) ng/mL Microbiology - Last 24 Hours (Table) 06/23/23 12:55 Blood Culture - Preliminary Blood 06/22/23 09:52 Blood Culture - Preliminary Blood
[2023-06-26] MEDS: POTASSIUM CHLORIDE ER 20 MEQ TAB.ER PO STA (12:41)
--- NOTE | 2023-06-26 15:14 | P.PN ---
Subjective Progress Note Date: 06/26/23 Principal diagnosis: Reason for follow-up is fever Patient is a 38-year-old female past medical history significant for asthma diabetes mellitus, congestive heart failure, schizophrenia, did have bilateral below the knee amputation presenting to the hospital from the [place] secondary to agitation and has been in the hospital for almost 2 weeks before initial evaluation for a fever that started on 06/19/2023. On today's evaluation that is 06/26/2023,the patient remains to be febrile with a temperature of 101.7 F this morning no significant tachycardia or hypotension noticed with these episodes of fever patient remains to be lethargic nonverbal and cannot provide any history no vomiting diarrhea or any other changes reported by the nursing staff at the bedside. The patient white count is 21.2 creatinine 0.52 culture has been negative Objective - Vital Signs Vital signs: Vital Signs Temp 100.1 F H 06/26/23 08:00 Pulse 105 H 06/26/23 12:00 Resp 16 06/26/23 12:00 BP 120/73 06/26/23 12:00 Pulse Ox 92 L 06/26/23 12:00 FiO2 Intake & Output 06/25/23 06/26/23 06/26/23 18:59 06:59 18:59 Output Total 650 Balance -650 Weight 48.308 kg Output: Urine 650 Other: Voiding Method External Catheter External Catheter Indwelling Catheter # Voids 1 1 - Exam GENERAL DESCRIPTION: Middle-aged female up in bed in no distress RESPIRATORY SYSTEM: Unlabored breathing , decreased breath sounds at bases HEART: S1 S2 regular rate and rhythm , ABDOMEN: Soft , no tenderness EXTREMITIES: Bilateral BKA stumps are cold and mottled but no open wound or drainage - Labs CBC & Chem 7: 06/26/23 06:46 06/26/23 06:46 Labs: Abnormal Lab Results - Last 24 Hours (Table) 06/25/23 06/25/23 06/26/23 Range/Units 08:15 22:05 06:04 WBC (3.8-10.6) k/uL MCHC (31.0-37.0) g/dL Neutrophils # (1.3-7.7) k/uL Sodium (137-145) mmol/L Potassium (3.5-5.1) mmol/L Chloride (98-107) mmol/L BUN (7-17) mg/dL Glucose (74-99) mg/dL POC Glucose (mg/dL) 126 H 128 H (70-110) mg/dL Calcium (8.4-10.2) mg/dL Total Protein (6.3-8.2) g/dL Albumin (3.5-5.0) g/dL Procalcitonin 0.13 H (0.02-0.09) ng/mL 06/26/23 06/26/23 06/26/23 Range/Units 06:46 06:46 11:16 WBC 21.2 H (3.8-10.6) k/uL MCHC 29.4 L (31.0-37.0) g/dL Neutrophils # 18.2 H (1.3-7.7) k/uL Sodium 146 H (137-145) mmol/L Potassium 3.2 L (3.5-5.1) mmol/L Chloride 111 H (98-107) mmol/L BUN 23 H (7-17) mg/dL Glucose 140 H (74-99) mg/dL POC Glucose (mg/dL) 143 H (70-110) mg/dL Calcium 8.0 L (8.4-10.2) mg/dL Total Protein 5.3 L (6.3-8.2) g/dL Albumin 2.4 L (3.5-5.0) g/dL Procalcitonin (0.02-0.09) ng/mL Microbiology - Last 24 Hours (Table) 06/23/23 12:55 Blood Culture - Preliminary Blood 06/22/23 09:52 Blood Culture - Preliminary Blood Assessment and Plan (1) Fever Current Visit: Yes Status: Acute Code(s): R50.9 - FEVER, UNSPECIFIED SNOMED Code(s): 269770988 (2) UTI (urinary tract infection) Current Visit: Yes Status: Acute Code(s): N39.0 - URINARY TRACT INFECTION, SITE NOT SPECIFIED SNOMED Code(s): 38989208 Plan: 1patient with sepsis in this patient who did have a fever tachycardia elevated white count source more likely UTI, pneumonia less likely but not entirely excluded 2-patient did have a mildly elevated CRP and a procalcitonin level 3-patient did have persistent fever question of central fever and with the patient possibly going hospice/comfort in a.m. we will hold on adding any further workup at this point I will continue with the Zosyn care discussed with the nursing staff Dictation was produced using [employer] dictation software. please excuse any grammatical, word or spelling errors. Time with Patient: Less than 30
[2023-06-26 16:16] LABS: Glucose,Whole Blood 129 mg/dL (70-110)
[2023-06-26 18:26] LABS: Glucose,CSF 74 mg/dL (40-70); Total Protein,CSF 82 mg/dL (12-60)
[2023-06-26 19:55] LABS: Appearance,CSF Clear; CSF Tube Number 4; Red Blood Cell,CSF 1580 u/L (0-10)
[2023-06-26 19:57] LABS: Nucleated Cells, CSF 14 u/L (0-5)
[2023-06-26 19:58] LABS: Red Blood Cell, CSF Crenated 0 %; Red Blood Cell, CSF Fresh 100 %
[2023-06-26 20:02] LABS: Diff, Total Cells Cnt, CSF 100; Mononuclear WBC,CSF 40 %; Polynuclear WBC,CSF 60 %
--- NOTE | 2023-06-26 20:53 | EEG ---
ELECTROENCEPHALOGRAM REPORT PREAMBLE: This is a 38-year-old female with persistent aphasia. The patient had a stroke. This study is performed to rule out any epileptiform activity. EEG FINDINGS: This is a 21-channel digital EEG recorded with video component, utilizing 10/20 international system with referential and bipolar montages. Background consists of well-developed, moderately well regulated, mixed frequencies of 8-9 hertz alpha, mixed with some theta activity seen in bihemispheric region. Background is posterior dominant and seems to be minimally reactive to eye opening and closing. Photic driving response was not seen. Frequent left temporal slowing in the theta range was seen during the study. Different stages of sleep were not seen. No focal or generalized epileptiform activity was seen. IMPRESSION: This is an abnormal EEG due to background slowing suggestive of mild encephalopathy. Superimposed frequent, focal left temporal slowing was seen, suggestive of focal cortical neuronal dysfunction, which probably coincides with her CVA. No epileptiform activity was seen. MMTORIL / IJN: [id number] / MTDTatianna
[2023-06-26 21:41] LABS: Glucose,Whole Blood 137 mg/dL (70-110)
[2023-06-26] MEDS: ACYCLOVIR SODIUM 500 MG in SODIUM CHLORIDE 0.9% 100 ML IVPB SCH (21:59)
[2023-06-27 05:59] LABS: Glucose,Whole Blood 147 mg/dL (70-110)
--- NOTE | 2023-06-27 06:56 | P.PN ---
Subjective Progress Note Date: 06/26/23 Patient was seen for a follow-up. Patient slightly more alert and awake, but continues to be aphasic. Otherwise no change. Objective - Vital Signs Vital signs: Vital Signs Temp 102.4 F H 06/26/23 15:54 Pulse 113 H 06/26/23 15:54 Resp 20 06/26/23 15:54 BP 129/78 06/26/23 15:54 Pulse Ox 92 L 06/26/23 15:54 FiO2 Intake & Output 06/25/23 06/26/23 06/26/23 18:59 06:59 18:59 Output Total 650 Balance -650 Weight 48.308 kg Output: Urine 650 Other: Voiding Method External Catheter External Catheter Indwelling Catheter # Voids 1 1 - Exam On examination patient is more alert, but continues to be severely aphasic. Patient is moving her left arm and both legs. Her italian lecturer is normal on the left. Her biceps and triceps are normal on the left. She is flaccid in the right upper limb. Patient has right facial asymmetry. No seizure-like activity. Patient has bilateral BKA. No seizure-like activity. - Labs CBC & Chem 7: 06/26/23 06:46 06/26/23 06:46 Labs: Abnormal Lab Results - Last 24 Hours (Table) 06/25/23 06/26/23 06/26/23 Range/Units 22:05 06:04 06:46 WBC 21.2 H (3.8-10.6) k/uL MCHC 29.4 L (31.0-37.0) g/dL Neutrophils # 18.2 H (1.3-7.7) k/uL Sodium (137-145) mmol/L Potassium (3.5-5.1) mmol/L Chloride (98-107) mmol/L BUN (7-17) mg/dL Glucose (74-99) mg/dL POC Glucose (mg/dL) 126 H 128 H (70-110) mg/dL Calcium (8.4-10.2) mg/dL Total Protein (6.3-8.2) g/dL Albumin (3.5-5.0) g/dL 06/26/23 06/26/23 06/26/23 Range/Units 06:46 11:16 16:14 WBC (3.8-10.6) k/uL MCHC (31.0-37.0) g/dL Neutrophils # (1.3-7.7) k/uL Sodium 146 H (137-145) mmol/L Potassium 3.2 L (3.5-5.1) mmol/L Chloride 111 H (98-107) mmol/L BUN 23 H (7-17) mg/dL Glucose 140 H (74-99) mg/dL POC Glucose (mg/dL) 143 H 129 H (70-110) mg/dL Calcium 8.0 L (8.4-10.2) mg/dL Total Protein 5.3 L (6.3-8.2) g/dL Albumin 2.4 L (3.5-5.0) g/dL Microbiology - Last 24 Hours (Table) 06/23/23 12:55 Blood Culture - Preliminary Blood 06/22/23 09:52 Blood Culture - Preliminary Blood Assessment and Plan Assessment: * Acute ischemic stroke left frontal parietal region, likely due to embolism. Patient not a candidate for tPA because of unknown onset of symptoms. No large vessel occlusion noted on CTA. * Dysphagia, due to CVA. * Aspiration pneumonia and sepsis. * Patient has started spiking temperature, and white cells gone up. Patient is tachypneic, likely from pneumonia. Rule out central cause. * Altered mental status, metabolic encephalopathy, and CVA as above. Her encephalopathy seems to have got worse again. * Polysubstance abuse. Urine positive for amphetamines and methamphetamines. * Diabetes, poorly controlled, A1c 12.5 * History of bilateral BKA Plan: * Patient's encephalopathy seems to have got worse. Patient is having high fevers. * Appreciate ID input. Patient on vancomycin and Zosyn. Possible pneumonia as per chest x-ray. * EEG performed 06/26/2023 was abnormal due to a ground slowing, suggestive of mild encephalopathy. Additional frequent left temporal slowing was seen, suggestive of focal cortical neuronal dysfunction. No epileptiform activity was seen. * Discussed with primary physician. Patient may be going for hospice. I spoke to patient's mother, who does not want patient to be on hospice at this time, until she is transferred to [place], where she lives. I discussed with patient's mother about lumbar puncture, risks and benefits were informed. Patient's mother consented for lumbar puncture. This will be performed. * Repeat CT head performed 06/24/2023 revealed evolving stroke left frontal parietal region. No acute intracranial hemorrhage. I personally reviewed CT head, and there is some evidence of laminar necrosis in a gyriform pattern around the stroke area. Small subarachnoid cannot be ruled out. We will review with the radiologist. * Stat EEG 06/11/2023 was abnormal due to background slowing of moderate to severe degree. This is suggestive of generalized cerebral dysfunction as can be seen with toxic metabolic encephalopathy or related to diffuse structural brain abnormality. No epileptiform activity was seen. * CTA of head and neck reported no stenosis or occlusion. Official report pending. * Patient on aspirin 81 mg daily. * 2D echo from 06/11/2023 revealed LVEF estimated at 15 to 20%. Severely reduced global LV systolic function. Apical akinesis. Cannot rule out left ventricular apical thrombus especially in setting of CVA. Repeat echo with contrast. Moderate left atrial dilation. Mild MR. * 2D echo from 06/13/2023 was limited study. LVEF is 25 to 30% with anteroapical akinesis and thinning of the anterior apical wall. No LV thrombus noted. * Dr. Ramos has spoken to Dr. Cuadra (director physical) and he felt the NICOLE would not record changer. After discussing the case with him, Dr. Ramos agreed of holding off on the NICOLE for now since it will unlikely record changer. We'll place the patient on an event monitor for 30 days. * Patient also had aspiration pneumonia and sepsis for which patient is now on Zosyn,, vancomycin and fluconazole. * Patient seen by psychiatrist, switching from Trileptal to Depakote. Also stopping Invega and to be placed on Seroquel. * Fasting lipid panel with cholesterol 139, LDL 73, HDL 41, triglycerides 123. Patient on Lipitor 80 mg daily (home medication). * Hemoglobin A1c 12.5, consistent with poorly controlled diabetes. Recommend optimize control of diabetes to target A1c <7.0. * Phenobarbital 6.4 (15-40) and Trileptal level 3.8 (10-35). Both of them are in nontoxic range. * Ethylene glycol panel negative. * Continue close neurochecks. * Fall precautions. * DVT prophylaxis: Continue heparin 5000 units subcu every 12 hours.
[2023-06-27 11:08] LABS: African American GFR (CKD) >90 (>60 ml/min/1.73 sqM); Anion Gap 8 mmol/L; Blood Urea Nitrogen 25 mg/dL (7-17); Carbon Dioxide 29 mmol/L (22-30); Chloride 114 mmol/L (98-107); Glucose 190 mg/dL (74-99); Non-African American GFR(CKD) >90 (>60 ml/min/1.73 sqM); Potassium 2.9 mmol/L (3.5-5.1); Sodium 151 mmol/L (137-145)
[2023-06-27 12:20] LABS: Glucose,Whole Blood 165 mg/dL (70-110)
--- NOTE | 2023-06-27 14:37 | P.PN ---
Subjective Progress Note Date: 06/27/23 Principal diagnosis: Reason for follow-up is fever Patient is a 38-year-old female past medical history significant for asthma diabetes mellitus, congestive heart failure, schizophrenia, did have bilateral below the knee amputation presenting to the hospital from the [place] secondary to agitation and has been in the hospital for almost 2 weeks before initial evaluation for a fever that started on 06/19/2023. On today's evaluation that is 06/27/2023, the patient did have improvement in her fever pattern and has been afebrile since 4 AM patient is breathing co mfortably on room air remains stable lethargic nonverbal and cannot provide any history no vomiting diarrhea or any other changes reported by the nursing staff. No CBC was done today, creatinine 0.46 patient did have LP completed yesterday did have elevated RBC of 1580 WBC was 14 glucose was normal protein mild elevated LDH 2 Objective - Vital Signs Vital signs: Vital Signs Temp 97.7 F 06/27/23 08:00 Pulse 108 H 06/27/23 08:00 Resp 19 06/27/23 08:00 BP 113/70 06/27/23 08:00 Pulse Ox 91 L 06/27/23 08:00 FiO2 Intake & Output 06/26/23 06/27/23 06/27/23 18:59 06:59 18:59 Intake Total 0 Output Total 650 650 Balance -650 -650 0 Intake: Oral 0 Output: Urine 650 650 Other: Voiding Method External Catheter External Catheter External Catheter # Voids 1 0 # Bowel Movements 0 - Exam GENERAL DESCRIPTION: Middle-aged female up in bed in no distress RESPIRATORY SYSTEM: Unlabored breathing , decreased breath sounds at bases HEART: S1 S2 regular rate and rhythm , ABDOMEN: Soft , no tenderness EXTREMITIES: Bilateral BKA stumps are cold and mottled but no open wound or drainage - Labs CBC & Chem 7: 06/26/23 06:46 06/27/23 10:04 Labs: Abnormal Lab Results - Last 24 Hours (Table) 06/26/23 06/26/23 06/26/23 Range/Units 15:00 16:14 21:39 Sodium (137-145) mmol/L Potassium (3.5-5.1) mmol/L Chloride (98-107) mmol/L BUN (7-17) mg/dL Creatinine (0.52-1.04) mg/dL Glucose (74-99) mg/dL POC Glucose (mg/dL) 129 H 137 H (70-110) mg/dL Calcium (8.4-10.2) mg/dL CSF RBC 1580 H (0-10) u/L CSF Tot Nucleated Cells 14 H* (0-5) u/L CSF Glucose 74 H (40-70) mg/dL CSF Total Protein 82 H (12-60) mg/dL 06/27/23 06/27/23 06/27/23 Range/Units 05:56 10:04 12:08 Sodium 151 H (137-145) mmol/L Potassium 2.9 L (3.5-5.1) mmol/L Chloride 114 H (98-107) mmol/L BUN 25 H (7-17) mg/dL Creatinine 0.46 L (0.52-1.04) mg/dL Glucose 190 H (74-99) mg/dL POC Glucose (mg/dL) 147 H 165 H (70-110) mg/dL Calcium 8.0 L (8.4-10.2) mg/dL CSF RBC (0-10) u/L CSF Tot Nucleated Cells (0-5) u/L CSF Glucose (40-70) mg/dL CSF Total Protein (12-60) mg/dL Microbiology - Last 24 Hours (Table) 06/26/23 15:00 CSF Gram Stain - Preliminary Cerebral Spinal Fluid 06/23/23 12:55 Blood Culture - Preliminary Blood Assessment and Plan (1) Fever Current Visit: Yes Status: Acute Code(s): R50.9 - FEVER, UNSPECIFIED SNOMED Code(s): 901170211 (2) UTI (urinary tract infection) Current Visit: Yes Status: Acute Code(s): N39.0 - URINARY TRACT INFECTION, SITE NOT SPECIFIED SNOMED Code(s): 85212450 Plan: 1patient with sepsis in this patient who did have a fever tachycardia elevated white count source more likely UTI, pneumonia less likely but not entirely excluded 2-patient did have a mildly elevated CRP and a procalcitonin level 3-patient seem to have some improvement her fever pattern with addition of acyclovir yesterday to continue and monitor clinical course closely Dictation was produced using [employer] software. please excuse any grammatical, word or spelling errors. Time with Patient: Less than 30
[2023-06-27] MEDS: POTASSIUM CHLORIDE 20 MEQ in WATER FOR INJECTION 1 100ML.BAG IVPB STA (15:53)
--- NOTE | 2023-06-27 16:13 | P.PN ---
Subjective Progress Note Date: 06/27/23 Patient is a 38-year-old female with known congestive heart failure, diabetes, and schizophrenia who presented to our emergency department from [place] due to agitation. Initial report from the ER was that she had been agitated and yelling. However review from [place] is that she presented to the nurse with flailing arms and legs unable to speak and just groaning. On arrival to the ER here her vital signs are within normal limits. Laboratory analysis included CBC, coags, CMP, ammonia, urinalysis, and urine drug screen which were remarkable for sodium 134, glucose 233, 1+ protein, 4+ glucose. Urine drug screen was positive for barbiturates and methamphetamines. Salicylates, acetaminophen, and alcohol level were negative. Initially she was kept to be seen by psych. Per charting it appears that her GCS had been up to 15 at some point and she required 1 mg of Ativan at 527 on the morning of 06/10. We were contacted for admission at 1032. Patient was found to have decreased responsiveness at our initial evaluation. Neurology was contacted for concern for subclinical seizure and patient underwent stat EEG which demonstrated background slowing of moderate to severe degree with generalized cerebral dysfunction. Neurology also recommended CTA of the head which showed a left temporal lobe infarct. Patient's phenobarbital level was low. She was found to have a slight osmolar gap and nephrology was consulted. Her osmol gap normalized. She continued to have dysphagia and ultimately underwent PEG tube placement. Echocardiogram was performed and initial 1 showed possible LV thrombus but repeat showed no LV thrombus. Case was discussed with cardiology and NICOLE was not recommended given overall poor prognosis. Patient has been tolerating tube feeds. She has been spiking fevers with an elevated white count that was felt to be secondary to aspiration pneumonia versus urinary tract infection. She was initially started on Rocephin and Zithromax and then br oadened to vancomycin and cefepime on 06/22/2023. She was also noted to have thrush and was started on Diflucan back on 06/14/2023. She had an LP which was consistent with CVA, and neurology felt not reflective of infection. Despite elmination of sedative psych medications the patient still remained minimally interactive. Patient seen and examined at bedside. She continues to be able to close her eyes and keep them, and show me a thumbs up and responds to commands. However only try to use a thumbs up for yes and closing her eyes for now she is unable to reliably answer questions such as pain and shortness of breath. Vital signs reviewed General: Nontoxic, no distress, appears at stated age Cardiovascular: S1S2 reg, no murmur Lungs: Coarse breath sounds bilateral, no rhonchi, no rales, no accessory muscle use Abdominal: Soft, nontender to palpation, no guarding Ext: No gross muscle atrophy, no edema b/l lower extremities, no contractures Neuro: Following simple commands. She is able to show me a thumbs up on the left, touch her nose with her left hand, and close her eyes and keep them closed. She is unable to lift her right arm off the bed for me Psych: Awake, interactive Assessment/Plan: Suspected neurogenic fevers Severe Thrush Abnormal CSF. suspect related to CVA as discussed with Dr. Daly, he does not suspect neurogenic fevers -Repeat CXR in AM -Repeat procal stable, no increase or decrease -Urine cultures did show Klebsiella which is sensitive to ceftriaxone however repeat urinalysis is benign and not consistent with urinary tract infection -Infectious disease note reviewed: Continue with acyclovir. -Await further neurology recommendations: Note reviewed from 06/25. - cefepime 2 g every 8 hours day #6, broaded due to continued pyrexia -Off vanco as MRSA nasal swab negative -Blood cultures negative to date -Diflucan 200 mg day #02/03 -COVID, RSV, and influenza negative - repeat CXR in AM as Acute left temporal parietal CVA Acute metabolic encephalopathy due to above Dysphagia s/p PEG Polysubstance use Systolic congestive heart failure, EF 25-50%, not in exacerbation - repeat CT head ordered and reviewed without cerebral edema -Neurology following, await further recs Patient will likely need an event mo nitor at the time of discharge -Cardiology recommended no NICOLE and no further interventions given poor prognosis and as it will not affect her quality of life -Aspirin 81 mg, and atorvastatin 80 mg -Toprol 25 mg daily, Entresto 24/26 mg 1 tablet twice daily -Continue telemetry -PT/OT/speech recommendations Hypernatremia Hyponkalemia -Suspect hyponatremia secondary to free water deficit as patient is on tube feeds. Free water deficit calculated and is 0.9 L will attempt to replace half of that amount in 24 hours by increasing free water flushes to 75 cc/h. Stop LR. Will recheck sodium level at 1999 - Discontinue IV fluids -Repeat sodium in a.m. -Replace potassium with K-Lyte 40 mill equivalents oral and potassium chloride 20 mill equivalents IV piggyback. Will repeat potassium level at 1999 Diabetes mellitus, insulin requiring -A1c 12.5 -Levemir at 30 units daily, novolog 2 units QID, SSI QID - Follow BS Schizophrenia - patient with increased sedation and continued fevers - CK unremarkable -Off Invega and latuda, Depakote 250 mg twice daily, Trileptal 150 mg twice daily for 2 days and then will completed. Osmolar gap, resolved Probable Aspiration PNA, treated Klebsiella UTI, treated Imaging: repeat CT head reviewed with no signs of cerebral edemanad Left temporal- parietal CVA Hospital Course Imaging: CTA head and neck without acute thrombosis or stenosis, stroke left temporal pariatal. Echocardiogram: Ejection fraction 15 to 20%, severely increased left ventricular diastolic volume, apical akinesis, cannot rule out LV apical thrombus CT head: Subacute evolving infarct in the left frontal and temporal lobes without mass effect Carotid Doppler: No significant hemodynamic stenosis Repeat echocardiogram 06/10/2023: LVEF 25 to 30% with a anterior apical akinesis and thinning of the wall, no LV thrombus noted Data Review: Labs reviewed from today include CBC and CMP which are remarkable for white blood cell count 22.3, potassium 3.3. Discussed with mother results of LP. She now declines hospice as she was told yesterday that there may still be hope for recovery. I told her that I did not think there was hope for meaningful recovery. She states that when she talked to Elda on the phone today she cooed and nursing states that she was staring at the phone, therefore she wants to keep with current care plan. DVT prophylaxis: Heparin subcu Anticipated discharge date: in [address]: SNF on hospice This dictation was prepared using [employer] voice recognition software. Though every attempt is made to correct errors during dictation some may still exist. Objective - Vital Signs Vital signs: Vital Signs Temp 102.4 F H 06/27/23 15:07 Pulse 109 H 06/27/23 15:07 Resp 18 06/27/23 15:07 BP 118/73 06/27/23 15:07 Pulse Ox 94 L 06/27/23 15:07 FiO2 Intake & Output 06/26/23 06/27/23 06/27/23 18:59 06:59 18:59 Intake Total 0 Output Total 650 650 Balance -650 -650 0 Intake: Oral 0 Output: Urine 650 650 Other: Voiding Method External Catheter External Catheter External Catheter # Voids 1 0 # Bowel Movements 0 - Labs CBC & Chem 7: 06/26/23 06:46 06/27/23 10:04 Labs: Abnormal Lab Results - Last 24 Hours (Table) 06/26/23 06/26/23 06/26/23 Range/Units 15:00 16:14 21:39 Sodium (137-145) mmol/L Potassium (3.5-5.1) mmol/L Chloride (98-107) mmol/L BUN (7-17) mg/dL Creatinine (0.52-1.04) mg/dL Glucose (74-99) mg/dL POC Glucose (mg/dL) 129 H 137 H (70-110) mg/dL Calcium (8.4-10.2) mg/dL CSF RBC 1580 H (0-10) u/L CSF Tot Nucleated Cells 14 H* (0-5) u/L CSF Glucose 74 H (40-70) mg/dL CSF Total Protein 82 H (12-60) mg/dL 06/27/23 06/27/23 06/27/23 Range/Units 05:56 10:04 12:08 Sodium 151 H (137-145) mmol/L Potassium 2.9 L (3.5-5.1) mmol/L Chloride 114 H (98-107) mmol/L BUN 25 H (7-17) mg/dL Creatinine 0.46 L (0.52-1.04) mg/dL Glucose 190 H (74-99) mg/dL POC Glucose (mg/dL) 147 H 165 H (70-110) mg/dL Calcium 8.0 L (8.4-10.2) mg/dL CSF RBC (0-10) u/L CSF Tot Nucleated Cells (0-5) u/L CSF Glucose (40-70) mg/dL CSF Total Protein (12-60) mg/dL Microbiology - Last 24 Hours (Table) 06/26/23 15:00 CSF Gram Stain - Preliminary Cerebral Spinal Fluid 06/23/23 12:55 Blood Culture - Preliminary Blood
[2023-06-27] MEDS: POTASSIUM BICARBONATE/CIT AC 20 MEQ TABLET.EFF PO ONE (17:10)
[2023-06-27 18:46] LABS: African American GFR (CKD) >90 (>60 ml/min/1.73 sqM); Anion Gap 4 mmol/L; Blood Urea Nitrogen 25 mg/dL (7-17); Calcium 7.8 mg/dL (8.4-10.2); Carbon Dioxide 30 mmol/L (22-30); Chloride 116 mmol/L (98-107); Glucose 146 mg/dL (74-99); Non-African American GFR(CKD) >90 (>60 ml/min/1.73 sqM); Potassium 3.7 mmol/L (3.5-5.1); Sodium 150 mmol/L (137-145)
[2023-06-27 20:42] LABS: Glucose,Whole Blood 90 mg/dL (70-110)
--- NOTE | 2023-06-27 21:30 | XR ---
EXAM: XR chest 1V portable CLINICAL INDICATION:Female, 38 years old with history of PNA; [facility] COMPARISON: 06/22/2023 TECHNIQUE: Chest single view. FINDINGS: Lung volumes are again low but slightly improved. Decreased conspicuity of right basilar opacity with improved visualization of the hemidiaphragm and c ostophrenic angle. Right hemidiaphragm shows asymmetric elevation which may be from eventration. Othe rwise there is no evidence of new or worsening infiltrate, pleural effusion, or pneumothorax. There i s an apparent edge overlying the right mid to upper chest, and there appear to be lung markings perip heral to this and no definite pleural line is seen to suggest pneumothorax. Cardiac mediastinal silhouette appears unchanged. Heart appears mildly enlarged. Osseous structures show no clearly acute abnormalities. IMPRESSION: Slightly improved pulmonary aeration with decreased right basilar opacity compared to prior.
[2023-06-27] MEDS: HEPARIN SODIUM,PORCINE 5,000 UNIT/ML 1 ML VIAL SQ SCH (23:03)
[2023-06-27 23:50] LABS: African American GFR (CKD) >90 (>60 ml/min/1.73 sqM); Anion Gap 5 mmol/L; Blood Urea Nitrogen 24 mg/dL (7-17); Carbon Dioxide 29 mmol/L (22-30); Chloride 118 mmol/L (98-107); Glucose 103 mg/dL (74-99); Non-African American GFR(CKD) >90 (>60 ml/min/1.73 sqM); Potassium 3.3 mmol/L (3.5-5.1); Sodium 152 mmol/L (137-145)
[2023-06-28] MEDS: POTASSIUM CHLORIDE 20 MEQ in WATER FOR INJECTION 1 100ML.BAG IVPB STA (00:51)
[2023-06-28] MEDS: POTASSIUM CHLORIDE ER 20 MEQ TAB.ER PO STA ×2 (00:51→18:57)
[2023-06-28 03:43] LABS: Glucose,Whole Blood 94 mg/dL (70-110)
[2023-06-28 06:41] LABS: HGB 12.6 gm/dL (11.4-16.0); Hypochromasia Moderate; MCH 26.1 pg (25.0-35.0); MCV 87.2 fL (80.0-100.0); Mean Platelet Volume 8.3; Platelet Count 372 k/uL (150-450); RBC 4.81 m/uL (3.80-5.40); RDW 15.4 % (11.5-15.5); WBC 22.7 k/uL (3.8-10.6)
[2023-06-28 06:53] LABS: African American GFR (CKD) >90 (>60 ml/min/1.73 sqM); Anion Gap 7 mmol/L; Blood Urea Nitrogen 27 mg/dL (7-17); Calcium 8.1 mg/dL (8.4-10.2); Carbon Dioxide 28 mmol/L (22-30); Chloride 118 mmol/L (98-107); Glucose 126 mg/dL (74-99); Magnesium 2.1 mg/dL (1.6-2.3); Non-African American GFR(CKD) >90 (>60 ml/min/1.73 sqM); Potassium 3.7 mmol/L (3.5-5.1); Sodium 153 mmol/L (137-145)
--- NOTE | 2023-06-28 08:06 | XR ---
EXAMINATION TYPE: XR chest 1V portable DATE OF EXAM: 06/28/2023 COMPARISON: 06/27/2023 HISTORY: Chest pain TECHNIQUE: Single frontal view of the chest is obtained. FINDINGS: Elevation right hemidiaphragm with right basilar opacity which may reflect the atelectasis and/or inf iltrate with small effusion. The remainder of the lungs are clear. The cardiac silhouette size is within normal limits. The osseous structures are intact. IMPRESSION: 1. Elevation right hemidiaphragm with right basilar opacity which may reflect the atelectasis and/or infiltrate with small effusion.
--- NOTE | 2023-06-28 10:54 | P.PN ---
Subjective Progress Note Date: 06/27/23 Patient was seen for a follow-up. Patient slightly more alert and awake, but continues to be aphasic. Otherwise no change. Sporadically makes unintelligible repetitive sounds. Objective - Vital Signs Vital signs: Vital Signs Temp 102.4 F H 06/27/23 15:07 Pulse 109 H 06/27/23 15:07 Resp 18 06/27/23 15:07 BP 118/73 06/27/23 15:07 Pulse Ox 94 L 06/27/23 15:07 FiO2 Intake & Output 06/26/23 06/27/23 06/27/23 18:59 06:59 18:59 Intake Total 0 Output Total 650 650 Balance -650 -650 0 Intake: Oral 0 Output: Urine 650 650 Other: Voiding Method External Catheter External Catheter External Catheter # Voids 1 0 # Bowel Movements 0 - Exam On examination patient is more alert, but continues to be severely aphasic. Khanh villalobos is moving her left arm and both legs. Her risk control representative is normal on the left. Her biceps and triceps are normal on the left. She is flaccid in the right upper limb. Patient has right facial asymmetry. No seizure-like activity. Patient has bilateral BKA. Patient moves both legs on commands. - Labs CBC & Chem 7: 06/28/23 06:05 06/28/23 06:05 Labs: Abnormal Lab Results - Last 24 Hours (Table) 06/26/23 06/26/23 06/27/23 Range/Units 15:00 21:39 05:56 Sodium (137-145) mmol/L Potassium (3.5-5.1) mmol/L Chloride (98-107) mmol/L BUN (7-17) mg/dL Creatinine (0.52-1.04) mg/dL Glucose (74-99) mg/dL POC Glucose (mg/dL) 137 H 147 H (70-110) mg/dL Calcium (8.4-10.2) mg/dL CSF RBC 1580 H (0-10) u/L CSF Tot Nucleated Cells 14 H* (0-5) u/L CSF Glucose 74 H (40-70) mg/dL CSF Total Protein 82 H (12-60) mg/dL 06/27/23 06/27/23 Range/Units 10:04 12:08 Sodium 151 H (137-145) mmol/L Potassium 2.9 L (3.5-5.1) mmol/L Chloride 114 H (98-107) mmol/L BUN 25 H (7-17) mg/dL Creatinine 0.46 L (0.52-1.04) mg/dL Glucose 190 H (74-99) mg/dL POC Glucose (mg/dL) 165 H (70-110) mg/dL Calcium 8.0 L (8.4-10.2) mg/dL CSF RBC (0-10) u/L CSF Tot Nucleated Cells (0-5) u/L CSF Glucose (40-70) mg/dL CSF Total Protein (12-60) mg/dL Microbiology - Last 24 Hours (Table) 06/22/23 09:52 Blood Culture - Final Blood 06/26/23 15:00 CSF Gram Stain - Preliminary Cerebral Spinal Fluid 06/23/23 12:55 Blood Culture - Preliminary Blood Assessment and Plan Assessment: * Acute ischemic stroke left frontal parietal region, likely due to embolism. Patient not a candidate for tPA because of unknown onset of symptoms. No large vessel occlusion noted on CTA. * Dysphagia, due to CVA. * Aspiration pneumonia and sepsis. * Acute Klebsiella pneumoniae UTI * Patient has started spiking temperature, and white cells gone up. Patient is tachypneic, likely from pneumonia/UTI. Rule out central cause. * Altered mental status, metabolic encephalopathy, and CVA as above. * Polysubstance abuse. Urine positive for amphetamines and methamphetamines. * Diabetes, poorly controlled, A1c 12.5 * History of bilateral BKA Plan: * CSF revealed 14 WBCs, out of which 40% are mononuclear, 60% polynuclear's. RBCs 1580. Total proteins 82 (12-60), glucose is normal 74. Patient empiri maya placed on acyclovir by ID. Await viral PCR. Gram stain shows few polynuclear leukocytes. No organisms. Uncertain if abnormality on CSF related to CVA. * Appreciate ID input. Patient on acyclovir and Zosyn. Possible pneumonia as per chest x-ray. * EEG performed 06/26/2023 was abnormal due to a ground slowing, suggestive of mild encephalopathy. Additional frequent left temporal slowing was seen, suggestive of focal cortical neuronal dysfunction. No epileptiform activity was seen. * Discussed with primary physician. Patient may be going for hospice. I spoke to patient's mother, who does not want patient to be on hospice at this time, until she has been transferred to [place], where she lives. * Repeat CT head performed 06/24/2023 revealed evolving stroke left frontal parietal region. No acute intracranial hemorrhage. I personally reviewed CT head, and there is some evidence of laminar necrosis in a gyriform pattern around the stroke area. Small subarachnoid cannot be ruled out. I reviewed films for Dr. Price, and he agreed, there is probable cortical laminar necrosis around the stroke area. We will repeat CT head to rule out any hemorrhage. * Initial EEG 06/11/2023 was abnormal due to background slowing of moderate to severe degree. This is suggestive of generalized cerebral dysfunction as can be seen with toxic metabolic encephalopathy or related to diffuse structural brain abnormality. No epileptiform activity was seen. * CTA of head and neck reported no stenosis or occlusion. Official report pending. * Patient on aspirin 81 mg daily. * 2D echo from 06/11/2023 revealed LVEF estimated at 15 to 20%. Severely reduced global LV systolic function. Apical akinesis. Cannot rule out left ventricular apical thrombus especially in setting of CVA. Repeat echo with contrast. Moderate left atrial dilation. Mild MR. * 2D echo from 06/13/2023 was limited study. LVEF is 25 to 30% with anteroapical akinesis and thinning of the anterior apical wall. No LV thrombus noted. * Dr. Ramos has spoken to Dr. Cuadra (blind cleaner) and he felt the NICOLE would not pack changer. After discussing the case with him, Dr. Ramos agreed of holding off on the NICOLE for now since it will unlikely pack changer. We'll place the patient on an event monitor for 30 days. * Patient also had aspiration pneumonia and UTI sepsis for which patient is now on Zosyn. * Patient seen by psychiatrist, switching from Trileptal to Depakote. Also stopping Invega and to be placed on Seroquel. * Fasting lipid panel with cholesterol 139, LDL 73, HDL 41, triglycerides 123. Patient on Lipitor 80 mg daily (home medication). * Hemoglobin A1c 12.5, consistent with poorly controlled diabetes. Recommend optimize control of diabetes to target A1c <7.0. * Phenobarbital 6.4 (15-40) and Trileptal level 3.8 (10-35). Both of them are in nontoxic range. * Ethylene glycol panel negative. * Continue close neurochecks. * Fall precautions. * DVT prophylaxis: Continue heparin 5000 units subcu every 12 hours.
[2023-06-28 11:46] LABS: Glucose,Whole Blood 137 mg/dL (70-110)
--- NOTE | 2023-06-28 12:16 | P.PN ---
Subjective Progress Note Date: 06/28/23 Patient is a 38-year-old female with known congestive heart failure, diabetes, and schizophrenia who presented to our emergency department from [facility] due to agitation. Initial report from the ER was that she had been agitated and yelling. However review from [facility] is that she presented to the nurse with flailing arms and legs unable to speak and just groaning. On arrival to the ER here her vital signs are within normal limits. Laboratory analysis included CBC, coags, CMP, ammonia, urinalysis, and urine drug screen which were remarkable for sodium 134, glucose 233, 1+ protein, 4+ glucose. Urine drug screen was positive for barbiturates and methamphetamines. Salicylates, acetaminophen, and alcohol level were negative. Initially she was kept to be seen by psych. Per charting it appears that her GCS had been up to 15 at some point and she required 1 mg of Ativan at 527 on the morning of 06/10. We were contacted for admission at 1032. Patient was found to have decreased responsiveness at our initial evaluation. Neurology was contacted for concern for subclinical seizure and patient underwent stat EEG which demonstrated background slowing of moderate to severe degree with generalized cerebral dysfunction. Neurology also recommended CTA of the head which showed a left temporal lobe infarct. Patient's phenobarbital level was low. She was found to have a slight osmolar gap and nephrology was consulted. Her osmol gap normalized. She continued to have dysphagia and ultimately underwent PEG tube placement. Echocardiogram was performed and initial 1 showed possible LV thrombus but repeat showed no LV thrombus. Case was discussed with cardiology and NICOLE was not recommended given overall poor prognosis. Patient has been tolerating tube feeds. She has been spiking fevers with an elevated white count that was felt to be secondary to aspiration pneumonia versus urinary tract infection. She was initially started on Rocephin and Zithromax and then br oadened to vancomycin and cefepime on 06/22/2023. She was also noted to have thrush and was started on Diflucan back on 06/14/2023. She had an LP which was consistent with CVA, and neurology felt not reflective of infection. Despite elmination of sedative psych medications the patient still remained minimally interactive. Patient seen and examined at bedside. She continues to be able to close her eyes and keep them, and show me a thumbs up and responds to commands. However only try to use a thumbs up for yes and closing her eyes for now she is unable to reliably answer questions such as pain and shortness of breath. Vital signs reviewed General: Nontoxic, no distress, appears at stated age Cardiovascular: S1S2 reg, no murmur Lungs: Coarse breath sounds bilateral, no rhonchi, no rales, no accessory muscle use Abdominal: Soft, nontender to palpation, no guarding Ext: No gross muscle atrophy, no edema b/l lower extremities, no contractures Neuro: Following simple commands. She is able to show me a thumbs up on the left, touch her nose with her left hand, and close her eyes and keep them closed. She is unable to lift her right arm off the bed for me Psych: Awake, interactive Assessment/Plan: Suspected neurogenic fevers Severe Thrush Abnormal CSF Acute left temporal parietal CVA Acute metabolic encephalopathy due to above Dysphagia s/p PEG Polysubstance use -Neurology note reviewed: Repeat head CT around the stroke area to rule out hemorrhage, abnormal CSF results likely related to stroke -ID note reviewed: Some improvement in fever pattern continue with acyclovir -Repeat procal stable, no increase or decrease -Acyclovir 500 mg IV every 8 hours day #2 -Cefepime 2 g every 8 hours day #7, broaded due to continued pyrexia -Diflucan 200 mg day #12/14 -Urine cultures did show Klebsiella which is sensitive to ceftriaxone however repeat urinalysis is benign and not consistent with urinary tract infection -Off vanco as MRSA nasal swab negative -Blood cultures negative to date -COVID, RSV, and influenza negative - Repeat CXR stable with right basilar infiltrate -Cardiology recommended no NICOLE and no further interventions given poor prognosis and as it will not affect her quality of life - Event monitor possibly at time of discharge. Systolic congestive heart failure, EF 25-50%, not in exacerbation -Aspirin 81 mg, and atorvastatin 80 mg -Toprol 25 mg daily, Entresto 24/26 mg 1 tablet twice daily -Continue telemetry -PT/OT/speech recommendations Hypernatremia Hyponkalemia -Free water deficit 1 L. Will work on replacing 500 cc today. Increase free water with tube flushes to 150 cc every 4 hours -Repeat sodium at 18 -Replace potassium with K-Lyte 40 mill equivalents oral and potassium chloride 20 mill equivalents IV piggyback. Will repeat potassium level at 2000 Diabetes mellitus, insulin requiring -A1c 12.5 -Levemir at 30 units daily, novolog 2 units QID, SSI QID - Follow BS Schizophrenia - CK unremarkable -Off Invega and latuda, Depakote 250 mg twice daily, Trileptal 150 mg twice daily for 2 days and then will completed. - reconsult psych if needed Osmolar gap, resolved Probable Aspiration PNA, treated Klebsiella UTI, treated Imaging: Repeat chest x-ray: Elevation of the right hemidiaphragm with right basilar opacity and atelectasis with small effusion. Hospital Course Imaging: CTA head and neck without acute thrombosis or stenosis, stroke left temporal pariatal. Echocardiogram: Ejection fraction 15 to 20%, severely increased left ventricular diastolic volume, apical akinesis, cannot rule out LV apical thrombus CT head: Subacute evolving infarct in the left frontal and temporal lobes without mass effect Carotid Doppler: No significant hemodynamic stenosis Repeat echocardiogram 06/10/2023: LVEF 25 to 30% with a anterior apical akinesis and thinning of the wall, no LV thrombus noted repeat CT head 06/24/23 reviewed with no signs of cerebral edema and Left temporal-parietal CVA Data Review: Labs reviewed from today include CBC and basic metabolic profile which are remarkable for white blood cell count 22.7, sodium 153, chloride 118, BUN 27 DVT prophylaxis: Heparin subcu Anticipated discharge date: Delayed charting Anticipated discharge place: [facility] This dictation was prepared using [employer] voice recognition software. Though every attempt is made to correct errors during dictation some may still exist. Objective - Vital Signs Vital signs: Vital Signs Temp 99.9 F H 06/28/23 11:36 Pulse 101 H 06/28/23 11:36 Resp 18 06/28/23 11:36 BP 109/72 06/28/23 11:36 Pulse Ox 93 L 06/28/23 11:36 FiO2 Intake & Output 06/27/23 06/28/23 06/28/23 18:59 06:59 18:59 Intake Total 0 Output Total 400 Balance 0 -400 Intake: Oral 0 Output: Urine 400 Other: Voiding Method External Catheter External Catheter # Voids 0 # Bowel Movements 0 1 - Labs CBC & Chem 7: 06/28/23 06:05 06/28/23 06:05 Labs: Abnormal Lab Results - Last 24 Hours (Table) 06/27/23 06/27/23 06/27/23 Range/Units 12:08 18:10 18:10 WBC (3.8-10.6) k/uL MCHC (31.0-37.0) g/dL Sodium 150 H (137-145) mmol/L Potassium (3.5-5.1) mmol/L Chloride 116 H (98-107) mmol/L BUN 25 H (7-17) mg/dL Creatinine 0.50 L (0.52-1.04) mg/dL Glucose 146 H (74-99) mg/dL POC Glucose (mg/dL) 165 H (70-110) mg/dL Calcium 7.8 L (8.4-10.2) mg/dL Troponin I 0.061 H* (0.000-0.034) ng/mL 06/27/23 06/27/23 06/28/23 Range/Units 20:46 23:14 06:05 WBC 22.7 H (3.8-10.6) k/uL MCHC 30.0 L (31.0-37.0) g/dL Sodium 152 H (137-145) mmol/L Potassium 3.3 L (3.5-5.1) mmol/L Chloride 118 H (98-107) mmol/L BUN 24 H (7-17) mg/dL Creatinine (0.52-1.04) mg/dL Glucose 103 H (74-99) mg/dL POC Glucose (mg/dL) (70-110) mg/dL Calcium 8.0 L (8.4-10.2) mg/dL Troponin I 0.058 H* (0.000-0.034) ng/mL 06/28/23 06/28/23 Range/Units 06:05 11:44 WBC (3.8-10.6) k/uL MCHC (31.0-37.0) g/dL Sodium 153 H (137-145) mmol/L Potassium (3.5-5.1) mmol/L Chloride 118 H (98-107) mmol/L BUN 27 H (7-17) mg/dL Creatinine (0.52-1.04) mg/dL Glucose 126 H (74-99) mg/dL POC Glucose (mg/dL) 137 H (70-110) mg/dL Calcium 8.1 L (8.4-10.2) mg/dL Troponin I (0.000-0.034) ng/mL Microbiology - Last 24 Hours (Table) 06/26/23 15:00 CSF Gram Stain - Preliminary Cerebral Spinal Fluid CSF Culture - Preliminary 06/22/23 09:52 Blood Culture - Final Blood
--- NOTE | 2023-06-28 14:10 | CT ---
EXAMINATION TYPE: CT brain wo con CT DLP: 1095.4 mGycm, Automated exposure control for dose reduction was used. DATE OF EXAM: 06/28/2023 1:57 PM COMPARISON: 06/24/2023. CLINICAL INDICATION:Female, 38 years old with history of Follow up CVA, r/o bleed, F/U CVA; R/O bleed TECHNIQUE: Brain: Axial CT images of the brain were obtained with coronal and sagittal reformats created and rev iewed. Contrast used: None. Oral contrast used: None. FINDINGS: Brain: Extra-axial spaces: No abnormal extra-axial fluid collections. Ventricular system: Within normal limits Cerebral parenchyma: Redemonstration of oneill-white loss matter differentiation the left frontal lobe with curvilinear high density along the cortex possibly related to cortical laminar necrosis. No intr acranial extra-axial fluid visualized. Oneill-white matter differentiation this region is maintained. C erebellum: Unremarkable. Mass effect: No evidence of midline shift. Intracranial vasculature: unremarkable Soft tissues: Normal. Calvarium/osseous structures: No depressed skull fracture. Paranasal sinuses and mastoid air cells: Mild scattered paranasal sinus disease. Visualized orbits: Orbital contents are intact. IMPRESSION: No evidence for intracranial hemorrhage. Redemonstration of suspected CVA in the left frontal lobe wi th possible cortical laminar necrosis. Attention follow-up MRI with IV contrast to underlying mass.
--- NOTE | 2023-06-28 14:59 | P.PN ---
Subjective Progress Note Date: 06/28/23 Patient was seen for a follow-up. Patient is sleeping at this time. She does wake up, but still aphasic. Otherwise no change. Objective - Vital Signs Vital signs: Vital Signs Temp 99.9 F H 06/28/23 11:36 Pulse 101 H 06/28/23 11:36 Resp 18 06/28/23 11:36 BP 109/72 06/28/23 11:36 Pulse Ox 93 L 06/28/23 11:36 FiO2 Intake & Output 06/27/23 06/28/23 06/28/23 18:59 06:59 18:59 Intake Total 0 Output Total 400 Balance 0 -400 Intake: Oral 0 Output: Urine 400 Other: Voiding Method External Catheter External Catheter # Voids 0 # Bowel Movements 0 1 - Exam On examination patient is more alert, but continues to be severely aphasic. Patient is moving her left arm and both legs. Her parking meter attendant is normal on the left. Her biceps and triceps are normal on the left. She is flaccid in the right upper limb. Patient has right facial asymmetry. No seizure-like activity. Patient has bilateral BKA. Patient moves both legs on commands. - Labs CBC & Chem 7: 06/28/23 06:05 06/28/23 06:05 Labs: Abnormal Lab Results - Last 24 Hours (Table) 06/27/23 06/27/23 06/27/23 Range/Units 18:10 18:10 20:46 WBC (3.8-10.6) k/uL MCHC (31.0-37.0) g/dL Sodium 150 H (137-145) mmol/L Potassium (3.5-5.1) mmol/L Chloride 116 H (98-107) mmol/L BUN 25 H (7-17) mg/dL Creatinine 0.50 L (0.52-1.04) mg/dL Glucose 146 H (74-99) mg/dL POC Glucose (mg/dL) (70-110) mg/dL Calcium 7.8 L (8.4-10.2) mg/dL Troponin I 0.061 H* 0.058 H* (0.000-0.034) ng/mL 06/27/23 06/28/23 06/28/23 Range/Units 23:14 06:05 06:05 WBC 22.7 H (3.8-10.6) k/uL MCHC 30.0 L (31.0-37.0) g/dL Sodium 152 H 153 H (137-145) mmol/L Potassium 3.3 L (3.5-5.1) mmol/L Chloride 118 H 118 H (98-107) mmol/L BUN 24 H 27 H (7-17) mg/dL Creatinine (0.52-1.04) mg/dL Glucose 103 H 126 H (74-99) mg/dL POC Glucose (mg/dL) (70-110) mg/dL Calcium 8.0 L 8.1 L (8.4-10.2) mg/dL Troponin I (0.000-0.034) ng/mL 06/28/23 Range/Units 11:44 WBC (3.8-10.6) k/uL MCHC (31.0-37.0) g/dL Sodium (137-145) mmol/L Potassium (3.5-5.1) mmol/L Chloride (98-107) mmol/L BUN (7-17) mg/dL Creatinine (0.52-1.04) mg/dL Glucose (74-99) mg/dL POC Glucose (mg/dL) 137 H (70-110) mg/dL Calcium (8.4-10.2) mg/dL Troponin I (0.000-0.034) ng/mL Microbiology - Last 24 Hours (Table) 06/26/23 15:00 CSF Gram Stain - Preliminary Cerebral Spinal Fluid CSF Culture - Preliminary 06/22/23 09:52 Blood Culture - Final Blood Assessment and Plan Assessment: * Acute ischemic stroke left frontal parietal region, likely due to embolism. Patient not a candidate for tPA because of unknown onset of symptoms. No large vessel occlusion noted on CTA. * Dysphagia, due to CVA. * Aspiration pneumonia and sepsis. * Acute Klebsiella pneumoniae UTI * Patient has started spiking temperature, and white cells gone up. Patient is tachypneic, likely from pneumonia/UTI. Rule out central cause. * Altered mental status, metabolic encephalopathy, and CVA as above. * Polysubstance abuse. Urine positive for amphetamines and methamphetamines. * Diabetes, poorly controlled, A1c 12.5 * History of bilateral BKA Plan: * CSF revealed 14 WBCs, out of which 40% are mononuclear, 60% polynuclear's. RBCs 1580. Total proteins 82 (12-60), glucose is normal 74. Viral cultures negative. HSV PCR negative. Will consider stopping acyclovir. Will discuss with ID. Gram stain shows few polynuclear leukocytes. No organisms. Suspect CSF abnormality related to CVA, as the stroke does reveal cortical laminar necrosis. * Appreciate ID input. Patient on Zosyn. Possible pneumonia as per chest x- ray. Acyclovir discontinued. Discussed with ID. * EEG performed 06/26/2023 was abnormal due to a ground slowing, suggestive of mild encephalopathy. Additional frequent left temporal slowing was seen, suggestive of focal cortical neuronal dysfunction. No epileptiform activity was seen. * Discussed with primary physician. Patient may be going for hospice. I spoke to patient's mother, who does not want patient to be on hospice at this time, until she has been transferred to [place], where she lives. * Repeat CT head performed 06/28/2023 revealed redemonstration of suspected CVA in the left frontal lobe with possible cortical laminar necrosis. * Initial EEG 06/11/2023 was abnormal due to background slowing of moderate to severe degree. This is suggestive of generalized cerebral dysfunction as can be seen with toxic metabolic encephalopathy or related to diffuse structural brain abnormality. No epileptiform activity was seen. * CTA of head and neck reported no stenosis or occlusion. Official report pending. * Patient on aspirin 81 mg daily. * 2D echo from 06/11/2023 revealed LVEF estimated at 15 to 20%. Severely reduced global LV systolic function. Apical akinesis. Cannot rule out left ventricular apical thrombus especially in setting of CVA. Repeat echo with contrast. Moderate left atrial dilation. Mild MR. * 2D echo from 06/13/2023 was limited study. LVEF is 25 to 30% with anteroapical akinesis and thinning of the anterior apical wall. No LV thrombus noted. * Dr. Ramos has spoken to Dr. Cuadra (glass selector) and he felt the NICOLE would not pattern changer. After discussing the case with him, Dr. Ramos agreed of holding off on the NICOLE for now since it will unlikely pattern changer. We'll place the patient on an event monitor for 30 days. * Patient also had aspiration pneumonia and UTI sepsis for which patient is now on Zosyn. * Patient seen by psychiatrist, switching from Trileptal to Depakote. Also s topping Invega and to be placed on Seroquel. * Fasting lipid panel with cholesterol 139, LDL 73, HDL 41, triglycerides 123. Patient on Lipitor 80 mg daily (home medication). * Hemoglobin A1c 12.5, consistent with poorly controlled diabetes. Recommend optimize control of diabetes to target A1c <7.0. * Phenobarbital 6.4 (15-40) and Trileptal level 3.8 (10-35). Both of them are in nontoxic range. * Ethylene glycol panel negative. * Continue close neurochecks. * Fall precautions. * DVT prophylaxis: Continue heparin 5000 units subcu every 12 hours. * Dr. Jonathan Ramos to start neurology service from the morning.
[2023-06-28 16:50] LABS: African American GFR (CKD) >90 (>60 ml/min/1.73 sqM); Anion Gap 3 mmol/L; Blood Urea Nitrogen 25 mg/dL (7-17); Calcium 8.1 mg/dL (8.4-10.2); Carbon Dioxide 30 mmol/L (22-30); Chloride 119 mmol/L (98-107); Glucose 120 mg/dL (74-99); Non-African American GFR(CKD) >90 (>60 ml/min/1.73 sqM); Potassium 3.4 mmol/L (3.5-5.1); Sodium 152 mmol/L (137-145)
[2023-06-28 18:17] LABS: Glucose,Whole Blood 115 mg/dL (70-110)
[2023-06-29 00:09] LABS: Glucose,Whole Blood 65 mg/dL (70-110)
[2023-06-29] MEDS: DEXTROSE 50% SYRINGE 50 ML IVP PRN (00:16)
[2023-06-29 00:32] LABS: Glucose,Whole Blood 120 mg/dL (70-110)
[2023-06-29 06:10] LABS: Glucose,Whole Blood 100 mg/dL (70-110)
[2023-06-29] MEDS: INSULIN DETEMIR (LEVEMIR) 100 UNIT/ML SYR SQ SCH ×2 (06:24→09:38)
[2023-06-29 08:11] LABS: Basophils # (A) 0.1 k/uL (0-0.2); Basophils % (A) 0 %; Eosinophils # (A) 0.3 k/uL (0-0.7); Eosinophils % (A) 2 %; HCT 42.9 % (34.0-46.0); HGB 12.6 gm/dL (11.4-16.0); Hypochromasia Marked; Lymphocytes # (A) 2.1 k/uL (1.0-4.8); Lymphocytes % (A) 11 %; MCH 25.6 pg (25.0-35.0); MCHC 29.3 g/dL (31.0-37.0); MCV 87.4 fL (80.0-100.0); Mean Platelet Volume 8.1; Monocytes # (A) 0.8 k/uL (0-1.0); Monocytes % (A) 4 %; Neutrophils # (A) 15.5 k/uL (1.3-7.7); Neutrophils % (A) 82 %; Platelet Count 368 k/uL (150-450); RBC 4.91 m/uL (3.80-5.40); RDW 15.2 % (11.5-15.5)
[2023-06-29 08:37] LABS: ALT 27 U/L (4-34); AST 47 U/L (14-36); African American GFR (CKD) >90 (>60 ml/min/1.73 sqM); Albumin 2.2 g/dL (3.5-5.0); Alkaline Phosphatase 101 U/L (38-126); Anion Gap 4 mmol/L; Blood Urea Nitrogen 24 mg/dL (7-17); Calcium 7.8 mg/dL (8.4-10.2); Carbon Dioxide 27 mmol/L (22-30); Chloride 118 mmol/L (98-107); Glucose 121 mg/dL (74-99); Non-African American GFR(CKD) >90 (>60 ml/min/1.73 sqM); Potassium 3.3 mmol/L (3.5-5.1); Sodium 149 mmol/L (137-145); Total Bilirubin 0.2 mg/dL (0.2-1.3); Total Protein 5.1 g/dL (6.3-8.2)
[2023-06-29] MEDS: POTASSIUM BICARBONATE/CIT AC 20 MEQ TABLET.EFF PO ONE (11:46)
--- NOTE | 2023-06-29 12:22 | P.PN ---
Subjective Progress Note Date: 06/28/23 Principal diagnosis: Reason for follow-up is fever Patient is a 38-year-old female past medical history significant for asthma diabetes mellitus, congestive heart failure, schizophrenia, did have bilateral below the knee amputation presenting to the hospital from the [place] secondary to agitation and has been in the hospital for almost 2 weeks before initial evaluation for a fever that started on 06/19/2023. On today's evaluation that is 06/28/2023, Patient is febrile however overall fever pattern has improved and did have a temperature 100.5 F this morning patient remains to be on room air remains to be n.p.o. and no other changes reported by nursing staff Patient white count of 22.7, creatinine 0.52 culture has been negative Objective - Vital Signs Vital signs: Vital Signs Temp 99.9 F H 06/28/23 11:36 Pulse 101 H 06/28/23 11:36 Resp 18 06/28/23 11:36 BP 109/72 06/28/23 11:36 Pulse Ox 93 L 06/28/23 11:36 FiO2 Intake & Output 06/27/23 06/28/23 06/28/23 18:59 06:59 18:59 Intake Total 0 Output Total 400 Balance 0 -400 Intake: Oral 0 Output: Urine 400 Other: Voiding Method External Catheter External Catheter # Voids 0 # Bowel Movements 0 1 - Labs CBC & Chem 7: 06/29/23 07:42 06/29/23 07:42 Labs: Abnormal Lab Results - Last 24 Hours (Table) 06/27/23 06/27/23 06/27/23 Range/Units 18:10 18:10 20:46 WBC (3.8-10.6) k/uL MCHC (31.0-37.0) g/dL Sodium 150 H (137-145) mmol/L Potassium (3.5-5.1) mmol/L Chloride 116 H (98-107) mmol/L BUN 25 H (7-17) mg/dL Creatinine 0.50 L (0.52-1.04) mg/dL Glucose 146 H (74-99) mg/dL POC Glucose (mg/dL) (70-110) mg/dL Calcium 7.8 L (8.4-10.2) mg/dL Troponin I 0.061 H* 0.058 H* (0.000-0.034) ng/mL 06/27/23 06/28/23 06/28/23 Range/Units 23:14 06:05 06:05 WBC 22.7 H (3.8-10.6) k/uL MCHC 30.0 L (31.0-37.0) g/dL Sodium 152 H 153 H (137-145) mmol/L Potassium 3.3 L (3.5-5.1) mmol/L Chloride 118 H 118 H (98-107) mmol/L BUN 24 H 27 H (7-17) mg/dL Creatinine (0.52-1.04) mg/dL Glucose 103 H 126 H (74-99) mg/dL POC Glucose (mg/dL) (70-110) mg/dL Calcium 8.0 L 8.1 L (8.4-10.2) mg/dL Troponin I (0.000-0.034) ng/mL 06/28/23 Range/Units 11:44 WBC (3.8-10.6) k/uL MCHC (31.0-37.0) g/dL Sodium (137-145) mmol/L Potassium (3.5-5.1) mmol/L Chloride (98-107) mmol/L BUN (7-17) mg/dL Creatinine (0.52-1.04) mg/dL Glucose (74-99) mg/dL POC Glucose (mg/dL) 137 H (70-110) mg/dL Calcium (8.4-10.2) mg/dL Troponin I (0.000-0.034) ng/mL Microbiology - Last 24 Hours (Table) 06/26/23 15:00 CSF Gram Stain - Preliminary Cerebral Spinal Fluid CSF Culture - Preliminary 06/22/23 09:52 Blood Culture - Final Blood Assessment and Plan (1) Fever Current Visit: Yes Status: Acute Code(s): R50.9 - FEVER, UNSPECIFIED SNOMED Code(s): 183084844 (2) UTI (urinary tract infection) Current Visit: Yes Status: Acute Code(s): N39.0 - URINARY TRACT INFECTION, SITE NOT SPECIFIED SNOMED Code(s): 85248743 Plan: 1patient with sepsis in this patient who did have a fever tachycardia elevated white count source more likely UTI, pneumonia less likely but not entirely excluded 2-patient did have a mildly elevated CRP and a procalcitonin level 3-patient did have a fever possible central fever as no evidence of any infection except Klebsiella UTI which should be well covered with the Zosyn CSF HSV DNA by PCR is negative we will discontinue acyclovir also discontinue Diflucan may be causing some of the fever from drug interaction Dictation was produced using [employer] dictation software. please excuse any grammatical, word or spelling errors. Time with Patient: Less than 30
[2023-06-29 12:45] LABS: Glucose,Whole Blood 131 mg/dL (70-110)
[2023-06-29 14:17] LABS: IgG - CSF 7.1 mg/dL (0.0 - 3.4); IgG/Albumin Index (CSF) 0.43 (0.00 - 0.77); Immunoglobulin G 915 mg/dL (700 - 1600)
--- NOTE | 2023-06-29 16:09 | P.PN ---
Subjective Progress Note Date: 06/29/23 Patient is a 38-year-old female with known congestive heart failure, diabetes, and schizophrenia who presented to our emergency department from [place] due to agitation. Initial report from the ER was that she had been agitated and yelling. However review from [place] is that she presented to the nurse with flailing arms and legs unable to speak and just groaning. On arrival to the ER here her vital signs are within normal limits. Laboratory analysis included CBC, coags, CMP, ammonia, urinalysis, and urine drug screen which were remarkable for sodium 134, glucose 233, 1+ protein, 4+ glucose. Urine drug screen was positive for barbiturates and methamphetamines. Salicylates, acetaminophen, and alcohol level were negative. Initially she was kept to be seen by psych. Per charting it appears that her GCS had been up to 15 at some point and she required 1 mg of Ativan at 527 on the morning of 06/10. We were contacted for admission at 1032. Patient was found to have decreased responsiveness at our initial evaluation. Neurology was contacted for concern for subclinical seizure and patient underwent stat EEG which demonstrated background slowing of moderate to severe degree with generalized cerebral dysfunction. Neurology also recommended CTA of the head which showed a left temporal lobe infarct. Patient's phenobarbital level was low. She was found to have a slight osmolar gap and nephrology was consulted. Her osmol gap normalized. She continued to have dysphagia and ultimately underwent PEG tube placement. Echocardiogram was performed and initial 1 showed possible LV thrombus but repeat showed no LV thrombus. Case was discussed with cardiology and NICOLE was not recommended given overall poor prognosis. Patient has been tolerating tube feeds. She has been spiking fevers with an elevated white count that was felt to be secondary to aspiration pneumonia versus urinary tract infection. She was initially started on Rocephin and Zithromax and then br oadened to vancomycin and cefepime on 06/22/2023. She was also noted to have thrush and was started on Diflucan back on 06/14/2023. She was transitioned to Zosyn on 06/25/2023 due to continued fevers. She then had an LP which appeared to be most consistent with CVA and initially was started on acyclovir for possible viral meningitis however viral studies came back negative and this was subsequently discontinued.Despite elimination of sedative psych medications the patient still remained minimally interactive. Patient seen and examined at bedside. She has showing me a thumbs up when needs to. She attempts to interact with the directions board to communicate. Asked nursing to have speech therapy reevaluate. Vital signs reviewed General: Nontoxic, no distress, appears at stated age Cardiovascular: S1S2 reg, no murmur Lungs: clear to auscultation bilateral, no rhonchi, no rales, no accessory muscle use Abdominal: Soft, nontender to palpation, no guarding Ext: No gross muscle atrophy, no edema b/l lower extremities, no contractures Neuro: Following simple commands. She is able to show a thumbs up and hold a piece of paper. Psych: Awake, interactive Assessment/Plan: Suspected neurogenic fevers Severe Thrush Abnormal CSF Acute left temporal parietal CVA Acute metabolic encephalopathy due to above Dysphagia s/p PEG Polysubstance use -ID recs reviewed: Mildly elevated CRP and procalcitonin level. Discontinue acyclovir. Discontinue Diflucan as may be causing fever from drug reaction. Continue to monitor with Zosyn -Neurology recs reviewed: Acyclovir discontinued discussed with ID -Repeat procal stable, no increase or decrease - Off acyclovir -Zosyn 3.375 g every 8 hours day #7, had cefepime prior, broaded due to continued pyrexia -Discontinued diflucan, as almost completed treatment and could be source or neurogenic fevers -Urine cultures did show Klebsiella which is sensitive to ceftriaxone however repeat urinalysis is benign and not consistent with urinary tract infection -Off vanco as MRSA nasal swab negative -Blood cultures negative to date -COVID, RSV, and influenza negative - Repeat CXR stable with right basilar infiltrate - Cardiology recommended no NICOLE and no further interventions given poor prognosis and as it will not affect her quality of life - Event monitor possibly at time of discharge. Systolic congestive heart failure, EF 25-50%, not in exacerbation -Aspirin 81 mg, and atorvastatin 80 mg -Toprol 25 mg daily, Entresto 24/26 mg 1 tablet twice daily -Continue telemetry -PT/OT/speech recommendations Hypernatremia Hyponkalemia -Continue with free water of 150 cc every 4 hours as sodium is improving -Repeat sodium levels in AM -Replace potassium with K-Lyte 40 mill equivalents oral X 1 now Diabetes mellitus, insulin requiring - episode of hypoglycemia yeesterdat -A1c 12.5 -Levemir at to 15 units daily, novolog 2 units QID, SSI QID - Follow BS Schizophrenia - CK unremarkable -Off Invega and latuda, -Depakote 250 mg twice daily - reconsult psych if needed Osmolar gap, resolved Probable Aspiration PNA, treated Klebsiella UTI, treated Imaging: None new Hospital Course Imaging: CTA head and neck without acute thrombosis or stenosis, stroke left temporal pariatal. Echocardiogram: Ejection fraction 15 to 20%, severely increased left ventricular diastolic volume, apical akinesis, cannot rule out LV apical thrombus CT head: Subacute evolving infarct in the left frontal and temporal lobes without mass effect Carotid Doppler: No significant hemodynamic stenosis Repeat echocardiogram 06/10/2023: LVEF 25 to 30% with a anterior apical akinesis and thinning of the wall, no LV thrombus noted repeat CT head 06/24/23 reviewed with no signs of cerebral edema and Left temporal-parietal CVA Repeat chest x-ray: Elevation of the right hemidiaphragm with right basilar opacity and atelectasis with small effusion. Data Review: Labs reviewed from today include CBC and CMP which are remarkable for white blood cell count 19, sodium 149, potassium 3.3, chloride 118, BUN 24, creatinine 0.49, C-reactive protein 19, Pro-Lance 0.11 CSF: No growth in greater than 48 hours. HSV DNA PCR is negative. DVT prophylaxis: Heparin subcu Anticipated discharge date: Pending Clinical Course Anticipated discharge place: This dictation was prepared using [employer] voice recognition software. Though every attempt is made to correct errors during dictation some may still exist. Objective - Vital Signs Vital signs: Vital Signs Temp 98.1 F 06/29/23 11:44 Pulse 100 06/29/23 11:44 Resp 17 06/29/23 11:44 BP 121/81 06/29/23 11:44 Pulse Ox 95 06/29/23 11:44 FiO2 Intake & Output 06/28/23 06/29/23 06/29/23 18:59 06:59 18:59 Other: Voiding Method External Catheter External Catheter External Catheter # Voids 0 # Bowel Movements 1 - Labs CBC & Chem 7: 06/29/23 07:42 06/29/23 07:42 Labs: Abnormal Lab Results - Last 24 Hours (Table) 06/26/23 06/28/23 06/28/23 Range/Units 17:26 15:53 18:15 WBC (3.8-10.6) k/uL MCHC (31.0-37.0) g/dL Neutrophils # (1.3-7.7) k/uL Sodium 152 H (137-145) mmol/L Potassium 3.4 L (3.5-5.1) mmol/L Chloride 119 H (98-107) mmol/L BUN 25 H (7-17) mg/dL Creatinine (0.52-1.04) mg/dL Glucose 120 H (74-99) mg/dL POC Glucose (mg/dL) 115 H (70-110) mg/dL Calcium 8.1 L (8.4-10.2) mg/dL AST (14-36) U/L C-Reactive Protein (<1.0) mg/dL Total Protein (6.3-8.2) g/dL Albumin (3.5-5.0) g/dL Procalcitonin (0.02-0.09) ng/mL CSF IgG (MS) 7.1 H (0.0 - 3.4) mg/dL Serum Albumin 1,700 L (3500 - 5200) mg/dL 06/29/23 06/29/23 06/29/23 Range/Units 00:07 00:31 07:42 WBC (3.8-10.6) k/uL MCHC (31.0-37.0) g/dL Neutrophils # (1.3-7.7) k/uL Sodium (137-145) mmol/L Potassium (3.5-5.1) mmol/L Chloride (98-107) mmol/L BUN (7-17) mg/dL Creatinine (0.52-1.04) mg/dL Glucose (74-99) mg/dL POC Glucose (mg/dL) 65 L 120 H (70-110) mg/dL Calcium (8.4-10.2) mg/dL AST (14-36) U/L C-Reactive Protein (<1.0) mg/dL Total Protein (6.3-8.2) g/dL Albumin (3.5-5.0) g/dL Procalcitonin 0.11 H (0.02-0.09) ng/mL CSF IgG (MS) (0.0 - 3.4) mg/dL Serum Albumin (3500 - 5200) mg/dL 06/29/23 06/29/23 06/29/23 Range/Units 07:42 07:42 12:44 WBC 19.0 H (3.8-10.6) k/uL MCHC 29.3 L (31.0-37.0) g/dL Neutrophils # 15.5 H (1.3-7.7) k/uL Sodium 149 H (137-145) mmol/L Potassium 3.3 L (3.5-5.1) mmol/L Chloride 118 H (98-107) mmol/L BUN 24 H (7-17) mg/dL Creatinine 0.49 L (0.52-1.04) mg/dL Glucose 121 H (74-99) mg/dL POC Glucose (mg/dL) 131 H (70-110) mg/dL Calcium 7.8 L (8.4-10.2) mg/dL AST 47 H (14-36) U/L C-Reactive Protein 19.0 H (<1.0) mg/dL Total Protein 5.1 L (6.3-8.2) g/dL Albumin 2.2 L (3.5-5.0) g/dL Procalcitonin (0.02-0.09) ng/mL CSF IgG (MS) (0.0 - 3.4) mg/dL Serum Albumin (3500 - 5200) mg/dL Microbiology - Last 24 Hours (Table) 06/26/23 15:00 CSF Gram Stain - Preliminary Cerebral Spinal Fluid CSF Culture - Preliminary 06/23/23 12:55 Blood Culture - Final Blood
[2023-06-29 17:54] LABS: Glucose,Whole Blood 114 mg/dL (70-110)
[2023-06-29] MEDS: SODIUM CHLORIDE 0.9% 500 ML 500 ML IV ONE (20:57)
--- NOTE | 2023-06-29 22:58 | P.PN ---
Subjective Progress Note Date: 06/29/23 Principal diagnosis: Reason for follow-up is fever Patient is a 38-year-old female past medical history significant for asthma diabetes mellitus, congestive heart failure, schizophrenia, did have bilateral below the knee amputation presenting to the hospital from the [place] secondary to agitation and has been in the hospital for almost 2 weeks before initial evaluation for a fever that started on 06/19/2023. On today's evaluation that is 06/29/2023, patient did have improvement in her fever pattern and is afebrile this morning patient remains to be lethargic and cannot provide any history mildly tachycardic but not hypotensive or hypoxic no vomiting or diarrhea has been reported. Patient white count is down to 19,000, creatinine 0.49 Objective - Vital Signs Vital signs: Vital Signs Temp 98.1 F 06/29/23 11:44 Pulse 100 06/29/23 11:44 Resp 17 06/29/23 11:44 BP 121/81 06/29/23 11:44 Pulse Ox 95 06/29/23 11:44 FiO2 Intake & Output 06/28/23 06/29/23 06/29/23 18:59 06:59 18:59 Other: Voiding Method External Catheter External Catheter # Voids 0 # Bowel Movements 0 - Exam GENERAL DESCRIPTION: Middle-aged female up in bed in no distress RESPIRATORY SYSTEM: Unlabored breathing , decreased breath sounds at bases HEART: S1 S2 regular rate and rhythm , ABDOMEN: Soft , no tenderness EXTREMITIES: Bilateral BKA stumps are cold and mottled but no open wound or drainage - Labs CBC & Chem 7: 06/29/23 07:42 06/29/23 07:42 Labs: Abnormal Lab Results - Last 24 Hours (Table) 06/28/23 06/28/23 06/29/23 Range/Units 15:53 18:15 00:07 WBC (3.8-10.6) k/uL MCHC (31.0-37.0) g/dL Neutrophils # (1.3-7.7) k/uL Sodium 152 H (137-145) mmol/L Potassium 3.4 L (3.5-5.1) mmol/L Chloride 119 H (98-107) mmol/L BUN 25 H (7-17) mg/dL Creatinine (0.52-1.04) mg/dL Glucose 120 H (74-99) mg/dL POC Glucose (mg/dL) 115 H 65 L (70-110) mg/dL Calcium 8.1 L (8.4-10.2) mg/dL AST (14-36) U/L C-Reactive Protein (<1.0) mg/dL Total Protein (6.3-8.2) g/dL Albumin (3.5-5.0) g/dL Procalcitonin (0.02-0.09) ng/mL 06/29/23 06/29/23 06/29/23 Range/Units 00:31 07:42 07:42 WBC (3.8-10.6) k/uL MCHC (31.0-37.0) g/dL Neutrophils # (1.3-7.7) k/uL Sodium 149 H (137-145) mmol/L Potassium 3.3 L (3.5-5.1) mmol/L Chloride 118 H (98-107) mmol/L BUN 24 H (7-17) mg/dL Creatinine 0.49 L (0.52-1.04) mg/dL Glucose 121 H (74-99) mg/dL POC Glucose (mg/dL) 120 H (70-110) mg/dL Calcium 7.8 L (8.4-10.2) mg/dL AST 47 H (14-36) U/L C-Reactive Protein 19.0 H (<1.0) mg/dL Total Protein 5.1 L (6.3-8.2) g/dL Albumin 2.2 L (3.5-5.0) g/dL Procalcitonin 0.11 H (0.02-0.09) ng/mL 06/29/23 Range/Units 07:42 WBC 19.0 H (3.8-10.6) k/uL MCHC 29.3 L (31.0-37.0) g/dL Neutrophils # 15.5 H (1.3-7.7) k/uL Sodium (137-145) mmol/L Potassium (3.5-5.1) mmol/L Chloride (98-107) mmol/L BUN (7-17) mg/dL Creatinine (0.52-1.04) mg/dL Glucose (74-99) mg/dL POC Glucose (mg/dL) (70-110) mg/dL Calcium (8.4-10.2) mg/dL AST (14-36) U/L C-Reactive Protein (<1.0) mg/dL Total Protein (6.3-8.2) g/dL Albumin (3.5-5.0) g/dL Procalcitonin (0.02-0.09) ng/mL Microbiology - Last 24 Hours (Table) 06/26/23 15:00 CSF Gram Stain - Preliminary Cerebral Spinal Fluid CSF Culture - Preliminary 06/23/23 12:55 Blood Culture - Final Blood Assessment and Plan (1) Fever Current Visit: Yes Status: Acute Code(s): R50.9 - FEVER, UNSPECIFIED SNOMED Code(s): 599748040 (2) UTI (urinary tract infection) Current Visit: Yes Status: Acute Code(s): N39.0 - URINARY TRACT INFECTION, SITE NOT SPECIFIED SNOMED Code(s): 29195222 Plan: 1patient with sepsis in this patient who did have a fever tachycardia elevated white count source more likely UTI, pneumonia less likely but not entirely excluded 2-patient did have a mildly elevated CRP and a procalcitonin level 3-patient did have improvement in her fever pattern and white count is trending down we will continue with Zosyn at this point and monitor clinical course closely Dictation was produced using [employer] dictation software. please excuse any grammatical, word or spelling errors. Time with Patient: Less than 30
[2023-06-30 00:10] LABS: Glucose,Whole Blood 78 mg/dL (70-110)
[2023-06-30 06:26] LABS: Glucose,Whole Blood 103 mg/dL (70-110)
[2023-06-30 11:08] LABS: HCT 41.6 % (34.0-46.0); HGB 12.4 gm/dL (11.4-16.0); Hypochromasia Moderate; MCH 25.8 pg (25.0-35.0); MCHC 29.8 g/dL (31.0-37.0); MCV 86.4 fL (80.0-100.0); Mean Platelet Volume 8.2; Platelet Count 385 k/uL (150-450); RBC 4.81 m/uL (3.80-5.40); RDW 15.2 % (11.5-15.5); WBC 18.1 k/uL (3.8-10.6)
[2023-06-30 11:28] LABS: African American GFR (CKD) >90 (>60 ml/min/1.73 sqM); Anion Gap 4 mmol/L; Blood Urea Nitrogen 22 mg/dL (7-17); Calcium 7.9 mg/dL (8.4-10.2); Carbon Dioxide 26 mmol/L (22-30); Chloride 118 mmol/L (98-107); Glucose 137 mg/dL (74-99); Non-African American GFR(CKD) >90 (>60 ml/min/1.73 sqM); Potassium 3.9 mmol/L (3.5-5.1); Sodium 148 mmol/L (137-145)
[2023-06-30 11:32] LABS: Glucose,Whole Blood 121 mg/dL (70-110)
[2023-06-30 11:49] VITALS: TEMP 98.8
[2023-06-30 12:30] LABS: VDRL, Qualitative CSF Nonreactive (Nonreactive)
--- NOTE | 2023-06-30 13:45 | P.DS ---
Providers Date of admission: 06/11/23 10:36 Expected date of discharge: 06/30/23 Attending physician: Jenifer Stein DO Consults: 06/11/23 14:01 Consult Physician Stat Consulting Provider: Teresa Daly Consult Reason/Comments: seizures Do you want consulting provider notified?: Yes 06/12/23 07:40 Consult Physician Routine Consulting Provider: Claudia Ortiz Consult Reason/Comments: + osmolar gap, altered mentation Do you want consulting provider notified?: Yes 06/14/23 11:32 Consult Physician Routine Consulting Provider: Ricardo Cedeno Consult Reason/Comments: Abnormal echo, low EF, embolic CVA, ? Need for NICOLE, anticoagulation Do you want consulting provider notified?: Yes 06/17/23 09:55 Consult Physician Routine Consulting Provider: Vincenzo Lundberg Consult Reason/Comments: eval for IPR Do you want consulting provider notified?: Yes 06/23/23 10:20 Consult Physician Routine Consulting Provider: Kailey Phillips Consult Reason/Comments: fevers Do you want consulting provider notified?: Yes 06/24/23 10:18 Consult Physician Routine Consulting Provider: Shyam Coyne Consult Reason/Comments: unable to take latuda, ?NMS Do you want consulting provider notified?: Yes 06/28/23 17:47 Consult Physician Routine Consulting Provider: Claudia Ortiz Consult Reason/Comments: hypernatremia Do you want consulting provider notified?: Yes Primary care physician: Stated None Hospital Course: Discharge Diagnosis: Suspected neurogenic fevers, resolved Severe Thrush, resolved Acute left temporal parietal CVA Acute metabolic encephalopathy due to above Dysphagia s/p PEG Polysubstance use Systolic congestive heart failure, EF 25-50%, not in exacerbation Hypernatremia Hyponkalemia Diabetes mellitus, insulin requiring Schizophrenia Osmolar gap, resolved Probable Aspiration PNA, treated Klebsiella UTI, treated Hospital Course: Patient is a 38-year-old female with known congestive heart failure, diabetes, and schizophrenia who presented to our emergency department from [facility] due to agitation. Initial report from the ER was that she had been agitated and yelling. However review from [facility] is that she presented to the nurse with flailing arms and legs unable to speak and just groaning. On arrival to the ER here her vital signs are within normal limits. Laboratory analysis included CBC, coags, CMP, ammonia, urinalysis, and urine drug screen which were remarkable for sodium 134, glucose 233, 1+ protein, 4+ glucose. Urine drug screen was positive for barbiturates and methamphetamines. Salicylates, acetaminophen, and alcohol level were negative. Initially she was kept to be seen by psych. Per charting it appears that her GCS had been up to 15 at some point and she required 1 mg of Ativan at 527 on the morning of 06/10. We were contacted for admission at 1032. Patient was found to have decreased responsiveness at our initial evaluation. Neurology was contacted for concern for subclinical seizure and patient underwent stat EEG which demonstrated background slowing of moderate to severe degree with generalized cerebral dysfunction. Neurology also recommended CTA of the head which showed a left temporal lobe infarct. Patient's phenobarbital level was low. She was found to have a slight osmolar gap and nephrology was consulted. Her osmol gap normalized. She continued to have dysphagia and ultimately underwent PEG tube placement. Echocardiogram was performed and initial 1 showed possible LV thrombus but repeat showed no LV thrombus. Case was discussed with cardiology and NICOLE was not recommended given overall poor prognosis. Patient has been tolerating tube feeds. She has been spiking fevers with an elevated white count that was felt to be secondary to aspiration pneumonia versus urinary tract infection. She was initially started on Rocephin and Zithromax and then broadened to vancomycin and cefepime on 06/22/2023. She was also noted to have thrush and was started on Diflucan back on 06/14/2023. She was transitioned to Zosyn on 06/25/2023 due to continued fevers. She then had an LP which appeared to be most consistent with CVA and initially was started on acyclovir for possible viral meningitis however viral studies came back negative and this was subsequently discontinued. Initially the patient was minimally interactive even with psychiatric medications held, however she became increasingly interactive during her last few days before discharge including trying to use her TV remote and responding with thumbs up signs. Hospital Course Imaging: CTA head and neck without acute thrombosis or stenosis, stroke left temporal pariatal. Echocardiogram: Ejection fraction 15 to 20%, severely increased left ventricular diastolic volume, apical akinesis, cannot rule out LV apical thrombus CT head: Subacute evolving infarct in the left frontal and temporal lobes without mass effect Carotid Doppler: No significant hemodynamic stenosis Repeat echocardiogram 06/10/2023: LVEF 25 to 30% with a anterior apical akinesis and thinning of the wall, no LV thrombus noted repeat CT head 06/24/23 reviewed with no signs of cerebral edema and Left temporal-parietal CVA Repeat chest x-ray: Elevation of the right hemidiaphragm with right basilar opacity and atelectasis with small effusion. Follow-up: [facility] She should follow-up with neurology near [place] for further monitoring. She should have repeat CBC and basic metabolic profile in 3 days. She should have blood sugars continuously checked every 6 hours. Plavix for 21 days. Ideally she should have a 30-day event monitor completed, however this has been deferred at this time as she is going to the [place] area and will not be able to follow-up with cardiology here for results. Patient seen and examined at bedside. She shows me a thumbs up signs and frowns when I ask her to move. Vital signs reviewed and stable. General: Nontoxic, no distress, appears older than stated age Cardiovascular: S1S2 reg, no murmur Lungs: clear to auscultation bilateral, no rhonchi, no rales, no accessory muscle use Abdominal: Soft, nontender to palpation, no guarding Ext: + gross muscle atrophy, no edema b/l lower extremities, + BKA b/l, no contractures Neuro: Following simple commands. She is able to show a thumbs up and hold a piece of paper. Psych: Awake, interactive A total of 55 minutes of time were spent preparing this complex discharge summary. Patient was discharged on 06/30/23. This dictation was prepared using [employer] voice recognition software. Though every attempt is made to correct errors during dictation some may still exist. Plan - Discharge Summary Discharge Rx Participant: No New Discharge Prescriptions: New Valproic Acid Oral Soln [Depakene Syrup] 125 mg NG-TUBE Q6HR ml Insulin Detemir (Levemir) [Levemir] 15 unit SQ DAILY@0700 each INSULIN ASPART (NovoLOG) [NovoLOG (formulary)] 2 unit SQ QID each Aspirin 81 mg NG-TUBE DAILY tab Amoxic-Pot Clav 875-125Mg [Augmentin 875-125] 1 tab PO Q12HR 7 Days #14 tab Heparin Sodium,Porcine (1 ml) [Heparin Sodium] 5,000 unit SQ Q8HR each Metoprolol Tartrate [Lopressor] 12.5 mg NG-TUBE BID tab Clopidogrel [Plavix] 75 mg PO DAILY #21 tablet Continue Omeprazole [PriLOSEC] 20 mg PO DAILY Sacubitril/Valsartan [Entresto 24 mg-26 mg Tablet] 1 tab PO BID Albuterol Sulfate [Albuterol Sulfate Hfa] 1 - 2 puff PO RT-QID PRN PRN Reason: Shortness Of Breath Atorvastatin [Lipitor] 80 mg PO HS Gabapentin [Neurontin] 100 mg PO TID #21 cap Discontinued Insulin Regular, Human [NovoLIN R] See Protocol SQ AC-TID Paliperidone [Paliperidone ER] 3 mg PO DAILY OXcarbazepine [Trileptal] 300 mg PO BID Insulin Detemir (Levemir) [Levemir] 18 unit SQ DAILY Doxycycline [Vibramycin] 100 mg PO BID DULoxetine HCL [Cymbalta] 60 mg PO HS PHENobarbitaL [PHENobarbital] See Taper PO DIRECTED Metoprolol Succinate (ER) [Toprol Xl] 25 mg PO DAILY Lurasidone [Latuda] 160 mg PO DAILY Discharge Medication List Albuterol Sulfate [Albuterol Sulfate Hfa] 1 - 2 puff PO RT-QID PRN 06/11/23 [History] Atorvastatin [Lipitor] 80 mg PO HS 06/11/23 [History] Omeprazole [PriLOSEC] 20 mg PO DAILY 06/11/23 [History] Sacubitril/Valsartan [Entresto 24 mg-26 mg Tablet] 1 tab PO BID 06/11/23 [History] Amoxic-Pot Clav 875-125Mg [Augmentin 875-125] 1 tab PO Q12HR 7 Days #14 tab 06/30/23 [Rx] Aspirin 81 mg NG-TUBE DAILY tab 06/30/23 [Rx] Clopidogrel [Plavix] 75 mg PO DAILY #21 tablet 06/30/23 [Rx] Gabapentin [Neurontin] 100 mg PO TID #21 cap 06/30/23 [Rx] Heparin Sodium,Porcine (1 ml) [Heparin Sodium] 5,000 unit SQ Q8HR each 06/30/23 [Rx] INSULIN ASPART (NovoLOG) [NovoLOG (formulary)] 2 unit SQ QID each 06/30/23 [Rx] Insulin Detemir (Levemir) [Levemir] 15 unit SQ DAILY@0700 each 06/30/23 [Rx] Metoprolol Tartrate [Lopressor] 12.5 mg NG-TUBE BID tab 06/30/23 [Rx] Valproic Acid Oral Soln [Depakene Syrup] 125 mg NG-TUBE Q6HR ml 06/30/23 [Rx] Follow up Appointment(s)/Referral(s): None,Stated [Primary Care Provider] - 1-2 days Patient Instructions/Handouts: Seizure/Epilepsy Discharge Instructions & Follow-Up Activity/Diet/Wound Care/Special Instructions: Activity: Fall precautions Diet: Jevity 1.5 goal rate is 32 mL/h free water tube feed is 150 cc every 4 hours Special Instructions: Repeat CBC and BMP in 48 hours diagnosis of anemia and hypernatremia, persistent leukocytosis Check blood sugars every 6 hours Keep head of the bed above 30 degrees Ideally Patient should have a 30 days event monitor which will need to be coordinated with a weighbridge operator closer to her rehab destination, no episode of A fib here an has been on tele for 19 days. Should establish with a neurologist close to her rehab destination Discharge Disposition: TRANSFER TO SNF/ECF
--- NOTE | 2023-06-30 14:16 | P.PN ---
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 On today's evaluation that is 06/30/2023,the patient has been afebrile for more than 24 hours now patient is not tachycardic hypotensive or hypoxic patient remains to be lethargic and cannot provide any history remains to be n.p.o. no vomiting or diarrhea reported. Patient white count is down to 18.1 creatinine 0.41 blood culture has been negative CSF culture negative Objective - Vital Signs Vital signs: Vital Signs Temp 98.8 F 06/30/23 11:18 Pulse 97 06/30/23 11:18 Resp 20 06/30/23 11:18 BP 109/79 06/30/23 11:18 Pulse Ox 94 L 06/30/23 11:18 FiO2 Intake & Output 06/29/23 06/30/23 06/30/23 18:59 06:59 18:59 Output Total 300 Balance -300 Weight 48.308 kg Output: Urine 300 Other: Voiding Method External Catheter External Catheter External Catheter # Voids 0 # Bowel Movements 1 - Exam GENERAL DESCRIPTION: Middle-aged female up in bed in no distress RESPIRATORY SYSTEM: Unlabored breathing , decreased breath sounds at bases HEART: S1 S2 regular rate and rhythm , ABDOMEN: Soft , no tenderness EXTREMITIES: Bilateral BKA stumps are cold and mottled but no open wound or drainage - Labs CBC & Chem 7: 06/30/23 10:36 06/30/23 10:36 Labs: Abnormal Lab Results - Last 24 Hours (Table) 06/26/23 06/29/23 06/30/23 Range/Units 17:26 17:49 10:36 WBC 18.1 H (3.8-10.6) k/uL MCHC 29.8 L (31.0-37.0) g/dL Sodium (137-145) mmol/L Chloride (98-107) mmol/L BUN (7-17) mg/dL Creatinine (0.52-1.04) mg/dL Glucose (74-99) mg/dL POC Glucose (mg/dL) 114 H (70-110) mg/dL Calcium (8.4-10.2) mg/dL CSF IgG (MS) 7.1 H (0.0 - 3.4) mg/dL Serum Albumin 1,700 L (3500 - 5200) mg/dL 06/30/23 06/30/23 Range/Units 10:36 11:31 WBC (3.8-10.6) k/uL MCHC (31.0-37.0) g/dL Sodium 148 H (137-145) mmol/L Chloride 118 H (98-107) mmol/L BUN 22 H (7-17) mg/dL Creatinine 0.41 L (0.52-1.04) mg/dL Glucose 137 H (74-99) mg/dL POC Glucose (mg/dL) 121 H (70-110) mg/dL Calcium 7.9 L (8.4-10.2) mg/dL CSF IgG (MS) (0.0 - 3.4) mg/dL Serum Albumin (3500 - 5200) mg/dL Microbiology - Last 24 Hours (Table) 06/26/23 15:00 CSF Gram Stain - Preliminary Cerebral Spinal Fluid CSF Culture - Preliminary Assessment and Plan (1) Fever Current Visit: Yes Status: Acute Code(s): R50.9 - FEVER, UNSPECIFIED SNOMED Code(s): 858281836 (2) UTI (urinary tract infection) Current Visit: Yes Status: Acute Code(s): N39.0 - URINARY TRACT INFECTION, SITE NOT SPECIFIED SNOMED Code(s): 71267848 Plan: 1patient with sepsis in this patient who did have a fever tachycardia elevated white count source more likely UTI, pneumonia less likely but not entirely excluded 2-patient did have resolution of her fever with no fever for last 24 hours white count is trending down with only culture positive for Klebsiella blood cultures have been negative will consider short course of oral Augmentin on discharge this was discussed with admitting team working on discharge Dictation was produced using [employer] software. please excuse any grammatical, word or spelling errors. Time with Patient: Less than 30
[2023-06-30 16:31] VITALS: BP 110/76; PULSE 98; RESP 19
[2023-06-30 17:55] LABS: Glucose,Whole Blood 113 mg/dL (70-110)
== END 2023-06-30 19:48 | DRG 64 ==
LOC: EC 20:22 → 5NMEDONC 06-11 10:36 → EEVIPCON 06-11 10:36 → 5NMEDONC 06-11 11:49 → 3SCARD 06-12 03:41
PROVIDERS: ADMIT Internal Medicine; ATTEND Internal Medicine
PROC: 0DH67UZ Insertion of Feeding Device into Stomach, Via Natural or Artificial Opening (ICD-10-PCS; 2023-06-12)
PROC: 0DH63UZ Insertion of Feeding Device into Stomach, Percutaneous Approach (ICD-10-PCS; principal; 2023-06-18 09:55)
PROC: 3E0G76Z Introduction of Nutritional Substance into Upper GI, Via Natural or Artificial Opening (ICD-10-PCS; principal; 2023-06-18 09:55)
DX: I63.9 Cerebral infarction, unspecified (principal); A41.9 Sepsis, unspecified organism; J69.0 Pneumonitis due to inhalation of food and vomit; E43 Unspecified severe protein-calorie malnutrition; G93.41 Metabolic encephalopathy; R65.20 Severe sepsis without septic shock; I42.8 Other cardiomyopathies; I50.22 Chronic systolic (congestive) heart failure; N39.0 Urinary tract infection, site not specified; B37.0 Candidal stomatitis; E87.0 Hyperosmolality and hypernatremia; E87.1 Hypo-osmolality and hyponatremia; G81.91 Hemiplegia, unspecified affecting right dominant side; G72.81 Critical illness myopathy; J98.11 Atelectasis; I11.0 Hypertensive heart disease with heart failure; F06.1 Catatonic disorder due to known physiological condition; E10.649 Type 1 diabetes mellitus with hypoglycemia without coma; R47.01 Aphasia; F11.11 Opioid abuse, in remission; F10.11 Alcohol abuse, in remission; F15.11 Other stimulant abuse, in remission; F12.11 Cannabis abuse, in remission; R13.10 Dysphagia, unspecified; F32.A Depression, unspecified; G93.89 Other specified disorders of brain; Z11.52 Encounter for screening for COVID-19; I25.5 Ischemic cardiomyopathy; I49.3 Ventricular premature depolarization; B96.1 Klebsiella pneumoniae [K. pneumoniae] as the cause of diseases classified elsewhere; Z68.26 Body mass index [BMI] 26.0-26.9, adult; E83.42 Hypomagnesemia; Z79.4 Long term (current) use of insulin; E87.6 Hypokalemia; F20.9 Schizophrenia, unspecified; F17.200 Nicotine dependence, unspecified, uncomplicated; F41.9 Anxiety disorder, unspecified; R45.1 Restlessness and agitation; G40.909 Epilepsy, unspecified, not intractable, without status epilepticus; T50.901A Poisoning by unspecified drugs, medicaments and biological substances, accidental (unintentional), initial encounter; Z78.1 Physical restraint status; Z79.02 Long term (current) use of antithrombotics/antiplatelets; Z79.82 Long term (current) use of aspirin; Z79.899 Other long term (current) drug therapy; Z83.3 Family history of diabetes mellitus; Z89.511 Acquired absence of right leg below knee; Z89.512 Acquired absence of left leg below knee; Z28.310 Unvaccinated for COVID-19; Z74.01 Bed confinement status
CPT/HCPCS: 36415; 43246; 70450; 70496; 70498; 71045; 74018; 80048; 80053; 80061; 80143; 80179; 80183; 80184; 80202; 80306; 80320; 81001; 82040; 82042; 82140; 82550; 82784; 82803; 82945; 83036; 83735; 83916; 83930; 83935; 84100; 84145; 84157; 84484; 84600; 84703; 85025; 85027; 85610; 85730; 86140; 86592; 87040; 87070; 87077; 87086; 87186; 87205; 87324; 87636; 89050; 93005; 93306; 93308; 93880; 95816; 96361; 96374; 99285